=== PATIENT | male | born 1980 | race African-American/Black ===

== ENCOUNTER 2016-04-03 00:13 | Emergency (ER) | payer MEDICAID ==
[~2016-04-03] VITALS: Ht 175.3 cm; Wt 127.0 kg
[~2016-04-03 00:13] MED LIST: ?BP MED; ACHD5005 PO; AGM875T PO; CYCL10TA45 PO; GLMP4T PO; HYDR-3816 PO; HYDR25TA4; INSU100C SQ; INSU100I29 SQ; INSU100V5 SQ; LISI-556; LISI10TA2 PO; LISINOPRIL; LOSA50TA36 PO; METF500T4 PO; METO-274 PO; METO100T5 PO; METO25TA6; MTF500T PO; NAPR-243 PO; PAMI30VI8 SQ; SULF1TAB35 PO; [UNRECOGNIZED DRUG - REMARK]
[2016-04-03] MEDS ORDERED: NS IV 1000 ML 1,000 ML ONE (01:12)
[2016-04-03] MEDS ORDERED: METO50TA2 PO (01:13)
[2016-04-03] MEDS ORDERED: LOSA1TAB70 PO (01:13)
[2016-04-03] MEDS ORDERED: NS IV 1000 ML 1,000 ML IV ONE (01:18)
[2016-04-03 01:33] LABS: BILIRUBIN,URINE NEGATIVE (NEGATIVE); KETONES,URINE NEGATIVE (NEGATIVE); LEUKOCYTE ESTERASE ,URINE 3+ (NEGATIVE); NITRITE,URINE NEGATIVE (NEGATIVE); PH,URINE 5 (5-9); PROTEIN,URINE 1+ (NEGATIVE); UROBILINOGEN,URINE NORMAL (NORMAL)
[2016-04-03 01:36] LABS: BASOPHILS % (AUTO) 0 % (0-10); EOSINOPHILS # (AUTO) 0.1 10^3/uL (0.0-0.3); EOSINOPHILS % (AUTO) 1 % (0-10); LYMPHOCYTES # (AUTO) 5.2 X 10^3 (1.0-4.0); LYMPHOCYTES % (AUTO) 46 % (12-44); MEAN CORPUSCULAR HEMOGLOBIN 32 PG (25-34); MEAN CORPUSCULAR HGB CONC 35 G/DL (32-36); MEAN CORPUSCULAR VOLUME 90 FL (80-99); MEAN PLATELET VOLUME 11.5 FL (7.4-10.4); MONOCYTES # (AUTO) 0.8 X 10^3 (0.0-1.0); MONOCYTES % (AUTO) 7 % (0-12); NEUTROPHILS # (AUTO) 5.1 X 10^3 (1.8-7.8); NEUTROPHILS % (AUTO) 46 % (42-75); PLATELET COUNT 311 10^3/uL (130-400); RED BLOOD COUNT 5.12 10^6/uL (4.35-5.85); RED CELL DISTRIBUTION WIDTH 13.7 % (10.0-14.5); WHITE BLOOD COUNT 11.2 10^3/uL (4.3-11.0)
[2016-04-03 01:44] LABS: SQUAMOUS EPITHELIAL CELL,UR 0-2 /HPF; WBC,URINE 25-50 /HPF
[2016-04-03 01:50] LABS: ALANINE AMINOTRANSFERASE 24 U/L (0-55); ALBUMIN 4.2 G/DL (3.2-4.5); AMYLASE 49 U/L (25-125); ANION GAP 14 MMOL/L (5-14); ASPARTATE AMINO TRANSFERASE 25 U/L (5-34); BILIRUBIN,TOTAL 0.2 MG/DL (0.1-1.0); BLOOD UREA NITROGEN 20 MG/DL (7-18); BUN/CREATININE RATIO 16; CALCIUM 9.6 MG/DL (8.5-10.1); CARBON DIOXIDE 19 MMOL/L (21-32); CHLORIDE 104 MMOL/L (98-107); CREATININE SERUM 1.27 MG/DL (0.60-1.30); GFR ESTIMATED > 60; GLUCOSE 226 MG/DL (70-105); MAGNESIUM 1.9 MG/DL (1.8-2.4); POTASSIUM 4.1 MMOL/L (3.6-5.0); SODIUM 137 MMOL/L (135-145); TOTAL PROTEIN 7.3 G/DL (6.4-8.2)
[2016-04-03] MEDS ORDERED: cefTRIAXone INJECTION 1,000 MG in NORMAL SALINE (BAXTER MINI) 50 ML IV ONE (02:15)
--- NOTE | 2016-04-03 02:16 | ED General ---
General Chief Complaint: Abdominal/GI Problems Stated Complaint: ABD PAIN,DIABETES,FELT LIKE PASSING OUT Nursing Triage Note: Amb to ED, reports some feeling of like going to pass out but no syncope. Has not seen [facility] since Jan. Currently has nothing to test blood sugar, oliguria, LLQ abd pain/loose stools worsening after meals and nausea. Pt is out of Pravastatin Nursing Sepsis Screen: No Definite Risk Source of Information: Patient Exam Limitations: No Limitations History of Present Illness Time Seen by Provider: 01:55 Initial Comments Here with report of weakness, increased urination, loose stools and overall not feeling well. He has had this going on for a week. Started with a not feeling well and then noted the increased urination. Also notes that his blood sugars have been a little higher. Does have some abdominal pain in the low abdomen. This is associated with eating and then the diarrhea afterwards. Denies nausea or vomiting. Timing/Duration: 1 Week, Getting Worse Severity: Moderate Associated Systoms: No Chest Pain, No Cough, No Fever/Chills, Loss of AppetiteNo Nausea/Vomiting, No Shortness of Air, Weakness Allergies and Home Medications Allergies Coded Allergies: No Known Drug Allergies (Unverified , 12/06/15) Home Medications Insulin Detemir 100 Unit/1 Ml Insuln.pen 30 UNIT SQ DAILY (Reported) Insulin Lispro 100 Unit/1 Ml Cartridge 10 UNIT SQ TIDAC (Reported) Losartan/Hydrochlorothiazide 1 Each Tablet 1 EACH PO DAILY (Reported) Metoprolol Tartrate 50 Mg Tablet 50 MG PO BID (Reported) Constitutional: see HPINo chills, No fever EENTM: no symptoms reported Respiratory: no symptoms reported Cardiovascular: no symptoms reported Gastrointestinal: see HPINo constipation, diarrhea Genitourinary: see HPI other (increased urination) Musculoskeletal: no symptoms reported Skin: no symptoms reported All Other Systems Reviewed Negative Unless Noted: Yes Past Owobnbt-Tjcovt-Psilpf Hx Patient Social History Alcohol Use: Denies Use Recreational Drug Use: Yes (THC, used 2 days ago) Smoking Status: Current Everyday Smoker Type Used: Cigarettes Recent Foreign Travel: No Contact w/Someone Who Travel: No Recent Infectious Disease Expo: No Recent Hopitalizations: No Physical Abuse Screen: No Sexual Abuse: No Seasonal Allergies Seasonal Allergies: Yes Surgeries HX Surgeries: Yes (REPAIR OF TORN RETINA, RIGHT SHOULDER SURGERY) Surgeries: Eye Surgery Respiratory Hx Respiratory Disorders: No (USED CPAP IN PAST) Respiratory Disorders: Sleep Apnea Cardiovascular Hx Cardiac Disorders: Yes Cardiac Disorders: High Cholesterol, Hypertension Neurological Hx Neurological Disorders: No Neurological Disorders: Headaches /Migraines Genitourinary Hx Genitourinary Disorders: No Gastrointestinal Hx Gastrointestinal Disorders: Yes Gastrointestinal Disorders: Pancreatitis Musculoskeletal Hx Musculoskeletal Disorders: No Endocrine Hx Endocrine Disorders: Yes Endocrine Disorders: Diabetes, Insulin dep HEENT HX ENT Disorders: Yes (TORN RETINA REPAIR. WEARS GLASSES) Cancer Hx Cancer: No Psychosocial Hx Psychiatric Problems: Yes Behavioral Health Disorders: Anxiety Integumentary HX Skin/Integumentary Disorder: No Blood Transfusions Hx Blood Disorders: Yes (SICKLE CELL TRAIT) Reviewed Nursing Assessment Reviewed/Agree w Nursing PMH: Yes Family Medical History Significant Family History: No Pertinent Family Hx, Diabetes Physical Exam Vital Signs Vital Sign - Last 12Hours 04/03/16 00:35 Temp 98.8 Pulse 98 Resp 20 B/P 132/93 Pulse Ox 97 O2 Delivery Room Air Capillary Refill : Less Than 3 Seconds General Appearance: No Apparent Distress WD/WN HEENT: PERRL/EOMI Pharynx Normal Neck: Non Tender Supple Respiratory: Lungs Clear Normal Breath Sounds Cardiovascular: Regular Rate, Rhythm No Murmur Gastrointestinal: Non Tender Soft Back: Normal Inspection No CVA Tenderness No Vertebral Tenderness Extremity: Non Tender No Calf Tenderness Neurologic/Psychiatric: Alert Oriented x3 Skin: Normal Color Warm/Dry Progress/Results/Core Measures Results/Orders Lab Results Laboratory Tests Test 04/03/16 00:50 04/03/16 00:55 04/03/16 01:24 Range/Units Glucometer 208 H 70-110 MG/DL Alanine Aminotransferase (ALT/SGPT) 24 0-55 U/L Albumin 4.2 3.2-4.5 G/DL Alkaline Phosphatase 58 40-136 U/L Amylase Level 49 25-125 U/L Anion Gap 14 5-14 MMOL/L Aspartate Amino Transf (AST/SGOT) 25 5-34 U/L BUN/Creatinine Ratio 16 Basophils # (Auto) 0.0 0.0-0.1 10^3/uL Basophils (%) (Auto) 0 0-10 % Blood Urea Nitrogen 20 H 7-18 MG/DL Calcium Level 9.6 8.5-10.1 MG/DL Carbon Dioxide Level 19 L 21-32 MMOL/L Chloride Level 104 98-107 MMOL/L Creatinine 1.27 0.60-1.30 MG/DL Eosinophils # (Auto) 0.1 0.0-0.3 10^3/uL Eosinophils (%) (Auto) 1 0-10 % Estimat Glomerular Filtration Rate > 60 Glucose Level 226 H 70-105 MG/DL Hematocrit 46 40-54 % Hemoglobin 16.2 13.3-17.7 G/DL Lipase 20 8-78 U/L Lymphocytes # (Auto) 5.2 H 1.0-4.0 X 10^3 Lymphocytes (%) (Auto) 46 H 12-44 % Magnesium Level 1.9 1.8-2.4 MG/DL Mean Corpuscular Hemoglobin 32 25-34 PG Mean Corpuscular Hemoglobin Concent 35 32-36 G/DL Mean Corpuscular Volume 90 80-99 FL Mean Platelet Volume 11.5 H 7.4-10.4 FL Monocytes # (Auto) 0.8 0.0-1.0 X 10^3 Monocytes (%) (Auto) 7 0-12 % Neutrophils # (Auto) 5.1 1.8-7.8 X 10^3 Neutrophils (%) (Auto) 46 42-75 % Platelet Count 311 130-400 10^3/uL Potassium Level 4.1 3.6-5.0 MMOL/L Red Blood Count 5.12 4.35-5.85 10^6/uL Red Cell Distribution Width 13.7 10.0-14.5 % Sodium Level 137 135-145 MMOL/L Total Bilirubin 0.2 0.1-1.0 MG/DL Total Protein 7.3 6.4-8.2 G/DL White Blood Count 11.2 H 4.3-11.0 10^3/uL Urine Bacteria TRACE /HPF Urine Bilirubin NEGATIVE NEGATIVE Urine Casts NONE /LPF Urine Clarity SLIGHTLY CLOUDY Urine Color YELLOW Urine Crystals NONE /LPF Urine Culture Indicated YES Urine Glucose (UA) 3+ H NEGATIVE Urine Ketones NEGATIVE NEGATIVE Urine Leukocyte Esterase 3+ H NEGATIVE Urine Mucus NEGATIVE /LPF Urine Nitrite NEGATIVE NEGATIVE Urine Protein 1+ H NEGATIVE Urine RBC 0-2 /HPF Urine RBC (Auto) 1+ H NEGATIVE Urine Specific G[place]man 1.020 1.016-1.022 Urine Squamous Epithelial Cells 0-2 /HPF Urine Urobilinogen NORMAL NORMAL MG/DL Urine WBC 25-50 H /HPF Urine pH 5 5-9 My Orders Orders-CRISTIAN SHAH MD Amylase (04/03/16 01:18) Cbc With Automated Diff (04/03/16 01:18) Comprehensive Metabolic Panel (04/03/16 01:18) Magnesium (04/03/16 01:18) Ua Culture If Indicated (04/03/16 01:18) Saline Lock/Iv-Start (04/03/16 01:18) Ns Iv 1000 Ml (Sodium Chloride 0.9%) (04/03/16 01:18) Ns Iv 1000 Ml (Sodium Chloride 0.9%) (04/03/16 01:12) Lipase (04/03/16 01:24) Urine Culture (04/03/16 01:24) Rocephin 1g Iv (04/03/16 02:15) Medications Given in ED Current Medications Medications Dose Ordered Sig/Nitesh Route Start Time Stop Time Status Last Admin Dose Admin Sodium Chloride 1,000 ml @ 0 mls/hr Q0M ONCE IV 04/03/16 01:18 04/03/16 01:20 DC 04/03/16 01:22 999 MLS/HR Vital Signs/I&O Vital Sign - Last 12Hours 04/03/16 00:35 Temp 98.8 Pulse 98 Resp 20 B/P 132/93 Pulse Ox 97 O2 Delivery Room Air Blood Pressure Mean: 106 Progress Note : Progress Note Seen and evaluated. IV, labs, normal saline 1 L bolus and UA ordered. Monitor patient. UTI noted. Rocephin 1 g IV ordered. Patient's heart rate is improved with fluids and he feels a little better now. No significant findings on labs otherwise except for blood sugar that is elevated. He has insulin dosing at home and can follow up with the clinic. We will initiate outpatient therapy for his urinary tract infection. Patient does not want to stay in the hospital for possible. We'll try to outpatient therapy with the understanding that he will return if there is any worsening. Patient was in agreement with that plan Departure Impression Impression: Primary Impression: Urinary tract infection Qualified Code: N30.00 - Acute cystitis without hematuria Additional Impressions: Hyperglycemia due to type 2 diabetes mellitus Qualified Code: E11.65 - Type 2 diabetes mellitus with hyperglycemia Diarrhea Qualified Code: R19.7 - Diarrhea, unspecified Disposition: HOME, SELF-CARE Condition: Stable Departure-Patient Inst. Referrals: [facility] (PCP/Family) Primary Care Physician Patient Instructions: Diarrhea in Adolescents and Adults, Hyperglycemia, Adult (DC), Urinary Tract Infection, Adult (DC) Add. Discharge Instructions: All discharge instructions reviewed with patient and/or family. Voiced understanding. Take medications as directed. Drink plenty of fluids. Clear liquid diet for 24 hours and then advance as tolerated. Return for worse pain, fever, vomiting , weakness, breathing problems or other concerns as needed. Scripts Ciprofloxacin HCl 500 Mg [id number] Mg PO BID #14 TAB Prov:CRISTIAN SHAH MD 04/03/16 Copy Copies To 1: LIGIA MONTES TIMOTHY D MD Apr 03, 2016 02:16
[2016-04-03] MEDS ORDERED: CIPR500T4 PO (02:19)
[2016-04-03 04:09] VITALS: BP 126/98
== END 2016-04-03 04:08 | disposition home or self-care (01) ==
LOC: EDUNIT# 00:13 → ER 00:16
DX: N39.0 Urinary tract infection, site not specified (principal); E11.65 Type 2 diabetes mellitus with hyperglycemia; R19.7 Diarrhea, unspecified; I10 Essential (primary) 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; F17.210 Nicotine dependence, cigarettes, uncomplicated; Z79.4 Long term (current) use of insulin
CPT/HCPCS: 36415; 80053; 81000; 82150; 82962; 83690; 83735; 85025; 87088; 96361; 96365

== ENCOUNTER 2016-12-24 20:00 | Outpatient (CLI) | payer MEDICAID ==
[~2016-12-24 20:00] MED LIST changes: +CIPR500T4 PO; +LOSA1TAB70 PO; +METO50TA2 PO
== END 2016-12-25 06:25 | disposition home or self-care (01) ==
LOC: SLEEP 20:00
PROVIDERS: ATTEND Nurse Practitioner Family
DX: G47.33 Obstructive sleep apnea (adult) (pediatric) (principal); I10 Essential (primary) 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
CPT/HCPCS: 95811

== ENCOUNTER 2017-07-12 12:27 | Emergency (ER) | payer MEDICAID ==
[~2017-07-12] VITALS: Ht 175.3 cm; Wt 122.5 kg
[~2017-07-12 12:27] MED LIST changes: +CYCL10TA9 PO; +HYDR-34 PO; -HYDR-3816 PO; +LOSA1TAB23 PO; -LOSA1TAB70 PO; -METF500T4 PO; +METF500T5 PO; -METO-274 PO; +METO-395 PO; +METO50TA15 PO; -METO50TA2 PO
--- NOTE | 2017-07-12 13:28 | ED Neck-Back Pain/Injury ---
General Chief Complaint: Head/Cervical Problems Stated Complaint: NECK PAIN Nursing Triage Note: c/o neck pain x 1 week. Pt has seen in the ER recently for same symptoms but reports no improvement. Nursing Sepsis Screen: No Definite Risk Source of Information: Patient Exam Limitations: No Limitations History of Present Illness Date Seen by Provider: July 12, 2017 Time Seen by Provider: 12:50 Initial Comments Here with complaint of neck pain that has persisted over the last week. Seen on 07 July for the same and states that he's had no improvement. Onset a few days before that. States he woke up with the pain. Pain is bilateral neck and radiates from mid back up to the base of the skull. Does have some tenderness mid C-spine. Denies nausea and vomiting. Does have 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 and diabetes and takes medications for those. He reports that he is taking his high blood pressure medicine as directed. He has appointment at the clinic on 28 July. Denies nausea or vomiting. Pain gets better when his friend rubs his back in the mid back region but the pain related relief does not last. Location: C-Spine Timing/Duration: 1 Week, Constant Severity: Moderate Pain/Injury Location: Neck Associated Symptoms: muscle spasms; No weakness, No numbness in legs/feet, No tingling in legs/feet, No sensory/motor loss, No lower back pain, No loss of bladder control, No loss of bowel control Allergies and Home Medications Allergies Coded Allergies: No Known Drug Allergies (Unverified , 12/06/15) Home Medications Ciprofloxacin HCl 500 Mg Tablet, 500 MG PO BID Prescribed by: CRISTIAN SHAH on 04/03/16 0219 Cyclobenzaprine HCl 10 Mg Tablet, 10 MG PO Q8H PRN for SPASMS Prescribed by: CRISTIAN SHAH on 07/07/17 6208 Hydrocodone Bit/Acetaminophen 1 Tab Tab, 1-2 EACH PO Q6H PRN for PAIN-MODERATE Prescribed by: CRISTIAN SHAH on 07/07/17 5927 Insulin Detemir 100 Unit/1 Ml Insuln.pen, 30 UNIT SQ DAILY, (Reported) Insulin Lispro 100 Unit/1 Ml Cartridge, 10 UNIT SQ TIDAC, (Reported) Losartan/Hydrochlorothiazide 1 Each Tablet, 1 EACH PO DAILY, (Reported) Metoprolol Tartrate 50 Mg Tablet, 50 MG PO BID, (Reported) Patient Home Medication List Home Medication List Reviewed: Yes Constitutional: see HPI; No chills, No fever Respiratory: no symptoms reported Cardiovascular: no symptoms reported Gastrointestinal: no symptoms reported; No nausea, No vomiting Musculoskeletal: see HPI, muscle pain; No muscle weakness; neck pain Skin: no symptoms reported All Other Systems Reviewed Negative Unless Noted: Yes Past Koivtoy-Mnmplg-Jvbede Hx Past Med/Social Hx: Reviewed Nursing Past Med/Soc Hx Patient Social History Alcohol Use: Denies Use Recreational Drug Use: No Smoking Status: Current Everyday Smoker Type Used: Cigarettes Recent Foreign Travel: No Contact w/Someone Who Travel: No Recent Infectious Disease Expo: No Recent Hopitalizations: No Seasonal Allergies Seasonal Allergies: Yes Past Medical History Surgeries: Yes (REPAIR OF TORN RETINA, RIGHT SHOULDER SURGERY) Eye Surgery Respiratory: No (USED CPAP IN PAST) Sleep Apnea Currently Using CPAP: No Cardiac: Yes High Cholesterol, Hypertension Neurological: No Headaches /Migraines Gastrointestinal: Yes Pancreatitis Musculoskeletal: No Endocrine: Yes Diabetes, Insulin dep HEENT: Yes (DETACHED RETINA) Cancer: No Psychosocial: Yes Anxiety Integumentary: No Blood Disorders: Yes (SICKLE CELL TRAIT) Family Medical History Reviewed Nursing Family Hx No Pertinent Family Hx, Diabetes Physical Exam Vital Signs Vital Signs - First Documented 07/12/17 12:52 Temp 98.1 Pulse 70 Resp 16 B/P (MAP) 140/105 (117) Pulse Ox 98 O2 Delivery Room Air Capillary Refill : Less Than 3 Seconds General Appearance: No Apparent Distress, WD/WN Neck: Supple, Tender Lateral, Tender Midline (C3-C4 area) Cardiovascular: Regular Rate, Rhythm, No Murmur Respiratory: Lungs Clear, Normal Breath Sounds Gastrointestinal: Non Tender, Soft Extremity: Normal Range of Motion, Non Tender Neurologic/Psychiatric: Alert, Oriented x3 Skin: Normal Color, Warm/Dry Progress/Results/Core Measures Results/Orders Lab Results Laboratory Tests Test 07/12/17 13:28 Range/Units White Blood Count 9.5 4.3-11.0 10^3/uL Red Blood Count 5.59 4.35-5.85 10^6/uL Hemoglobin 17.0 13.3-17.7 G/DL Hematocrit 50 40-54 % Mean Corpuscular Volume 89 80-99 FL Mean Corpuscular Hemoglobin 30 25-34 PG Mean Corpuscular Hemoglobin Concent 34 32-36 G/DL Red Cell Distribution Width 14.2 10.0-14.5 % Platelet Count 251 130-400 10^3/uL Mean Platelet Volume 10.3 7.4-10.4 FL Neutrophils (%) (Auto) 59 42-75 % Lymphocytes (%) (Auto) 33 12-44 % Monocytes (%) (Auto) 7 0-12 % Eosinophils (%) (Auto) 1 0-10 % Basophils (%) (Auto) 0 0-10 % Neutrophils # (Auto) 5.6 1.8-7.8 X 10^3 Lymphocytes # (Auto) 3.1 1.0-4.0 X 10^3 Monocytes # (Auto) 0.7 0.0-1.0 X 10^3 Eosinophils # (Auto) 0.1 0.0-0.3 10^3/uL Basophils # (Auto) 0.0 0.0-0.1 10^3/uL Sodium Level 137 135-145 MMOL/L Potassium Level 4.4 3.6-5.0 MMOL/L Chloride Level 102 98-107 MMOL/L Carbon Dioxide Level 23 21-32 MMOL/L Anion Gap 12 5-14 MMOL/L Blood Urea Nitrogen 14 7-18 MG/DL Creatinine 1.49 H 0.60-1.30 MG/DL Estimat Glomerular Filtration Rate > 60 BUN/Creatinine Ratio 9 Glucose Level 370 H 70-105 MG/DL Calcium Level 10.0 8.5-10.1 MG/DL C-Reactive Protein High Sensitivity 0.20 0.00-0.50 MG/DL My Orders Orders - CRISTIAN SHAH MD Ct Cervical Spine Wo (07/12/17 12:55) Basic Metabolic Panel (07/12/17 12:57) Cbc With Automated Diff (07/12/17 12:57) Hs C Reactive Protein (07/12/17 12:57) Vital Signs/I&O 07/12/17 12:52 Temp 98.1 Pulse 70 Resp 16 B/P (MAP) 140/105 (117) Pulse Ox 98 O2 Delivery Room Air Blood Pressure Mean: 117 Progress Progress Note : Progress Note Seen and evaluated. Due to repeat visit, we will get CT of the head and also check labs. Monitor patient. 1410: CT and labs reviewed. No significant findings on either except for elevated blood sugar. Mild elevation in serum creatinine. Patient would benefit from nonsteroidal anti-inflammatories or steroids. Given current findings, anti-inflammatories probably will be less of a concern. We will prescribe a small amount of this pending follow-up with the clinic. We also discussed his blood sugars. He will increase his Levemir from 25 units to 28 units twice a day. Discharged home with return precautions. Patient verbalize understanding instructions and agreement with plan. We will send copy of the chart to the clinic. Diagnostic Imaging Diagonstic Imaging: CT Plain Films/CT/US/NM/MRI: c-spine Comments VIA [facility]. [place], [place] NAME: CHANA SANCHEZ [facility] REC#: [id number] PT STATUS: REG ER : 1980 PHYSICIAN: CRISTIAN SHAH MD ADMIT DATE: 07/12/17/ER Draft Date of Exam:07/12/17 CT CERVICAL SPINE WO PROCEDURE: CT cervical spine without contrast. TECHNIQUE: Multiple contiguous axial images were obtained through the cervical spine without the use of intravenous contrast. Sagittal and coronal reformations were then performed. INDICATION: Lower neck pain and bilateral shoulder pain for one week. No known injury. COMPARISON: None. FINDINGS: There is straightening of the cervical lordosis. No spondylolisthesis is seen. No acute fracture or malalignment is identified. No bony fragments or hyperdense fluid collections are seen in the spinal canal. No osseous encroachment of the neural foramina is seen. The prevertebral soft tissues Ae unremarkable. The remainder of the paraspinous soft tissues appear normal. The lung apices appear normal. IMPRESSION: 1. No acute osseous abnormality seen in the cervical spine. No significant osseous encroachment is seen in the neural foramina. Dictated on workstation # [id number] Dict: 07/12/17 1344 Trans: 07/12/17 1357 [id number] Interpreted by: NOLA SMITH MD Electronically signed by: Departure Impression Primary Impression: Neck pain Additional Impression: Uncontrolled diabetes mellitus Qualified Codes: E11.65 - Type 2 diabetes mellitus with hyperglycemia; Z79.4 - retirement (current) use of insulin Disposition: 01 HOME, SELF-CARE Condition: Stable Departure-Patient Inst. Decision time for Depature: 14:21 Referrals: [facility] (PCP) Primary Care Physician JULIO SHAFFER (Family) Primary Care Physician Patient Instructions: Cervical Muscle Strain (DC), Hyperglycemia, Adult (DC), Radiculopathy (DC) Add. Discharge Instructions: All discharge instructions reviewed with patient and/or family. Voiced understanding. Increase your Levemir to 28 units twice daily. Check your blood sugars daily. Record these so that you can discussed this with your primary care provider. Drink plenty of fluids. You may take the pain medication that has been prescribed. If you do not have pain, do not take the medicine. May continue to consider icy hot with lidocaine, Aspercreme with lidocaine or other similar items to use over area of concern to see if this helps with pain. Return for worsening, fever, vomiting, weakness, breathing problems or other concerns as needed. You should call your doctor's office to see if you can move your appointment closer. Scripts Naproxen (Naprosyn) 500 Mg Tablet 500 MG PO BID PRN for PAIN-MILD TO MODERATE, #15 TAB 0 Refills Prov: CRISTIAN SHAH MD 07/12/17 Hydrocodone Bit/Acetaminophen (LORTAB 7.5 MG TABLET) 1 Ea Tablet 1 EACH PO Q6H PRN for PAIN-MODERATE, #10 TAB 0 Refills Prov: CRISTIAN SHAH MD 07/12/17 CRISTIAN SAHH MD July 12, 2017 13:28
[2017-07-12 13:38] LABS: BASOPHILS % (AUTO) 0 % (0-10); EOSINOPHILS # (AUTO) 0.1 10^3/uL (0.0-0.3); EOSINOPHILS % (AUTO) 1 % (0-10); HEMATOCRIT 50 % (40-54); LYMPHOCYTES # (AUTO) 3.1 X 10^3 (1.0-4.0); LYMPHOCYTES % (AUTO) 33 % (12-44); MEAN CORPUSCULAR HEMOGLOBIN 30 PG (25-34); MEAN CORPUSCULAR HGB CONC 34 G/DL (32-36); MEAN CORPUSCULAR VOLUME 89 FL (80-99); MEAN PLATELET VOLUME 10.3 FL (7.4-10.4); MONOCYTES # (AUTO) 0.7 X 10^3 (0.0-1.0); MONOCYTES % (AUTO) 7 % (0-12); NEUTROPHILS # (AUTO) 5.6 X 10^3 (1.8-7.8); NEUTROPHILS % (AUTO) 59 % (42-75); PLATELET COUNT 251 10^3/uL (130-400); RED BLOOD COUNT 5.59 10^6/uL (4.35-5.85); RED CELL DISTRIBUTION WIDTH 14.2 % (10.0-14.5); WHITE BLOOD COUNT 9.5 10^3/uL (4.3-11.0)
[2017-07-12 13:54] LABS: CARBON DIOXIDE 23 MMOL/L (21-32); CHLORIDE 102 MMOL/L (98-107); CREATININE SERUM 1.49 MG/DL (0.60-1.30); POTASSIUM 4.4 MMOL/L (3.6-5.0); SODIUM 137 MMOL/L (135-145)
[2017-07-12 13:55] LABS: BUN/CREATININE RATIO 9; GFR ESTIMATED > 60; GLUCOSE 370 MG/DL (70-105)
--- NOTE | 2017-07-12 13:55 | Diagnostic Imaging Report ---
PROCEDURE: CT cervical spine without contrast. TECHNIQUE: Multiple contiguous axial images were obtained through the cervical spine without the use of intravenous contrast. Sagittal and coronal reformations were then performed. INDICATION: Lower neck pain and bilateral shoulder pain for one week. No known injury. COMPARISON: None. FINDINGS: There is straightening of the cervical lordosis. No spondylolisthesis is seen. No acute fracture or malalignment is identified. No bony fragments or hyperdense fluid collections are seen in the spinal canal. No osseous encroachment of the neural foramina is seen. The prevertebral soft tissues Ae unremarkable. The remainder of the paraspinous soft tissues appear normal. The lung apices appear normal. IMPRESSION: 1. No acute osseous abnormality seen in the cervical spine. No significant osseous encroachment is seen in the neural foramina. Dictated by: Dictated on workstation # [id number]
[2017-07-12] MEDS ORDERED: HYDR-34 PO (14:26)
[2017-07-12] MEDS ORDERED: NAPR-1071 PO (14:26)
[2017-07-12 14:30] VITALS: BP 138/94
== END 2017-07-12 14:30 | disposition home or self-care (01) ==
LOC: EDUNIT# 12:27 → ER 12:28
DX: M54.2 Cervicalgia (principal); E11.9 Type 2 diabetes mellitus without complications; I10 Essential (primary) 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; F41.9 Anxiety disorder, unspecified; G43.909 Migraine, unspecified, not intractable, without status migrainosus; F17.210 Nicotine dependence, cigarettes, uncomplicated; Z87.19 Personal history of other diseases of the digestive system; Z79.4 Long term (current) use of insulin
CPT/HCPCS: 36415; 72125; 80048; 85025; 86141

== ENCOUNTER 2018-06-18 16:53 | Inpatient (IN) | payer SELFPAY ==
[~2018-06-18] VITALS: Ht 177.8 cm; Wt 115.2 kg
[~2018-06-18 16:53] MED LIST changes: -LOSA50TA36 PO; +LOSA50TA63 PO; +METF-397 PO; -METF500T5 PO; +NAPR-1071 PO
--- NOTE | 2018-06-18 17:27 | ED General ---
General Chief Complaint: Fever-Adult/Adol Stated Complaint: CHILLS,BODYACHES Source of Information: Patient, Family Exam Limitations: No Limitations (MARK ALDANA MD) History of Present Illness Date Seen by Provider: Jun 18, 2018 Time Seen by Provider: 17:23 Initial Comments This is a 38-year-old black male presents with chills, body aches, fever, and right flank pain that has been present for the last 24 hours. Patient is a newly discovered diabetic. He was hospitalized recently [facility] for his diabetes and placed on insulin. Patient relates that his subsequent control of his blood sugars have been marginal at best. He denies associated headache, stiff neck, photophobia, productive cough or shortness of breath, palpitations or chest pain, nausea vomiting or diarrhea. Patient relates that he is having the sensation of a rectal prolapse. (MARK ALDANA MD) Allergies and Home Medications Allergies Coded Allergies: No Known Drug Allergies (Unverified , 12/06/15) Home Medications Ciprofloxacin HCl 500 Mg Tablet, 500 MG PO BID Prescribed by: CRISTIAN SHAH on 04/03/16 0219 Cyclobenzaprine HCl 10 Mg Tablet, 10 MG PO Q8H PRN for SPASMS Prescribed by: CRISTIAN SHAH on 07/07/17 2335 Hydrocodone Bit/Acetaminophen 1 Tab Tab, 1-2 EACH PO Q6H PRN for PAIN-MODERATE Prescribed by: CRISTIAN SHAH on 07/07/17 2335 Hydrocodone Bit/Acetaminophen 1 Ea Tablet, 1 EACH PO Q6H PRN for PAIN-MODERATE Prescribed by: CRISTIAN SHAH on 07/12/17 1426 Insulin Detemir 100 Unit/1 Ml Insuln.pen, 30 UNIT SQ DAILY, (Reported) Insulin Lispro 100 Unit/1 Ml Cartridge, 10 UNIT SQ TIDAC, (Reported) Losartan/Hydrochlorothiazide 1 Each Tablet, 1 EACH PO DAILY, (Reported) Metoprolol Tartrate 50 Mg Tablet, 50 MG PO BID, (Reported) Naproxen 500 Mg Tablet, 500 MG PO BID PRN for PAIN-MILD TO MODERATE Prescribed by: CRISTIAN SHAH on 07/12/17 1426 Patient Home Medication List Home Medication List Reviewed: Yes (MARK ALDANA MD) Review of Systems Review of Systems Constitutional: see HPI, chills, fever, malaise EENTM: No ear pain, No vision loss Respiratory: No cough Cardiovascular: No chest pain Gastrointestinal: No diarrhea, No vomiting Genitourinary: see HPI, pain (right flank) Musculoskeletal: back pain (and the right flank) Skin: No change in color, No rash Psychiatric/Neurological: No Symptoms Reported Hematologic/Lymphatic: No Symptoms Reported Immunological/Allergic: no symptoms reported (MARK ALDANA MD) Past Tjtarwz-Befbjf-Gzlycf Hx Past Med/Social Hx: Reviewed Nursing Past Med/Soc Hx (MARK ALDANA MD) Patient Social History Type Used: Cigarettes Recent Foreign Travel: No Contact w/Someone Who Travel: No Recent Hopitalizations: No (MARK ALDANA MD) Seasonal Allergies Seasonal Allergies: Yes (MARK ALDANA MD) Past Medical History Surgeries: Yes (REPAIR OF TORN RETINA, RIGHT SHOULDER SURGERY) Eye Surgery Respiratory: No (USED CPAP IN PAST) Sleep Apnea Currently Using CPAP: No Cardiac: Yes High Cholesterol, Hypertension Neurological: No Headaches /Migraines Gastrointestinal: Yes Pancreatitis Musculoskeletal: No Endocrine: Yes Diabetes, Insulin dep HEENT: Yes (DETACHED RETINA) Cancer: No Psychosocial: Yes Anxiety Integumentary: No Blood Disorders: Yes (SICKLE CELL TRAIT) (MARK ALDANA MD) Family Medical History No Pertinent Family Hx, Diabetes (MARK ALDANA MD) Physical Exam-Suspected Sepsis Physical Exam Vital Signs Vital Signs - First Documented 06/18/18 17:17 Temp 103.5 Pulse 134 Resp 28 B/P (MAP) 147/117 (127) Pulse Ox 97 O2 Delivery Room Air (MONSERRAT MARIN) Vital Signs Capillary Refill : (MARK ALDANA MD) Height, Weight, BMI Height: 5'9.00" Weight: 270lbs. 1.0oz. 122.232790cr; 46.59 BMI Method:Stated General Appearance: WD/WN, Mild Distress Eyes: Bilateral Eye Normal Inspection HEENT: Normal ENT Inspection Neck: Normal Inspection, Supple Respiratory: Lungs Clear Cardiovascular: Regular Rate, Rhythm, No Murmur Gastrointestinal: Normal Bowel Sounds Back: Normal Inspection Extremity: Normal Inspection, Non Tender Neurologic/Psychiatric: Alert, No Motor/Sensory Deficits Skin: diaphoresis (MARK ALDANA MD) Focused Exam Lactate Level 4/11/19 17:18: Lactic Acid Level 1.45 (MONSERRAT MARIN) Lactic Acid Level (MONSERRAT MARIN) Procedures/Interventions Discussed Risk,Benefits: Yes Patient Consents: Yes Position: Lying, L4-5, Right Sterile Technique: Yes Size of Disposal Tray Used: Adult multiple attempts asked anesthesia to make an attempt (MONSERRAT MARIN) Progress/Results/Core Measures Suspected Sepsis SIRS Temperature: Pulse: Respiratory Rate: Blood Pressure / Mean: (MARK ALDANA MD) Results/Orders Lab Results Laboratory Tests Test 06/18/18 17:17 06/18/18 17:18 06/18/18 17:28 06/18/18 17:46 Range/Units Glucometer 275 H 70-110 MG/DL White Blood Count 9.1 4.3-11.0 10^3/uL Red Blood Count 5.58 4.35-5.85 10^6/uL Hemoglobin 17.1 13.3-17.7 G/DL Hematocrit 48 40-54 % Mean Corpuscular Volume 86 80-99 FL Mean Corpuscular Hemoglobin 31 25-34 PG Mean Corpuscular Hemoglobin Concent 36 32-36 G/DL Red Cell Distribution Width 14.5 10.0-14.5 % Platelet Count 224 130-400 10^3/uL Mean Platelet Volume 10.8 H 7.4-10.4 FL Neutrophils (%) (Auto) 86 H 42-75 % Lymphocytes (%) (Auto) 5 L 12-44 % Monocytes (%) (Auto) 8 0-12 % Eosinophils (%) (Auto) 0 0-10 % Basophils (%) (Auto) 0 0-10 % Neutrophils # (Auto) 7.8 1.8-7.8 X 10^3 Lymphocytes # (Auto) 0.5 L 1.0-4.0 X 10^3 Monocytes # (Auto) 0.8 0.0-1.0 X 10^3 Eosinophils # (Auto) 0.0 0.0-0.3 10^3/uL Basophils # (Auto) 0.0 0.0-0.1 10^3/uL Neutrophils % (Manual) 88 % Lymphocytes % (Manual) 4 % Monocytes % (Manual) 4 % Band Neutrophils 4 % Toxic Granulation 2+ Dohle Bodies MODERATE Blood Morphology Comment NORMAL Prothrombin Time 14.1 12.2-14.7 SEC INR Comment 1.1 0.8-1.4 Activated Partial Thromboplast Time 31 24-35 SEC Sodium Level 129 L 135-145 MMOL/L Potassium Level 3.9 3.6-5.0 MMOL/L Chloride Level 99 98-107 MMOL/L Carbon Dioxide Level 20 L 21-32 MMOL/L Anion Gap 10 5-14 MMOL/L Blood Urea Nitrogen 13 7-18 MG/DL Creatinine 1.46 H 0.60-1.30 MG/DL Estimat Glomerular Filtration Rate > 60 BUN/Creatinine Ratio 9 Glucose Level 321 H 70-105 MG/DL Lactic Acid Level 1.45 0.50-2.00 MMOL/L Calcium Level 9.4 8.5-10.1 MG/DL Corrected Calcium 9.2 8.5-10.1 MG/DL Total Bilirubin 0.8 0.1-1.0 MG/DL Aspartate Amino Transf (AST/SGOT) 19 5-34 U/L Alanine Aminotransferase (ALT/SGPT) 17 0-55 U/L Alkaline Phosphatase 59 40-136 U/L C-Reactive Protein High Sensitivity 3.97 H 0.00-0.50 MG/DL Total Protein 7.4 6.4-8.2 GM/DL Albumin 4.3 3.2-4.5 GM/DL Blood Gas Puncture Site LEFT RADIAL Blood Gas Patient Temperature 103.0 Arterial Blood pH 7.45 H 7.37-7.43 Arterial Blood Partial Pressure CO2 29 L 35-45 MMHG Arterial Blood Partial Pressure O2 73 L 79-93 MMHG Arterial Blood HCO3 19 L 23-27 MMOL/L Arterial Blood Total CO2 19.9 L 21.0-31.0 MMOL/L Arterial Blood Oxygen Saturation 94 94-100 % Arterial Blood Base Excess -3.7 L -2.5-2.5 MMOL/L Obi Test POSITIVE Blood Gas Ventilator Setting NO Blood Gas Inspired Oxygen N/A Urine Color YELLOW Urine Clarity CLEAR Urine pH 5 5-9 Urine Specific [place] 1.020 1.016-1.022 Urine Protein 3+ H NEGATIVE Urine Glucose (UA) 4+ H NEGATIVE Urine Ketones 1+ H NEGATIVE Urine Nitrite NEGATIVE NEGATIVE Urine Bilirubin NEGATIVE NEGATIVE Urine Urobilinogen NORMAL NORMAL MG/DL Urine Leukocyte Esterase NEGATIVE NEGATIVE Urine RBC (Auto) 1+ H NEGATIVE Urine RBC 0-2 /HPF Urine WBC NONE /HPF Urine Squamous Epithelial Cells 2-5 /HPF Urine Crystals NONE /LPF Urine Bacteria NEGATIVE /HPF Urine Casts NONE /LPF Urine Mucus NEGATIVE /LPF Urine Culture Indicated NO Urine Opiates Screen NEGATIVE NEGATIVE Urine Oxycodone Screen NEGATIVE NEGATIVE Urine Methadone Screen NEGATIVE NEGATIVE Urine Propoxyphene Screen NEGATIVE NEGATIVE Urine Barbiturates Screen NEGATIVE NEGATIVE Ur Tricyclic Antidepressants Screen NEGATIVE NEGATIVE Urine Phencyclidine Screen NEGATIVE NEGATIVE Urine Amphetamines Screen POSITIVE H NEGATIVE Urine Methamphetamines Screen NEGATIVE NEGATIVE Urine Benzodiazepines Screen NEGATIVE NEGATIVE Urine Cocaine Screen NEGATIVE NEGATIVE Urine Cannabinoids Screen POSITIVE H NEGATIVE Test 06/18/18 19:31 06/18/18 20:47 06/18/18 21:46 Range/Units CSF Tube Number 4 CSF Appearance CLEAR CSF Color COLORLESS CSF WBC 1 0-5 CELLS CSF RBC 1 H 0-0 CELLS CSF Lymphocytes % CSF Mononuclear WBCs % CSF Polynuclear WBCs % CSF Glucose 142 H 50-80 MG/DL CSF Total Protein 52 H 15-40 MG/DL Glucometer 245 H 70-110 MG/DL (MONSERRAT MARIN) Micro Results Microbiology 06/18/18 Influenza Types A,B Antigen (AXEL) - Final, Complete (MONSERRAT MARIN) My Orders Orders - MONSERRAT MARIN Sputum Culture (06/18/18 18:14) Protime With Inr (06/18/18 18:14) Partial Thromboplastin Time (06/18/18 18:14) Ed Iv/Invasive Line Start (06/18/18 18:14) Vital Signs Adult Sepsis Patie Q15M (06/18/18 18:14) Remove Rings In Anticipation O (06/18/18 18:14) Influenza A And B Antigens (06/18/18 18:14) Ns Iv 1000 Ml (Sodium Chloride 0.9%) (06/18/18 18:14) Ceftriaxone For Iv Use (Rocephin For I (06/18/18 18:15) Ketorolac Injection (Toradol Injection) (06/18/18 18:30) Csf Culture (06/18/18 19:01) Csf Cell Count (06/18/18 19:01) Csf Glucose (06/18/18 19:01) Csf Total Protein (06/18/18 19:01) Hs C Reactive Protein (06/18/18 19:05) Drug Screen Stat (Urine) (06/18/18 19:05) Neis Andreas Dna Urine Test (06/18/18 19:05) Chlamydia Trachomatis Urine (06/18/18 19:05) Syphilis Antibody Screen (06/18/18 19:05) Hiv 1&2 Antibody (06/18/18 19:05) Fentanyl Injection (Sublimaze Injection (06/18/18 19:15) Lidocaine 1% Inj 20 Ml (Xylocaine 1% Inj (06/18/18 19:41) Accucheck Stat ONCE (06/18/18 21:36) Ceftriaxone For Iv Use (Rocephin For I (06/18/18 21:34) Water (Sterile) For Injection (Sterile W (06/18/18 21:34) Insulin Aspart (Novolog) (Novolog (Charg (06/18/18 22:00) (MONSERRAT MARIN) Medications Given in ED Current Medications Medications Dose Ordered Sig/Nitesh Route Start Time Stop Time Status Last Admin Dose Admin Acetaminophen 1,000 mg ONCE ONCE PO 06/18/18 17:30 06/18/18 17:31 DC 06/18/18 17:31 1,000 MG Ceftriaxone Sodium 2000 mg/ Sterile Water 20 ml @ 240 mls/hr ONCE ONCE IV 06/18/18 18:15 06/18/18 18:22 DC 06/18/18 21:41 240 MLS/HR Fentanyl Citrate 75 mcg ONCE ONCE IVP 06/18/18 19:15 06/18/18 19:16 DC 06/18/18 19:27 75 MCG Insulin Aspart 10 unit ONCE ONCE SC 06/18/18 22:00 06/18/18 22:01 DC 06/18/18 21:57 10 UNIT Ketorolac Tromethamine 30 mg ONCE ONCE IVP 06/18/18 18:30 06/18/18 18:31 DC 06/18/18 18:26 30 MG Lidocaine HCl 20 ml STK-MED ONCE .ROUTE 06/18/18 19:41 06/18/18 19:45 DC 06/18/18 20:00 6 ML (MONSERRAT MARIN) Vital Signs/I&O 06/18/18 06/18/18 17:17 17:31 Temp 103.5 103.5 Pulse 134 Resp 28 B/P (MAP) 147/117 (127) Pulse Ox 97 O2 Delivery Room Air (MONSERRAT MARIN) Vital Signs/I&O Capillary Refill : (MARK ALDANA MD) Progress Note #1: Time: 18:50 Progress Note Patient is sweating with a fever and tachycardia. We will ordered septic order set with ideal body weight of 88 kg we did 2 L which would be over 20 mL/kg. Her getting a CT of his abdomen and pelvis without the past looking for the possibility of a kidney stone that might be blocking off his ureter and hiding pyelo-. If it is not positive then the next step would be to obtain a lumbar puncture. Then we'll give 2 g of Rocephin which would cover for urinary or respiratory or meningitis. Progress Note #2: Time: 21:01 Progress Note Anesthesia was able to gain access with a 22-gauge 5 inch spinal needle and got 17 cm opening pressure. Crystal-clear Spencer tap. (MONSERRAT MARIN) Diagnostic Imaging Diagonstic Imaging: Xray Plain Films/CT/US/NM/MRI: chest (1v) Comments [facility] [place], [place] NAME: CHANA SANCHEZ [facility] REC#: [id number] PT STATUS: REG ER : 1980 PHYSICIAN: MARK ALDANA MD ADMIT DATE: 06/18/18/ER Draft Date of Exam:06/18/18 CHEST PA/LAT (2 VIEW) INDICATION: Body aches, chills, frequent urination since yesterday. FINDINGS: Two views of the chest are unchanged since 2014. Lungs are clear. The heart, mediastinum, and pulmonary vascularity are normal. IMPRESSION: Normal chest. Dictated on workstation # [id number] Dict: 06/18/18 1758 Trans: 06/18/18 1801 [facility] [id number] Interpreted by: HARSHIL KHANNA MD Electronically signed by: Reviewed: Reviewed by Me Diagonstic Imaging: CT (non-contrast kidney stone study) Plain Films/CT/US/NM/MRI: abdomen, pelvis Comments No evidence of kidney stone. Appendix is visualized without any inflammatory changes. NAME: CHANA SANCHEZ MED REC#: [id number] PHYSICIAN: MARK ALDANA MD CC: MARK ALDANA MD; PRINCESS TANG MD Page 2 of 2 RADIOLOGY REPORT [facility]. [place], [place] CC: MARK ALDANA MD; PRINCESS TANG MD Page 1 of 2 RADIOLOGY REPORT NAME: CHANA SANCHEZ [facility] REC#: [id number] PT STATUS: REG ER : 1980 PHYSICIAN: MARK ALDANA MD ADMIT DATE: 06/18/18/ER Signed Date of Exam: 06/18/18 CT ABD/PELVIS WO(KIDNEY STONE) EXAMINATION: CT abdomen and pelvis without contrast, 06/18/2018. TECHNIQUE: Multiple contiguous axial images were obtained through the abdomen and pelvis without the use of intravenous contrast. Auto Exposure Controls were utilized during the CT exam to meet ALARA standards for radiation dose reduction. INDICATION: Body aches and chills. Frequent urination since yesterday. Hematuria. No prior history of stones. COMPARISON: 09/28/2014. FINDINGS: Mild fat stranding is seen about both kidneys. On the left, there is a vague hypodensity noted within the peripheral lateral aspect of the mid left kidney, which is nonspecific. An underlying lesion is difficult to exclude without contrast. This could be due to an inflammatory etiology as well. No measurable masses appreciated. No nephrolithiasis. Smaller hypodensities throughout the left kidney are also seen and poorly characterized. No hydronephrosis is seen. The right ureter is unremarkable with no stones appreciated. There is no hydronephrosis on the right. The remaining abdominal viscera limited by the lack of contrast, but no gross acute abnormality is appreciated involving the liver, gallbladder, pancreas, or spleen. Adrenal glands are unremarkable. No ascites or free air. There is no lymphadenopathy. Diverticulosis noted without evidence for diverticulitis. Nonspecific calcifications in the pelvis anteriorly are noted perhaps due to an old infectious etiology. Appendix is unremarkable. No acute osseous abnormality. IMPRESSION: 1. Mild fat stranding about both kidneys with no obstructive stones or lesions appreciated on either side and no hydronephrosis. This would suggest possible pyelonephritis; correlation with symptoms and urinalysis recommended. The urinary bladder, not mentioned above, is underdistended, therefore difficult to evaluate. 2. Possible low-density lesions in the left kidney, limited in evaluation due to the lack of contrast; see above description. Followup with nonemergent sonography may be useful. Other findings as above. Dictated by: Dictated on workstation # [id number] Dict: 06/18/188 Trans: 06/18/181911 Interpreted by: PRINCESS TANG MD Electronically signed by: PRINCESS TANG MD 06/18/181911 Reviewed: Reviewed by Me (MONSERRAT MARIN) Departure Communication (Admissions) Time/Spoke to Admitting Phy: 22:05 Discussed the case with Dr. Cooley and she agrees with admission to the floor. She agrees with Rocephin 2 g IV every 24 hours and she would like to make sure he gets his Levemir. (MONSERRAT MARIN) Impression Primary Impression: Sepsis Qualified Codes: A41.9 - Sepsis, unspecified organism Additional Impression: Pyelonephritis Disposition: ADMITTED INPATIENT Condition: Stable Admissions Decision to Admit Reason: Admit from ER (General) Decision to Admit/Date: Jun 18, 2018 Time/Decision to Admit Time: 21:59 (MONSERRAT MARIN) Departure-Patient Inst. Referrals: [facility] [place]) Primary Care Physician AMBREEN MUÑOZ APRN (Family) Primary Care Physician MARK ALDANA MD Jun 18, 2018 17:27 MONSERRAT MARIN Jun 18, 2018 18:55
[2018-06-18 17:28] LABS: BASOPHILS % (AUTO) 0 % (0-10); EOSINOPHILS % (AUTO) 0 % (0-10); HEMATOCRIT 48 % (40-54); HEMOGLOBIN 17.1 G/DL (13.3-17.7); LYMPHOCYTES # (AUTO) 0.5 X 10^3 (1.0-4.0); LYMPHOCYTES % (AUTO) 5 % (12-44); MEAN CORPUSCULAR HEMOGLOBIN 31 PG (25-34); MEAN CORPUSCULAR HGB CONC 36 G/DL (32-36); MEAN CORPUSCULAR VOLUME 86 FL (80-99); MEAN PLATELET VOLUME 10.8 FL (7.4-10.4); MONOCYTES # (AUTO) 0.8 X 10^3 (0.0-1.0); MONOCYTES % (AUTO) 8 % (0-12); NEUTROPHILS # (AUTO) 7.8 X 10^3 (1.8-7.8); NEUTROPHILS % (AUTO) 86 % (42-75); PLATELET COUNT 224 10^3/uL (130-400); RED CELL DISTRIBUTION WIDTH 14.5 % (10.0-14.5); WHITE BLOOD COUNT 9.1 10^3/uL (4.3-11.0)
[2018-06-18] MEDS ORDERED: ACETAMINOPHEN 500 MG TAB (TYLENOL) PO ONE (17:30)
[2018-06-18] MEDS ORDERED: NS IV 1000 ML 1,000 ML IV SCH ×2 (17:30→18:14)
[2018-06-18 17:32] LABS: ABG BASE EXCESS -3.7 MMOL/L (-2.5-2.5); ABG OXYGEN SATURATION 94 % (94-100); ABG PCO2 29 MMHG (35-45); ABG PH 7.45 (7.37-7.43); ABG PO2 73 MMHG (79-93); ABG TCO2 19.9 MMOL/L (21.0-31.0)
[2018-06-18 17:33] LABS: ALLENS TEST POSITIVE
[2018-06-18 17:34] LABS: VENTILATOR NO
[2018-06-18 17:46] LABS: ALANINE AMINOTRANSFERASE 17 U/L (0-55); ALBUMIN 4.3 GM/DL (3.2-4.5); ALKALINE PHOSPHATASE 59 U/L (40-136); BILIRUBIN,TOTAL 0.8 MG/DL (0.1-1.0); BUN/CREATININE RATIO 9; CALCIUM 9.4 MG/DL (8.5-10.1); CARBON DIOXIDE 20 MMOL/L (21-32); CHLORIDE 99 MMOL/L (98-107); CREATININE SERUM 1.46 MG/DL (0.60-1.30); GFR ESTIMATED > 60; GLUCOSE 321 MG/DL (70-105); POTASSIUM 3.9 MMOL/L (3.6-5.0); SODIUM 129 MMOL/L (135-145); TOTAL PROTEIN 7.4 GM/DL (6.4-8.2)
[2018-06-18 17:49] LABS: BAND NEUTROPHILS 4 %; LYMPHOCYTES % (MANUAL) 4 %; MONOCYTES % (MANUAL) 4 %; NEUTROPHILS % (MANUAL) 88 %
[2018-06-18 17:50] LABS: RBC MORPH NORMAL; TOXIC GRANULATION/VACUOLAZATIO 2+
[2018-06-18 17:51] LABS: BILIRUBIN,URINE NEGATIVE (NEGATIVE); CLARITY,URINE CLEAR; COLOR,URINE YELLOW; GLUCOSE, URINE (UA) 4+ (NEGATIVE); KETONES,URINE 1+ (NEGATIVE); LEUKOCYTE ESTERASE ,URINE NEGATIVE (NEGATIVE); NITRITE,URINE NEGATIVE (NEGATIVE); PH,URINE 5 (5-9); PROTEIN,URINE 3+ (NEGATIVE); UROBILINOGEN,URINE NORMAL (NORMAL)
[2018-06-18 17:59] LABS: BACTERIA,URINE NEGATIVE /HPF; RBC,URINE 0-2 /HPF
--- NOTE | 2018-06-18 18:02 | Diagnostic Imaging Report ---
INDICATION: Body aches, chills, frequent urination since yesterday. FINDINGS: Two views of the chest are unchanged since 2015. Lungs are clear. The heart, mediastinum, and pulmonary vascularity are normal. IMPRESSION: Normal chest. Dictated by: Dictated on workstation # [id number]
[2018-06-18] MEDS ORDERED: cefTRIAXone FOR IV USE 2,000 MG in WATER (STERILE) FOR INJECTION 20 ML IV ONE (18:15)
[2018-06-18] MEDS ORDERED: KETOROLAC 30 MG/ML VIAL IVP ONE (18:30)
[2018-06-18 18:32] LABS: INR 1.1 (0.8-1.4); PROTHROMBIN TIME PATIENT 14.1 SEC (12.2-14.7)
--- NOTE | 2018-06-18 19:04 | Diagnostic Imaging Report ---
EXAMINATION: CT abdomen and pelvis without contrast, 06/18/2018. TECHNIQUE: Multiple contiguous axial images were obtained through the abdomen and pelvis without the use of intravenous contrast. Auto Exposure Controls were utilized during the CT exam to meet ALARA standards for radiation dose reduction. INDICATION: Body aches and chills. Frequent urination since yesterday. Hematuria. No prior history of stones. COMPARISON: 09/28/2014. FINDINGS: Mild fat stranding is seen about both kidneys. On the left, there is a vague hypodensity noted within the peripheral lateral aspect of the mid left kidney, which is nonspecific. An underlying lesion is difficult to exclude without contrast. This could be due to an inflammatory etiology as well. No measurable masses appreciated. No nephrolithiasis. Smaller hypodensities throughout the left kidney are also seen and poorly characterized. No hydronephrosis is seen. The right ureter is unremarkable with no stones appreciated. There is no hydronephrosis on the right. The remaining abdominal viscera limited by the lack of contrast, but no gross acute abnormality is appreciated involving the liver, gallbladder, pancreas, or spleen. Adrenal glands are unremarkable. No ascites or free air. There is no lymphadenopathy. Diverticulosis noted without evidence for diverticulitis. Nonspecific calcifications in the pelvis anteriorly are noted perhaps due to an old infectious etiology. Appendix is unremarkable. No acute osseous abnormality. IMPRESSION: 1. Mild fat stranding about both kidneys with no obstructive stones or lesions appreciated on either side and no hydronephrosis. This would suggest possible pyelonephritis; correlation with symptoms and urinalysis recommended. The urinary bladder, not mentioned above, is underdistended, therefore difficult to evaluate. 2. Possible low-density lesions in the left kidney, limited in evaluation due to the lack of contrast; see above description. Followup with nonemergent sonography may be useful. Other findings as above. Dictated by: Dictated on workstation # [id number]
[2018-06-18] MEDS ORDERED: fentaNYL INJECTION 100 MCG/2 ML AMP IVP ONE (19:15)
[2018-06-18 19:37] LABS: AMPHETAMINE SCREEN, URINE POSITIVE (NEGATIVE); BARBITURATE SCREEN URINE NEGATIVE (NEGATIVE); BENZODIAZEPINES SCREEN URINE NEGATIVE (NEGATIVE); CANNABINOID SCREEN, URINE POSITIVE (NEGATIVE); COCAINE SCREEN URINE NEGATIVE (NEGATIVE); METHADONE STAT NEGATIVE (NEGATIVE); METHAMPHETAMINE SCREEN URINE S NEGATIVE (NEGATIVE); OPIATE SCREEN URINE NEGATIVE (NEGATIVE); OXYCODONE STAT NEGATIVE (NEGATIVE); PROPOXYPHENE STAT NEGATIVE (NEGATIVE); TRICYCLIC ANTIDEPRESSANTS SCRE NEGATIVE (NEGATIVE)
[2018-06-18] MEDS ORDERED: LIDOCAINE 1% INJ 20 ML 20 ML VIAL ONE (19:41)
--- OUTSIDE RECORDS SUMMARY | 2018-06-18 20:11 | XMS REPORT ---
Author Author AMBREEN MUÑOZ [facility] Address [address] [place] [address] Care Team Providers Care Knitter Mechanic Name Role Phone AMBREEN MUÑOZ Unavailable PROBLEMS Type Condition ICD9-CM Code EGO29-IC Code Onset Dates Condition Status SNOMED Code Problem History of pancreatitis Z87.19 Active 40066756085050 Problem Mixed hyperlipidemia E78.2 Active 503707895 Problem Noncompliance with medication regimen Z91.14 Active 825330473 Problem 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 I10 Active 56427188 Problem MCFP 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 Active 057129006 Problem Diabetes E11.9 Active 085065988 Problem Carpal tunnel syndrome on both sides G56.03 Active 04696081679223820 Problem Type 2 diabetes mellitus with hyperglycemia E11.65 Active 83163889 Problem CHEIKH (obstructive sleep apnea) G47.33 Active 94225789 Problem Erectile dysfunction due to diseases classified elsewhere N52.1 Active 765902045 Problem Tobacco abuse Z72.0 Active 952235270 ALLERGIES No Information ENCOUNTERS Encounter Location Date Diagnosis [facility] [address] [address] Dec, Diabetes E11.9 [facility] [address] [address] Dec, [facility] [address] [address] Dec, Diabetes E11.9 and Encounter for immunization Z23 [facility] [address] [address] Nov, Upper respiratory tract infection, unspecified type J06.9 and Nasal congestion with rhinorrhea J34.89 [facility] [address] [address] Sep, [place] [id number] [place] [address] 98431- 5336 Sep, Type 2 diabetes mellitus with hyperglycemia E11.65 ; 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 ; Pain of left hand M79.642 ; Pain in right hand M79.641 ; Carpal tunnel syndrome on both sides G56.03 and Thumb tendonitis M77.8 [place] [address] [place] [id number] [place] [address] 86763- 0608 Sep, Type 2 diabetes mellitus with hyperglycemia E11.65 [place] [address] [place] [id number] [place] [address] 10105- 3852 Sep, Type 2 diabetes mellitus with hyperglycemia E11.65 [place] [address] [place] [id number] [place] [address] 97083- 6516 Sep, Type 2 diabetes mellitus with hyperglycemia E11.65 [place] [address] [place] [id number] [place] [address] 29588- 9364 July, Type 2 diabetes mellitus with hyperglycemia E11.65 ; URI, acute J06.9 and Neck pain, acute M54.2 [place] [address] [place] [id number] [place] [address] 60469- 1066 Jun, [place] [address] [place] [id number] [place] [address] 80813- 6165 Apr, [place] [address] [place] [id number] [place] [address] 89485- 9039 Mar, Type 2 diabetes mellitus with hyperglycemia E11.65 ; MCFP 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 ; 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 I10 ; Mixed hyperlipidemia E78.2 ; Noncompliance with medication regimen Z91.14 ; Tobacco abuse Z72.0 ; CHEIKH (obstructive sleep apnea) G47.33 ; BMI 40.0-44.9, adult Z68.41 and Erectile dysfunction due to diseases classified elsewhere N52.1 [place] [address] [place] [id number] [place] [address] 54482- 9389 Feb, Mixed hyperlipidemia E78.2 [facility] [address] [address] 8[address] Nov, [facility] [address] [place] [address] [id number] [place] [address] 35975- 3058 Nov, [facility] [address] [address] Nov, [facility] [address] [place] [id number] [place] [address] 41367- 5126 Nov, Type 2 diabetes mellitus without complication E11.9 [facility] [id number] [place] [address] 68089- 0925 Oct, Type 2 diabetes mellitus without complication E11.9 ; 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 I10 ; 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 ; Mixed hyperlipidemia E78.2 ; Noncompliance with medication regimen Z91.14 and CHEIKH ( obstructive sleep apnea) G47.33 [place] [id number] [place] [address] 01443- 5444 Sep, [facility] [id number] [place] [address] 18052- 1747 Jun, Other chest pain R07.89 [facility] [address] [address] Jun, Other chest pain R07.89 [facility] [address] [address] Jun, Other chest pain R07.89 [facility] [address] [address] 89[address] May, [facility] [address] [place] [id number] [place] [address] 16187- 2571 May, Type 2 diabetes mellitus without complication E11.9 [facility] [address] [address] 58[address] Apr, Type 2 diabetes mellitus without complication E11.9 ; 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 I10 ; 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 ; Mixed hyperlipidemia E78.2 and Noncompliance with medication regimen Z91.14 [place] [address] [place] [id number] [place] [address] 07772- 5636 Apr, [facility] [address] [place] [address] [id number] [place] [address] 83247 -3275 Jan, Idiopathic acute pancreatitis, unspecified complication status K85.00 [place] [address] 06[address]- 1381 Jan, [facility] [address] [place] [id number] [place] [address] 78982 -2567 Dec, Impacted cerumen of left ear H61.22 [place] [address] [place] [id number] [place] [address] 43270- 2280 Dec, [place] [address] 92277- 7059 Dec, [place] [address] [place] [id number] [place] [address] 52600- 5922 Dec, [place] [address] 44339- 3041 Oct, [place] [address] [place] [id number] [place] [address] 57442- 4269 Oct, [place] [address] [place] [id number] [place] [address] 46121- 1178 Oct, Type 2 diabetes mellitus without complication E11.9 ; 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 I10 ; MCFP 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 ; Acid reflux K21.9 and History of sleep apnea Z87.09 [place] [address] [place] [id number] [place] [address] 48127- 8152 Sep, [place] [address] [place] [id number] [place] [address] 95860- 7680 Sep, [place] [address] 0[address]- 2973 July, [place] [address] 22805- 8081 July, [place] [address] 52954- 5096 July, Type 2 diabetes mellitus without complication E11.9 and 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 I10 [place] [address] 92528- 7510 Jun, Type 2 diabetes mellitus without complication E11.9 ; MCFP 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 ; 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 I10 ; Acid reflux K21.9 and Pain in right shoulder M25.511 [place] [address] [address]- 3931 Jun, [place] [address] 67687- 3311 Jun, History of pancreatitis Z87.19 [place] [address] 702[address]- 9143 Jun, History of pancreatitis Z87.19 [place] [address] 47086- 0368 May, [place] [address] [address]18- 7061 May, [place] [address] 79872- 9640 May, Type 2 diabetes mellitus without complication E11.9 ; 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 ; History of pancreatitis Z87.19 ; 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 I10 ; Acid reflux K21.9 and Left upper quadrant pain R10.12 [place] [address] 19961- 9694 May, Type 2 diabetes mellitus without complication E11.9 ; 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 ; History of pancreatitis Z87.19 ; 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 I10 ; Acid reflux K21.9 ; Dyspnea R06.00 and Sterilization consult Z30.09 [facility] [address] [place] [id number] [place] [address] [phone] 22 Apr, 2015 Encounter for dental examination and cleaning without abnormal findings Z01.20 [facility] [address] [address] [id number] [place] [address] 11231- 5446 17 Apr, 2015 Type 2 diabetes mellitus without complication E11.9 ; 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 ; History of pancreatitis Z87.19 ; 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 I10 ; Acid reflux K21.9 and Dyspnea R06.00 [facility] [address] [place] [id number] [place] [address] [phone] 17 Apr, 2015 Dental examination Z01.20 [facility] [address] [id number]- 1774 05 Mar, 2015 [facility] [address] 92786- 2423 Feb, [place] [address] [place] [id number] [place] [address] 38880- 6638 Feb, Type 2 diabetes mellitus without complication E11.9 ; MCFP 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 ; History of pancreatitis Z87.19 ; 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 I10 ; Acid reflux K21.9 ; Dyspnea R06.00 and Sterilization consult Z30.09 [place] [address] [place] [id number] [place] [address] 99343- 8822 Dec, Type 2 diabetes mellitus without complications E11.9 and MCFP 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 [place] [address] [place] [id number] [place] [address] 89417- 1783 Oct, [place] [address] 27114- 9015 Sep, [place] [address] 72237- 1774 Sep, [place] [address] [place] [id number] [place] [address] 63913- 8493 Sep, Hypertension 401.9 ; Diabetes 250.00 and Hyperlipidemia 272.4 IMMUNIZATIONS No Known Immunizations SOCIAL HISTORY Never Assessed REASON FOR VISIT med/lab order PLAN OF CARE VITAL SIGNS MEDICATIONS Medication Instructions Dosage Frequency Start Date End Date Duration Status Pravastatin Sodium 80 MG Orally Once a day 1 tablet 24h 30 days Active RESULTS No Results PROCEDURES No Known procedures INSTRUCTIONS MEDICATIONS ADMINISTERED No Known Medications MEDICAL (GENERAL) HISTORY Type Description Date Medical History 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
--- OUTSIDE RECORDS SUMMARY | 2018-06-18 20:11 | XMS REPORT | Clinical Summary ---
Author Author [facility] Address Unknown Phone Unavailable Care Team Providers Care Merchandise Carrier Name Role Phone PCP Unavailable Allergies Not on File Current Medications Not on file Active Problems Not on file Social History Tobacco Use Types Packs/Day Years Used Date Never Assessed Sex Assigned at Date Recorded Not on file Last Filed Vital Signs Not on file Plan of Treatment Not on file Results Not on filefrom Last 3 Months
--- OUTSIDE RECORDS SUMMARY | 2018-06-18 20:12 | XMS REPORT ---
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 Active 745993974 Problem Noncompliance with medication regimen Z91.14 Active 028119508 Problem History of pancreatitis Z87.19 Active 89808065591585 Problem 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 I10 Active 03708458 Problem Carpal tunnel syndrome on both sides G56.03 Active 59203459182029288 Problem Erectile dysfunction due to diseases classified elsewhere N52.1 Active 497013664 Problem CHEIKH (obstructive sleep apnea) G47.33 Active 03971806 Problem Mixed hyperlipidemia E78.2 Active 065876443 Problem Tobacco abuse Z72.0 Active 347350166 Problem Type 2 diabetes mellitus with hyperglycemia E11.65 Active 44905078 ALLERGIES Substance Reaction Event Type Date Status Metformin HCl diarrhea Drug Allergy Nov, Active ENCOUNTERS Encounter Location Date Diagnosis [facility] [address] [place] [address] 93746 -8339 Nov, Upper respiratory tract infection, unspecified type J06.9 and Nasal congestion with rhinorrhea J34.89 [facility] [address] [address] Sep, 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 [address] [address]- 3309 Sep, Type 2 diabetes mellitus with hyperglycemia E11.65 [place] [address] [place] [id number] [place] [address] 67335- 8748 Sep, Type 2 diabetes mellitus with hyperglycemia E11.65 [place] [address] [place] [id number] [place] [address] 82898- 2113 Sep, Type 2 diabetes mellitus with hyperglycemia E11.65 [place] [address] [place] [id number] [place] [address] 51884- 6980 July, Type 2 diabetes mellitus with hyperglycemia E11.65 ; URI, acute J06.9 and Neck pain, acute M54.2 [place] [address] [place] [id number] [place] [address] 82123- 0573 Jun, [place] [address] [place] [id number] [place] [address] 77427- 7050 Apr, [place] [address] [place] [id number] [place] [address] 05818- 2477 Mar, Type 2 diabetes mellitus with hyperglycemia E11.65 ; retirement 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 ; 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 I10 ; Mixed hyperlipidemia E78.2 ; Noncompliance with medication regimen Z91.14 ; Tobacco abuse Z72.0 ; CHEIKH (obstructive sleep apnea) G47.33 ; BMI 40.0-44.9, adult Z68.41 and Erectile dysfunction due to diseases classified elsewhere N52.1 [place] [address] [place] [address] 83685- 8939 Feb, Mixed hyperlipidemia E78.2 [place] [address] [place] [id number] [place] [address] 19948- 2425 Nov, [place] [address] [place] [id number] [place] [address] 08885- 9684 Nov, [place] [address] [place] [address] 62230- 6028 Nov, [place] [address] [place] [id number] [place] [address] 82863- 5849 Nov, Type 2 diabetes mellitus without complication E11.9 [place] [address] [place] [id number] [place] [address] 08542- 3124 Oct, Type 2 diabetes mellitus without complication E11.9 ; 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 I10 ; retirement 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 ; Mixed hyperlipidemia E78.2 ; Noncompliance with medication regimen Z91.14 and CHEIKH ( obstructive sleep apnea) G47.33 [place] [address] [place] [id number] [place] [address] 47658- 1876 Sep, [place] [address] 17737- 6032 Jun, Other chest pain R07.89 [place] [address] [place] [id number] [place] [address] 82964- 8566 Jun, Other chest pain R07.89 [facility] [address] [place] [id number] [place] [address] 87337 -6150 Jun, Other chest pain R07.89 [place] [address] [place] [id number] [place] [address] 09747- 4251 May, [place] [address] [place] [id number] [place] [address] 45487- 0245 May, Type 2 diabetes mellitus without complication E11.9 [place] [address] [place] [id number] [place] [address] 57315- 9791 Apr, Type 2 diabetes mellitus without complication E11.9 ; 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 I10 ; retirement 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 ; Mixed hyperlipidemia E78.2 and Noncompliance with medication regimen Z91.14 [place] [address] [place] [id number] [place] [address] 95622- 7813 Apr, [facility] [address] [place] [id number] [place] [address] 04120 -4775 Jan, Idiopathic acute pancreatitis, unspecified complication status K85.00 [place] [address], [place] [address]- 1153 Jan, [facility] [address] [place] [id number] [place] [address] 63678 -3670 Dec, Impacted cerumen of left ear H61.22 [facility] [address] [place] [id number] [place] [address] 85590- 9039 Dec, [facility] [address] [place] [id number] [place] [address] 15049- 1872 Dec, [facility] [address] [place] [id number] [place] [address] 11130- 7262 Dec, [facility] [address] [place] [id number] [place] [address] 08192- 8131 Oct, [facility] [address] [place] [id number] [place] [address] 20318- 2043 Oct, 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 [address] [place] [address] 16755- 0789 Sep, [facility] [address] [place] [address] 07790- 7887 Sep, [facility] [address] [place] [id number] [place] [address] 12220- 1210 July, [facility] [address] [place] [id number] [place] [address] 10163- 3740 July, [facility] [address] [place] [id number] [place] [address] 16846- 4390 July, Type 2 diabetes mellitus without complication E11.9 and 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 I10 [facility] [address] [place] [address] [place] [address] 17056- 3097 Jun, Type 2 diabetes mellitus without complication E11.9 ; retirement 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 ; 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 I10 ; Acid reflux K21.9 and Pain in right shoulder M25.511 [place] [address] [place] [address] 52342- 9557 Jun, [place] [address] [place] [id number] [place] [address] 64382- 9440 Jun, History of pancreatitis Z87.19 [place] [address] [place] [address] [place] [address] 09843- 4102 Jun, History of pancreatitis Z87.19 [place] [address] [place] [id number] [place] [address] 87100- 2328 May, [place] [address] [place] [address] [place] [address] 14862- 9585 May, [place] [address] [place] [address] [place] [address] 95446- 1664 May, Type 2 diabetes mellitus without complication E11.9 ; 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 ; History of pancreatitis Z87.19 ; 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 I10 ; Acid reflux K21.9 and Left upper quadrant pain R10.12 [place] [address] [place] [address] 51563- 6851 May, Type 2 diabetes mellitus without complication E11.9 ; 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 ; History of pancreatitis Z87.19 ; 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 I10 ; Acid reflux K21.9 and Dyspnea R06.00 [facility] [address] [place] [address] [phone] 17 Apr, 2015 Dental examination Z01.20 [place] [address] [place] [id number] [place] [address] 91483- 9187 05 Mar, 2015 [place] [address] 62216- 0824 17 Feb, 2015 [place] [address] 64229- 9301 15 Feb, 2015 Type 2 diabetes mellitus without complication E11.9 ; 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 ; History of pancreatitis Z87.19 ; 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 I10 ; Acid reflux K21.9 ; Dyspnea R06.00 and Sterilization consult Z30.09 [place] [address] 16538- 0975 06 Dec, 2014 Type 2 diabetes mellitus without complications E11.9 and 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 [place] [address] 54895- 9233 Oct, [place] [address] 92731- 7419 Sep, [place] [address] [place] [id number] [place] [address] 24441- 4655 Sep, [place] [address] [place] [id number] [place] [address] 55112- 2851 Sep, Hypertension 401.9 ; Diabetes 250.00 and Hyperlipidemia 272.4 IMMUNIZATIONS Vaccine Route Administration Date Status KENALOG 40 MG/ML (PER 10 MG) IM Intramuscular Nov 13, 2017 Administered SOCIAL HISTORY Never Assessed REASON FOR VISIT productive cough that is slightly tinged yellow sputum, congestion, runny et stuffy nose. did have a sore throat...that has resolved. been sick for 2 days. [email or web address] PLAN OF CARE Activity Details Follow Up prn Reason: VITAL SIGNS Height 69 in 2017-11-13 Weight 270.0 lbs 2017-11-13 Temperature 98.0 degrees Fahrenheit 2017-11-13 Heart Rate 88 bpm 2017-11-13 Respiratory Rate 20 2017-11-13 BMI 39.87 kg/m2 2017-11-13 Blood pressure systolic 130 mmHg 2017-11-13 Blood pressure diastolic 80 mmHg 2017-11-13 MEDICATIONS Medication Instructions Dosage Frequency Start Date End Date Duration Status Test strips test strips test 3 times per day Sep, Active Levemir FlexTouch 100 UNIT/ML Subcutaneous 2 times a day Inject 45 units 12h 08 Nov, 2016 Active Glimepiride 2 MG Orally Once a day 1 tablet with breakfast or the first main meal of the day 24h Mar, Active Amlodipine Besylate 5 mg Orally Once a day 1 tablet 24h Oct, 90 days Active NovoLog Flexpen 100 UNIT/ML Subcutaneous 3 times a day 10 units tid 8h Active Losartan Potassium-HCTZ 100-25 MG Orally Once a day 1 tablet 24h 180 days Active Viagra 100 mg Orally Once a day prn 1 tablet as needed 10 Active Zithromax Z-Richard 250 MG Orally Once a day 2 tablets on the first day, then 1 tablet daily for 4 days 24h Nov, Nov, 5 day(s) Active Pravastatin Sodium 40 MG Orally Once a day 1 tablet 24h Active Insulin Pen Needle 32G X 4 MM as directed Active RESULTS No Results PROCEDURES Procedure Date Ordered Result Body Site KENALOG 40 MG/ML (PER 10 MG) Nov 13, 2017 THER/PROPH/DIAG INJ, SC/IM Nov 13, 2017 INSTRUCTIONS MEDICATIONS ADMINISTERED No Known Medications MEDICAL (GENERAL) HISTORY Type Description Date Medical History 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
--- OUTSIDE RECORDS SUMMARY | 2018-06-18 20:12 | XMS REPORT ---
Author Author AMBREEN MUÑOZ [facility] Address [address] [place] [address] Care Team Providers Care Contact Lens Cutter Name Role Phone AMBREEN MUÑOZ Unavailable PROBLEMS Type Condition ICD9-CM Code [id number] Code Onset Dates Condition Status SNOMED Code Problem History of pancreatitis Z87.19 Active 39179281579091 Problem Mixed hyperlipidemia E78.2 Active 065562250 Problem Noncompliance with medication regimen Z91.14 Active 682926004 Problem 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 I10 Active 63174658 Problem senior care 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 Active 570453115 Problem Diabetes E11.9 Active 051365437 Problem Carpal tunnel syndrome on both sides G56.03 Active 57526766147805872 Problem Type 2 diabetes mellitus with hyperglycemia E11.65 Active 13084280 Problem CHEIKH (obstructive sleep apnea) G47.33 Active 21296218 Problem Erectile dysfunction due to diseases classified elsewhere N52.1 Active 657656036 Problem Tobacco abuse Z72.0 Active 632362944 ALLERGIES No Information ENCOUNTERS Encounter Location Date Diagnosis [facility] [address] [address] Dec, Diabetes E11.9 [facility] [address] [address]18- 6163 Dec, [facility] [address] 6[address]90- 9877 Dec, Diabetes E11.9 and Encounter for immunization Z23 [facility] [address] [address] Nov, Upper respiratory tract infection, unspecified type J06.9 and Nasal congestion with rhinorrhea J34.89 [facility] [address] [address]- 7055 Sep, [place] [id number] [place] [address] 10789- 5745 Sep, Type 2 diabetes mellitus with hyperglycemia E11.65 ; 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 ; Pain of left hand M79.642 ; Pain in right hand M79.641 ; Carpal tunnel syndrome on both sides G56.03 and Thumb tendonitis M77.8 [place] [address] [place] [id number] [place] [address] 28613- 9303 Sep, Type 2 diabetes mellitus with hyperglycemia E11.65 [place] [address] [place] [id number] [place] [address] 70869- 6638 Sep, Type 2 diabetes mellitus with hyperglycemia E11.65 [place] [address] [place] [id number] [place] [address] 33636- 9952 Sep, Type 2 diabetes mellitus with hyperglycemia E11.65 [place] [address] [place] [id number] [place] [address] 48943- 0772 July, Type 2 diabetes mellitus with hyperglycemia E11.65 ; URI, acute J06.9 and Neck pain, acute M54.2 [place] [address] [place] [id number] [place] [address] 40021- 5958 Jun, [place] [address] [place] [id number] [place] [address] 51303- 7768 Apr, [place] [address] [place] [id number] [place] [address] 42894- 4822 Mar, Type 2 diabetes mellitus with hyperglycemia E11.65 ; senior care 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 ; 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 I10 ; Mixed hyperlipidemia E78.2 ; Noncompliance with medication regimen Z91.14 ; Tobacco abuse Z72.0 ; CHEIKH (obstructive sleep apnea) G47.33 ; BMI 40.0-44.9, adult Z68.41 and Erectile dysfunction due to diseases classified elsewhere N52.1 [place] [address] [place] [id number] [place] [address] 66365- 4814 Feb, Mixed hyperlipidemia E78.2 [facility] [address] [address] Nov, [facility] [address] [place] [id number] [place] [address] 74779- 9134 Nov, [facility] [address] [address] 5[address] Nov, [facility] [address] [place] [id number] [place] [address] 08274- 8132 Nov, Type 2 diabetes mellitus without complication E11.9 [facility] [id number] [place] [address] 38329- 2084 Oct, Type 2 diabetes mellitus without complication E11.9 ; 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 I10 ; 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 ; Mixed hyperlipidemia E78.2 ; Noncompliance with medication regimen Z91.14 and CHEIKH ( obstructive sleep apnea) G47.33 [place] [id number] [place] [address] 10841- 7116 Sep, [facility] [id number] [place] [address] 13201- 0634 Jun, Other chest pain R07.89 [facility] [address] [address] 0[address] Jun, Other chest pain R07.89 [facility] [address] [address] Jun, Other chest pain R07.89 [facility] [address] [address] 2889 May, [facility] [address] [place] [id number] [place] [address] 19989- 9096 May, Type 2 diabetes mellitus without complication E11.9 [facility] [address] [address] 48[address] Apr, Type 2 diabetes mellitus without complication E11.9 ; 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 I10 ; 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 ; Mixed hyperlipidemia E78.2 and Noncompliance with medication regimen Z91.14 [place] [address] [place] [id number] [place] [address] 36918- 7506 Apr, [facility] [address] [place] [id number] [place] [address] 92298 -5856 Jan, Idiopathic acute pancreatitis, unspecified complication status K85.00 [place] [address] 76577- 6713 Jan, [facility] [address] [place] [id number] [place] [address] 44237 -8176 Dec, Impacted cerumen of left ear H61.22 [place] [address] [place] [id number] [place] [address] 39639- 0244 Dec, [place] [address] 27591- 9451 Dec, [place] [address] [place] [id number] [place] [address] 29010- 8489 Dec, [place] [address] 91179- 3448 Oct, [place] [address] [place] [id number] [place] [address] 64827- 0819 Oct, [place] [address] [place] [id number] [place] [address] 98030- 8902 Oct, Type 2 diabetes mellitus without complication E11.9 ; 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 I10 ; senior care 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 ; Acid reflux K21.9 and History of sleep apnea Z87.09 [place] [address] [place] [id number] [place] [address] 65527- 2527 Sep, [place] [address] [place] [id number] [place] [address] 24196- 6336 Sep, [place] [address] 16806- 1039 July, [place] [address] 55414- 3310 July, [place] [address] 35697- 8483 July, Type 2 diabetes mellitus without complication E11.9 and 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 I10 [place] [address] 41527- 0999 Jun, Type 2 diabetes mellitus without complication E11.9 ; senior care 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 ; 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 I10 ; Acid reflux K21.9 and Pain in right shoulder M25.511 [place] [address] 11800- 1999 Jun, [place] [address] 79071- 7345 Jun, History of pancreatitis Z87.19 [place] [address] 86941- 0542 Jun, History of pancreatitis Z87.19 [place] [address] 29095- 1762 May, [place] [address] 55905- 3405 May, [place] [address] 43374- 5961 May, Type 2 diabetes mellitus without complication E11.9 ; 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 ; History of pancreatitis Z87.19 ; 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 I10 ; Acid reflux K21.9 and Left upper quadrant pain R10.12 [place] [address] 31243- 7975 May, Type 2 diabetes mellitus without complication E11.9 ; 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 ; History of pancreatitis Z87.19 ; 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 I10 ; Acid reflux K21.9 ; Dyspnea R06.00 and Sterilization consult Z30.09 [facility] [address] [place] [id number] [place] [address] [id number] 22 Apr, 2015 Encounter for dental examination and cleaning without abnormal findings Z01.20 [facility] [address] [place] [id number] [place] [address] 49615- 1086 17 Apr, 2015 Type 2 diabetes mellitus without complication E11.9 ; 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 ; History of pancreatitis Z87.19 ; 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 I10 ; Acid reflux K21.9 and Dyspnea R06.00 [facility] [address] [place] [id number] [place] [address] [id number] 17 Apr, 2015 Dental examination Z01.20 [facility] [address] 20109518- 2469 05 Mar, 2015 [facility] [address] 62855- 0488 Feb, [place] [address] [place] [id number] [place] [address] 01842- 2560 Feb, Type 2 diabetes mellitus without complication E11.9 ; senior care 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 ; History of pancreatitis Z87.19 ; 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 I10 ; Acid reflux K21.9 ; Dyspnea R06.00 and Sterilization consult Z30.09 [place] [address] [place] [id number] [place] [address] 15035- 9776 Dec, Type 2 diabetes mellitus without complications E11.9 and senior care 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 [place] [address] [place] [id number] [place] [address] 60667- 3849 Oct, [place] [address] 33469- 8613 Sep, [place] [address] 46929- 9251 Sep, [place] [address] [place] [id number] [place] [address] 78157- 0151 Sep, Hypertension 401.9 ; Diabetes 250.00 and Hyperlipidemia 272.4 IMMUNIZATIONS No Known Immunizations SOCIAL HISTORY Never Assessed REASON FOR VISIT Medication refill request PLAN OF CARE VITAL SIGNS MEDICATIONS Medication Instructions Dosage Frequency Start Date End Date Duration Status Viagra 100 mg Orally Once a day prn 1 tablet as needed 30 days Active RESULTS No Results PROCEDURES No Known procedures INSTRUCTIONS MEDICATIONS ADMINISTERED No Known Medications MEDICAL (GENERAL) HISTORY Type Description Date Medical History 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
--- OUTSIDE RECORDS SUMMARY | 2018-06-18 20:12 | XMS REPORT ---
Author Author AMBREEN MUÑOZ [facility] Address [address] [place] [address] Care Team Providers Care File System Installer Name Role Phone AMBREEN MUÑOZ Unavailable PROBLEMS Type Condition ICD9-CM Code TMH89-RO Code Onset Dates Condition Status SNOMED Code Problem History of pancreatitis Z87.19 Active 69655011408828 Problem Mixed hyperlipidemia E78.2 Active 447010118 Problem Noncompliance with medication regimen Z91.14 Active 327899850 Problem 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 I10 Active 44145137 Problem senior living 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 Active 783196029 Problem Diabetes E11.9 Active 842834638 Problem Carpal tunnel syndrome on both sides G56.03 Active 12539059947018687 Problem Type 2 diabetes mellitus with hyperglycemia E11.65 Active 25028878 Problem CHEIKH (obstructive sleep apnea) G47.33 Active 40216997 Problem Erectile dysfunction due to diseases classified elsewhere N52.1 Active 510223179 Problem Tobacco abuse Z72.0 Active 887366266 ALLERGIES Substance Reaction Event Type Date Status Metformin HCl diarrhea Drug Allergy Dec, Active ENCOUNTERS Encounter Location Date Diagnosis [facility] [address] [place] [address] 24139- 4130 Dec, Diabetes E11.9 [facility] [address] [place] [address] 85243- 3716 Dec, [facility] [address] [place] [id number] [place] [address] 94866- 7065 Dec, Diabetes E11.9 and Encounter for immunization Z23 [facility] [address] [address] Nov, Upper respiratory tract infection, unspecified type J06.9 and Nasal congestion with rhinorrhea J34.89 [facility] [address] [place] [id number] [place] [address] 80272- 3077 Sep, [place] [address] [place] [id number] [place] [address] 10479- 1877 Sep, Type 2 diabetes mellitus with hyperglycemia E11.65 ; senior living 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 ; Pain of left hand M79.642 ; Pain in right hand M79.641 ; Carpal tunnel syndrome on both sides G56.03 and Thumb tendonitis M77.8 [place] [address] 17330- 3023 Sep, Type 2 diabetes mellitus with hyperglycemia E11.65 [place] [address] 34564- 6469 Sep, Type 2 diabetes mellitus with hyperglycemia E11.65 [place] [address] 67889- 5700 Sep, Type 2 diabetes mellitus with hyperglycemia E11.65 [place] [address] [place] [id number] [place] [address] 55941- 7301 July, Type 2 diabetes mellitus with hyperglycemia E11.65 ; URI, acute J06.9 and Neck pain, acute M54.2 [place] [address] [place] [id number] [place] [address] 52749- 4039 Jun, [place] [address] [place] [id number] [place] [address] 17989- 7042 Apr, [place] [address] [place] [id number] [place] [address] 78809- 0858 Mar, Type 2 diabetes mellitus with hyperglycemia E11.65 ; 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 ; 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 I10 ; Mixed hyperlipidemia E78.2 ; Noncompliance with medication regimen Z91.14 ; Tobacco abuse Z72.0 ; CHEIKH (obstructive sleep apnea) G47.33 ; BMI 40.0-44.9, adult Z68.41 and Erectile dysfunction due to diseases classified elsewhere N52.1 [place] [address] 08936- 4125 Feb, Mixed hyperlipidemia E78.2 [facility] [address] [address]- 2919 Nov, [facility] [address] [place] [address] 27232- 1189 Nov, [facility] [address] [place] [address] 32064- 1754 Nov, [facility] [address] [place] [id number] [place] [address] 43180- 5209 Nov, Type 2 diabetes mellitus without complication E11.9 [facility] [address] [place] [id number] [place] [address] 01781- 7725 Oct, Type 2 diabetes mellitus without complication E11.9 ; 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 I10 ; 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 ; Mixed hyperlipidemia E78.2 ; Noncompliance with medication regimen Z91.14 and CHEIKH ( obstructive sleep apnea) G47.33 [facility] [address] [place] [address] 30830- 4849 Sep, [facility] [address] [place] [id number] [place] [address] 94132- 6302 Jun, Other chest pain R07.89 [facility] [address] [place] [id number] [place] [address] 39626- 5319 Jun, Other chest pain R07.89 [facility] [address] [place] [address] 18666 -5644 Jun, Other chest pain R07.89 [facility] [address] [address]- 3499 May, [facility] [address] [place] [id number] [place] [address] 89787- 2064 May, Type 2 diabetes mellitus without complication E11.9 [facility] [address] [address]- 4354 Apr, Type 2 diabetes mellitus without complication E11.9 ; 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 I10 ; 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 ; Mixed hyperlipidemia E78.2 and Noncompliance with medication regimen Z91.14 [place] [address] [place] [id number] [place] [address] 60195- 4348 Apr, [facility] [address] [place] [id number] [place] [address] 27946 -1705 Jan, Idiopathic acute pancreatitis, unspecified complication status K85.00 [place] [address] [place] [id number] [place] [address] 43077- 7266 Jan, [facility] [address] 87989 -3200 Dec, Impacted cerumen of left ear H61.22 [place] [address] [place] [id number] [place] [address] 56300- 2666 Dec, [place] [address] 24777- 2422 Dec, [place] [address] [place] [id number] [place] [address] 59982- 6143 Dec, [place] [address] [place] [id number] [place] [address] 54147- 5433 Oct, [place] [address] [place] [id number] [place] [address] 29482- 5901 Oct, [place] [address] [place] [id number] [place] [address] 03831- 7957 Oct, Type 2 diabetes mellitus without complication E11.9 ; 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 I10 ; senior living 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 ; Acid reflux K21.9 and History of sleep apnea Z87.09 [place] [address] [place] [id number] [place] [address] 84498- 4685 Sep, [place] [address] [place] [id number] [place] [address] 89059- 9402 Sep, [place] [address] [place] [id number] [place] [address] 65486- 1349 July, [place] [address] 64962- 1611 July, [place] [address] [place] [id number] [place] [address] 92743- 5147 July, Type 2 diabetes mellitus without complication E11.9 and 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 I10 [place] [address] 86993- 2488 Jun, Type 2 diabetes mellitus without complication E11.9 ; senior living 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 ; 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 I10 ; Acid reflux K21.9 and Pain in right shoulder M25.511 [place] [address] [place] [id number] [place] [address] 54808- 1456 Jun, [place] [address] 06232- 4843 Jun, History of pancreatitis Z87.19 [place] [address] [place] [id number] [place] [address] 46287- 7470 Jun, History of pancreatitis Z87.19 [place] [address] [place] [id number] [place] [address] 83089- 0151 May, [place] [address] [place] [id number] [place] [address] 60848- 3317 May, [place] [address] [place] [id number] [place] [address] 75735- 1660 May, Type 2 diabetes mellitus without complication E11.9 ; senior living 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 ; History of pancreatitis Z87.19 ; 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 I10 ; Acid reflux K21.9 and Left upper quadrant pain R10.12 [place] [address] [place] [id number] [place] [address] 23063- 7188 May, Type 2 diabetes mellitus without complication E11.9 ; 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 ; History of pancreatitis Z87.19 ; 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 I10 ; Acid reflux K21.9 ; Dyspnea R06.00 and Sterilization consult Z30.09 [facility] [address] [place] [address] [id number] 22 Apr, 2015 Encounter for dental examination and cleaning without abnormal findings Z01.20 [facility] [address] [place] [id number] [place] [address] 57012- 7377 17 Apr, 2015 Type 2 diabetes mellitus without complication E11.9 ; senior living 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 ; History of pancreatitis Z87.19 ; 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 I10 ; Acid reflux K21.9 and Dyspnea R06.00 [facility] [address] [id number] [place] [address] [id number] 17 Apr, 2015 Dental examination Z01.20 [facility] [address] [place] [id number] [place] [address] 39527- 5533 05 Mar, 2015 [facility] [address] [place] [id number] [place] [address] 31507- 2354 Feb, [facility] [address] [place] [id number] [place] [address] 78959- 5379 Feb, Type 2 diabetes mellitus without complication E11.9 ; senior living 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 ; History of pancreatitis Z87.19 ; 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 I10 ; Acid reflux K21.9 ; Dyspnea R06.00 and Sterilization consult Z30.09 [facility] [address] [place] [id number] [place] [address] 07158- 2963 Dec, Type 2 diabetes mellitus without complications E11.9 and senior living 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 [facility] [address] [place] [id number] [place] [address] 62745- 8933 Oct, [facility] [address] 93996- 9762 Sep, [facility] [address] [place] [id number] [place] [address] 70563- 0973 Sep, [facility] [address] 86975- 4797 Sep, Hypertension 401.9 ; Diabetes 250.00 and Hyperlipidemia 272.4 IMMUNIZATIONS No Known Immunizations SOCIAL HISTORY Never Assessed REASON FOR VISIT Diabetes check up zenon FONSECA, A1C, Micro zenon FONSECA PLAN OF CARE Activity Details Follow Up 4 Weeks Reason: VITAL SIGNS Height 69 in 2017-12-11 Weight 265.8 lbs 2017-12-11 Temperature 98.9 degrees Fahrenheit 2017-12-11 Heart Rate 92 bpm 2017-12-11 Respiratory Rate 20 2017-12-11 BMI 39.25 kg/m2 2017-12-11 Blood pressure systolic 132 mmHg 2017-12-11 Blood pressure diastolic 88 mmHg 2017-12-11 MEDICATIONS Medication Instructions Dosage Frequency Start Date End Date Duration Status Viagra 100 mg Orally Once a day prn 1 tablet as needed Active Glimepiride 2 MG Orally Once a day 1 tablet with breakfast or the first main meal of the day 24h Mar, Active Levemir FlexTouch 100 UNIT/ML Subcutaneous 2 times a day Inject 50 units 12h Nov, 30 days Active Losartan Potassium-HCTZ 100-25 MG Orally Once a day 1 tablet 24h Active NovoLog Flexpen 100 UNIT/ML Subcutaneous 3 times a day 10 units tid 8h Active Amlodipine Besylate 5 mg Orally Once a day 1 tablet 24h Oct, Active Test strips test strips test 3 times per day Sep, Active Insulin Pen Needle 32G X 4 MM as directed Active Pravastatin Sodium 40 MG Orally Once a day 1 tablet 24h Active RESULTS No Results PROCEDURES Procedure Date Ordered Result Body Site GLYCATED HEMOGLOBIN TEST Dec 11, 2017 MICROALBUMIN, SEMIQUANT Dec 11, 2017 LAB NOT BILLED BY [facility] Dec 11, 2017 INSTRUCTIONS MEDICATIONS ADMINISTERED No Known Medications MEDICAL (GENERAL) HISTORY Type Description Date Medical History 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
--- OUTSIDE RECORDS SUMMARY | 2018-06-18 20:13 | XMS REPORT ---
Author Author AMBREEN MUÑOZ [facility] Address [address] [place] [address] Care Team Providers Care Kitchen Manager Name Role Phone AMBREEN MUÑOZ Unavailable PROBLEMS Type Condition ICD9-CM Code IHX28-MI Code Onset Dates Condition Status SNOMED Code Problem halfway 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 Active 794803423 Problem Noncompliance with medication regimen Z91.14 Active 624471320 Problem History of pancreatitis Z87.19 Active 32496269949124 Problem 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 I10 Active 47396996 Problem Carpal tunnel syndrome on both sides G56.03 Active 39443827619222400 Problem Erectile dysfunction due to diseases classified elsewhere N52.1 Active 668717933 Problem CHEIKH (obstructive sleep apnea) G47.33 Active 67626022 Problem Mixed hyperlipidemia E78.2 Active 296065953 Problem Tobacco abuse Z72.0 Active 583101631 Problem Type 2 diabetes mellitus with hyperglycemia E11.65 Active 90807641 ALLERGIES No Information ENCOUNTERS Encounter Location Date Diagnosis [place] [id number] [place] [address] 90037- 3780 Sep, [place] [id number] [place] [address] 45812- 6066 Sep, Type 2 diabetes mellitus with hyperglycemia E11.65 ; 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 ; Pain of left hand M79.642 ; Pain in right hand M79.641 ; Carpal tunnel syndrome on both sides G56.03 and Thumb tendonitis M77.8 [place] [id number] [place] [address] 81735- 8696 Sep, Type 2 diabetes mellitus with hyperglycemia E11.65 [place] [id number] [place] [address] 70827- 7377 Sep, Type 2 diabetes mellitus with hyperglycemia E11.65 [place] [address] [address] 9168 Sep, Type 2 diabetes mellitus with hyperglycemia E11.65 [place] [id number] [place] [address] 10396- 3749 July, Type 2 diabetes mellitus with hyperglycemia E11.65 ; URI, acute J06.9 and Neck pain, acute M54.2 [place] [id number] [place] [address] 15719- 0869 Jun, [place] [id number] [place] [address] 16881- 5219 Apr, [place] [id number] [place] [address] 73479- 7488 Mar, Type 2 diabetes mellitus with hyperglycemia E11.65 ; 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 ; 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 I10 ; Mixed hyperlipidemia E78.2 ; Noncompliance with medication regimen Z91.14 ; Tobacco abuse Z72.0 ; CHEIKH (obstructive sleep apnea) G47.33 ; BMI 40.0-44.9, adult Z68.41 and Erectile dysfunction due to diseases classified elsewhere N52.1 [place] [id number] [place] [address] 65489- 1041 Feb, Mixed hyperlipidemia E78.2 [place] [id number] [place] [address] 93548- 8372 Nov, [place] [id number] [place] [address] 71057- 9535 Nov, [place] [id number] [place] [address] 43488- 0180 Nov, [place] [id number] [place] [address] 96355- 4908 Nov, Type 2 diabetes mellitus without complication E11.9 [place] [id number] [place] [address] 16162- 2096 Oct, Type 2 diabetes mellitus without complication E11.9 ; 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 I10 ; halfway 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 ; Mixed hyperlipidemia E78.2 ; Noncompliance with medication regimen Z91.14 and CHEIKH ( obstructive sleep apnea) G47.33 [place] [id number] [place] [address] 66786- 8321 Sep, [place] [address] 78931- 1698 Jun, Other chest pain R07.89 [place] [address] 24482- 9176 Jun, Other chest pain R07.89 [facility] [place] [id number] [place] [address] 15459 -2258 Jun, Other chest pain R07.89 [place] [address] 73029- 6520 May, [place] [address] 16134- 6609 May, Type 2 diabetes mellitus without complication E11.9 [place] [address] 81341- 8975 Apr, Type 2 diabetes mellitus without complication E11.9 ; 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 I10 ; halfway 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 ; Mixed hyperlipidemia E78.2 and Noncompliance with medication regimen Z91.14 [place] [id number] [place] [address] 38008- 2912 Apr, [facility] [place] [id number] [place] [address] 89874 -4874 Jan, Idiopathic acute pancreatitis, unspecified complication status K85.00 [place] [id number] [place] [address] 01588- 7023 Jan, [facility] [place] [id number] [place] [address] 52091 -7579 Dec, Impacted cerumen of left ear H61.22 [facility] [address], [place] [address] 9579 Dec, [facility] [id number] [place] [address] 68273- 9357 Dec, [facility] [id number] [place] [address] 02044- 0451 Dec, [facility] [id number] [place] [address] 35433- 6516 Oct, [facility] [id number] [place] [address] 33840- 6086 Oct, [facility] [id number] [place] [address] 51451- 5194 Oct, Type 2 diabetes mellitus without complication E11.9 ; 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 I10 ; halfway 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 ; Acid reflux K21.9 and History of sleep apnea Z87.09 [facility] [id number] [address]- 3159 Sep, [facility] [address] [id number] [place] [address] 25338- 0663 Sep, [facility] [id number] [place] [address] 41844- 5494 July, [place] [id number] [place] [address] 59916- 2150 July, [facility] [address], [place] [address]- 8320 July, Type 2 diabetes mellitus without complication E11.9 and 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 I10 [facility] [id number] [place] [address] 03142- 7446 Jun, Type 2 diabetes mellitus without complication E11.9 ; halfway 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 ; 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 I10 ; Acid reflux K21.9 and Pain in right shoulder M25.511 [facility] [id number] [place] [address] 55298- 0041 Jun, [place] [id number] [place] [address] 71581- 4631 Jun, History of pancreatitis Z87.19 [place] [id number] [place] [address] 82291- 6464 Jun, History of pancreatitis Z87.19 [place] [address] 38902- 9100 May, [place] [address] 28668- 9607 May, [place] [address] 13944- 3687 May, Type 2 diabetes mellitus without complication E11.9 ; halfway 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 ; History of pancreatitis Z87.19 ; 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 I10 ; Acid reflux K21.9 and Left upper quadrant pain R10.12 [place] [id number] [place] [address] 10526- 7333 May, Type 2 diabetes mellitus without complication E11.9 ; halfway 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 ; History of pancreatitis Z87.19 ; 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 I10 ; Acid reflux K21.9 ; Dyspnea R06.00 and Sterilization consult Z30.09 [facility] [address] [id number] Apr, Encounter for dental examination and cleaning without abnormal findings Z01.20 [place] [id number] [place] [address] 59365- 2457 17 Apr, 2015 Type 2 diabetes mellitus without complication E11.9 ; halfway 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 ; History of pancreatitis Z87.19 ; 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 I10 ; Acid reflux K21.9 and Dyspnea R06.00 [facility] [address] [id number] Apr, Dental examination Z01.20 [place] [address] [place] [address]- 5269 Mar, [place] [id number] [place] [address] 87134- 7936 Feb, [place] [address] 98573- 7714 Feb, Type 2 diabetes mellitus without complication E11.9 ; 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 ; History of pancreatitis Z87.19 ; 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 I10 ; Acid reflux K21.9 ; Dyspnea R06.00 and Sterilization consult Z30.09 [place] [address] 50310- 0593 Dec, Type 2 diabetes mellitus without complications E11.9 and halfway 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 [place] [address] 52105- 4129 Oct, [place] [address] 22074- 5927 Sep, [place] [id number] [place] [address] 78664- 3805 Sep, [place] [id number] [place] [address] 73857- 8861 Sep, Hypertension 401.9 ; Diabetes 250.00 and Hyperlipidemia 272.4 IMMUNIZATIONS No Known Immunizations SOCIAL HISTORY Never Assessed REASON FOR VISIT resend test strips PLAN OF CARE VITAL SIGNS MEDICATIONS Medication Instructions Dosage Frequency Start Date End Date Duration Status Test strips test strips test 3 times per day Sep, Active RESULTS No Results PROCEDURES No Known procedures INSTRUCTIONS MEDICATIONS ADMINISTERED No Known Medications MEDICAL (GENERAL) HISTORY Type Description Date Medical History 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
--- OUTSIDE RECORDS SUMMARY | 2018-06-18 20:13 | XMS REPORT ---
Author Author AMBREEN MUÑOZ [facility] Address [address] [place] [address] Care Team Providers Care Membership Coordinator Name Role Phone AMBREEN MUÑOZ Unavailable PROBLEMS Type Condition ICD9-CM Code UGU39-BM Code Onset Dates Condition Status SNOMED Code Problem residential 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 Active 571958557 Problem Noncompliance with medication regimen Z91.14 Active 234576024 Problem History of pancreatitis Z87.19 Active 25639820826393 Problem 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 I10 Active 15898551 Problem Carpal tunnel syndrome on both sides G56.03 Active 28367225567840410 Problem Erectile dysfunction due to diseases classified elsewhere N52.1 Active 991267884 Problem CHEIKH (obstructive sleep apnea) G47.33 Active 89918054 Problem Mixed hyperlipidemia E78.2 Active 889178999 Problem Tobacco abuse Z72.0 Active 825567063 Problem Type 2 diabetes mellitus with hyperglycemia E11.65 Active 56965192 ALLERGIES No Information ENCOUNTERS Encounter Location Date Diagnosis [facility] [id number] [place] [address] 40284 -3420 Nov, Upper respiratory tract infection, unspecified type J06.9 and Nasal congestion with rhinorrhea J34.89 [facility] [id number] [place] [address] 43854- 5559 Sep, [facility] [address] [place] [id number] [place] [address] 87073- 8378 Sep, Type 2 diabetes mellitus with hyperglycemia E11.65 ; 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 ; Pain of left hand M79.642 ; Pain in right hand M79.641 ; Carpal tunnel syndrome on both sides G56.03 and Thumb tendonitis M77.8 [facility] [id number] [place] [address] 70521- 0618 Sep, Type 2 diabetes mellitus with hyperglycemia E11.65 [place] [address] [place] [address] 72994- 8481 Sep, Type 2 diabetes mellitus with hyperglycemia E11.65 [place] [id number] [place] [address] 48980- 8286 Sep, Type 2 diabetes mellitus with hyperglycemia E11.65 [place] [id number] [place] [address] 46270- 9070 July, Type 2 diabetes mellitus with hyperglycemia E11.65 ; URI, acute J06.9 and Neck pain, acute M54.2 [place] [id number] [place] [address] 19075- 1991 Jun, [place] [address] [id number] [place] [address] 42111- 0593 Apr, [place] [id number] [place] [address] 85969- 3291 Mar, Type 2 diabetes mellitus with hyperglycemia E11.65 ; 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 ; 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 I10 ; Mixed hyperlipidemia E78.2 ; Noncompliance with medication regimen Z91.14 ; Tobacco abuse Z72.0 ; CHEIKH (obstructive sleep apnea) G47.33 ; BMI 40.0-44.9, adult Z68.41 and Erectile dysfunction due to diseases classified elsewhere N52.1 [place] [id number] [place] [address] 29060- 2778 Feb, Mixed hyperlipidemia E78.2 [place] [id number] [place] [address] 57403- 3380 Nov, [place] [address] [id number] [place] [address] 85358- 0886 Nov, [place] [address] [id number] [place] [address] 65695- 9011 Nov, [place] [address] [id number] [place] [address] 01588- 6620 Nov, Type 2 diabetes mellitus without complication E11.9 [place] [address] [place] [address] 48943- 9015 Oct, Type 2 diabetes mellitus without complication E11.9 ; 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 I10 ; residential 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 ; Mixed hyperlipidemia E78.2 ; Noncompliance with medication regimen Z91.14 and CHEIKH ( obstructive sleep apnea) G47.33 [place] [id number] [place] [address] 17280- 1496 Sep, [place] [address] [id number] [place] [address] 81140- 1451 Jun, Other chest pain R07.89 [place] [id number] [place] [address] 49602- 9002 Jun, Other chest pain R07.89 [facility] [address] [id number] [place] [address] 43858 -6939 Jun, Other chest pain R07.89 [place] [address] [id number] [place] [address] 25774- 8046 May, [place] [address] [id number] [place] [address] 71325- 7998 May, Type 2 diabetes mellitus without complication E11.9 [place] [id number] [place] [address] 90902- 7902 Apr, Type 2 diabetes mellitus without complication E11.9 ; 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 I10 ; residential 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 ; Mixed hyperlipidemia E78.2 and Noncompliance with medication regimen Z91.14 [place] [id number] [place] [address] 14614- 9403 Apr, [facility] [id number] [place] [address] 56173 -2131 Jan, Idiopathic acute pancreatitis, unspecified complication status K85.00 [place] [address] [id number] [place] [address] 61000- 8900 Jan, [facility] [id number] [place] [address] 71149 -8509 Dec, Impacted cerumen of left ear H61.22 [facility] [id number] [place] [address] 75406- 2856 Dec, [facility] [id number] [place] [address] 87890- 0415 Dec, [facility] [id number] [place] [address] 76091- 6951 Dec, [facility] [address] [id number] [place] [address] 19080- 7757 Oct, [facility] [id number] [place] [address] 45225- 3239 Oct, [facility] [id number] [place] [address] 52144- 6913 Oct, Type 2 diabetes mellitus without complication E11.9 ; 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 I10 ; 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 ; Acid reflux K21.9 and History of sleep apnea Z87.09 [facility] [id number] [place] [address] 61916- 0236 Sep, [facility] [address] [place] [address] 42118- 3484 Sep, [facility] [address] [id number] [place] [address] 39539- 0475 July, [facility] [id number] [place] [address] 81051- 7679 July, [facility] [address] [id number] [place] [address] 60894- 6897 July, Type 2 diabetes mellitus without complication E11.9 and 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 I10 [facility] [address] [id number] [place] [address] 28217- 6950 Jun, Type 2 diabetes mellitus without complication E11.9 ; 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 ; 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 I10 ; Acid reflux K21.9 and Pain in right shoulder M25.511 [place] [address] [id number] [place] [address] 46164- 2483 Jun, [facility] [address] 40571- 4748 Jun, History of pancreatitis Z87.19 [place] [address] 12358- 3242 Jun, History of pancreatitis Z87.19 [place] [address] 55458- 8113 May, [place] [address] 15803- 9095 May, [place] [address] 71802- 0867 May, Type 2 diabetes mellitus without complication E11.9 ; residential 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 ; History of pancreatitis Z87.19 ; 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 I10 ; Acid reflux K21.9 and Left upper quadrant pain R10.12 [place] [id number] [place] [address] 06198- 2679 May, Type 2 diabetes mellitus without complication E11.9 ; 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 ; History of pancreatitis Z87.19 ; 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 I10 ; Acid reflux K21.9 ; Dyspnea R06.00 and Sterilization consult Z30.09 [facility] [id number] [place] [address] [id number] 22 Apr, 2015 Encounter for dental examination and cleaning without abnormal findings Z01.20 [place] [address] [id number] [place] [address] 13172- 4301 17 Apr, 2015 Type 2 diabetes mellitus without complication E11.9 ; residential 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 ; History of pancreatitis Z87.19 ; 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 I10 ; Acid reflux K21.9 and Dyspnea R06.00 [facility] [id number] [id number] 17 Apr, 2015 Dental examination Z01.20 [place] [address] [id number] [place] [address] 81543- 2991 05 Mar, 2015 [place] [id number] [place] [address] 80943- 6183 Feb, [place] [address] [id number] [place] [address] 69856- 2397 15 Feb, 2015 Type 2 diabetes mellitus without complication E11.9 ; 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 ; History of pancreatitis Z87.19 ; 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 I10 ; Acid reflux K21.9 ; Dyspnea R06.00 and Sterilization consult Z30.09 [place] [id number] [place] [address] 57590- 8569 Dec, Type 2 diabetes mellitus without complications E11.9 and 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 [place] [address] [id number] [place] [address] 65546- 6547 Oct, [place] [address] [id number] [place] [address] 97319- 4476 Sep, [place] [address] [id number] [place] [address] 57783- 4659 Sep, [place] [address] [id number] [place] [address] 18317- 7740 Sep, Hypertension 401.9 ; Diabetes 250.00 and Hyperlipidemia 272.4 IMMUNIZATIONS No Known Immunizations SOCIAL HISTORY Never Assessed REASON FOR VISIT DI Results PLAN OF CARE VITAL SIGNS MEDICATIONS Unknown Medications RESULTS No Results PROCEDURES No Known procedures INSTRUCTIONS MEDICATIONS ADMINISTERED No Known Medications MEDICAL (GENERAL) HISTORY Type Description Date Medical History 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
--- OUTSIDE RECORDS SUMMARY | 2018-06-18 20:13 | XMS REPORT ---
Author Author AMBREEN MUÑOZ [facility] Address [address] [place] [address] Care Team Providers Care Pharmacist Per Diem Name Role Phone AMBREEN MUÑOZ Unavailable PROBLEMS Type Condition ICD9-CM Code AFX54-BL Code Onset Dates Condition Status SNOMED Code Problem skilled nursing 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 Active 408161005 Problem Noncompliance with medication regimen Z91.14 Active 526609550 Problem History of pancreatitis Z87.19 Active 73861644771082 Problem 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 I10 Active 05315920 Problem Carpal tunnel syndrome on both sides G56.03 Active 38953008292224681 Problem Erectile dysfunction due to diseases classified elsewhere N52.1 Active 335437298 Problem CHEIKH (obstructive sleep apnea) G47.33 Active 86170694 Problem Mixed hyperlipidemia E78.2 Active 209055483 Problem Tobacco abuse Z72.0 Active 623950258 Problem Type 2 diabetes mellitus with hyperglycemia E11.65 Active 43779422 ALLERGIES Substance Reaction Event Type Date Status Metformin HCl diarrhea Drug Allergy Sep, Active ENCOUNTERS Encounter Location Date Diagnosis [facility] [address] [place] [address] 79573 -9661 Nov, Upper respiratory tract infection, unspecified type J06.9 and Nasal congestion with rhinorrhea J34.89 [facility] [address] [place] [address] 83921- 1605 Sep, [facility] [address] 65288- 0115 Sep, Type 2 diabetes mellitus with hyperglycemia E11.65 ; 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 ; Pain of left hand M79.642 ; Pain in right hand M79.641 ; Carpal tunnel syndrome on both sides G56.03 and Thumb tendonitis M77.8 [facility] [address] [address] 0[address] Sep, Type 2 diabetes mellitus with hyperglycemia E11.65 [place] [id number] [place] [address] 80307- 5305 Sep, Type 2 diabetes mellitus with hyperglycemia E11.65 [place] [id number] [place] [address] 23411- 0634 Sep, Type 2 diabetes mellitus with hyperglycemia E11.65 [place] [id number] [place] [address] 79092- 8275 July, Type 2 diabetes mellitus with hyperglycemia E11.65 ; URI, acute J06.9 and Neck pain, acute M54.2 [place] [id number] [place] [address] 60541- 2090 Jun, [place] [id number] [place] [address] 67464- 1033 Apr, [place] [id number] [place] [address] 91543- 2081 Mar, Type 2 diabetes mellitus with hyperglycemia E11.65 ; 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 ; 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 I10 ; Mixed hyperlipidemia E78.2 ; Noncompliance with medication regimen Z91.14 ; Tobacco abuse Z72.0 ; CHEIKH (obstructive sleep apnea) G47.33 ; BMI 40.0-44.9, adult Z68.41 and Erectile dysfunction due to diseases classified elsewhere N52.1 [place] [address] [place] [address] 76486- 9804 Feb, Mixed hyperlipidemia E78.2 [place] [id number] [place] [address] 88959- 8063 Nov, [place] [id number] [place] [address] 64248- 7431 Nov, [place] [id number] [place] [address] 57478- 8444 Nov, [place] [id number] [place] [address] 60467- 3629 Nov, Type 2 diabetes mellitus without complication E11.9 [facility] [id number] [place] [address] 12935- 0682 Oct, Type 2 diabetes mellitus without complication E11.9 ; 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 I10 ; 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 ; Mixed hyperlipidemia E78.2 ; Noncompliance with medication regimen Z91.14 and CHEIKH ( obstructive sleep apnea) G47.33 [place] [id number] [place] [address] 73748- 0691 Sep, [place] [id number] [place] [address] 47146- 2374 Jun, Other chest pain R07.89 [place] [id number] [place] [address] 42034- 7735 Jun, Other chest pain R07.89 [facility] [id number] [place] [address] 69257 -3718 Jun, Other chest pain R07.89 [place] [id number] [place] [address] 10255- 5155 May, [place] [id number] [place] [address] 36411- 5350 May, Type 2 diabetes mellitus without complication E11.9 [facility] [id number] [place] [address] 57648- 8342 Apr, Type 2 diabetes mellitus without complication E11.9 ; 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 I10 ; 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 ; Mixed hyperlipidemia E78.2 and Noncompliance with medication regimen Z91.14 [place] [id number] [place] [address] 80478- 9047 Apr, [facility] [id number] [place] [address] 06250 -5252 Jan, Idiopathic acute pancreatitis, unspecified complication status K85.00 [facility] [address] [address] 8181 Jan, [facility] [id number] [place] [address] 35191 -6667 Dec, Impacted cerumen of left ear H61.22 [facility] [id number] [place] [address] 12518- 3734 Dec, [facility] [id number] [place] [address] 25892- 6675 Dec, [facility] [id number] [place] [address] 22193- 3208 Dec, [facility] [id number] [place] [address] 45009- 4766 Oct, [facility] [id number] [place] [address] 74852- 7977 Oct, [facility] [id number] [place] [address] 94062- 6818 Oct, Type 2 diabetes mellitus without complication E11.9 ; 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 I10 ; skilled nursing 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 ; Acid reflux K21.9 and History of sleep apnea Z87.09 [facility] [address] [place] [address] 37443- 4871 Sep, [facility] [address] [place] [address] 80571- 9556 Sep, [facility] [id number] [place] [address] 70819- 7976 July, [facility] [id number] [place] [address] 08080- 6955 July, [facility] [id number] [place] [address] 69468- 3343 July, Type 2 diabetes mellitus without complication E11.9 and 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 I10 [facility] [id number] [place] [address] 84685- 0056 Jun, Type 2 diabetes mellitus without complication E11.9 ; skilled nursing 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 ; 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 I10 ; Acid reflux K21.9 and Pain in right shoulder M25.511 [place] [id number] [place] [address] 87666- 7139 Jun, [place] [address] 33410- 0343 Jun, History of pancreatitis Z87.19 [place] [id number] [place] [address] 12150- 2185 Jun, History of pancreatitis Z87.19 [place] [id number] [place] [address] 81534- 4866 May, [place] [id number] [place] [address] 41959- 4978 May, [place] [address] 73170- 0181 May, Type 2 diabetes mellitus without complication E11.9 ; skilled nursing 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 ; History of pancreatitis Z87.19 ; 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 I10 ; Acid reflux K21.9 and Left upper quadrant pain R10.12 [facility] [address] [place] [address] 23005- 6862 May, Type 2 diabetes mellitus without complication E11.9 ; 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 ; History of pancreatitis Z87.19 ; 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 I10 ; Acid reflux K21.9 ; Dyspnea R06.00 and Sterilization consult Z30.09 [facility] [address] [place] [address] [phone] Apr, Encounter for dental examination and cleaning without abnormal findings Z01.20 [facility] [id number] [place] [address] 05057- 2144 17 Apr, 2015 Type 2 diabetes mellitus without complication E11.9 ; 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 ; History of pancreatitis Z87.19 ; 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 I10 ; Acid reflux K21.9 and Dyspnea R06.00 [facility] [address] [place] [address] [phone] 17 Apr, 2015 Dental examination Z01.20 [facility] [id number] [place] [address] 66532- 6802 05 Mar, 2015 [place] [id number] [place] [address] 93477- 6739 17 Feb, 2015 [place] [id number] [place] [address] 67724- 2013 15 Feb, 2015 Type 2 diabetes mellitus without complication E11.9 ; 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 ; History of pancreatitis Z87.19 ; 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 I10 ; Acid reflux K21.9 ; Dyspnea R06.00 and Sterilization consult Z30.09 [place] [id number] [place] [address] 14379- 6968 06 Dec, 2014 Type 2 diabetes mellitus without complications E11.9 and skilled nursing 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 [place] [id number] [place] [address] 11714- 7846 Oct, [place] [id number] [place] [address] 26304- 7984 Sep, [place] [id number] [place] [address] 01642- 5217 Sep, [place] [id number] [place] [address] 19578- 2056 Sep, Hypertension 401.9 ; Diabetes 250.00 and Hyperlipidemia 272.4 IMMUNIZATIONS No Known Immunizations SOCIAL HISTORY Never Assessed REASON FOR VISIT Diabetes. A1C was done on 07/28/17.-[facility] PLAN OF CARE Activity Details Follow Up 6 Weeks Reason:DM VITAL SIGNS Height 69 in 2017-09-24 Weight 270 lbs 2017-09-24 Temperature 98 degrees Fahrenheit 2017-09-24 Heart Rate 114 bpm 2017-09-24 Respiratory Rate 20 2017-09-24 BMI 39.87 kg/m2 2017-09-24 Blood pressure systolic 136 mmHg 2017-09-24 Blood pressure diastolic 84 mmHg 2017-09-24 MEDICATIONS Medication Instructions Dosage Frequency Start Date End Date Duration Status Losartan Potassium-HCTZ 100-25 MG Orally Once a day 1 tablet 24h 180 days Active Test strips test strips test 3 times per day Sep, Active Insulin Pen Needle 32G X 4 MM as directed Active Levemir FlexTouch 100 UNIT/ML Subcutaneous 2 times a day Inject 45 units 12h Nov, Active Pravastatin Sodium 40 MG Orally Once a day 1 tablet 24h Active Amlodipine Besylate 5 mg Orally Once a day 1 tablet 24h Oct, 90 days Active Viagra 100 mg Orally Once a day prn 1 tablet as needed 10 Active NovoLog Flexpen 100 UNIT/ML Subcutaneous 3 times a day 10 units tid 8h Active Glimepiride 2 MG Orally Once a day 1 tablet with breakfast or the first main meal of the day 24h Mar, Active RESULTS Name Result Date Reference Range Xray: Hands, Bilateral (IN HOUSE) 2017-09-24 PROCEDURES Procedure Date Ordered Result Body Site X-RAY EXAM OF HAND September 24, 2017 INSTRUCTIONS MEDICATIONS ADMINISTERED No Known Medications MEDICAL (GENERAL) HISTORY Type Description Date Medical History 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
--- OUTSIDE RECORDS SUMMARY | 2018-06-18 20:13 | XMS REPORT ---
Author Author AMBREEN MUÑOZ [facility] Address [address] [place] [address] Care Team Providers Care [facility] Consultant Name Role Phone AMBREEN MUÑOZ Unavailable PROBLEMS Type Condition ICD9-CM Code HTO51-BX Code Onset Dates Condition Status SNOMED Code Problem MCC 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 Active 080258828 Problem Noncompliance with medication regimen Z91.14 Active 217138169 Problem History of pancreatitis Z87.19 Active 40315018035360 Problem 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 I10 Active 04686834 Problem Carpal tunnel syndrome on both sides G56.03 Active 61260890552783209 Problem Erectile dysfunction due to diseases classified elsewhere N52.1 Active 752949179 Problem CHEIKH (obstructive sleep apnea) G47.33 Active 20328958 Problem Mixed hyperlipidemia E78.2 Active 307288121 Problem Tobacco abuse Z72.0 Active 433419759 Problem Type 2 diabetes mellitus with hyperglycemia E11.65 Active 67501751 ALLERGIES No Information ENCOUNTERS Encounter Location Date Diagnosis [place] [id number] [place] [address] 56618- 5814 Sep, [place] [id number] [place] [address] 26447- 7202 Sep, Type 2 diabetes mellitus with hyperglycemia E11.65 ; 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 ; Pain of left hand M79.642 ; Pain in right hand M79.641 ; Carpal tunnel syndrome on both sides G56.03 and Thumb tendonitis M77.8 [place] [id number] [place] [address] 90552- 7726 Sep, Type 2 diabetes mellitus with hyperglycemia E11.65 [place] [id number] [place] [address] 74648- 5495 Sep, Type 2 diabetes mellitus with hyperglycemia E11.65 [place] [address] [address]- 3217 Sep, Type 2 diabetes mellitus with hyperglycemia E11.65 [place] [id number] [place] [address] 93136- 7588 July, Type 2 diabetes mellitus with hyperglycemia E11.65 ; URI, acute J06.9 and Neck pain, acute M54.2 [place] [id number] [place] [address] 42554- 2416 Jun, [place] [id number] [place] [address] 45508- 1924 Apr, [place] [id number] [place] [address] 56728- 3476 Mar, Type 2 diabetes mellitus with hyperglycemia E11.65 ; 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 ; 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 I10 ; Mixed hyperlipidemia E78.2 ; Noncompliance with medication regimen Z91.14 ; Tobacco abuse Z72.0 ; CHEIKH (obstructive sleep apnea) G47.33 ; BMI 40.0-44.9, adult Z68.41 and Erectile dysfunction due to diseases classified elsewhere N52.1 [place] [id number] [place] [address] 51089- 5160 Feb, Mixed hyperlipidemia E78.2 [place] [id number] [place] [address] 93197- 5000 Nov, [place] [id number] [place] [address] 67138- 7381 Nov, [place] [address] [place] [address] 94712- 2702 Nov, [place] [id number] [place] [address] 99056- 0355 Nov, Type 2 diabetes mellitus without complication E11.9 [place] [id number] [place] [address] 22090- 9192 Oct, Type 2 diabetes mellitus without complication E11.9 ; 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 I10 ; MCC 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 ; Mixed hyperlipidemia E78.2 ; Noncompliance with medication regimen Z91.14 and CHEIKH ( obstructive sleep apnea) G47.33 [place] [id number] [place] [address] 94448- 6581 Sep, [place] [address] 15491- 2668 Jun, Other chest pain R07.89 [place] [address] 30345- 1778 Jun, Other chest pain R07.89 [facility] [place] [id number] [place] [address] 84430 -2115 Jun, Other chest pain R07.89 [place] [address] 68951- 0464 May, [place] [address] 55420- 2689 May, Type 2 diabetes mellitus without complication E11.9 [place] [address] 60954- 5217 Apr, Type 2 diabetes mellitus without complication E11.9 ; 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 I10 ; MCC 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 ; Mixed hyperlipidemia E78.2 and Noncompliance with medication regimen Z91.14 [place] [id number] [place] [address] 26531- 1840 Apr, [facility] [place] [id number] [place] [address] 71162 -3454 Jan, Idiopathic acute pancreatitis, unspecified complication status K85.00 [place] [id number] [place] [address] 21458- 2104 Jan, [facility] [place] [id number] [place] [address] 24900 -5092 Dec, Impacted cerumen of left ear H61.22 [facility] [address] [address]- 9422 Dec, [facility] [id number] [place] [address] 69891- 7030 Dec, [facility] [id number] [place] [address] 27425- 2811 Dec, [facility] [id number] [place] [address] 13486- 7129 Oct, [facility] [id number] [place] [address] 64693- 7293 Oct, [facility] [id number] [place] [address] 21699- 0018 Oct, Type 2 diabetes mellitus without complication E11.9 ; 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 I10 ; MCC 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 ; Acid reflux K21.9 and History of sleep apnea Z87.09 [facility] [address] [address]- 5060 Sep, [facility] [id number] [place] [address] 26105- 6371 Sep, [facility] [id number] [place] [address] 63451- 7491 July, [place] [address] [place] [address] 46077- 0281 July, [facility] [address] [address]- 3862 July, Type 2 diabetes mellitus without complication E11.9 and 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 I10 [facility] [id number] [place] [address] 57872- 1866 Jun, Type 2 diabetes mellitus without complication E11.9 ; MCC 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 ; 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 I10 ; Acid reflux K21.9 and Pain in right shoulder M25.511 [facility] [id number] [place] [address] 99404- 1986 Jun, [place] [id number] [place] [address] 33588- 2668 Jun, History of pancreatitis Z87.19 [place] [id number] [place] [address] 23966- 2636 Jun, History of pancreatitis Z87.19 [place] [address] 33861- 0940 May, [place] [address] 19107- 2138 May, [place] [address] 28579- 6138 May, Type 2 diabetes mellitus without complication E11.9 ; MCC 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 ; History of pancreatitis Z87.19 ; 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 I10 ; Acid reflux K21.9 and Left upper quadrant pain R10.12 [place] [id number] [place] [address] 31089- 2009 May, Type 2 diabetes mellitus without complication E11.9 ; MCC 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 ; History of pancreatitis Z87.19 ; 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 I10 ; Acid reflux K21.9 ; Dyspnea R06.00 and Sterilization consult Z30.09 [facility] [address] [id number] Apr, Encounter for dental examination and cleaning without abnormal findings Z01.20 [place] [id number] [place] [address] 70492- 3417 17 Apr, 2015 Type 2 diabetes mellitus without complication E11.9 ; MCC 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 ; History of pancreatitis Z87.19 ; 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 I10 ; Acid reflux K21.9 and Dyspnea R06.00 [facility] [address] [id number] Apr, Dental examination Z01.20 [place] [address] [place] [address]- 5535 Mar, [place] [id number] [place] [address] 27763- 5458 Feb, [place] [address] 23247- 7884 Feb, Type 2 diabetes mellitus without complication E11.9 ; 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 ; History of pancreatitis Z87.19 ; 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 I10 ; Acid reflux K21.9 ; Dyspnea R06.00 and Sterilization consult Z30.09 [place] [address] 96164- 3665 Dec, Type 2 diabetes mellitus without complications E11.9 and MCC 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 [place] [address] 49094- 3566 Oct, [place] [address] 23078- 5055 Sep, [place] [id number] [place] [address] 43915- 6079 Sep, [place] [id number] [place] [address] 39214- 9854 Sep, Hypertension 401.9 ; Diabetes 250.00 and Hyperlipidemia 272.4 IMMUNIZATIONS No Known Immunizations SOCIAL HISTORY Never Assessed REASON FOR VISIT Refill request PLAN OF CARE VITAL SIGNS MEDICATIONS Medication Instructions Dosage Frequency Start Date End Date Duration Status Test strips test strips test 3 times per day Sep, Active RESULTS No Results PROCEDURES No Known procedures INSTRUCTIONS MEDICATIONS ADMINISTERED No Known Medications MEDICAL (GENERAL) HISTORY Type Description Date Medical History 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
--- OUTSIDE RECORDS SUMMARY | 2018-06-18 20:14 | XMS REPORT ---
Author Author JULIO SHAFFER [facility] Address [address] [place] [address] Care Team Providers Care Beam Department Supervisor Name Role Phone JULIO SHAFFER Unavailable PROBLEMS Type Condition ICD9-CM Code ZOS70-JI Code Onset Dates Condition Status SNOMED Code Problem residential 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 Active 924388352 Problem Noncompliance with medication regimen Z91.14 Active 137885512 Problem History of pancreatitis Z87.19 Active 51356351590803 Problem 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 I10 Active 29312675 Problem Carpal tunnel syndrome on both sides G56.03 Active [id number] Problem Erectile dysfunction due to diseases classified elsewhere N52.1 Active 254206708 Problem CHEIKH (obstructive sleep apnea) G47.33 Active 12510485 Problem Mixed hyperlipidemia E78.2 Active 836013550 Problem Tobacco abuse Z72.0 Active 123208985 Problem Type 2 diabetes mellitus with hyperglycemia E11.65 Active 40074857 ALLERGIES No Information ENCOUNTERS Encounter Location Date Diagnosis [place] [address] [place] [id number] [place] [address] 45416- 9751 Sep, [place] [address] [id number] [place] [address] 95910- 6504 Sep, Type 2 diabetes mellitus with hyperglycemia E11.65 ; 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 ; Pain of left hand M79.642 ; Pain in right hand M79.641 ; Carpal tunnel syndrome on both sides G56.03 and Thumb tendonitis M77.8 [place] [address] [id number] [place] [address] 87422- 9972 Sep, Type 2 diabetes mellitus with hyperglycemia E11.65 [place] [address] [id number] [place] [address] 99831- 3611 Sep, Type 2 diabetes mellitus with hyperglycemia E11.65 [place] [address] [address] 6607 Sep, Type 2 diabetes mellitus with hyperglycemia E11.65 [place] [address] [address] [id number] [place] [address] 75241- 5758 July, Type 2 diabetes mellitus with hyperglycemia E11.65 ; URI, acute J06.9 and Neck pain, acute M54.2 [place] [address] [id number] [place] [address] 94069- 3000 Jun, [place] [address] [address] [id number] [place] [address] 57069- 0419 Apr, [place] [address] [address] [id number] [place] [address] 64421- 5959 Mar, Type 2 diabetes mellitus with hyperglycemia E11.65 ; residential 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 ; 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 I10 ; Mixed hyperlipidemia E78.2 ; Noncompliance with medication regimen Z91.14 ; Tobacco abuse Z72.0 ; CHEIKH (obstructive sleep apnea) G47.33 ; BMI 40.0-44.9, adult Z68.41 and Erectile dysfunction due to diseases classified elsewhere N52.1 [place] [address] [address] [id number] [place] [address] 45424- 1309 Feb, Mixed hyperlipidemia E78.2 [place] [address] [address] [id number] [place] [address] 16359- 2496 Nov, [place] [address] [id number] [place] [address] 60980- 9528 Nov, [place] [address] [id number] [place] [address] 37700- 8601 Nov, [place] [address] [id number] [place] [address] 20247- 6164 Nov, Type 2 diabetes mellitus without complication E11.9 [place] [id number] [place] [address] 16753- 6552 Oct, Type 2 diabetes mellitus without complication E11.9 ; 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 I10 ; residential 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 ; Mixed hyperlipidemia E78.2 ; Noncompliance with medication regimen Z91.14 and CHEIKH ( obstructive sleep apnea) G47.33 [place] [id number] [place] [address] 29131- 1653 Sep, [place] [address] [id number] [place] [address] 55145- 0675 Jun, Other chest pain R07.89 [place] [address] [id number] [place] [address] 89496- 9943 Jun, Other chest pain R07.89 [facility] [place] [id number] [place] [address] 35219 -4807 Jun, Other chest pain R07.89 [place] [address] [id number] [place] [address] 43643- 3562 May, [place] [address] [id number] [place] [address] 70822- 1425 May, Type 2 diabetes mellitus without complication E11.9 [place] [address] 38982- 0302 Apr, Type 2 diabetes mellitus without complication E11.9 ; 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 I10 ; residential 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 ; Mixed hyperlipidemia E78.2 and Noncompliance with medication regimen Z91.14 [place] [id number] [place] [address] 76287- 7883 Apr, [facility] [place] [id number] [place] [address] 61439 -8201 Jan, Idiopathic acute pancreatitis, unspecified complication status K85.00 [place] [address] [id number] [place] [address] 19538- 0493 Jan, [facility] [place] [id number] [place] [address] 71426 -3058 Dec, Impacted cerumen of left ear H61.22 [facility] [place] [address], [place] [address] 5077 Dec, [facility] [place] [id number] [place] [address] 85539- 5103 Dec, [facility] [place] [id number] [place] [address] 50155- 9658 Dec, [facility] [place] [address] [address] [id number] [place] [address] 31665- 3512 Oct, [facility] [place] [id number] [place] [address] 37645- 8617 Oct, [facility] [place] [id number] [place] [address] 55829- 9190 Oct, Type 2 diabetes mellitus without complication E11.9 ; 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 I10 ; 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 ; Acid reflux K21.9 and History of sleep apnea Z87.09 [facility] [place] [address], [place] [address] 3875 Sep, [facility] [place] [address] [address] [id number] [place] [address] 68989- 8121 Sep, [facility] [place] [id number] [place] [address] 42912- 0086 July, [place] [address], [place] [address]- 1818 July, [facility] [place] [address], [place] [address]- 5971 July, Type 2 diabetes mellitus without complication E11.9 and 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 I10 [facility] [place] [id number] [place] [address] 18306- 4906 Jun, Type 2 diabetes mellitus without complication E11.9 ; 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 ; 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 I10 ; Acid reflux K21.9 and Pain in right shoulder M25.511 [facility] [place] [id number] [place] [address] 03361- 8933 Jun, [place] [address] [id number] [place] [address] 11446- 6869 Jun, History of pancreatitis Z87.19 [place] [id number] [place] [address] 93127- 2192 Jun, History of pancreatitis Z87.19 [place] [address] 49715- 0689 May, [place] [address] 59474- 7634 May, [place] [address] 58332- 0874 May, Type 2 diabetes mellitus without complication E11.9 ; residential 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 ; History of pancreatitis Z87.19 ; 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 I10 ; Acid reflux K21.9 and Left upper quadrant pain R10.12 [place] [id number] [place] [address] 80755- 5810 May, Type 2 diabetes mellitus without complication E11.9 ; 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 ; History of pancreatitis Z87.19 ; 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 I10 ; Acid reflux K21.9 ; Dyspnea R06.00 and Sterilization consult Z30.09 [facility] [address] [id number] Apr, Encounter for dental examination and cleaning without abnormal findings Z01.20 [place] [address] [id number] [place] [address] 45889- 6985 17 Apr, 2015 Type 2 diabetes mellitus without complication E11.9 ; residential 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 ; History of pancreatitis Z87.19 ; 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 I10 ; Acid reflux K21.9 and Dyspnea R06.00 [facility] [address] [id number] Apr, Dental examination Z01.20 [place] [address] [place] [address]- 8676 Mar, [place] [address] [address] [id number] [place] [address] 68768- 9713 Feb, [place] [address] [address] [id number] [place] [address] 80962- 0763 Feb, Type 2 diabetes mellitus without complication E11.9 ; 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 ; History of pancreatitis Z87.19 ; 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 I10 ; Acid reflux K21.9 ; Dyspnea R06.00 and Sterilization consult Z30.09 [place] [address] [id number] [place] [address] 20716- 8922 Dec, Type 2 diabetes mellitus without complications E11.9 and residential 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 [place] [address] [address] [id number] [place] [address] 17112- 2132 Oct, [place] [address] 10669- 0195 Sep, [place] [address] [id number] [place] [address] 22420- 2532 Sep, [place] [address] [address] [id number] [place] [address] 10243- 4631 Sep, Hypertension 401.9 ; Diabetes 250.00 and Hyperlipidemia 272.4 IMMUNIZATIONS No Known Immunizations SOCIAL HISTORY Never Assessed REASON FOR VISIT Refill request PLAN OF CARE VITAL SIGNS MEDICATIONS Unknown Medications RESULTS No Results PROCEDURES No Known procedures INSTRUCTIONS MEDICATIONS ADMINISTERED No Known Medications MEDICAL (GENERAL) HISTORY Type Description Date Medical History 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
--- OUTSIDE RECORDS SUMMARY | 2018-06-18 20:14 | XMS REPORT ---
Author Author AMBREEN MUÑOZ [facility] Address [address] [place] [address] Care Team Providers Care News Gathering Technician Name Role Phone AMBREEN MUÑOZ Unavailable PROBLEMS Type Condition ICD9-CM Code EVN16-EE Code Onset Dates Condition Status SNOMED Code Problem nursing home 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 Active 942754048 Problem Noncompliance with medication regimen Z91.14 Active 637026659 Problem History of pancreatitis Z87.19 Active 92019712291089 Problem 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 I10 Active 67847783 Problem Carpal tunnel syndrome on both sides G56.03 Active 71231789476631673 Problem Erectile dysfunction due to diseases classified elsewhere N52.1 Active 298490207 Problem CHEIKH (obstructive sleep apnea) G47.33 Active 87620925 Problem Mixed hyperlipidemia E78.2 Active 454951183 Problem Tobacco abuse Z72.0 Active 527709568 Problem Type 2 diabetes mellitus with hyperglycemia E11.65 Active 41084206 ALLERGIES No Information ENCOUNTERS Encounter Location Date Diagnosis [place] [id number] [place] [address] 21362- 8444 Sep, [place] [address] [place] [address] [id number] [place] [address] 50995- 7662 Sep, Type 2 diabetes mellitus with hyperglycemia E11.65 ; 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 ; Pain of left hand M79.642 ; Pain in right hand M79.641 ; Carpal tunnel syndrome on both sides G56.03 and Thumb tendonitis M77.8 [place] [address] [id number] [place] [address] 76465- 4752 Sep, Type 2 diabetes mellitus with hyperglycemia E11.65 [place] [address] [place] [id number] [place] [address] 55466- 6728 Sep, Type 2 diabetes mellitus with hyperglycemia E11.65 [place] [address], [place] [address]- 0899 Sep, Type 2 diabetes mellitus with hyperglycemia E11.65 [place] [address] [place] [address] [id number] [place] [address] 97190- 3606 July, Type 2 diabetes mellitus with hyperglycemia E11.65 ; URI, acute J06.9 and Neck pain, acute M54.2 [place] [address] [place] [address] [id number] [place] [address] 85591- 6387 Jun, [place] [address] [id number] [place] [address] 10098- 7998 Apr, [place] [address] [place] [address] [id number] [place] [address] 64103- 9271 Mar, Type 2 diabetes mellitus with hyperglycemia E11.65 ; 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 ; 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 I10 ; Mixed hyperlipidemia E78.2 ; Noncompliance with medication regimen Z91.14 ; Tobacco abuse Z72.0 ; CHEIKH (obstructive sleep apnea) G47.33 ; BMI 40.0-44.9, adult Z68.41 and Erectile dysfunction due to diseases classified elsewhere N52.1 [place] [address] [place] [address] [id number] [place] [address] 04661- 6610 Feb, Mixed hyperlipidemia E78.2 [place] [address] [place] [address] [id number] [place] [address] 65351- 6079 Nov, [place] [address] [address] [id number] [place] [address] 86907- 3079 Nov, [place] [id number] [place] [address] 01920- 3470 Nov, [place] [address] [place] [id number] [place] [address] 19956- 2526 Nov, Type 2 diabetes mellitus without complication E11.9 [place] [address] [place] [id number] [place] [address] 76899- 9995 Oct, Type 2 diabetes mellitus without complication E11.9 ; 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 I10 ; nursing home 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 ; Mixed hyperlipidemia E78.2 ; Noncompliance with medication regimen Z91.14 and CHEIKH ( obstructive sleep apnea) G47.33 [place] [address] [place] [id number] [place] [address] 07716- 4601 Sep, [place] [address] 60611- 5130 Jun, Other chest pain R07.89 [place] [address] 52393- 5293 Jun, Other chest pain R07.89 [facility] [place] [address] [id number] [place] [address] 35712 -8014 Jun, Other chest pain R07.89 [place] [address] 08538- 0486 May, [place] [address] 17832- 0213 May, Type 2 diabetes mellitus without complication E11.9 [place] [address] 55758- 1425 Apr, Type 2 diabetes mellitus without complication E11.9 ; 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 I10 ; nursing home 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 ; Mixed hyperlipidemia E78.2 and Noncompliance with medication regimen Z91.14 [place] [address] [id number] [place] [address] 06670- 5027 Apr, [facility] [place] [id number] [place] [address] 80885 -7463 Jan, Idiopathic acute pancreatitis, unspecified complication status K85.00 [place] [address] [place] [address] [id number] [place] [address] 52252- 5322 Jan, [facility] [place] [id number] [place] [address] 01442 -9365 Dec, Impacted cerumen of left ear H61.22 [facility] [address], [place] [address]- 5088 Dec, [facility] [address] [place] [id number] [place] [address] 55922- 7659 Dec, [facility] [address] [place] [id number] [place] [address] 03069- 9521 Dec, [facility] [address] [place] [address] [id number] [place] [address] 15434- 0288 Oct, [facility] [address] [place] [id number] [place] [address] 16906- 4664 Oct, [facility] [address] [place] [id number] [place] [address] 93634- 8687 Oct, Type 2 diabetes mellitus without complication E11.9 ; 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 I10 ; nursing home 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 ; Acid reflux K21.9 and History of sleep apnea Z87.09 [facility] [address], [place] [address]- 7751 Sep, [facility] [address] [place] [id number] [place] [address] 60713- 4810 Sep, [facility] [address] [place] [id number] [place] [address] 48777- 6648 July, [place] [address] [place] [address] 74035- 9530 July, [facility] [address], [place] [address]- 7906 July, Type 2 diabetes mellitus without complication E11.9 and 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 I10 [facility] [address] [place] [id number] [place] [address] 46567- 7425 Jun, Type 2 diabetes mellitus without complication E11.9 ; nursing home 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 ; 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 I10 ; Acid reflux K21.9 and Pain in right shoulder M25.511 [facility] [address] [place] [id number] [place] [address] 72231- 2928 Jun, [place] [address] [place] [id number] [place] [address] 41987- 6547 Jun, History of pancreatitis Z87.19 [place] [address] [place] [id number] [place] [address] 12360- 7293 Jun, History of pancreatitis Z87.19 [place] [address] 51094- 9589 May, [place] [address] 91369- 4932 May, [place] [address] 51056- 4793 May, Type 2 diabetes mellitus without complication E11.9 ; nursing home 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 ; History of pancreatitis Z87.19 ; 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 I10 ; Acid reflux K21.9 and Left upper quadrant pain R10.12 [place] [address] [place] [id number] [place] [address] 19196- 8363 May, Type 2 diabetes mellitus without complication E11.9 ; nursing home 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 ; History of pancreatitis Z87.19 ; 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 I10 ; Acid reflux K21.9 ; Dyspnea R06.00 and Sterilization consult Z30.09 [facility] [address] [id number] Apr, Encounter for dental examination and cleaning without abnormal findings Z01.20 [place] [address] [place] [id number] [place] [address] 64321- 1257 17 Apr, 2015 Type 2 diabetes mellitus without complication E11.9 ; nursing home 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 ; History of pancreatitis Z87.19 ; 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 I10 ; Acid reflux K21.9 and Dyspnea R06.00 [facility] [address] [id number] Apr, Dental examination Z01.20 [place] [address] [place] [address]- 1812 Mar, [place] [address] [place] [id number] [place] [address] 53890- 2272 Feb, [place] [address] 85534- 8375 Feb, Type 2 diabetes mellitus without complication E11.9 ; 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9 ; Diabetes 250.00 and Hyperlipidemia 272.4 IMMUNIZATIONS No Known Immunizations SOCIAL HISTORY Never Assessed REASON FOR VISIT Test Strips PLAN OF CARE VITAL SIGNS MEDICATIONS Medication Instructions Dosage Frequency Start Date End Date Duration Status Test strips test strips test 3 times per day Sep, Active RESULTS No Results PROCEDURES No Known procedures INSTRUCTIONS MEDICATIONS ADMINISTERED No Known Medications MEDICAL (GENERAL) HISTORY Type Description Date Medical History 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
--- OUTSIDE RECORDS SUMMARY | 2018-06-18 20:14 | XMS REPORT ---
Author Author AMBREEN MUÑOZ [facility] Address [address] [place] [address] Care Team Providers Care Cotton Dispatcher Name Role Phone AMBREEN MUÑOZ Unavailable PROBLEMS Type Condition ICD9-CM Code [id number] Code Onset Dates Condition Status SNOMED Code Problem [facility] 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 Active 247193938 Problem Noncompliance with medication regimen Z91.14 Active 239685609 Problem History of pancreatitis Z87.19 Active 06390109606589 Problem 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 I10 Active 74959574 Problem Carpal tunnel syndrome on both sides G56.03 Active 84108412638934289 Problem Erectile dysfunction due to diseases classified elsewhere N52.1 Active 955260757 Problem CHEIKH (obstructive sleep apnea) G47.33 Active 52876814 Problem Mixed hyperlipidemia E78.2 Active 490636696 Problem Tobacco abuse Z72.0 Active 067037898 Problem Type 2 diabetes mellitus with hyperglycemia E11.65 Active 96254944 ALLERGIES Substance Reaction Event Type Date Status Metformin HCl diarrhea Drug Allergy July, Active ENCOUNTERS Encounter Location Date Diagnosis [place] [address] [id number] [place] [address] 66326- 0545 Sep, [place] [address] [id number] [place] [address] 64373- 4137 Sep, Type 2 diabetes mellitus with hyperglycemia E11.65 ; 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 ; Pain of left hand M79.642 ; Pain in right hand M79.641 ; Carpal tunnel syndrome on both sides G56.03 and Thumb tendonitis M77.8 [place] [id number] [place] [address] 66152- 8033 Sep, Type 2 diabetes mellitus with hyperglycemia E11.65 [place] [address] 5[address]64- 5317 Sep, Type 2 diabetes mellitus with hyperglycemia E11.65 [place] [address] [place] [address] 24920- 2047 Sep, Type 2 diabetes mellitus with hyperglycemia E11.65 [place] [address] [id number] [place] [address] 93333- 5553 July, Type 2 diabetes mellitus with hyperglycemia E11.65 ; URI, acute J06.9 and Neck pain, acute M54.2 [place] [id number] [place] [address] 88927- 7534 Jun, [place] [address] [id number] [place] [address] 68178- 6580 Apr, [place] [id number] [place] [address] 61769- 4293 Mar, Type 2 diabetes mellitus with hyperglycemia E11.65 ; 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 ; 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 I10 ; Mixed hyperlipidemia E78.2 ; Noncompliance with medication regimen Z91.14 ; Tobacco abuse Z72.0 ; CHEIKH (obstructive sleep apnea) G47.33 ; BMI 40.0-44.9, adult Z68.41 and Erectile dysfunction due to diseases classified elsewhere N52.1 [place] [id number] [place] [address] 72405- 1808 Feb, Mixed hyperlipidemia E78.2 [place] [address] [place] [address] 90115- 2606 Nov, [place] [id number] [place] [address] 08909- 0537 Nov, [place] [id number] [place] [address] 66770- 9063 Nov, [place] [id number] [place] [address] 80522- 7824 08 Nov, 2016 Type 2 diabetes mellitus without complication E11.9 [place] [id number] [place] [address] 86204- 3669 Oct, Type 2 diabetes mellitus without complication E11.9 ; 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 I10 ; 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 ; Mixed hyperlipidemia E78.2 ; Noncompliance with medication regimen Z91.14 and CHEIKH ( obstructive sleep apnea) G47.33 [place] [id number] [place] [address] 77437- 3086 Sep, [place] [id number] [place] [address] 98109- 9710 Jun, Other chest pain R07.89 [place] [id number] [place] [address] 02239- 4425 Jun, Other chest pain R07.89 [facility] [place] [id number] [place] [address] 74187 -7765 Jun, Other chest pain R07.89 [place] [id number] [place] [address] 81686- 8321 May, [place] [id number] [place] [address] 36796- 1758 May, Type 2 diabetes mellitus without complication E11.9 [place] [id number] [place] [address] 27531- 9979 Apr, Type 2 diabetes mellitus without complication E11.9 ; 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 I10 ; [facility] 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 ; Mixed hyperlipidemia E78.2 and Noncompliance with medication regimen Z91.14 [place] [id number] [place] [address] 39874- 0215 Apr, [facility] [id number] [place] [address] 98438 -7236 Jan, Idiopathic acute pancreatitis, unspecified complication status K85.00 [place] [id number] [place] [address] 31976- 6001 Jan, [facility] [id number] [place] [address] 25431 -1873 Dec, Impacted cerumen of left ear H61.22 [facility] [id number] [place] [address] 23752- 5590 Dec, [facility] [id number] [place] [address] 61650- 7522 Dec, [facility] [id number] [place] [address] 90303- 0034 Dec, [facility] [id number] [place] [address] 29496- 9792 Oct, [facility] [id number] [place] [address] 29918- 2160 Oct, [facility] [id number] [place] [address] 94176- 4344 Oct, Type 2 diabetes mellitus without complication E11.9 ; 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 I10 ; [facility] 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 ; Acid reflux K21.9 and History of sleep apnea Z87.09 [facility] [address] [address]- 9766 Sep, [facility] [id number] [place] [address] 05128- 5675 Sep, [facility] [address] [place] [address] 67526- 8697 July, [facility] [id number] [place] [address] 94232- 5023 July, [facility] [address] [place] [address] 12296- 8316 July, Type 2 diabetes mellitus without complication E11.9 and 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 I10 [facility] [address] [place] [address] 61250- 0702 Jun, Type 2 diabetes mellitus without complication E11.9 ; 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 ; 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 I10 ; Acid reflux K21.9 and Pain in right shoulder M25.511 [place] [address] [place] [address] 89342- 5726 Jun, [place] [id number] [place] [address] 08741- 7161 Jun, History of pancreatitis Z87.19 [place] [id number] [place] [address] 84778- 0767 Jun, History of pancreatitis Z87.19 [place] [id number] [place] [address] 68830- 3477 May, [place] [id number] [place] [address] 39354- 2932 May, [place] [id number] [place] [address] 78505- 9816 May, Type 2 diabetes mellitus without complication E11.9 ; [facility] 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 ; History of pancreatitis Z87.19 ; 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 I10 ; Acid reflux K21.9 and Left upper quadrant pain R10.12 [place] [id number] [place] [address] 42225- 5634 May, Type 2 diabetes mellitus without complication E11.9 ; [facility] 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 ; History of pancreatitis Z87.19 ; 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 I10 ; Acid reflux K21.9 ; Dyspnea R06.00 and Sterilization consult Z30.09 [facility] [address] [id number] 22 Apr, 2015 Encounter for dental examination and cleaning without abnormal findings Z01.20 [facility] [address] [place] [address] 05341- 2478 17 Apr, 2015 Type 2 diabetes mellitus without complication E11.9 ; [facility] 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 ; History of pancreatitis Z87.19 ; 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 I10 ; Acid reflux K21.9 and Dyspnea R06.00 [facility] [address] [place] [id number] [place] [address] [id number] Apr, Dental examination Z01.20 [place] [address] [place] [address] 99692- 3709 Mar, [place] [address] 69586- 9175 Feb, [place] [address] 82709- 7744 Feb, Type 2 diabetes mellitus without complication E11.9 ; 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 ; History of pancreatitis Z87.19 ; 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 I10 ; Acid reflux K21.9 ; Dyspnea R06.00 and Sterilization consult Z30.09 [place] [address] 93368- 1632 Dec, Type 2 diabetes mellitus without complications E11.9 and [facility] 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 [place] [address] 86555- 9266 Oct, [place] [address] 28413- 4917 Sep, [place] [address] 99100- 7736 Sep, [place] [address] 41106- 9173 Sep, Hypertension 401.9 ; Diabetes 250.00 and Hyperlipidemia 272.4 IMMUNIZATIONS No Known Immunizations SOCIAL HISTORY Never Assessed REASON FOR VISIT Transition of Care. Cough x 2 weeks. Neck pain x 3 weeks, pt tried both Cyclobenzaprine and Hydrocodone and states they did not help - Naproxen provided some relief. Worsening pain in right thumb x 2 years. sterling PLAN OF CARE Activity Details Follow Up 4 Weeks Reason:DM VITAL SIGNS Height 69 in 2017-07-28 Weight 269.7 lbs 2017-07-28 Heart Rate 92 bpm 2017-07-28 Respiratory Rate 20 2017-07-28 BMI 39.82 kg/m2 2017-07-28 Blood pressure systolic 124 mmHg 2017-07-28 Blood pressure diastolic 88 mmHg 2017-07-28 MEDICATIONS Medication Instructions Dosage Frequency Start Date End Date Duration Status HydrOXYzine HCl 25 MG Orally every 8 hrs 1 tablet as needed 8h 15 Jun, 2016 30 day(s) Active Losartan Potassium-HCTZ 100-25 MG Orally Once a day 1 tablet 24h 180 days Active Pravastatin Sodium 40 MG Orally Once a day 1 tablet 24h Active Amlodipine Besylate 5 mg Orally Once a day 1 tablet 24h 30 Oct, 2016 90 days Active Levemir FlexTouch 100 UNIT/ML Subcutaneous 2 times a day Inject 35 units 12h 08 Nov, 2016 30 days Active Test strips Test Strips test 3 times per day Sep, Jan, 30 days Active Glimepiride 2 MG Orally Once a day 1 tablet with breakfast or the first main meal of the day 24h 23 Mar, 2017 30 day(s) Active Viagra 100 mg Orally Once a day prn 1 tablet as needed 10 Active NovoLog Flexpen 100 UNIT/ML Subcutaneous 3 times a day 10 units tid 8h 30 days Active Metoprolol Tartrate 50 mg Orally Twice a day 1 tablet with food 12h 90 Active Insulin Pen Needle 32G X 4 MM as directed Active RESULTS Name Result Date Reference Range A1C (IN HOUSE) 2017-07-28 A1C IN HOUSE 12+ 4.3 - 5.6 % Previous A1c 12.4 Lot [id number] Exp date 05/2019 PROCEDURES Procedure Date Ordered Result Body Site GLYCATED HEMOGLOBIN TEST July 28, 2017 INSTRUCTIONS MEDICATIONS ADMINISTERED No Known Medications MEDICAL (GENERAL) HISTORY Type Description Date Medical History 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
--- OUTSIDE RECORDS SUMMARY | 2018-06-18 20:15 | XMS REPORT ---
Author Author JULIO SHAFFER [facility] Address [address] [place] [address] Care Team Providers Care Electronic Operator Name Role Phone JULIO SHAFFER Unavailable PROBLEMS Type Condition ICD9-CM Code FYI42-EV Code Onset Dates Condition Status SNOMED Code Problem 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 I10 Active 59217530 Problem History of pancreatitis Z87.19 Active 85511155572343 Problem assisted 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 Active 571933775 Problem Erectile dysfunction due to diseases classified elsewhere N52.1 Active 928733996 Problem Tobacco abuse Z72.0 Active 884666210 Problem Mixed hyperlipidemia E78.2 Active 457945335 Problem Noncompliance with medication regimen Z91.14 Active 612878788 Problem Type 2 diabetes mellitus with hyperglycemia E11.65 Active 04872992 Problem CHEIKH (obstructive sleep apnea) G47.33 Active 45723100 ALLERGIES No Information ENCOUNTERS Encounter Location Date Diagnosis [place] [address] 56[address]- 1960 Aug, [place] [address] 97972- 6482 July, Type 2 diabetes mellitus with hyperglycemia E11.65 ; URI, acute J06.9 and Neck pain, acute M54.2 [facility] [id number] [place] [address] 73898- 1377 Jun, [place] [address] 86037- 3508 Apr, [place] [address] 36702- 7114 Mar, Type 2 diabetes mellitus with hyperglycemia E11.65 ; 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 ; 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 I10 ; Mixed hyperlipidemia E78.2 ; Noncompliance with medication regimen Z91.14 ; Tobacco abuse Z72.0 ; CHEIKH (obstructive sleep apnea) G47.33 ; BMI 40.0-44.9, adult Z68.41 and Erectile dysfunction due to diseases classified elsewhere N52.1 [facility] [id number] [place] [address] 82695- 4610 Feb, Mixed hyperlipidemia E78.2 [facility] [address] 93706- 0806 Nov, [facility] [address] 79950- 9881 Nov, [place] [address] 62160- 3846 Nov, [place] [address] 00417- 2284 Nov, Type 2 diabetes mellitus without complication E11.9 [facility] [id number] [place] [address] 16156- 7601 Oct, Type 2 diabetes mellitus without complication E11.9 ; 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 I10 ; assisted 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 ; Mixed hyperlipidemia E78.2 ; Noncompliance with medication regimen Z91.14 and CHEIKH ( obstructive sleep apnea) G47.33 [facility] [id number] [place] [address] 50498- 1559 Sep, [facility] [id number] [place] [address] 55454- 7368 Jun, Other chest pain R07.89 [facility] [id number] [place] [address] 53896- 8945 Jun, Other chest pain R07.89 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 [place] [address] 32725 -4051 Jan, Idiopathic acute pancreatitis, unspecified complication status K85.00 [place] [address] 30091- 3522 Jan, [facility] [place] [address] 88837 -8459 Dec, Impacted cerumen of left ear H61.22 [place] [address] 05979- 0691 Dec, [place] [address] 89679- 2143 Dec, [place] [id number] [place] [address] 41967- 7723 Dec, [place] [id number] [place] [address] 32573- 1678 Oct, [place] [address] 35178- 5037 Oct, [place] [address] 95388- 9094 Oct, Type 2 diabetes mellitus without complication E11.9 ; 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 I10 ; 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 ; Acid reflux K21.9 and History of sleep apnea Z87.09 [facility] [address] [address]- 9510 Sep, [facility] [address] [address]- 6204 Sep, [facility] [address] [address]- 2821 July, [facility] [address] [place] [address] 80023- 5966 July, [facility] [address] [place] [address] 05798- 1187 July, Type 2 diabetes mellitus without complication E11.9 and 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 I10 [facility] [address] [address]- 9379 Jun, Type 2 diabetes mellitus without complication E11.9 ; assisted 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 ; 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 I10 ; Acid reflux K21.9 and Pain in right shoulder M25.511 [facility] [address] [address]- 0668 Jun, [facility] [address] [address]- 0401 Jun, History of pancreatitis Z87.19 [place] [address], [place] [address]- 6797 Jun, History of pancreatitis Z87.19 [facility] [address] [address]- 3620 May, [facility] [address] [address]- 6783 May, [facility] [address] [place] [address] 53564- 7544 May, Type 2 diabetes mellitus without complication E11.9 ; 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 ; History of pancreatitis Z87.19 ; 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 I10 ; Acid reflux K21.9 and Left upper quadrant pain R10.12 [facility] [address] [place] [address] 68867- 7814 03 May, 2015 Type 2 diabetes mellitus without complication E11.9 ; assisted 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 ; History of pancreatitis Z87.19 ; 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 I10 ; Acid reflux K21.9 ; Dyspnea R06.00 and Sterilization consult Z30.09 [facility] [address] [id number] 22 Apr, 2015 Encounter for dental examination and cleaning without abnormal findings Z01.20 [facility] [address] 50346- 6852 17 Apr, 2015 Type 2 diabetes mellitus without complication E11.9 ; 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 ; History of pancreatitis Z87.19 ; 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 I10 ; Acid reflux K21.9 and Dyspnea R06.00 [facility] [address] [id number] 17 Apr, 2015 Dental examination Z01.20 [facility] [address] 65905- 8844 05 Mar, 2015 [facility] [address] 52484- 8527 17 Feb, 2015 [facility] [address] [place] [id number] [place] [address] 30708- 7487 Feb, Type 2 diabetes mellitus without complication E11.9 ; 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 ; History of pancreatitis Z87.19 ; 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 I10 ; Acid reflux K21.9 ; Dyspnea R06.00 and Sterilization consult Z30.09 [facility] [address] 59182- 3642 06 Dec, 2014 Type 2 diabetes mellitus without complications E11.9 and assisted 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 [facility] [address] 52188- 4251 Oct, [facility] [address] 09598- 0642 Sep, [facility] [address] [facility] [id number] [place] [address]- 3292 Sep, [facility] [address] [facility] [id number] [address] Sep, Hypertension 401.9 ; Diabetes 250.00 and Hyperlipidemia 272.4 IMMUNIZATIONS No Known Immunizations SOCIAL HISTORY Never Assessed REASON FOR VISIT MTM (Medication Therapy Management) PLAN OF CARE VITAL SIGNS MEDICATIONS Medication Instructions Dosage Frequency Start Date End Date Duration Status Pravastatin Sodium 40 MG Orally Once a day 1 tablet 24h Active RESULTS No Results PROCEDURES No Known procedures INSTRUCTIONS MEDICATIONS ADMINISTERED No Known Medications MEDICAL (GENERAL) HISTORY Type Description Date Medical History 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
--- OUTSIDE RECORDS SUMMARY | 2018-06-18 20:17 | XMS REPORT ---
Author Author JULIO SHAFFER [facility] Address [address] [place] [address] Care Team Providers Care Baseball Inspector Name Role Phone JULIO SHAFFER Unavailable PROBLEMS Type Condition ICD9-CM Code XFR47-JH Code Onset Dates Condition Status SNOMED Code Problem 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 I10 Active 93888547 Problem History of pancreatitis Z87.19 Active 85212619518073 Problem detention 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 Active 519333330 Problem Erectile dysfunction due to diseases classified elsewhere N52.1 Active 156212242 Problem Tobacco abuse Z72.0 Active 455846951 Problem Mixed hyperlipidemia E78.2 Active 280667720 Problem Noncompliance with medication regimen Z91.14 Active 362763616 Problem Type 2 diabetes mellitus with hyperglycemia E11.65 Active 16272902 Problem CHEIKH (obstructive sleep apnea) G47.33 Active 33960469 ALLERGIES No Information ENCOUNTERS Encounter Location Date Diagnosis [place] [address] [address] July, [place] [address] [address] Jun, [place] [address] [address] Apr, [place] [address] [address] Mar, Type 2 diabetes mellitus with hyperglycemia E11.65 ; detention 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 ; 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 I10 ; Mixed hyperlipidemia E78.2 ; Noncompliance with medication regimen Z91.14 ; Tobacco abuse Z72.0 ; CHEIKH (obstructive sleep apnea) G47.33 ; BMI 40.0-44.9, adult Z68.41 and Erectile dysfunction due to diseases classified elsewhere N52.1 [place] [id number] [address] 07 Feb, 2017 Mixed hyperlipidemia E78.2 [facility] [address] [address] 29 Nov, 2016 [facility] [id number] [place] [address]79[address] Nov, [facility] [address] [place] [id number] [place] [address] 84402- 78[address] Nov, [facility] [id number] [place] [address] 62863[address] 3765 Nov, Type 2 diabetes mellitus without complication E11.9 [facility] [id number] [place] [address]64[address] Oct, Type 2 diabetes mellitus without complication E11.9 ; 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 I10 ; manager intermediate 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 ; Mixed hyperlipidemia E78.2 ; Noncompliance with medication regimen Z91.14 and CHEIKH ( obstructive sleep apnea) G47.33 [facility] [id number] [place] [address] Sep, [facility] [id number] [place] [address] 45907- 36[address] Jun, Other chest pain R07.89 [facility] [address] [address] Jun, Other chest pain R07.89 [facility] [address] [address] Jun, Other chest pain R07.89 [facility] [id number] [place] [address] 0[address]99[address] May, [facility] [address] [address] May, Type 2 diabetes mellitus without complication E11.9 [facility] [address] [place] [id number] [place] [address]16- [address] Apr, Type 2 diabetes mellitus without complication E11.9 ; 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 I10 ; detention 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 ; Mixed hyperlipidemia E78.2 and Noncompliance with medication regimen Z91.14 [place] [address] [place] [id number] [place] [address] 34258[address] Apr, [facility] [address] [place] [id number] [place] [address] Jan, Idiopathic acute pancreatitis, unspecified complication status K85.00 [place] [address] [place] [id number] [place] [address] 65[address] Jan, [facility] [address] [place] [id number] [place] [address] Dec, Impacted cerumen of left ear H61.22 [place] [address] [place] [id number] [place] [address] 23944- 0984 Dec, [place] [address] [place] [id number] [place] [address] 43702- 6716 Dec, [place] [address] [place] [id number] [place] [address] 82186- 0323 Dec, [place] [address] [place] [id number] [place] [address] 74026- 9261 Oct, [place] [address] [place] [id number] [place] [address] 21336- 5796 Oct, [place] [address] [place] [id number] [place] [address] 98526- 5798 Oct, Type 2 diabetes mellitus without complication E11.9 ; 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 I10 ; detention 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 ; Acid reflux K21.9 and History of sleep apnea Z87.09 [place] [address] [place] [id number] [place] [address] 76292- 6[address] Sep, [place] [address] [place] [id number] [place] [address] 55436- 5780 Sep, [place] [address] [address] July, [place] [address] [place] [id number] [place] [address] 64560- [address] July, [place] [address] [place] [id number] [place] [address] 95482- 0889 July, Type 2 diabetes mellitus without complication E11.9 and 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 I10 [place] [address] [place] [id number] [place] [address] 24940- 29[address] Jun, Type 2 diabetes mellitus without complication E11.9 ; detention 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 ; 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 I10 ; Acid reflux K21.9 and Pain in right shoulder M25.511 [place] [address] [place] [id number] [place] [address] 0[address]15- [address] Jun, [place] [address] [place] [id number] [place] [address] 32305- 0174 Jun, History of pancreatitis Z87.19 [place] [address] [place] [id number] [place] [address] 56861- 24[address] Jun, History of pancreatitis Z87.19 [place] [id number] [place] [address] 67552- 0944 May, [place] [id number] [place] [address] 11432- 7238 May, [place] [address] [place] [id number] [place] [address] 20845- 3[address] May, Type 2 diabetes mellitus without complication E11.9 ; detention 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 ; History of pancreatitis Z87.19 ; 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 I10 ; Acid reflux K21.9 and Left upper quadrant pain R10.12 [place] [address] [address] May, Type 2 diabetes mellitus without complication E11.9 ; detention 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 ; History of pancreatitis Z87.19 ; 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 I10 ; Acid reflux K21.9 ; Dyspnea R06.00 and Sterilization consult Z30.09 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 [address] [place] [id number] [place] [address] [phone] Apr, 2015 Dental examination Z01.20 [facility] [address] [place] [id number] [place] [address] [phone] 05 Mar, 2015 [facility] [address] [place] [id number] [place] [address] 87375- 8444 17 Feb, 2015 [facility] [address] [place] [id number] [place] [address] 24827- 6750 Feb, Type 2 diabetes mellitus without complication E11.9 ; detention 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 ; History of pancreatitis Z87.19 ; 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 I10 ; Acid reflux K21.9 ; Dyspnea R06.00 and Sterilization consult Z30.09 [facility] [address] [place] [id number] [place] [address] 86434- 1333 Dec, Type 2 diabetes mellitus without complications E11.9 and manager intermediate 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 [facility] [address] [place] [id number] [place] [address] 59490- 3512 Oct, [place] [address] [address] Sep, [facility] [address] [place] [id number] [place] [address] 39105- 4[address] Sep, [place] [address] [place] [address] [address] Sep, Hypertension 401.9 ; Diabetes 250.00 and Hyperlipidemia 272.4 IMMUNIZATIONS No Known Immunizations SOCIAL HISTORY Never Assessed REASON FOR VISIT PA for Sleep Study PLAN OF CARE VITAL SIGNS MEDICATIONS Unknown Medications RESULTS No Results PROCEDURES No Known procedures INSTRUCTIONS MEDICATIONS ADMINISTERED No Known Medications MEDICAL (GENERAL) HISTORY Type Description Date Medical History 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
--- OUTSIDE RECORDS SUMMARY | 2018-06-18 20:19 | XMS REPORT | Continuity of Care Document ---
Author Organization Unknown Address Unknown Allergies Active Description Code Type Severity Reaction Onset Reported/Identified Relationship to Patient Clinical Status Yes metformin [id number] Drug Allergy Mild diarrhea 07/29/2014 Yes No Known Drug Allergies [id number] Drug Allergy Unknown N/A 12/06/2015 Medications There is no data. Problems Date Dx Coded Attending Type Code Diagnosis Diagnosed By 05/11/2011 Ot 831.01 ANT DISLOC HUMERUS-CLOSE 05/11/2011 Ot 959.2 SHLDR/UPPER ARM INJ NOS 05/11/2011 Ot E000.8 OTHER EXTERNAL CAUSE STATUS 05/11/2011 Ot E006.0 ACTIVITIES INVOLVING ROLLER SKATING (INL 05/11/2011 Ot E849.4 ACCID IN RECREATION AREA 05/11/2011 Ot E885.2 ACCIDENT DUE TO SKATEBOARD 07/14/2013 JOCELYNN HALL DO Ot 401.9 HYPERTENSION NOS 07/14/2013 JOCELYNN HALL DO Ot 784.7 EPISTAXIS 07/14/2013 JOCELYNN HALL DO Ot V15.81 HX OF PAST NONCOMPLIANCE 12/29/2013 BLADIMIR OBRIEN INVESTMENT BANKING MANAGER Ot 719.41 JOINT PAIN-SHLDER 12/29/2013 BLADIMIR OBRIEN APRN Ot 959.2 SHLDR/UPPER ARM INJ NOS 12/29/2013 BLADIMIR OBRIEN INVESTMENT BANKING MANAGER Ot E000.8 OTHER EXTERNAL CAUSE STATUS 12/29/2013 BLADIMIR OBRIEN INVESTMENT BANKING MANAGER Ot E928.9 ACCIDENT NOS 07/28/2014 JONNY MONK, CHRISTIANO Dudley Ot 250.02 DIAB DIAN WO COMPL, TYPE II OR UNSPEC TY 07/28/2014 CHRISTIANO FULLER MD Ot 789.09 ABDOMINAL PAIN, OTHER SPECIFIED SITE 07/30/2014 MONTGOMERY DO, LUCRETIA Ot 250.02 07/30/2014 MONTGOMERY DO, LUCRETIA Ot 272.0 07/30/2014 MONTGOMERY DO, LUCRETIA Ot 300.00 07/30/2014 MONTGOMERY DO, LUCRETIA Ot 305.1 07/30/2014 MONTGOMERY DO, LUCRETIA Ot 305.20 07/30/2014 MONTGOMERY DO, LUCRETIA Ot 401.9 07/30/2014 MONTGOMERY DO, LUCRETIA Ot 577.0 07/30/2014 MONTGOMERY DO, LUCRETIA Ot 250.02 07/30/2014 MONTGOMERY DO, LUCRETIA Ot 272.0 07/30/2014 MONTGOMERY DO, LUCRETIA Ot 300.00 07/30/2014 MONTGOMERY DO, LUCRETIA Ot 305.1 07/30/2014 MONTGOMERY DO, LUCRETIA Ot 305.20 07/30/2014 MONTGOMERY DO, LUCRETIA Ot 401.9 07/30/2014 MONTGOMERY DO, LUCRETIA Ot 577.0 07/31/2014 MONTGOMERY DO, LUCRETIA Ot 250.02 07/31/2014 MONTGOMERY DO, LUCRETIA Ot 272.0 07/31/2014 MONTGOMERY DO, LUCRETIA Ot 300.00 07/31/2014 MONTGOMERY DO, LUCRETIA Ot 305.1 07/31/2014 MONTGOMERY DO, LUCRETIA Ot 305.20 07/31/2014 MONTGOMERY DO, LUCRETIA Ot 401.9 07/31/2014 MONTGOMERY DO, LUCRETIA Ot 577.0 08/01/2014 MONTGOMERY DO, LUCRETIA Ot 250.02 08/01/2014 MONTGOMERY DO, LUCRETIA Ot 272.0 08/01/2014 MONTGOMERY DO, LUCRETIA Ot 300.00 08/01/2014 MONTGOMERY DO, LUCRETIA Ot 305.1 08/01/2014 MONTGOMERY DO, LUCRETIA Ot 305.20 08/01/2014 MONTGOMERY DO, LUCRETIA Ot 401.9 08/01/2014 MONTGOMERY DO, LUCRETIA Ot 577.0 08/01/2014 MONTGOMERY DO, LUCRETIA Ot 250.02 DIAB DIAN WO COMPL, TYPE II OR UNSPEC TY 08/01/2014 MONTGOMERY DO, LUCRETIA Ot 272.0 PURE HYPERCHOLESTEROLEM 08/01/2014 MONTGOMERY DO, LUCRETIA Ot 276.51 DEHYDRATION 08/01/2014 MONTGOMERY DO, LUCRETIA Ot 300.00 ANXIETY STATE NOS 08/01/2014 MONTGOMERY DO, LUCRETIA Ot 305.00 ALCOHOL ABUSE-UNSPEC 08/01/2014 MONTGOMERY DO, LUCRETIA Ot 305.1 TOBACCO USE DISORDER 08/01/2014 MONTGOMERY DO, LUCRETIA Ot 305.20 CANNABIS ABUSE-UNSPEC 08/01/2014 VALENTINA MYERS, LUCRETIA Ot 401.9 HYPERTENSION NOS 08/01/2014 VALENTINA MYERS, LUCRETIA Ot 577.0 ACUTE PANCREATITIS 08/01/2014 VALENTINA MYERS, LUCRETIA Ot 784.0 HEADACHE 08/01/2014 VALENTINA MYERS LUCRETIA Ot V15.81 HX OF PAST NONCOMPLIANCE 09/28/2014 JOCELYNN HALL DO K Ot 599.0 URIN TRACT INFECTION NOS 09/28/2014 ISABEL JOCELYNN K Ot 789.00 ABDOMINAL PAIN, UNSPECIFIED SITE 06/23/2015 JULIO SHAFFER [employer] OPERATOR Ot R10.12 LEFT UPPER QUADRANT PAIN 06/23/2015 JULIO SHAFFER [employer] OPERATOR Ot Z87.19 PERSONAL HISTORY OF OTHER DISEASES OF TH 07/20/2015 SURAJ AUSTIN MD Ot M25.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, RIGHT SHOULDER 07/20/2015 SURAJ AUSTIN MD Ot Z01.818 ENCOUNTER FOR OTHER PREPROCEDURAL EXAMIN 07/20/2015 SURAJ AUSTIN MD Ot Z11.2 ENCOUNTER FOR SCREENING FOR OTHER BACTER 07/21/2015 SURAJ AUSTIN MD Ot M25.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, RIGHT SHOULDER 07/21/2015 SURAJ AUSTIN MD Ot Z01.818 ENCOUNTER FOR OTHER PREPROCEDURAL EXAMIN 07/21/2015 SURAJ AUSTIN MD Ot Z11.2 ENCOUNTER FOR SCREENING FOR OTHER BACTER 07/26/2015 SURAJ AUSTIN MD Ot E11.9 TYPE 2 DIABETES MELLITUS WITHOUT COMPLIC 07/26/2015 SURAJ AUSTIN MD Ot F17.210 NICOTINE DEPENDENCE, CIGARETTES, UNCOMPL 07/26/2015 SURAJ AUSTIN MD Ot I10 ESSENTIAL (PRIMARY) HYPERTENSION 07/26/2015 SURAJ AUSTIN MD Ot M25.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, RIGHT SHOULDER 07/26/2015 SURAJ AUSTIN MD Ot M67.88 OTHER SPECIFIED DISORDERS OF SYNOVIUM AN 07/26/2015 SURAJ AUSTIN MD Ot Z79.899 OTHER SNF (CURRENT) DRUG THERAPY 07/27/2015 SURAJ AUSTIN MD Ot E11.9 TYPE 2 DIABETES MELLITUS WITHOUT COMPLIC 07/27/2015 SURAJ AUSTIN MD Ot F17.210 NICOTINE DEPENDENCE, CIGARETTES, UNCOMPL 07/27/2015 SURAJ AUSTIN MD Ot I10 ESSENTIAL (PRIMARY) HYPERTENSION 07/27/2015 SURAJ AUSTIN MD Ot M25.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, RIGHT SHOULDER 07/27/2015 SURAJ AUSTIN MD Ot M67.88 OTHER SPECIFIED DISORDERS OF SYNOVIUM AN 07/27/2015 SURAJ AUSTIN MD Ot Z79.899 OTHER SENIOR J2EE DEVELOPER (CURRENT) DRUG THERAPY 08/01/2015 SURAJ AUSTIN MD Ot E11.9 TYPE 2 DIABETES MELLITUS WITHOUT COMPLIC 08/01/2015 SURAJ AUSTIN MD Ot F17.210 NICOTINE DEPENDENCE, CIGARETTES, UNCOMPL 08/01/2015 SURAJ AUSTIN MD Ot I10 ESSENTIAL (PRIMARY) HYPERTENSION 08/01/2015 SURAJ AUSTIN MD Ot M25.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, RIGHT SHOULDER 08/01/2015 SURAJ AUSTIN MD Ot M67.88 OTHER SPECIFIED DISORDERS OF SYNOVIUM AN 08/01/2015 SURAJ AUSTIN MD Ot Z79.899 OTHER SENIOR J2EE DEVELOPER (CURRENT) DRUG THERAPY 12/07/2015 RIOL, JULIO L [employer] OPERATOR Ot R10.12 LEFT UPPER QUADRANT PAIN 12/07/2015 MADL, JULIO L [employer] OPERATOR Ot Z87.19 PERSONAL HISTORY OF OTHER DISEASES OF TH 12/07/2015 SEVEN HERNANDEZ DO, Ot B34.9 VIRAL INFECTION, UNSPECIFIED 12/07/2015 SEVEN HERNANDEZ DO, Ot E11.649 TYPE 2 DIABETES MELLITUS WITH HYPOGLYCEM 12/07/2015 SEVEN HERNANDEZ DO, Ot E11.9 TYPE 2 DIABETES MELLITUS WITHOUT COMPLIC 12/07/2015 SEVEN HERNANDEZ DO, Ot E83.42 HYPOMAGNESEMIA 12/07/2015 SEVEN HERNANDEZ DO, Ot F17.210 NICOTINE DEPENDENCE, CIGARETTES, UNCOMPL 12/07/2015 SEVEN HERNANDEZ DO, Ot I10 ESSENTIAL (PRIMARY) HYPERTENSION 12/07/2015 SEVEN HERNANDEZ DO, Ot Z79.4 SENIOR J2EE DEVELOPER (CURRENT) USE OF INSULIN 12/07/2015 SEVEN HERNANDEZ DO, Ot Z79.899 OTHER SENIOR J2EE DEVELOPER (CURRENT) DRUG THERAPY 12/07/2015 SEVEN HERNANDEZ DO, Ot B34.9 VIRAL INFECTION, UNSPECIFIED 12/07/2015 DAVID DO, SEVEN D Ot E11.649 TYPE 2 DIABETES MELLITUS WITH HYPOGLYCEM 12/07/2015 SEVEN HERNANDEZ DO Ot E11.9 TYPE 2 DIABETES MELLITUS WITHOUT COMPLIC 12/07/2015 SEVEN HERNANDEZ DO Ot E83.42 HYPOMAGNESEMIA 12/07/2015 SEVEN HERNANDEZ DO Ot F17.210 NICOTINE DEPENDENCE, CIGARETTES, UNCOMPL 12/07/2015 SEVEN HERNANDEZ DO Ot I10 ESSENTIAL (PRIMARY) HYPERTENSION 12/07/2015 SEVEN HERNANDEZ DO, Ot Z79.4 SNF (CURRENT) USE OF INSULIN 12/07/2015 SEVEN HERNANDEZ DO, Ot Z79.899 OTHER SNF (CURRENT) DRUG THERAPY 04/03/2016 CRISTIAN SHAH MD, Ot E11.65 TYPE 2 DIABETES MELLITUS WITH HYPERGLYCE 04/03/2016 CRISTIAN SHAH MD, Ot F17.210 NICOTINE DEPENDENCE, CIGARETTES, UNCOMPL 04/03/2016 CRISTIAN SHAH MD, Ot I10 ESSENTIAL (PRIMARY) HYPERTENSION 04/03/2016 CRISTIAN SHAH MD, Ot N39.0 URINARY TRACT INFECTION, SITE NOT SPECIF 04/03/2016 CRISTIAN SHAH MD Ot R10.32 LEFT LOWER QUADRANT PAIN 04/03/2016 CRISTIAN SHAH MD Ot R19.7 DIARRHEA, UNSPECIFIED 04/03/2016 CRISTIAN SHAH MD, Ot Z79.4 SENIOR J2EE DEVELOPER (CURRENT) USE OF INSULIN 04/03/2016 MADLJULIO L [employer] OPERATOR Ot R10.12 LEFT UPPER QUADRANT PAIN 04/03/2016 MADLREBEKAHJULIO L [employer] OPERATOR Ot Z87.19 PERSONAL HISTORY OF OTHER DISEASES OF TH 04/04/2016 CRISTIAN SHAH MD, Ot E11.65 TYPE 2 DIABETES MELLITUS WITH HYPERGLYCE 04/04/2016 CRISTIAN SHAH MD Ot F17.210 NICOTINE DEPENDENCE, CIGARETTES, UNCOMPL 04/04/2016 CRISTIAN SHAH MD Ot I10 ESSENTIAL (PRIMARY) HYPERTENSION 04/04/2016 CRISTIAN SHAH MD Ot N39.0 URINARY TRACT INFECTION, SITE NOT SPECIF 04/04/2016 CRISTIAN SHAH MD Ot R10.32 LEFT LOWER QUADRANT PAIN 04/04/2016 CRISTIAN SHAH MD Ot R19.7 DIARRHEA, UNSPECIFIED 04/04/2016 CRISTIAN SHAH MD Ot Z79.4 SENIOR J2EE DEVELOPER (CURRENT) USE OF INSULIN 12/25/2016 MADL, JULIO L [employer] OPERATOR Ot G47.33 OBSTRUCTIVE SLEEP APNEA (ADULT) (PEDIATR 12/25/2016 MADL, JULIO L [employer] OPERATOR Ot I10 ESSENTIAL (PRIMARY) HYPERTENSION 12/25/2016 MADL, JULIO L [employer] OPERATOR Ot G47.33 OBSTRUCTIVE SLEEP APNEA (ADULT) (PEDIATR 12/25/2016 MADL, JULIO L [employer] OPERATOR Ot I10 ESSENTIAL (PRIMARY) HYPERTENSION 07/07/2017 CRISTIAN SHAH MD Ot E11.9 TYPE 2 DIABETES MELLITUS WITHOUT COMPLIC 07/07/2017 CRISTIAN SHAH MD Ot E78.00 PURE HYPERCHOLESTEROLEMIA, UNSPECIFIED 07/07/2017 CRISTIAN SHAH MD Ot F12.10 CANNABIS ABUSE, UNCOMPLICATED 07/07/2017 CRISTIAN SHAH MD Ot F17.210 NICOTINE DEPENDENCE, CIGARETTES, UNCOMPL 07/07/2017 CRISTIAN SHAH MD Ot F41.9 ANXIETY DISORDER, UNSPECIFIED 07/07/2017 CRISTIAN SHAH MD Ot G43.909 MIGRAINE, UNSP, NOT INTRACTABLE, WITHOUT 07/07/2017 CRISTIAN SHAH MD Ot G47.30 SLEEP APNEA, UNSPECIFIED 07/07/2017 CRISTIAN SHAH MD Ot I10 ESSENTIAL (PRIMARY) HYPERTENSION 07/07/2017 CRISTIAN SHAH MD Ot M54.2 CERVICALGIA 07/07/2017 CRISTIAN SHAH MD Ot S16.1XXA STRAIN OF MUSCLE, FASCIA AND TENDON AT N 07/07/2017 CRISTIAN SHAH MD Ot X58.XXXA EXPOSURE TO OTHER SPECIFIED FACTORS, INI 07/07/2017 CRISTIAN SHAH MD, Ot Z79.4 SNF (CURRENT) USE OF INSULIN 07/07/2017 CRISTIAN SHAH MD Ot Z87.19 PERSONAL HISTORY OF OTHER DISEASES OF TH 07/12/2017 CRISTIAN SHAH MD Ot E11.9 TYPE 2 DIABETES MELLITUS WITHOUT COMPLIC 07/12/2017 CRISTIAN SHAH MD Ot F17.210 NICOTINE DEPENDENCE, CIGARETTES, UNCOMPL 07/12/2017 CRISTIAN SHAH MD, Ot F41.9 ANXIETY DISORDER, UNSPECIFIED 07/12/2017 CRISTIAN SHAH MD, Ot G43.909 MIGRAINE, UNSP, NOT INTRACTABLE, WITHOUT 07/12/2017 CRISTIAN SHAH MD, Ot I10 ESSENTIAL (PRIMARY) HYPERTENSION 07/12/2017 CRISTIAN SHAH MD, Ot M54.2 CERVICALGIA 07/12/2017 CRISTIAN SHAH MD, Ot Z79.4 SNF (CURRENT) USE OF INSULIN 07/12/2017 CRISTIAN SHAH MD, Ot Z87.19 PERSONAL HISTORY OF OTHER DISEASES OF TH Procedures There is no data. Results Test Result Range Capillary blood glucose measurement by glucometer (mass/volume) - 12/06/15 22: 33 Capillary blood glucose measurement by glucometer (mass/volume) 101 mg/dL 70-110 Complete blood count (CBC) with automated white blood cell (WBC) differential - 12/06/15 23:06 Blood leukocytes automated count (number/volume) 11.4 10*3/uL 4.3-11.0 Blood erythrocytes automated count (number/volume) 4.72 10*6/uL 4.35-5.85 Venous blood hemoglobin measurement (mass/volume) 14.8 g/dL 13.3-17.7 Blood hematocrit (volume fraction) 43 % 40-54 Automated erythrocyte mean corpuscular volume 91 [foz_us] 80-99 Automated erythrocyte mean corpuscular hemoglobin (mass per erythrocyte) 31 pg 25-34 Automated erythrocyte mean corpuscular hemoglobin concentration measurement ( mass/volume) 35 g/dL 32-36 Automated erythrocyte distribution width ratio 13.9 % 10.0-14.5 Automated blood platelet count (count/volume) 259 10*3/uL 130-400 Automated blood platelet mean volume measurement 9.8 [foz_us] 7.4-10.4 Automated blood neutrophils/100 leukocytes 46 % 42-75 Automated blood lymphocytes/100 leukocytes 47 % 12-44 Blood monocytes/100 leukocytes 6 % 0-12 Automated blood eosinophils/100 leukocytes 1 % 0-10 Automated blood basophils/100 leukocytes 0 % 0-10 Blood neutrophils automated count (number/volume) 5.2 10*3 1.8-7.8 Blood lymphocytes automated count (number/volume) 5.4 10*3 1.0-4.0 Blood monocytes automated count (number/volume) 0.7 10*3 0.0-1.0 Automated eosinophil count 0.1 10*3/uL 0.0-0.3 Automated blood basophil count (count/volume) 0.0 10*3/uL 0.0-0.1 Serum or plasma choriogonadotropin ( test) detection - 12/06/15 23:06 Serum or plasma choriogonadotropin ( test) detection NEGATIVE NRG Complete urinalysis with reflex to culture - 12/06/15 23:06 Urine color determination YELLOW NRG Urine clarity determination CLEAR NRG Urine pH measurement by test strip 6 5-9 Specific gravity of urine by test strip 1.015 1.016- 1.022 Urine protein assay by test strip, semi-quantitative NEGATIVE NEGATIVE Urine glucose detection by automated test strip NEGATIVE NEGATIVE Erythrocytes detection in urine sediment by light microscopy 1+ NEGATIVE Urine ketones detection by automated test strip NEGATIVE NEGATIVE Urine nitrite detection by test strip NEGATIVE NEGATIVE Urine total bilirubin detection by test strip NEGATIVE NEGATIVE Urine urobilinogen measurement by automated test strip (mass/volume) NORMAL NORMAL Urine leukocyte esterase detection by dipstick 1+ NEGATIVE Automated urine sediment erythrocyte count by microscopy (number/high power field) [HPF] NRG Automated urine sediment leukocyte count by microscopy (number/high power field ) [HPF] NRG Bacteria detection in urine sediment by light microscopy TRACE NRG Squamous epithelial cells detection in urine sediment by light microscopy 0-2 NRG Crystals detection in urine sediment by light microscopy NONE NRG Casts detection in urine sediment by light microscopy NONE NRG Mucus detection in urine sediment by light microscopy NEGATIVE NRG Complete urinalysis with reflex to culture NO NRG Comprehensive metabolic panel - 12/06/15 23:06 Serum or plasma sodium measurement (moles/volume) 140 mmol/L 135-145 Serum or plasma potassium measurement (moles/volume) 3.8 mmol/L 3.6-5.0 Serum or plasma chloride measurement (moles/volume) 107 mmol/L 98-107 Carbon dioxide 19 mmol/L 21-32 Serum or plasma anion gap determination (moles/volume) 14 mmol/L 5-14 Serum or plasma urea nitrogen measurement (mass/volume) 13 mg/dL 7-18 Serum or plasma creatinine measurement (mass/volume) 1.16 mg/dL 0.60-1.30 Serum or plasma urea nitrogen/creatinine mass ratio 11 NRG Serum or plasma creatinine measurement with calculation of estimated glomerular filtration rate > NRG Serum or plasma glucose measurement (mass/volume) 107 mg/dL 70-105 Serum or plasma calcium measurement (mass/volume) 9.7 mg/dL 8.5-10.1 Serum or plasma total bilirubin measurement (mass/volume) 0.3 mg/dL 0.1-1.0 Serum or plasma alkaline phosphatase measurement (enzymatic activity/volume) 48 U/L 40-136 Serum or plasma aspartate aminotransferase measurement (enzymatic activity/ volume) 26 U/L 5-34 Serum or plasma alanine aminotransferase measurement (enzymatic activity/volume ) 20 U/L 0-55 Serum or plasma protein measurement (mass/volume) 6.9 g/dL 6.4-8.2 Serum or plasma albumin measurement (mass/volume) 4.3 g/dL 3.2-4.5 Magnesium - 12/06/15 23:06 Magnesium 1.6 mg/dL 1.8-2.4 Lipase - 12/06/15 23:06 Lipase 11 U/L 8-78 Capillary blood glucose measurement by glucometer (mass/volume) - 04/03/16 00: 50 Capillary blood glucose measurement by glucometer (mass/volume) 208 mg/dL 70-110 Complete blood count (CBC) with automated white blood cell (WBC) differential - 04/03/16 00:55 Blood leukocytes automated count (number/volume) 11.2 10*3/uL 4.3-11.0 Blood erythrocytes automated count (number/volume) 5.12 10*6/uL 4.35-5.85 Venous blood hemoglobin measurement (mass/volume) 16.2 g/dL 13.3-17.7 Blood hematocrit (volume fraction) 46 % 40-54 Automated erythrocyte mean corpuscular volume 90 [foz_us] 80-99 Automated erythrocyte mean corpuscular hemoglobin (mass per erythrocyte) 32 pg 25-34 Automated erythrocyte mean corpuscular hemoglobin concentration measurement ( mass/volume) 35 g/dL 32-36 Automated erythrocyte distribution width ratio 13.7 % 10.0-14.5 Automated blood platelet count (count/volume) 311 10*3/uL 130-400 Automated blood platelet mean volume measurement 11.5 [foz_us] 7.4-10.4 Automated blood neutrophils/100 leukocytes 46 % 42-75 Automated blood lymphocytes/100 leukocytes 46 % 12-44 Blood monocytes/100 leukocytes 7 % 0-12 Automated blood eosinophils/100 leukocytes 1 % 0-10 Automated blood basophils/100 leukocytes 0 % 0-10 Blood neutrophils automated count (number/volume) 5.1 10*3 1.8-7.8 Blood lymphocytes automated count (number/volume) 5.2 10*3 1.0-4.0 Blood monocytes automated count (number/volume) 0.8 10*3 0.0-1.0 Automated eosinophil count 0.1 10*3/uL 0.0-0.3 Automated blood basophil count (count/volume) 0.0 10*3/uL 0.0-0.1 Lipase - 04/03/16 00:55 Lipase 20 U/L 8-78 Comprehensive metabolic panel - 04/03/16 00:55 Serum or plasma sodium measurement (moles/volume) 137 mmol/L 135-145 Serum or plasma potassium measurement (moles/volume) 4.1 mmol/L 3.6-5.0 Serum or plasma chloride measurement (moles/volume) 104 mmol/L 98-107 Carbon dioxide 19 mmol/L 21-32 Serum or plasma anion gap determination (moles/volume) 14 mmol/L 5-14 Serum or plasma urea nitrogen measurement (mass/volume) 20 mg/dL 7-18 Serum or plasma creatinine measurement (mass/volume) 1.27 mg/dL 0.60-1.30 Serum or plasma urea nitrogen/creatinine mass ratio 16 NRG Serum or plasma creatinine measurement with calculation of estimated glomerular filtration rate > NRG Serum or plasma glucose measurement (mass/volume) 226 mg/dL 70-105 Serum or plasma calcium measurement (mass/volume) 9.6 mg/dL 8.5-10.1 Serum or plasma total bilirubin measurement (mass/volume) 0.2 mg/dL 0.1-1.0 Serum or plasma alkaline phosphatase measurement (enzymatic activity/volume) 58 U/L 40-136 Serum or plasma aspartate aminotransferase measurement (enzymatic activity/ volume) 25 U/L 5-34 Serum or plasma alanine aminotransferase measurement (enzymatic activity/volume ) 24 U/L 0-55 Serum or plasma protein measurement (mass/volume) 7.3 g/dL 6.4-8.2 Serum or plasma albumin measurement (mass/volume) 4.2 g/dL 3.2-4.5 Magnesium - 04/03/16 00:55 Magnesium 1.9 mg/dL 1.8-2.4 Serum or plasma amylase measurement (enzymatic activity/volume) - 04/03/16 00: 55 Serum or plasma amylase measurement (enzymatic activity/volume) 49 U /L 25-125 Complete urinalysis with reflex to culture - 04/03/16 01:24 Urine color determination YELLOW NRG Urine clarity determination SLIGHTLY CLOUDY NRG Urine pH measurement by test strip 5 5-9 Specific gravity of urine by test strip 1.020 1.016- 1.022 Urine protein assay by test strip, semi-quantitative 1+ NEGATIVE Urine glucose detection by automated test strip 3+ NEGATIVE Erythrocytes detection in urine sediment by light microscopy 1+ NEGATIVE Urine ketones detection by automated test strip NEGATIVE NEGATIVE Urine nitrite detection by test strip NEGATIVE NEGATIVE Urine total bilirubin detection by test strip NEGATIVE NEGATIVE Urine urobilinogen measurement by automated test strip (mass/volume) NORMAL NORMAL Urine leukocyte esterase detection by dipstick 3+ NEGATIVE Automated urine sediment erythrocyte count by microscopy (number/high power field) [HPF] NRG Automated urine sediment leukocyte count by microscopy (number/high power field ) [HPF] NRG Bacteria detection in urine sediment by light microscopy TRACE NRG Squamous epithelial cells detection in urine sediment by light microscopy 0-2 NRG Crystals detection in urine sediment by light microscopy NONE NRG Casts detection in urine sediment by light microscopy NONE NRG Mucus detection in urine sediment by light microscopy NEGATIVE NRG Complete urinalysis with reflex to culture YES NRG Bacterial urine culture - 04/03/16 01:24 URINE CULTURE RESULTS <10,000/ML NRG TESTOSTERONE, FREE AND TOTAL - 04/01/17 14:28 TESTOSTERONE, TOTAL, LC/MS/MS 318 ng/dL 250-1100 TESTOSTERONE, FREE 47.5 pg/mL 46.0-224.0 TESTOSTERONE,BIOAVAILABLE 97.7 ng/dL 110.0-575.0 SEX HORMONE BINDING GLOBULIN 27 nmol/L 10-50 ALBUMIN,SERUM 4.5 g/dL 3.6-5.1 Capillary blood glucose measurement by glucometer (mass/volume) - 07/07/17 23: 25 Capillary blood glucose measurement by glucometer (mass/volume) 258 mg/dL 70-110 Complete blood count (CBC) with automated white blood cell (WBC) differential - 07/12/17 13:28 Blood leukocytes automated count (number/volume) 9.5 10*3/uL 4.3-11.0 Blood erythrocytes automated count (number/volume) 5.59 10*6/uL 4.35-5.85 Venous blood hemoglobin measurement (mass/volume) 17.0 g/dL 13.3-17.7 Blood hematocrit (volume fraction) 50 % 40-54 Automated erythrocyte mean corpuscular volume 89 [foz_us] 80-99 Automated erythrocyte mean corpuscular hemoglobin (mass per erythrocyte) 30 pg 25-34 Automated erythrocyte mean corpuscular hemoglobin concentration measurement ( mass/volume) 34 g/dL 32-36 Automated erythrocyte distribution width ratio 14.2 % 10.0-14.5 Automated blood platelet count (count/volume) 251 10*3/uL 130-400 Automated blood platelet mean volume measurement 10.3 [foz_us] 7.4-10.4 Automated blood neutrophils/100 leukocytes 59 % 42-75 Automated blood lymphocytes/100 leukocytes 33 % 12-44 Blood monocytes/100 leukocytes 7 % 0-12 Automated blood eosinophils/100 leukocytes 1 % 0-10 Automated blood basophils/100 leukocytes 0 % 0-10 Blood neutrophils automated count (number/volume) 5.6 10*3 1.8-7.8 Blood lymphocytes automated count (number/volume) 3.1 10*3 1.0-4.0 Blood monocytes automated count (number/volume) 0.7 10*3 0.0-1.0 Automated eosinophil count 0.1 10*3/uL 0.0-0.3 Automated blood basophil count (count/volume) 0.0 10*3/uL 0.0-0.1 Whole blood basic metabolic panel - 07/12/17 13:28 Serum or plasma sodium measurement (moles/volume) 137 mmol/L 135-145 Serum or plasma potassium measurement (moles/volume) 4.4 mmol/L 3.6-5.0 Serum or plasma chloride measurement (moles/volume) 102 mmol/L 98-107 Carbon dioxide 23 mmol/L 21-32 Serum or plasma anion gap determination (moles/volume) 12 mmol/L 5-14 Serum or plasma urea nitrogen measurement (mass/volume) 14 mg/dL 7-18 Serum or plasma creatinine measurement (mass/volume) 1.49 mg/dL 0.60-1.30 Serum or plasma urea nitrogen/creatinine mass ratio 9 NRG Serum or plasma creatinine measurement with calculation of estimated glomerular filtration rate > NRG Serum or plasma glucose measurement (mass/volume) 370 mg/dL 70-105 Serum or plasma calcium measurement (mass/volume) 10.0 mg/dL 8.5-10.1 Serum or plasma C reactive protein measurement (mass/volume) - 07/12/17 13:28 Serum or plasma C reactive protein measurement (mass/volume) 0.20 mg /dL 0.00-0.50 LIPID PANEL - 12/11/17 09:52 CHOLESTEROL, TOTAL 197 mg/dL <200 HDL CHOLESTEROL 39 mg/dL >40 TRIGLYCERIDES 113 mg/dL <150 LDL-CHOLESTEROL 136 mg/dL (calc) NRG CHOL/HDLC RATIO 5.1 (calc) <5.0 NON HDL CHOLESTEROL 158 mg/dL (calc) <130 CMP - 12/11/17 09:52 GLUCOSE 248 mg/dL 65-99 UREA NITROGEN (BUN) 14 mg/dL 7-25 CREATININE 1.04 mg/dL 0.60-1.35 eGFR NON-AFR. SPANISH 91 mL/min/1.73m2 > OR=60 eGFR 105 mL/min/1.73m2 > OR=60 BUN/CREATININE RATIO NOT APPLICABLE (calc) 6-22 SODIUM 138 mmol/L 135-146 POTASSIUM 4.2 mmol/L 3.5-5.3 CHLORIDE 102 mmol/L 98-110 CARBON DIOXIDE 27 mmol/L 20-32 CALCIUM 9.5 mg/dL 8.6-10.3 PROTEIN, TOTAL 6.7 g/dL 6.1-8.1 ALBUMIN 4.4 g/dL 3.6-5.1 GLOBULIN 2.3 g/dL (calc) 1.9-3.7 ALBUMIN/GLOBULIN RATIO 1.9 (calc) 1.0-2.5 BILIRUBIN, TOTAL 0.6 mg/dL 0.2-1.2 ALKALINE PHOSPHATASE 57 U/L 40-115 AST 16 U/L 10-40 ALT 17 U/L 9-46 CMP - 05/27/18 10:13 GLUCOSE 277 mg/dL 65-99 UREA NITROGEN (BUN) 17 mg/dL 7-25 CREATININE 1.12 mg/dL 0.60-1.35 eGFR NON-AFR. SPANISH 82 mL/min/1.73m2 > OR=60 eGFR 95 mL/min/1.73m2 > OR=60 BUN/CREATININE RATIO NOT APPLICABLE (calc) 6-22 SODIUM 133 mmol/L 135-146 POTASSIUM 4.6 mmol/L 3.5-5.3 CHLORIDE 102 mmol/L 98-110 CARBON DIOXIDE 24 mmol/L 20-32 CALCIUM 10.0 mg/dL 8.6-10.3 PROTEIN, TOTAL 7.2 g/dL 6.1-8.1 ALBUMIN 4.5 g/dL 3.6-5.1 GLOBULIN 2.7 g/dL (calc) 1.9-3.7 ALBUMIN/GLOBULIN RATIO 1.7 (calc) 1.0-2.5 BILIRUBIN, TOTAL 0.6 mg/dL 0.2-1.2 ALKALINE PHOSPHATASE 61 U/L 40-115 AST 20 U/L 10-40 ALT 18 U/L 9-46 Capillary blood glucose measurement by glucometer (mass/volume) - 06/18/18 17: 17 Capillary blood glucose measurement by glucometer (mass/volume) 275 mg/dL 70-110 Complete blood count (CBC) with automated white blood cell (WBC) differential - 06/18/18 17:18 Blood leukocytes automated count (number/volume) 9.1 10*3/uL 4.3-11.0 Blood erythrocytes automated count (number/volume) 5.58 10*6/uL 4.35-5.85 Venous blood hemoglobin measurement (mass/volume) 17.1 g/dL 13.3-17.7 Blood hematocrit (volume fraction) 48 % 40-54 Automated erythrocyte mean corpuscular volume 86 [foz_us] 80-99 Automated erythrocyte mean corpuscular hemoglobin (mass per erythrocyte) 31 pg 25-34 Automated erythrocyte mean corpuscular hemoglobin concentration measurement ( mass/volume) 36 g/dL 32-36 Automated erythrocyte distribution width ratio 14.5 % 10.0-14.5 Automated blood platelet count (count/volume) 224 10*3/uL 130-400 Automated blood platelet mean volume measurement 10.8 [foz_us] 7.4-10.4 Automated blood neutrophils/100 leukocytes 86 % 42-75 Automated blood lymphocytes/100 leukocytes 5 % 12-44 Blood monocytes/100 leukocytes 8 % 0-12 Automated blood eosinophils/100 leukocytes 0 % 0-10 Automated blood basophils/100 leukocytes 0 % 0-10 Blood neutrophils automated count (number/volume) 7.8 10*3 1.8-7.8 Blood lymphocytes automated count (number/volume) 0.5 10*3 1.0-4.0 Blood monocytes automated count (number/volume) 0.8 10*3 0.0-1.0 Automated eosinophil count 0.0 10*3/uL 0.0-0.3 Automated blood basophil count (count/volume) 0.0 10*3/uL 0.0-0.1 Blood lactic acid measurement (moles/volume) - 06/18/18 17:18 Blood lactic acid measurement (moles/volume) 1.45 mmol/L 0.50-2.00 Comprehensive metabolic panel - 06/18/18 17:18 Serum or plasma sodium measurement (moles/volume) 129 mmol/L 135-145 Serum or plasma potassium measurement (moles/volume) 3.9 mmol/L 3.6-5.0 Serum or plasma chloride measurement (moles/volume) 99 mmol/L 98-107 Carbon dioxide 20 mmol/L 21-32 Serum or plasma anion gap determination (moles/volume) 10 mmol/L 5-14 Serum or plasma urea nitrogen measurement (mass/volume) 13 mg/dL 7-18 Serum or plasma creatinine measurement (mass/volume) 1.46 mg/dL 0.60-1.30 Serum or plasma urea nitrogen/creatinine mass ratio 9 NRG Serum or plasma creatinine measurement with calculation of estimated glomerular filtration rate > NRG Serum or plasma glucose measurement (mass/volume) 321 mg/dL 70-105 Serum or plasma calcium measurement (mass/volume) 9.4 mg/dL 8.5-10.1 Serum or plasma total bilirubin measurement (mass/volume) 0.8 mg/dL 0.1-1.0 Serum or plasma alkaline phosphatase measurement (enzymatic activity/volume) 59 U/L 40-136 Serum or plasma aspartate aminotransferase measurement (enzymatic activity/ volume) 19 U/L 5-34 Serum or plasma alanine aminotransferase measurement (enzymatic activity/volume ) 17 U/L 0-55 Serum or plasma protein measurement (mass/volume) 7.4 g/dL 6.4-8.2 Serum or plasma albumin measurement (mass/volume) 4.3 g/dL 3.2-4.5 CALCIUM CORRECTED 9.2 mg/dL 8.5-10.1 Blood manual differential performed detection - 06/18/18 17:18 Blood monocytes/100 leukocytes 4 % NRG Manual blood segmented neutrophils/100 leukocytes 88 % NRG Blood band neutrophils/100 leukocytes 4 % NRG Manual blood lymphocytes/100 leukocytes 4 % NRG Blood erythrocyte morphology finding identification NORMAL NRG Blood toxic granules detection by light microscopy 2+ NRG Blood dohle body detection by light microscopy MODERATE NRG PT panel in platelet poor plasma by coagulation assay - 06/18/18 17:18 Prothrombin time (PT) in platelet poor plasma by coagulation assay 14.1 s 12.2-14.7 INR in platelet poor plasma or blood by coagulation assay 1.1 0.8-1.4 Activated partial thromboplastin time (aPTT) in platelet poor plasma bycoagulation assay - 06/18/18 17:18 Activated partial thromboplastin time (aPTT) in platelet poor plasma bycoagulation assay 31 s 24-35 Arterial blood gas measurement - 06/18/18 17:28 Blood pCO2 29 mm[Hg] 35-45 Blood pO2 73 mm[Hg] 79-93 Arterial blood bicarbonate measurement (moles/volume) 19 mmol/L 23-27 Arterial blood base excess by calculation -3.7 mmol/L - 2.5-2.5 Arterial blood oxygen saturation measurement 94 % 94-100 * Inhaled oxygen flow rate N/A NRG Arterial blood pH measurement with patient temperature correction 7.45 7.37-7.43 Arterial blood carbon dioxide, total measurement (moles/volume) 19.9 mmol/L 21.0-31.0 Body site LEFT RADIAL NRG Assessment of wrist artery patency prior to arterial puncture POSITIVE NRG Setting of ventilation mode NO NRG Measurement of body temperature 103.0 NRG Complete urinalysis with reflex to culture - 06/18/18 17:46 Urine color determination YELLOW NRG Urine clarity determination CLEAR NRG Urine pH measurement by test strip 5 5-9 Specific gravity of urine by test strip 1.020 1.016- 1.022 Urine protein assay by test strip, semi-quantitative 3+ NEGATIVE Urine glucose detection by automated test strip 4+ NEGATIVE Erythrocytes detection in urine sediment by light microscopy 1+ NEGATIVE Urine ketones detection by automated test strip 1+ NEGATIVE Urine nitrite detection by test strip NEGATIVE NEGATIVE Urine total bilirubin detection by test strip NEGATIVE NEGATIVE Urine urobilinogen measurement by automated test strip (mass/volume) NORMAL NORMAL Urine leukocyte esterase detection by dipstick NEGATIVE NEGATIVE Automated urine sediment erythrocyte count by microscopy (number/high power field) [HPF] NRG Automated urine sediment leukocyte count by microscopy (number/high power field ) NONE NRG Bacteria detection in urine sediment by light microscopy NEGATIVE NRG Squamous epithelial cells detection in urine sediment by light microscopy 2-5 NRG Crystals detection in urine sediment by light microscopy NONE NRG Casts detection in urine sediment by light microscopy NONE NRG Mucus detection in urine sediment by light microscopy NEGATIVE NRG Complete urinalysis with reflex to culture NO NRG Encounters ACCT No. Visit Date/Time Discharge Status Pt. Type Provider Facility Loc./Unit Complaint [id number] 06/17/2018 10:00:00 ACT Outpatient AMBREEN MUÑOZ [facility] [id number] 05/27/2018 09:20:00 Document Registration [id number] 12/11/2017 08:20:00 Document Registration [id number] 04/01/2017 13:40:00 Document Registration [id number] 06/04/2018 16:47:00 06/04/2018 23:59:59 CLS Preadmit AMBREEN MUÑOZ [employer] [facility] CARD MURMUR [id number] 07/12/2017 12:28:00 07/12/2017 14:30:00 DIS Emergency CRISTIAN SHAH MD [facility] ER NECK PAIN [id number] 07/07/2017 22:45:00 07/07/2017 23:37:00 DIS Emergency CRISTIAN SHAH MD [facility] ER NECK ISSUES [id number] 12/24/2016 20:00:00 12/25/2016 06:25:00 DIS Outpatient JULIO SHAFFER [employer] [facility] SLEEP G47.33 [id number] 04/03/2016 00:16:00 04/03/2016 04:08:00 DIS Emergency CRISTIAN SHAH MD [facility] ER ABD PAIN,DIABETES, FELT LIKE PASSING OUT [id number] 12/06/2015 22:13:00 12/07/2015 00:25:00 DIS Emergency SEVEN HERNANDEZ DO [facility] ER INCONSISTENT GLUCOSE LEVELS [id number] 07/26/2015 07:50:00 07/26/2015 13:32:00 DIS [facility] [id number] 07/20/2015 12:57:00 07/20/2015 13:25:00 DIS Outpatient SURAJ AUSTIN MD [facility] PREOP RIGHT SHOULDER INSTABILITY [id number] 06/06/2015 11:34:00 06/06/2015 23:59:59 CLS Outpatient JULIO SHAFFER [employer] [facility] RAD HISTORY OF PANCREATITIS [id number] 09/28/2014 17:05:00 09/28/2014 19:10:00 DIS Emergency JOCELYNN HALL DO [facility] ER ABD PAIN [id number] 07/28/2014 22:32:00 08/01/2014 13:10:00 DIS Inpatient LUCRETIA MONTGOMERY DO [facility] CSD UNCONTROLLED HTN, UNCONTROLLED DM,ABD PAIN [id number] 07/28/2014 09:25:00 07/28/2014 13:10:00 DIS Emergency CHRISTIANO FULLER MD [facility] ER ABD KIDNEY PAIN [id number] 12/29/2013 15:44:00 12/29/2013 16:53:00 DIS Emergency 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
--- NOTE | 2018-06-18 20:20 | NUR ---
Anesthesia at the bedside to preform lumbar puncture.
--- NOTE | 2018-06-18 21:01 | NUR ---
Report given to Cheo Macedo RN.
--- NOTE | 2018-06-18 21:12 | Anesthesia-Procedure Note ---
Procedures/Interventions Procedure Start/Stop/Diagnosis Date of Procedure: Jun 18, 2018 Start Time: 20:32 Referring Physician: Jolly Preprocedural Diagnosis: Stop Time: 21:05 Lumbar Puncture Discussed Risk,Benefits: Yes Patient Consents: Yes Position: Lying, L3-4, Right Sterile Technique: Yes Opening Pressure: 17 cm H20 Fluid Color: clear Spinal Needle Used: Other (25g Pencan 5 1/2 inch) Procedure Notes Called to ED to assist with difficult LP on a 38 year old patient. Discussed patient's history, lab values, VS, and presenting symptoms with Dr. Azevedo. Patient's consent had previously been obtained and we obtained verbal consent as well. Platelet count >100,00 and patient denies taking any blood thinners. Patient's back sterile prepped and draped. Localized with 1% Lidocaine 2cc at L3 -L4, approximately 2 inches cephalad from the previous attempts by Dr. Azevedo. Introducer placed and a 22g 3.5 inch Pencan needle used until we were unable to advance further. The 3.5 inch needle was withdrawn and a 25g Pencan 5 inch needle was utilized until CSF was obtained with one pass. Opening pressure was measured at 17 cm H20 and a total of 2 cc was collected in each of 4 vials. The CSF was noted to be clear. The needle was removed and a bandaid applied. The patient was assisted with repositioning to a supine position. He denies any complaints. Report given to Dr. Azevedo. KAREN ANAYA CRNA Jun 18, 2018 21:12
[2018-06-18] MEDS ORDERED: WATER (STERILE) FOR INJECTION 20 ML ONE (21:34)
[2018-06-18] MEDS ORDERED: cefTRIAXone 2 GM IV (ROCEPHIN) VIAL ONE (21:34)
[2018-06-18 21:45] LABS: APPEARANCE,CSF CLEAR; COLOR,CSF COLORLESS; CSF TUBE NUMBER 4; RED BLOOD CELL,CSF 1 CELLS (0-0); WHITE BLOOD CELL,CSF 1 CELLS (0-5)
[2018-06-18 21:49] LABS: CSF GLUCOSE 142 MG/DL (50-80); CSF TOTAL PROTEIN 52 MG/DL (15-40)
[2018-06-18] MEDS ORDERED: inSUlin ASPART (NovoLOG) 1 UNIT/0.01 ML (CHARGE PER UNIT) SC ONE (22:00)
--- NOTE | 2018-06-18 22:40 | NUR ---
CHANA SANCHEZ admitted to room 432-1, with an admitting diagnosis of SEPSIS, on 06/18/18 from ED via WHEELCHAIR, accompanied by STAFF.CHANA SANCHEZ introduced to surroundings, call light, bed controls, phone, TV, temperature control, lights, meal times, smoking policy, visitor policy, side rail policy, bathrooms and showers. Patient Rights given to patient in the handbook. CHANA SANCHEZ verbalizes understanding that [facility] is not responsible for the loss or damage to any personal effects or valuables that are kept in the patients possession during their hospitalization.
[2018-06-18 22:44] VITALS: BP 139/96
[2018-06-18] MEDS ORDERED: ONDANSETRON 4 MG/2 ML (SDV) Z0FRAN IV PRN (23:00)
[2018-06-18] MEDS: NS W/KCL 20 MEQ/L 1,000 ML IV SCH (23:10)
[2018-06-19] VITALS (7 sets, daily range): BP systolic 128–143; BP diastolic 85–99
--- NOTE | 2018-06-19 00:16 | NUR ---
PT C/O SOB. O2 SAT 89. 2LITER NC APPLIED. SAT INCREASED TO 94%. PT CONTINUES TO C/O SOB. DR. MONTES CALLED AND INFORMED OF SOB AND PT COUGHED UP PINK SPUTUM. ALSO INFORMED O2 HAS BEEN APPLIED WITH INCREASE IN SAT. NO NEW ORDERS AT THIS TIME.
[2018-06-19] MEDS: ACETAMINOPHEN 500 MG TAB (TYLENOL) PO PRN ×2 (01:49→11:22)
[2018-06-19] MEDS: NS W/KCL 20 MEQ/L 1,000 ML IV SCH (04:46)
[2018-06-19] MEDS: inSUlin ASPART (NovoLOG) 1 UNIT/0.01 ML (CHARGE PER UNIT) SC SCH ×8 (05:23→20:35)
[2018-06-19 06:31] LABS: BASOPHILS % (AUTO) 0 % (0-10); EOSINOPHILS % (AUTO) 0 % (0-10); HEMATOCRIT 49 % (40-54); HEMOGLOBIN 16.6 G/DL (13.3-17.7); LYMPHOCYTES % (AUTO) 11 % (12-44); MEAN CORPUSCULAR HEMOGLOBIN 30 PG (25-34); MEAN CORPUSCULAR HGB CONC 34 G/DL (32-36); MEAN CORPUSCULAR VOLUME 88 FL (80-99); MEAN PLATELET VOLUME 10.7 FL (7.4-10.4); MONOCYTES # (AUTO) 0.9 X 10^3 (0.0-1.0); MONOCYTES % (AUTO) 10 % (0-12); NEUTROPHILS # (AUTO) 7.8 X 10^3 (1.8-7.8); NEUTROPHILS % (AUTO) 80 % (42-75); PLATELET COUNT 188 10^3/uL (130-400); RED CELL DISTRIBUTION WIDTH 14.8 % (10.0-14.5); WHITE BLOOD COUNT 9.7 10^3/uL (4.3-11.0)
[2018-06-19 06:50] LABS: BUN/CREATININE RATIO 11; CALCIUM 8.7 MG/DL (8.5-10.1); CARBON DIOXIDE 16 MMOL/L (21-32); CHLORIDE 105 MMOL/L (98-107); CREATININE SERUM 1.16 MG/DL (0.60-1.30); GFR ESTIMATED > 60; GLUCOSE 150 MG/DL (70-105); POTASSIUM 3.8 MMOL/L (3.6-5.0); SODIUM 136 MMOL/L (135-145)
[2018-06-19] MEDS: IBUPROFEN 800 MG (MOTRIN) TAB PO PRN ×2 (07:35→17:39)
--- NOTE | 2018-06-19 07:59 | NUR ---
Dr. Coreas notified of abnormal vitals sgns ( see interventions for details), no new orders at this time.
[2018-06-19] MEDS: RT-ALBUTEROL SULF 2.5 MG/3 ML PRE-MIX VIAL INH SCH ×3 (08:38→19:25)
--- NOTE | 2018-06-19 09:17 | History & Physical-Hospitalist ---
History of Present Illness HPI/Chief Complaint CC: Fever and flank pain HPI: This is a 38yoAAM who was recently placed on insulin for new onset diabetes who presented to the ER with flank pain and fever and chills and had a complete w/u in the ER including LP which was negative but did have slight elevation of troponin which was repeated and noted to have increased so Cardiology was consulted and evaluated the ECHO to have EF 20% and will need a Lifevest. Pt has been taking Phentermine of his 's and now having palpitations. Patient with wheezing on exam noted so Nebs ordered and will initiate Lasix since he was given aggressive IVF. Source: patient, family, RN/MD Exam Limitations: no limitations Date Seen 06/19/18 Time Seen by a Provider: 10:00 Attending Physician Sara Cooley DO [facility] Referring Physician Date of Admission Jun 18, 2018 at 21:30 Home Medications & Allergies Home Medications Reviewed patient Home Medication Reconciliation performed by pharmacy medication reconciliations pharmacy laboratory technician and/or nursing. Patients Allergies have been reviewed. Allergies Allergies Uncoded Allergies SEAFOOD ( Allergy, Unknown, 06/18/18) Past [id number]-Vzllko Hx Past Med/Social Hx: Reviewed Nursing Past Med/Soc Hx, Reviewed and Corrections made Patient Social History Marrital Status: cohabiting Employed/Student: unemployed Alcohol Use: Denies Use Recreational Drug Use: Yes Drug of Choice: marijuana Smoking Status: Current Everyday Smoker Type Used: Cigarettes Physical Abuse Screen: No Sexual Abuse: No Recent Foreign Travel: No Contact w/other who traveled: No Recent Hopitalizations: No Recent Infectious Disease Expo: No Seasonal Allergies Seasonal Allergies: Yes Past Medical History Surgeries: Eye Surgery Respiratory: COPD Currently Using CPAP: No Cardiac: High Cholesterol, Hypertension Neurological: Headaches /Migraines Gastrointestinal: Pancreatitis Endocrine: Diabetes, Insulin dep Psychosocial: Anxiety History of Blood Disorders: Yes (SICKLE CELL TRAIT) Family History No Pertinent Family Hx, Diabetes Review of Systems Constitutional: see HPI, weakness EENTM: no symptoms reported Respiratory: dyspnea on exertion, short of breath Cardiovascular: chest pain Gastrointestinal: no symptoms reported Genitourinary: no symptoms reported Musculoskeletal: no symptoms reported Psychiatric/Neurological: No Symptoms Reported All Other Systems Reviewed Negative Unless Noted: Yes Physical Exam Physical Exam Vital Signs Vital Signs - First Documented 06/18/18 06/19/18 17:17 08:00 Temp 103.5 Pulse 134 Resp 28 B/P (MAP) 147/117 (127) Pulse Ox 97 O2 Delivery Room Air O2 Flow Rate 3.00 Capillary Refill : Less Than 3 Seconds Height, Weight, BMI Height: 5'10.00" Weight: 254lbs. 0.0oz. 115.339719dc; 36.4 BMI Method:Stated General Appearance: WD/WN, Anxious, Chronically ill, Mild Distress Eyes: Right Eye Normal Inspection, Right Eye PERRL HEENT: PERRL/EOMI, Normal ENT Inspection, Pharynx Normal, Moist Mucous Membranes Neck: Full Range of Motion, Normal Inspection, Non Tender Respiratory: Chest Non Tender, No Accessory Muscle Use, No Respiratory Distress , Crackles, Wheezing Cardiovascular: Regular Rate, Rhythm, No Edema, No Gallop, No JVD, No Murmur, Normal Peripheral Pulses Gastrointestinal: Normal Bowel Sounds, No Organomegaly, No Pulsatile Mass, Non Tender, Soft Back: Normal Inspection, No CVA Tenderness, No Vertebral Tenderness Extremity: Normal Capillary Refill, Normal Inspection, Normal Range of Motion, Non Tender, No Calf Tenderness, No Pedal Edema Neurologic/Psychiatric: Alert, Oriented x3, No Motor/Sensory Deficits, Normal Mood/Affect Skin: Normal Color, Warm/Dry Lymphatic: No Adenopathy Results Results/Procedures Labs Laboratory Tests 06/18/18 17:18 06/19/18 06:15 Patient resulted labs reviewed. Assessment/Plan Admission Diagnosis Assessment: Fever Pyelonephritis without abnormal UA but stranding on CT scan of kidneys remains on Rocephin Cardiomyopathy EF 20% needs Life vest DM OOC on insulin HTN Volume overload Phentermine use without Rx of his own Plan: Appreciate Cardiology Lasix IV 20mg now Nebs O2 Lifevest Rocephin Admission Status: Inpatient Order (span 2 midnights) Reason for Inpatient Admission: Wheezing with elevated troponin and volume overload in need of Life vest Diagnosis/Problems Diagnosis/Problems (1) Sepsis Status: Acute Qualifiers: Sepsis type: sepsis due to unspecified organism Qualified Codes: A41.9 - Sepsis, unspecified organism (2) Wheezing Status: Acute (3) Cardiomyopathy Status: Chronic Qualifiers: Cardiomyopathy type: unspecified Qualified Codes: I42.9 - Cardiomyopathy, unspecified (4) Smoker Status: Chronic (5) Pyelonephritis Status: Acute (6) Uncontrolled diabetes mellitus Status: Chronic Qualifiers: Diabetes mellitus type: type 2 Glycemic state: with hyperglycemia Qualified Codes: E11.65 - Type 2 diabetes mellitus with hyperglycemia (7) Urinary tract infection Status: Acute Qualifiers: Urinary tract infection type: acute cystitis Hematuria presence: without hematuria Qualified Codes: N30.00 - Acute cystitis without hematuria Clinical Quality Measures DVT/VTE Risk/Contraindication: Risk Factor Score Per Nursin RFS Level Per Nursing on Admit: 2=Moderate LUCRETIA MONTGOMERY DO Jun 19, 2018 09:17
[2018-06-19] MEDS ORDERED: PANT20TA2 PO (09:53)
[2018-06-19] MEDS ORDERED: SILD100T PO (09:55)
--- NOTE | 2018-06-19 09:59 | NUR ---
Dr. Coreas to 4th floor at this time, new orders received, see chart for details. Dr. Dillon also consulted at this time in re: abnormal EKG and lab values. This RN will cont. to monitor this patient.
[2018-06-19] MEDS ORDERED: PHEN37.53 PO (10:02)
[2018-06-19] MEDS ORDERED: LIRA0.6P SQ (10:02)
[2018-06-19] MEDS ORDERED: RT-ALBUINH IH (10:02)
--- NOTE | 2018-06-19 11:07 | NUR ---
SPOKE WITH THE PATIENT ABOUT HIS MEDICATIONS. HE LISTED WHAT HE IS TAKING TO THE BEST OF HIS ABILITY. I CALLED [facility] AND [facility] TO VERIFY. HE IS PAST DUE FOR REFILLS ON SEVERAL OF HIS MEDICATIONS WHICH I DID NOT INCLUDE ON THE MED REC. SEE BELOW FOR DETAILS. [facility] FILLED: VICTOZA 0.6MG DAILY X 1 WEEK THEN INCREASE TO 1.2MG DAILY AMBREEN MUÑOZ (THIS HAS NOT BEEN PICKED UP YET, WHEN I ASKED THE PATIENT ABOUT IT HE STATES HE DID NOT KNOW IT WAS AT [facility], HE WENT TO [facility] TO GET IT AND THEY DID NOT HAVE IT. HE WILL PICK IT UP FROM [facility] OR HAVE IT TRANSFERRED TO [facility] WHEN HE IS DISCHARGED.) [facility] FILLED: 06-17-18 VIAGRA 100MG DAILY PRN #10 05-27-18 PROTONIX 20MG DAILY #30 04-18-18 LEVEMIR FLEXTOUCH 50 UNITS BID (ADMITS HE FORGETS HIS EVENING DOSE SOMETIMES) ADDITIONALLY HE REPORTS HE TAKES PHENTERMINE FROM DR. GUNTER IN [facility]. I CALLED THEIR OFFICE AND VERIFIED THEY LAST DISPENSED PHENTERMINE 37.5MG #30 05-29-18. PATIENT STATES HE DOES NOT TAKE IT EVERYDAY, HE TAKES IT DAILY FOR 2 DAYS OR SO THEN IS OFF FOR A COUPLE OF DAYS. HE ALSO REPORTS TAKING THE FOLLOWING MEDICATION HOWEVER SINCE THEY ARE SO PAST DUE I DID NOT INCLUDE THEM ON THE MED REC: 11-25 - METOPROLOL TARTRATE 50MG BID #60 11-12-17 GLIMEPIRIDE 2MG DAILY #30 07-25 - LOSARTAN HCTZ 100-25 DAILY #90
[2018-06-19] MEDS ORDERED: FUROSEMIDE 40 MG/4 ML INJ (LASIX) IVP NR ×2 (12:30→14:15)
--- NOTE | 2018-06-19 13:21 | Consultation-Cardiology ---
HPI-Cardiology Cardiology Consultation Date of Consultation 06/19/18 Date of Admission Time Seen by Provider: 13:16 Indication: shortness of breath HPI 38 years old gentleman with history of 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, newly diagnosed diabetes. Has been having generalized weakness, shortness of breath and fatigue loss of energy and low-grade fever. Cough. Pedal edema on and off. Reported occasional episode of chest discomfort. Currently denied any active chest pain , laying down in bed comfortably, has history of snoring. No alcohol use or tobacco use. No recent tick bites. Noted to have congestive heart failure Home Medications & Allergies Allergies: Uncoded Allergies: SEAFOOD (Allergy, Unknown, 06/18/18) Home Medication List Reviewed: Yes [id number] Hx Patient Social History Employed/Student: employed Alcohol Use: Denies Use Recreational Drug Use: Yes Drug of Choice: marijuana Type Used: Cigarettes Recent Foreign Travel: No Recent Infectious Disease Expo: No Recent Hopitalizations: No Physical Abuse Screen: No Sexual Abuse: No Past Medical History past medical history as described below Family Medical History Significant Family History: No Pertinent Family Hx, Diabetes Family Medical Hx noncontributory to his current condition Review of Systems Constitutional: see HPI, fever, malaise, weakness EENTM: see HPI, no symptoms reported Respiratory: see HPI, cough, dyspnea on exertion, short of breath Cardiovascular: see HPI, chest pain, edema Gastrointestinal: no symptoms reported, see HPI Genitourinary: no symptoms reported, see HPI Musculoskeletal: no symptoms reported, see HPI Skin: see HPI Psychiatric/Neurological: No Symptoms Reported, See HPI Reviewed Test Results Reviewed Test Results Lab Laboratory Tests Test 06/18/18 17:17 06/18/18 17:18 06/18/18 17:28 06/18/18 17:46 Range/Units Glucometer 275 H 70-110 MG/DL White Blood Count 9.1 4.3-11.0 10^3/uL Red Blood Count 5.58 4.35-5.85 10^6/uL Hemoglobin 17.1 13.3-17.7 G/DL Hematocrit 48 40-54 % Mean Corpuscular Volume 86 80-99 FL Mean Corpuscular Hemoglobin 31 25-34 PG Mean Corpuscular Hemoglobin Concent 36 32-36 G/DL Red Cell Distribution Width 14.5 10.0-14.5 % Platelet Count 224 130-400 10^3/uL Mean Platelet Volume 10.8 H 7.4-10.4 FL Neutrophils (%) (Auto) 86 H 42-75 % Lymphocytes (%) (Auto) 5 L 12-44 % Monocytes (%) (Auto) 8 0-12 % Eosinophils (%) (Auto) 0 0-10 % Basophils (%) (Auto) 0 0-10 % Neutrophils # (Auto) 7.8 1.8-7.8 X 10^3 Lymphocytes # (Auto) 0.5 L 1.0-4.0 X 10^3 Monocytes # (Auto) 0.8 0.0-1.0 X 10^3 Eosinophils # (Auto) 0.0 0.0-0.3 10^3/uL Basophils # (Auto) 0.0 0.0-0.1 10^3/uL Neutrophils % (Manual) 88 % Lymphocytes % (Manual) 4 % Monocytes % (Manual) 4 % Band Neutrophils 4 % Toxic Granulation 2+ Dohle Bodies MODERATE Blood Morphology Comment NORMAL Prothrombin Time 14.1 12.2-14.7 SEC INR Comment 1.1 0.8-1.4 Activated Partial Thromboplast Time 31 24-35 SEC Sodium Level 129 L 135-145 MMOL/L Potassium Level 3.9 3.6-5.0 MMOL/L Chloride Level 99 98-107 MMOL/L Carbon Dioxide Level 20 L 21-32 MMOL/L Anion Gap 10 5-14 MMOL/L Blood Urea Nitrogen 13 7-18 MG/DL Creatinine 1.46 H 0.60-1.30 MG/DL Estimat Glomerular Filtration Rate > 60 BUN/Creatinine Ratio 9 Glucose Level 321 H 70-105 MG/DL Lactic Acid Level 1.45 0.50-2.00 MMOL/L Calcium Level 9.4 8.5-10.1 MG/DL Corrected Calcium 9.2 8.5-10.1 MG/DL Total Bilirubin 0.8 0.1-1.0 MG/DL Aspartate Amino Transf (AST/SGOT) 19 5-34 U/L Alanine Aminotransferase (ALT/SGPT) 17 0-55 U/L Alkaline Phosphatase 59 40-136 U/L C-Reactive Protein High Sensitivity 3.97 H 0.00-0.50 MG/DL Total Protein 7.4 6.4-8.2 GM/DL Albumin 4.3 3.2-4.5 GM/DL Blood Gas Puncture Site LEFT RADIAL Blood Gas Patient Temperature 103.0 Arterial Blood pH 7.45 H 7.37-7.43 Arterial Blood Partial Pressure CO2 29 L 35-45 MMHG Arterial Blood Partial Pressure O2 73 L 79-93 MMHG Arterial Blood HCO3 19 L 23-27 MMOL/L Arterial Blood Total CO2 19.9 L 21.0-31.0 MMOL/L Arterial Blood Oxygen Saturation 94 94-100 % Arterial Blood Base Excess -3.7 L -2.5-2.5 MMOL/L Obi Test POSITIVE Blood Gas Ventilator Setting NO Blood Gas Inspired Oxygen N/A Urine Color YELLOW Urine Clarity CLEAR Urine pH 5 5-9 Urine Specific [place] 1.020 1.016-1.022 Urine Protein 3+ H NEGATIVE Urine Glucose (UA) 4+ H NEGATIVE Urine Ketones 1+ H NEGATIVE Urine Nitrite NEGATIVE NEGATIVE Urine Bilirubin NEGATIVE NEGATIVE Urine Urobilinogen NORMAL NORMAL MG/DL Urine Leukocyte Esterase NEGATIVE NEGATIVE Urine RBC (Auto) 1+ H NEGATIVE Urine RBC 0-2 /HPF Urine WBC NONE /HPF Urine Squamous Epithelial Cells 2-5 /HPF Urine Crystals NONE /LPF Urine Bacteria NEGATIVE /HPF Urine Casts NONE /LPF Urine Mucus NEGATIVE /LPF Urine Culture Indicated NO Urine Opiates Screen NEGATIVE NEGATIVE Urine Oxycodone Screen NEGATIVE NEGATIVE Urine Methadone Screen NEGATIVE NEGATIVE Urine Propoxyphene Screen NEGATIVE NEGATIVE Urine Barbiturates Screen NEGATIVE NEGATIVE Ur Tricyclic Antidepressants Screen NEGATIVE NEGATIVE Urine Phencyclidine Screen NEGATIVE NEGATIVE Urine Amphetamines Screen POSITIVE H NEGATIVE Urine Methamphetamines Screen NEGATIVE NEGATIVE Urine Benzodiazepines Screen NEGATIVE NEGATIVE Urine Cocaine Screen NEGATIVE NEGATIVE Urine Cannabinoids Screen POSITIVE H NEGATIVE Test 06/18/18 19:31 06/18/18 20:47 06/18/18 21:46 06/19/18 05:10 Range/Units CSF Tube Number 4 CSF Appearance CLEAR CSF Color COLORLESS CSF WBC 1 0-5 CELLS CSF RBC 1 H 0-0 CELLS CSF Lymphocytes % CSF Mononuclear WBCs % CSF Polynuclear WBCs % CSF Glucose 142 H 50-80 MG/DL CSF Total Protein 52 H 15-40 MG/DL Glucometer 245 H 152 H 70-110 MG/DL Test 06/19/18 06:15 06/19/18 11:08 Range/Units White Blood Count 9.7 4.3-11.0 10^3/uL Red Blood Count 5.51 4.35-5.85 10^6/uL Hemoglobin 16.6 13.3-17.7 G/DL Hematocrit 49 40-54 % Mean Corpuscular Volume 88 80-99 FL Mean Corpuscular Hemoglobin 30 25-34 PG Mean Corpuscular Hemoglobin Concent 34 32-36 G/DL Red Cell Distribution Width 14.8 H 10.0-14.5 % Platelet Count 188 130-400 10^3/uL Mean Platelet Volume 10.7 H 7.4-10.4 FL Neutrophils (%) (Auto) 80 H 42-75 % Lymphocytes (%) (Auto) 11 L 12-44 % Monocytes (%) (Auto) 10 0-12 % Eosinophils (%) (Auto) 0 0-10 % Basophils (%) (Auto) 0 0-10 % Neutrophils # (Auto) 7.8 1.8-7.8 X 10^3 Lymphocytes # (Auto) 1.0 1.0-4.0 X 10^3 Monocytes # (Auto) 0.9 0.0-1.0 X 10^3 Eosinophils # (Auto) 0.0 0.0-0.3 10^3/uL Basophils # (Auto) 0.0 0.0-0.1 10^3/uL Sodium Level 136 135-145 MMOL/L Potassium Level 3.8 3.6-5.0 MMOL/L Chloride Level 105 98-107 MMOL/L Carbon Dioxide Level 16 L 21-32 MMOL/L Anion Gap 15 H 5-14 MMOL/L Blood Urea Nitrogen 13 7-18 MG/DL Creatinine 1.16 0.60-1.30 MG/DL Estimat Glomerular Filtration Rate > 60 BUN/Creatinine Ratio 11 Glucose Level 150 H 70-105 MG/DL Calcium Level 8.7 8.5-10.1 MG/DL Troponin I 0.058 H <0.028 NG/ML B-Type Natriuretic Peptide 229.7 H <100.0 PG/ML Glucometer 232 H 70-110 MG/DL Physical Exam Vital Signs Vital Signs - First Documented 06/18/18 06/19/18 17:17 08:00 Temp 103.5 Pulse 134 Resp 28 B/P (MAP) 147/117 (127) Pulse Ox 97 O2 Delivery Room Air O2 Flow Rate 3.00 Capillary Refill : Less Than 3 Seconds Height, Weight, BMI Height: 5'10.00" Weight: 254lbs. 0.0oz. 115.372151pu; 36.4 BMI Method:Stated General Appearance: No Apparent Distress, WD/WN Eyes: Bilateral Eye Normal Inspection, Bilateral Eye PERRL, Bilateral Eye EOMI HEENT: PERRL/EOMI, TMs Normal, Normal ENT Inspection, Pharynx Normal Neck: Full Range of Motion, Normal Inspection, Non Tender, Supple, Carotid Bruit Respiratory: Chest Non Tender, Lungs Clear, Normal Breath Sounds, No Accessory Muscle Use, No Respiratory Distress Cardiovascular: Regular Rate, Rhythm, No Edema, No Gallop, No JVD, No Murmur, Normal Peripheral Pulses Gastrointestinal: Normal Bowel Sounds, No Organomegaly, No Pulsatile Mass, Non Tender, Soft Back: Normal Inspection, No CVA Tenderness, No Vertebral Tenderness Extremity: Normal Capillary Refill, Normal Inspection, Normal Range of Motion, Non Tender, No Calf Tenderness, No Pedal Edema Neurologic/Psychiatric: Alert, Oriented x3, No Motor/Sensory Deficits, Normal Mood/Affect Skin: Normal Color, Warm/Dry Lymphatic: No Adenopathy A/P-Cardiology Admission Diagnosis Congestive heart failure, acute left ventricular systolic dysfunction Shortness of breath Chest pain Low-grade fever Assessment/Plan Congestive heart failure, acute left ventricular systolic dysfunction, unknown etiology, continue to monitor for now. Arrange for LifeVest, started on Toprol and Entresto, monitor tolerance and response. Questionable underlying coronary artery disease, continue to monitor troponin, currently chest pain-free Chest pain, reporting improvement. Continue to monitor EKG and cardiac enzymes. Next Low-grade fever, chest x-rays normal. Continue to monitor Elevated C reactive protein. Continue to monitor Diabetes mellitus, diagnosed recently. Managed by primary care physician next Obesity, discussed weight loss. History of underlying sleep apnea, history of snoring, would benefit from sleep study as an outpatient Clinical Quality Measures DVT/VTE Risk/Contraindication: Risk Factor Score Per Nursin RFS Level Per Nursing on Admit: 2=Moderate MACRINA BOYER MD Jun 19, 2018 13:20
[2018-06-19] MEDS: cefTRIAXone FOR IV USE 1,000 MG in WATER (STERILE) FOR INJECTION 10 ML IV SCH (14:33)
--- NOTE | 2018-06-19 15:32 | NUR ---
CM/SS spoke with LifeVest sales representative adding machines Abhay. He will begin the paperwork and it will likely be beginning of the week before patient able to discharge and be fitted for the Lifevest. This SILK SPREADER provided the patient with an application for Medicaid and he and his family will try to get it completed and the supporting documentation through the weekend, then Medicaid application can be faxed. Patient is also working on completing application for Financial Services with the hospital.
[2018-06-19] MEDS: SACUBITRIL/VALSARTAN 24/26 MG (ENTRESTO) TABLET PO SCH (20:35)
[2018-06-20] MEDS: ACETAMINOPHEN 500 MG TAB (TYLENOL) PO PRN ×2 (00:15→23:00)
[2018-06-20 04:45] VITALS: BP 120/81
[2018-06-20 05:38] LABS: HEMOGLOBIN 16.6 G/DL (13.3-17.7); RED CELL DISTRIBUTION WIDTH 14.9 % (10.0-14.5); WHITE BLOOD COUNT 4.9 10^3/uL (4.3-11.0)
[2018-06-20 06:03] LABS: ALANINE AMINOTRANSFERASE 27 U/L (0-55); ALBUMIN 3.7 GM/DL (3.2-4.5); ALKALINE PHOSPHATASE 50 U/L (40-136); BILIRUBIN,TOTAL 0.7 MG/DL (0.1-1.0); BUN/CREATININE RATIO 10; CARBON DIOXIDE 20 MMOL/L (21-32); CHLORIDE 105 MMOL/L (98-107); CREATININE SERUM 0.99 MG/DL (0.60-1.30); GFR ESTIMATED > 60; GLUCOSE 126 MG/DL (70-105); MAGNESIUM 1.7 MG/DL (1.8-2.4); POTASSIUM 3.4 MMOL/L (3.6-5.0); SODIUM 137 MMOL/L (135-145); TOTAL PROTEIN 6.5 GM/DL (6.4-8.2)
[2018-06-20] MEDS: inSUlin ASPART (NovoLOG) 1 UNIT/0.01 ML (CHARGE PER UNIT) SC SCH ×7 (06:28→21:05)
[2018-06-20] MEDS: RT-ALBUTEROL SULF 2.5 MG/3 ML PRE-MIX VIAL INH SCH ×3 (07:25→19:19)
[2018-06-20] MEDS: IBUPROFEN 800 MG (MOTRIN) TAB PO PRN (07:52)
[2018-06-20 08:00] VITALS: BP 135/90
--- NOTE | 2018-06-20 08:29 | Cardiac Procedure Note-CS/ASA ---
Pre-Procedure Note Pre-Op Procedure Note H&P Reviewed The H&P was reviewed, patient examined and no changes noted. Date H&P Reviewed: Jun 20, 2018 Time H&P Reviewed: 08:29 Conscious Sedation Pre-Proced Time 08:29 ASA Score 3 For ASA 3 and 4: Consider anesthesia and medical clearance. Also, for patients with a history of failed moderate sedation consider anesthesia. Airway Lungs Heart ASA score ASA 1: a normal healthy patient ASA 2: a patient with a mild systemic disease (mid diabetes, controlled 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, obesity x ASA 3: a patient with a severe systemic disease that limits activity (angina , COPD, prior Myocardial infarction) ASA 4: a patient with an incapacitating disease that is a constant threat to life (CHF, renal failure) ASA 5: a moribund patient not expected to survive 24 hrs. (ruptured aneurysm) ASA 6: a declared brain- patient whose organs are being harvested. For emergent operations, add the letter E after the classification Mallampati Classification Grade 3 Sedation Plan Analgesia, Amnesia, Plan communicated to team members, Discussed options with patient/fam, Discussed risks with patient/fam The patient is an appropriate candidate to undergo the planned procedure, sedation, and anesthesia. The patient immediately re-assessed prior to indication. MACRINA BOYER MD Jun 20, 2018 08:29
--- NOTE | 2018-06-20 08:29 | Cardiology Progress Note ---
Subjective Date Seen by Provider: Jun 20, 2018 Time Seen by Provider: 08:27 Subjective/Events-last exam patient is laying down in bed, complaining of fatigue and loss of energy. No chest pain. No palpitation. Review of Systems General: No Chills, No Night Sweats; Fatigue; No Malaise, No Appetite, No Other HEENT: No Head Aches, No Visual Changes, No Eye Pain, No Ear Pain, No Dysphasia , No Sinus Congestion, No Post Nasal Drip, No Sore Throat, No Other Pulmonary: Dyspnea; No Cough, No Pleuritic Chest Pain, No Other Cardiovascular: No: Chest Pain, Palpitations, Orthopnea, Paroxysmal Noc. Dyspnea, Edema, Lt Headedness, Other Focused Exam Lactate Level 06/18/18 17:18: Lactic Acid Level 1.45 Objective-Cardiology Exam Last Set of Vital Signs Vital Signs 06/19/18 06/20/18 06/20/18 20:35 04:45 07:26 Temp 97.0 Pulse 98 Resp 18 B/P (MAP) 120/81 (94) Pulse Ox 95 O2 Delivery Room Air O2 Flow Rate 3.00 Capillary Refill : Less Than 3 Seconds I&O Intake and Output 06/20/18 00:00 Intake Total 3500 ml Balance 3500 ml Intake Oral 2890 ml IV Total 610 ml # Voids 7 # Bowel Movements 1 Daily Weight Change No No General: Alert, Oriented X3, Cooperative HEENT: Atraumatic, PERRLA Neck: Supple, No JVD, No Thyromegaly Lungs: Clear to Auscultation, Normal Air Movement Heart: Regular Rate, Normal S1, Normal S2, No Murmurs, Other (S3 present) Abdomen: Normal Bowel Sounds, Soft, No Tenderness, No Hepatosplenomegaly, No Masses Extremities: No Clubbing, No Cyanosis, No Edema, Normal Pulses, No Tenderness/ Swelling Skin: No Rashes, No Breakdown, No Significant Lesion Neuro: Normal Gait, Normal Speech, Strength at 5/5 X4 Ext, Normal Tone, Sensation Intact Psych/Mental Status: Mental Status NL, Mood NL Results Lab Laboratory Tests 06/20/18 05:16 A/P-Cardiology Admission Diagnosis Congestive heart failure, acute left ventricular systolic dysfunction Shortness of breath Chest pain Low-grade fever Assessment/Plan Congestive heart failure, acute left ventricular systolic dysfunction, unknown etiology, slight elevation in troponin that is trending down, still having generalized weakness. Planning to proceed with cardiac catheterization possible PTCA. Questionable underlying coronary artery disease, planning to proceed with cardiac catheterization possible PTCA Chest pain, reporting improvement. continue to monitor Low-grade fever, chest x-rays normal. Continue to monitor Elevated C reactive protein. Continue to monitor Diabetes mellitus, diagnosed recently. Managed by primary care physician next Obesity, discussed weight loss. History of underlying sleep apnea, history of snoring, would benefit from sleep study as an outpatient Clinical Quality Measures DVT/VTE Risk/Contraindication: Risk Factor Score Per Nursin RFS Level Per Nursing on Admit: 2=Moderate MACRINA BOYER MD Jun 20, 2018 08:29
[2018-06-20] MEDS ORDERED: NS IV 1000 ML 1,000 ML IV SCH (08:30)
[2018-06-20] MEDS: SACUBITRIL/VALSARTAN 24/26 MG (ENTRESTO) TABLET PO SCH ×2 (08:45→20:28)
[2018-06-20] MEDS: cefTRIAXone FOR IV USE 1,000 MG in WATER (STERILE) FOR INJECTION 10 ML IV SCH (08:45)
[2018-06-20] MEDS ORDERED: fentaNYL INJECTION 100 MCG/2 ML AMP ONE (08:50)
[2018-06-20] MEDS ORDERED: MIDAZOLAM 5 MG/5 ML (VERSED) VIAL ONE (08:50)
[2018-06-20] MEDS ORDERED: HEParin 1000 UNIT/ML (10ML VIAL) FOR BOLUS ONE (08:51)
[2018-06-20] MEDS ORDERED: NS IV 1000 ML 2,000 ML ONE (08:51)
[2018-06-20] MEDS ORDERED: LIDOCAINE 1% INJ 20 ML 20 ML VIAL ONE (09:00)
--- NOTE | 2018-06-20 09:00 | NUR ---
PATIENT TAKEN FOR CARDIAC CATHETERIZATION.
[2018-06-20] MEDS ORDERED: methylPREDNISolone 125 MG (Solu-MEDROL) VIAL ONE (09:27)
[2018-06-20] MEDS ORDERED: diphenhydrAMINE 50 MG/ML INJ (BENADRYL) ONE (09:27)
--- NOTE | 2018-06-20 10:13 | Cardiac Cath Report ---
Cardiac Cath Report Physician (s)/[employer] Set Up Operator (s) Physician MACRINA BOYER MD Pre-Procedure Diagnosis Pre-Procedure Diagnosis: congestive heart failure Post-Procedure Note Procedure Start Date: Jun 20, 2018 Name of Procedure: left heart catheterization Left ventriculogram Aortic root angiogram Findings/Procedure Note PROCEDURE NOTE: 38 years old gentleman diagnosed with severe cardiomyopathy, congestive heart failure and brought for cardiac catheterization to rule out underlying coronary artery disease as a cause for his heart failure. After explaining the procedure to the patient, all pros and cons were explained , all questions were answered. The patient signed the consent and then he was placed on the cardiac catheterization laboratory. Groin was prepped SL fashion local anesthesia was used. Sheath placed in the right femoral artery. Abbi right and left catheter were used to access the coronary system. Pigtail was used to access the left ventricular cavity. Left ventriculogram was done Aortic root angiogram was done At the end of the procedure the sheath was removed. Closure device was used FINDINGS: Hemodynamics LV 113/17, end-diastolic pressure of 17 Aorta 109/76 mean of 92 ANATOMY: Left Main is normal with no obstructive disease Left Anterior Descending is large with a large diagonal artery, nonobstructive disease Left Circumflex is absent, there is a very small branch off the LAD that could be representing a small circumflex but otherwise no circumflex system was noted Right Coronory Artery is large dominant artery tortuous artery with no obstructive disease LV Gram is dilated with severe diffuse left ventricular hypokinesia with estimated ejection fraction 25 percent Aorta evaluation done with aortic root angiogram which showed the aortic root is normal, ascending aorta and aortic arch were normal, there is no dissection or aneurysm, no aortic regurgitation, origin of the right coronary artery and the LAD and left main were seen, no other artery was noted CONCLUSION: 1. 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 2. Dilated cardiomyopathy, nonischemic, ejection fraction 25 percent 3. Normal aortic root and ascending aorta and aortic valve DISCUSSION AND RECOMMENDATION: continue to maximize medical therapy Anesthesia Type: Conscious Sedation Estimated blood loss (mL): 15 ml Contrast Amount: 102 ml Total Radiation Dose: 1719 mGy Post-Procedure Diagnosis Post-operative diagnosis: Severe nonischemic cardiomyopathy Hypertension Hyperlipidemia Obesity MACRINA BOYER MD Jun 20, 2018 10:13
[2018-06-20] MEDS ORDERED: PATIENT MAY USE OWN MEDS, ALL PO SCH (10:15)
[2018-06-20] MEDS: NS IV 1000 ML 1,000 ML IV SCH ×3 (10:45→19:39)
--- NOTE | 2018-06-20 12:07 | Progress Note-Hospitalist ---
Subjective HPI/CC On Admission Date Seen by Provider: Jun 20, 2018 Time Seen by Provider: 11:00 CC: Fever and flank pain HPI: This is a 38yoAAM who was recently placed on insulin for new onset diabetes who presented to the ER with flank pain and fever and chills and had a complete w/u in the ER including LP which was negative but did have slight elevation of troponin which was repeated and noted to have increased so Cardiology was consulted and evaluated the ECHO to have EF 20% and will need a Lifevest. Pt has been taking Phentermine of his 's and now having palpitations. Patient with wheezing on exam noted so Nebs ordered and will initiate Lasix since he was given aggressive IVF. Subjective/Events-last exam Cardiac catheterization did not reveal any coronary artery disease that required intervention LifeVest to be fitted A lot of contrast given so we will maintain IV fluid and Lasix to be sure that clears and no renal insufficiency occurs Discharge tomorrow as planned Focused Exam Lactate Level 06/18/18 17:18: Lactic Acid Level 1.45 Objective Exam Vital Signs Vital Signs Date Time Temp Pulse Resp B/P (MAP) Pulse Ox O2 Delivery O2 Flow Rate FiO2 06/20/18 15:30 96.0 102 18 141/95 (110) 94 Room Air 06/19/18 20:35 3.00 Capillary Refill : Less Than 3 Seconds General Appearance: No Apparent Distress, WD/WN, Chronically ill HEENT: PERRL/EOMI, Normal ENT Inspection, Pharynx Normal, Moist Mucous Membranes Neck: Full Range of Motion, Normal Inspection, Non Tender Respiratory: Chest Non Tender, No Accessory Muscle Use, No Respiratory Distress , Crackles, Wheezing Cardiovascular: Regular Rate, Rhythm, No Edema, No Gallop, No JVD, No Murmur, Normal Peripheral Pulses Gastrointestinal: Normal Bowel Sounds, No Organomegaly, No Pulsatile Mass, Non Tender, Soft Back: Normal Inspection, No CVA Tenderness, No Vertebral Tenderness Extremity: Normal Capillary Refill, Normal Inspection, Normal Range of Motion, Non Tender, No Calf Tenderness, No Pedal Edema Neurologic/Psychiatric: Alert, Oriented x3, No Motor/Sensory Deficits, Normal Mood/Affect Skin: Normal Color, Warm/Dry Lymphatic: No Adenopathy Results/Procedures Lab Laboratory Tests 06/20/18 05:16 Patient resulted labs reviewed. Assessment/Plan Assessment and Plan Assess & Plan/Chief Complaint Assessment: Fever Pyelonephritis without abnormal UA but stranding on CT scan of kidneys remains on Rocephin Cardiomyopathy EF 20% needs Life vest DM OOC on insulin HTN Volume overload Phentermine use without Rx of his own Plan: Appreciate Cardiology IVF after cardiac cath contrast Nebs O2 Lifevest Rocephin Diagnosis/Problems Diagnosis/Problems (1) Sepsis Status: Acute Qualifiers: Sepsis type: sepsis due to unspecified organism Qualified Codes: A41.9 - Sepsis, unspecified organism (2) Wheezing Status: Acute (3) Cardiomyopathy Status: Chronic Qualifiers: Cardiomyopathy type: unspecified Qualified Codes: I42.9 - Cardiomyopathy, unspecified (4) Smoker Status: Chronic (5) Pyelonephritis Status: Acute (6) Uncontrolled diabetes mellitus Status: Chronic Qualifiers: Diabetes mellitus type: type 2 Glycemic state: with hyperglycemia Qualified Codes: E11.65 - Type 2 diabetes mellitus with hyperglycemia (7) Urinary tract infection Status: Acute Qualifiers: Urinary tract infection type: acute cystitis Hematuria presence: without hematuria Qualified Codes: N30.00 - Acute cystitis without hematuria Clinical Quality Measures DVT/VTE Risk/Contraindication: Risk Factor Score Per Nursin RFS Level Per Nursing on Admit: 2=Moderate LUCRETIA MONTGOMERY DO Jun 20, 2018 12:07
--- NOTE | 2018-06-20 14:25 | NUR ---
Pt transferred to room 432 at this time via bed accompanied by staff. Right groin cath site c/d/i. Bedside report given to LETI Powell who will assume pt care at this time.
[2018-06-20 15:30] VITALS: BP 141/95
[2018-06-20 20:15] VITALS: BP 147/93
[2018-06-20 23:55] VITALS: BP 120/78
[2018-06-21 04:00] VITALS: BP 106/59
[2018-06-21 05:37] LABS: HEMOGLOBIN 16.6 G/DL (13.3-17.7); MEAN PLATELET VOLUME 11.4 FL (7.4-10.4); WHITE BLOOD COUNT 5.7 10^3/uL (4.3-11.0)
[2018-06-21 05:56] LABS: BUN/CREATININE RATIO 16; CALCIUM 10.2 MG/DL (8.5-10.1); CARBON DIOXIDE 18 MMOL/L (21-32); CHLORIDE 107 MMOL/L (98-107); CREATININE SERUM 1.14 MG/DL (0.60-1.30); GFR ESTIMATED > 60; GLUCOSE 156 MG/DL (70-105); POTASSIUM 4.2 MMOL/L (3.6-5.0); SODIUM 139 MMOL/L (135-145)
[2018-06-21] MEDS: inSUlin ASPART (NovoLOG) 1 UNIT/0.01 ML (CHARGE PER UNIT) SC SCH ×7 (06:07→20:44)
[2018-06-21] MEDS: RT-ALBUTEROL SULF 2.5 MG/3 ML PRE-MIX VIAL INH SCH ×3 (07:19→22:16)
[2018-06-21 08:00] VITALS: BP 119/84
--- NOTE | 2018-06-21 08:14 | NUR ---
prior to a.m. medications pulse was 93 and b/p was 119/84
[2018-06-21] MEDS: SACUBITRIL/VALSARTAN 24/26 MG (ENTRESTO) TABLET PO SCH ×2 (08:21→20:43)
[2018-06-21] MEDS: cefTRIAXone FOR IV USE 1,000 MG in WATER (STERILE) FOR INJECTION 10 ML IV SCH (08:22)
--- NOTE | 2018-06-21 09:37 | Cardiology Progress Note ---
Subjective Date Seen by Provider: Jun 21, 2018 Time Seen by Provider: 09:35 Subjective/Events-last exam Patient is laying down in bed, eating breakfast. Denied any chest pain, no shortness of breath, still reporting night sweats Review of Systems General: No Chills; Night Sweats; No Fatigue, No Malaise, No Appetite, No Other HEENT: No Head Aches, No Visual Changes, No Eye Pain, No Ear Pain, No Dysphasia , No Sinus Congestion, No Post Nasal Drip, No Sore Throat, No Other Pulmonary: No Dyspnea, No Cough, No Pleuritic Chest Pain, No Other Cardiovascular: No: Chest Pain, Palpitations, Orthopnea, Paroxysmal Noc. Dyspnea, Edema, Lt Headedness, Other Focused Exam Lactate Level 06/18/18 17:18: Lactic Acid Level 1.45 Objective-Cardiology Exam Last Set of Vital Signs Vital Signs 06/21/18 08:00 Temp 98.2 Pulse 93 Resp 18 B/P (MAP) 119/84 (96) Pulse Ox 97 O2 Delivery Room Air O2 Flow Rate 3.00 Capillary Refill : Less Than 3 Seconds I&O Intake and Output 06/21/18 00:00 Intake Total 1890 ml Balance 1890 ml Intake Oral 1890 ml # Voids 5 General: Alert, Oriented X3, Cooperative HEENT: Atraumatic, PERRLA Neck: Supple, No JVD, No Thyromegaly Lungs: Clear to Auscultation, Normal Air Movement Heart: Regular Rate, Normal S1, Normal S2, No Murmurs, Other (S3 present) Abdomen: Normal Bowel Sounds, Soft, No Tenderness, No Hepatosplenomegaly, No Masses Extremities: No Clubbing, No Cyanosis, No Edema, Normal Pulses, No Tenderness/ Swelling Skin: No Rashes, No Breakdown, No Significant Lesion Neuro: Normal Gait, Normal Speech, Strength at 5/5 X4 Ext, Normal Tone, Sensation Intact Psych/Mental Status: Mental Status NL, Mood NL Results Lab Laboratory Tests 06/21/18 04:45 A/P-Cardiology Admission Diagnosis Congestive heart failure, acute left ventricular systolic dysfunction Shortness of breath Chest pain Low-grade fever Assessment/Plan Congestive heart failure, acute left ventricular systolic dysfunction, nonischemic cardiomyopathy, responding and tolerating medication well. Continue to monitor Cardiac catheterization done showing mild coronary artery disease no significant obstructive disease. Febrile illness. Questionable sepsis, still having night sweats, receiving ceftriaxone, although he does not recall having any tick bite, I will evaluate tick borne titer Questionable underlying coronary artery disease, planning to proceed with cardiac catheterization possible PTCA Chest pain, reporting improvement. continue to monitor Elevated C reactive protein. Continue to monitor Diabetes mellitus, diagnosed recently. Managed by primary care physician next Obesity, discussed weight loss. History of underlying sleep apnea, history of snoring, would benefit from sleep study as an outpatient Clinical Quality Measures DVT/VTE Risk/Contraindication: Risk Factor Score Per Nursin RFS Level Per Nursing on Admit: 2=Moderate MACRINA BOYER MD Jun 21, 2018 09:37
--- NOTE | 2018-06-21 11:35 | Progress Note-Hospitalist ---
Subjective HPI/CC On Admission Date Seen by Provider: Jun 21, 2018 Time Seen by Provider: 12:15 CC: Fever and flank pain HPI: This is a 38yoAAM who was recently placed on insulin for new onset diabetes who presented to the ER with flank pain and fever and chills and had a complete w/u in the ER including LP which was negative but did have slight elevation of troponin which was repeated and noted to have increased so Cardiology was consulted and evaluated the ECHO to have EF 20% and will need a Lifevest. Pt has been taking Phentermine of his 's and now having palpitations. Patient with wheezing on exam noted so Nebs ordered and will initiate Lasix since he was given aggressive IVF. Subjective/Events-last exam Patient doing well LifeVest being evaluated how to be paid for Denies any problems Constipation noted Review of Systems Gastrointestinal: Constipation Focused Exam Lactate Level 06/18/18 17:18: Lactic Acid Level 1.45 Objective Exam Vital Signs Vital Signs Date Time Temp Pulse Resp B/P (MAP) Pulse Ox O2 Delivery O2 Flow Rate FiO2 06/21/18 13:00 95 06/21/18 12:00 98.2 18 137/98 (111) 94 Room Air 06/21/18 08:00 3.00 Capillary Refill : Less Than 3 Seconds General Appearance: No Apparent Distress, WD/WN, Chronically ill HEENT: PERRL/EOMI, Normal ENT Inspection, Pharynx Normal, Moist Mucous Membranes Neck: Full Range of Motion, Normal Inspection, Non Tender Respiratory: Chest Non Tender, Lungs Clear, Normal Breath Sounds, No Accessory Muscle Use, No Respiratory Distress Cardiovascular: Regular Rate, Rhythm, No Edema, No Gallop, No JVD, No Murmur, Normal Peripheral Pulses Gastrointestinal: Normal Bowel Sounds, No Organomegaly, No Pulsatile Mass, Non Tender, Soft Back: Normal Inspection, No CVA Tenderness, No Vertebral Tenderness Extremity: Normal Capillary Refill, Normal Inspection, Normal Range of Motion, Non Tender, No Calf Tenderness, No Pedal Edema Neurologic/Psychiatric: Alert, Oriented x3, No Motor/Sensory Deficits, Normal Mood/Affect Skin: Normal Color, Warm/Dry Lymphatic: No Adenopathy Results/Procedures Lab Laboratory Tests 06/21/18 04:45 Patient resulted labs reviewed. Assessment/Plan Assessment and Plan Assess & Plan/Chief Complaint Assessment: Fever Pyelonephritis without abnormal UA but stranding on CT scan of kidneys remains on Rocephin Cardiomyopathy EF 20% needs Life vest DM OOC on insulin HTN Volume overload Phentermine use without Rx of his own Plan: Appreciate Cardiology IVF after cardiac cath contrast Nebs O2 Lifevest Rocephin Diagnosis/Problems Diagnosis/Problems (1) Sepsis Status: Acute Qualifiers: Sepsis type: sepsis due to unspecified organism Qualified Codes: A41.9 - Sepsis, unspecified organism (2) Wheezing Status: Acute (3) Cardiomyopathy Status: Chronic Qualifiers: Cardiomyopathy type: unspecified Qualified Codes: I42.9 - Cardiomyopathy, unspecified (4) Smoker Status: Chronic (5) Pyelonephritis Status: Acute (6) Uncontrolled diabetes mellitus Status: Chronic Qualifiers: Diabetes mellitus type: type 2 Glycemic state: with hyperglycemia Qualified Codes: E11.65 - Type 2 diabetes mellitus with hyperglycemia (7) Urinary tract infection Status: Acute Qualifiers: Urinary tract infection type: acute cystitis Hematuria presence: without hematuria Qualified Codes: N30.00 - Acute cystitis without hematuria Clinical Quality Measures DVT/VTE Risk/Contraindication: Risk Factor Score Per Nursin RFS Level Per Nursing on Admit: 2=Moderate LUCRETIA MONTGOMERY DO Jun 21, 2018 11:35
[2018-06-21 12:00] VITALS: BP 137/98
[2018-06-21] MEDS: LACTULOSE SYRUP 10GM/15ML (ENULOSE) 30ML UDC PO SCH ×2 (14:51→20:43)
[2018-06-21] MEDS: SENNA W/DOCUSATE (SENOKOT S) TABLET PO SCH ×2 (14:51→20:43)
[2018-06-21 16:00] VITALS: BP 133/84
[2018-06-21 20:00] VITALS: BP 135/84
[2018-06-22 00:47] VITALS: BP 120/84
[2018-06-22 04:00] VITALS: BP 112/82
[2018-06-22] MEDS: inSUlin ASPART (NovoLOG) 1 UNIT/0.01 ML (CHARGE PER UNIT) SC SCH ×6 (06:21→17:02)
[2018-06-22] MEDS: RT-ALBUTEROL SULF 2.5 MG/3 ML PRE-MIX VIAL INH SCH ×2 (07:27→15:00)
[2018-06-22 08:00] VITALS: BP 122/82
[2018-06-22] MEDS: cefTRIAXone FOR IV USE 1,000 MG in WATER (STERILE) FOR INJECTION 10 ML IV SCH (08:18)
[2018-06-22] MEDS: SENNA W/DOCUSATE (SENOKOT S) TABLET PO SCH (08:19)
[2018-06-22] MEDS: LACTULOSE SYRUP 10GM/15ML (ENULOSE) 30ML UDC PO SCH (08:19)
[2018-06-22] MEDS: SACUBITRIL/VALSARTAN 24/26 MG (ENTRESTO) TABLET PO SCH (08:22)
--- NOTE | 2018-06-22 08:23 | NUR ---
prior to a.m medications pulse was 98 bpm and b/p was 122/82
--- NOTE | 2018-06-22 09:49 | Cardiology Progress Note ---
Subjective Date Seen by Provider: Jun 22, 2018 Time Seen by Provider: 09:47 Subjective/Events-last exam patient is laying down in bed, feeling better. Denied any chest pain. No palpitation. Review of Systems General: No Chills, No Night Sweats, No Fatigue, No Malaise, No Appetite, No Other HEENT: No Head Aches, No Visual Changes, No Eye Pain, No Ear Pain, No Dysphasia , No Sinus Congestion, No Post Nasal Drip, No Sore Throat, No Other Pulmonary: No Dyspnea, No Cough, No Pleuritic Chest Pain, No Other Cardiovascular: No: Chest Pain, Palpitations, Orthopnea, Paroxysmal Noc. Dyspnea, Edema, Lt Headedness, Other Objective-Cardiology Exam Last Set of Vital Signs Vital Signs 06/22/18 08:00 Temp 98.0 Pulse 98 Resp 18 B/P (MAP) 122/82 (95) Pulse Ox 93 O2 Delivery Room Air O2 Flow Rate 3.00 Capillary Refill : Less Than 3 Seconds I&O Intake and Output 06/22/18 00:00 Intake Total 3470 ml Balance 3470 ml Intake Oral 3460 ml IV Total 10 ml # Voids 7 # Bowel Movements 1 General: Alert, Oriented X3, Cooperative HEENT: Atraumatic, PERRLA Neck: Supple, No JVD, No Thyromegaly Lungs: Clear to Auscultation, Normal Air Movement Heart: Regular Rate, Normal S1, Normal S2, No Murmurs, Other (S3 present) Abdomen: Normal Bowel Sounds, Soft, No Tenderness, No Hepatosplenomegaly, No Masses Extremities: No Clubbing, No Cyanosis, No Edema, Normal Pulses, No Tenderness/ Swelling Skin: No Rashes, No Breakdown, No Significant Lesion Neuro: Normal Gait, Normal Speech, Strength at 5/5 X4 Ext, Normal Tone, Sensation Intact Psych/Mental Status: Mental Status NL, Mood NL Results Lab Laboratory Tests Test 06/21/18 10:48 06/21/18 11:40 06/21/18 16:00 06/21/18 20:10 Range/Units Erythrocyte Sedimentation Rate 4 0-15 MM/HR C-Reactive Protein High Sensitivity 6.86 H 0.00-0.50 MG/DL Glucometer 214 H 177 H 193 H 70-110 MG/DL Test 06/22/18 06:20 Range/Units Glucometer 165 H 70-110 MG/DL A/P-Cardiology Admission Diagnosis Congestive heart failure, acute left ventricular systolic dysfunction Shortness of breath Chest pain Low-grade fever Assessment/Plan Congestive heart failure, acute left ventricular systolic dysfunction, nonischemic cardiomyopathy, feeling better. Workup for the underlying cause is in progress, I will evaluate HIV test Cardiac catheterization done showing mild coronary artery disease no significant obstructive disease. Febrile illness. Questionable sepsis, still having night sweats, receiving ceftriaxone, although he does not recall having any tick bite, tick borne titer is pending, I will evaluate HIV test Questionable underlying coronary artery disease, planning to proceed with cardiac catheterization possible PTCA Chest pain, reporting improvement. continue to monitor Elevated C reactive protein. Continue to monitor Diabetes mellitus, diagnosed recently. Managed by primary care physician next Obesity, discussed weight loss. History of underlying sleep apnea, history of snoring, would benefit from sleep study as an outpatient Clinical Quality Measures DVT/VTE Risk/Contraindication: Risk Factor Score Per Nursin RFS Level Per Nursing on Admit: 2=Moderate MACRINA BOYER MD Jun 22, 2018 09:49
[2018-06-22] MEDS ORDERED: KCL 10 MEQ TAB (MICRO K) PO SCH (10:00)
[2018-06-22] MEDS ORDERED: FUROSEMIDE 20 MG (LASIX) TAB PO SCH (10:00)
--- NOTE | 2018-06-22 10:48 | NUR ---
CM/SS spoke with the patient, he turned in the Medicaid application and application for hospital financial assistance. Financial assistance did not seem to think that he would qualify for medicaid as he had been working to this point and will be able to resume working. Information on the medicaid application passed along to [place].
--- NOTE | 2018-06-22 11:56 | NUR ---
patient from recovery via cart at this time, this RN will assume care of this patient.
[2018-06-22 12:00] VITALS: BP 128/95
[2018-06-22] MEDS ORDERED: ASPIRIN 325 MG (5 GR) TABLET PO NR (12:01)
--- NOTE | 2018-06-22 15:26 | Progress Note (SOAP) ---
Subjective Subjective/Events-last exam Patient sitting at edge of bed. States that he has had some chest pain this AM. Denies any radiation or shortness of breath. Tolerating PO diet and ambulation. Review of Systems Date Seen by Provider: Jun 22, 2018 Time Seen by Provider: 10:45 Pulmonary: No Dyspnea, No Cough Cardiovascular: Chest Pain; No: Palpitations, Edema Gastrointestinal: No: Nausea, Vomiting, Abdominal Pain, Diarrhea Genitourinary: No Dysuria, No Frequency Musculoskeletal: No: neck pain, shoulder pain, arm pain Neurological: No: Weakness, Numbness, Incoordination, Confusion Objective Exam Last Set of Vital Signs Vital Signs Date Time Temp Pulse Resp B/P (MAP) Pulse Ox O2 Delivery O2 Flow Rate FiO2 06/22/18 13:00 100 06/22/18 12:00 97.8 18 128/95 (106) 98 Room Air 06/22/18 08:00 3.00 Capillary Refill : Less Than 3 Seconds I&O Intake and Output 06/22/18 00:00 Intake Total 3470 ml Balance 3470 ml Intake Oral 3460 ml IV Total 10 ml # Voids 7 # Bowel Movements 1 General: Alert, Oriented X3, Cooperative, No Acute Distress HEENT: Mucous Memb Moist/[place] Neck: Supple, No JVD Lungs: Clear to Auscultation, Normal Air Movement Heart: Regular Rate, No Murmurs Abdomen: Normal Bowel Sounds, Soft, No Tenderness, No Hepatosplenomegaly, No Masses Extremities: No Edema, No Tenderness/Swelling Skin: No Rashes, No Breakdown Neuro: Strength at 5/5 X4 Ext, Sensation Intact, Cranial Nerves 3-12 NL Psych/Mental Status: Mental Status NL, Mood NL Results/Procedures Lab Laboratory Tests 06/21/18 16:00: Glucometer 177H 06/21/18 20:10: Glucometer 193H 06/22/18 06:15: 06/22/18 06:20: Glucometer 165H 06/22/18 11:00: Glucometer 106 Microbiology 06/18/18 Blood Culture - Preliminary, Resulted No growth 06/18/18 Gram Stain - Final, Complete 06/18/18 CSF Culture - Final, Complete No growth 06/20/18 MRSA Screen - Final, Complete MRSA not isolated Assessment/Plan Assessment/Plan (1) Acute systolic (congestive) heart failure Status: Acute Assessment & Plan: - Cardiology consulted, lifevest pending (2) HTN (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) Status: Chronic Assessment & Plan: - ACEI Qualifiers: Qualified Codes: I10 - Essential (primary) 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 (3) Pyelonephritis Status: Acute Assessment & Plan: - Continue rocephin (4) Uncontrolled diabetes mellitus Status: Chronic Assessment & Plan: - A1c 10.6, discussed the importance of getting DM under control given new dx of CHF and HTN Qualifiers: Qualified Codes: E11.65 - Type 2 diabetes mellitus with hyperglycemia (5) Uncontrolled 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 Status: Acute (6) Cardiomyopathy Status: Chronic Qualifiers: Qualified Codes: I42.9 - Cardiomyopathy, unspecified Clinical Quality Measures DVT/VTE Risk/Contraindication: Risk Factor Score Per Nursin RFS Level Per Nursing on Admit: 2=Moderate SIMEON CLEARY MD Jun 22, 2018 15:26
--- NOTE | 2018-06-22 16:04 | Discharge Summary ---
Diagnosis/Chief Complaint Date of Admission Jun 18, 2018 at 21:30 Date of Discharge 06/22/2018 Admission Diagnosis Admission Diagnosis See problem list Discharge Diagnosis See below Problems/Diagnosis: (1) Acute systolic (congestive) heart failure Assessment & Plan: - Cardiology consulted, lifevest pending, Maximize medical management, meds available at repository Status: Acute (2) HTN (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) Assessment & Plan: - Entresto and BB, ASA Qualifiers: Qualified Codes: I10 - Essential (primary) 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 Status: Chronic (3) Pyelonephritis Assessment & Plan: - Continue rocephin, transitioned to PO Cefdinir Status: Acute (4) Uncontrolled diabetes mellitus Assessment & Plan: - A1c 10.6, discussed the importance of getting DM under control given new dx of CHF and HTN Qualifiers: Qualified Codes: E11.65 - Type 2 diabetes mellitus with hyperglycemia Status: Chronic (5) Cardiomyopathy Qualifiers: Qualified Codes: I42.9 - Cardiomyopathy, unspecified Status: Chronic Discharge Summary-Simple/Stand Procedures Cath with EF 20% Consultations Dr Dillon: Cardiology Discharge Physical Examination Allergies: Coded Allergies: Fish Containing Products (Unverified Allergy, Unknown, 06/22/18) FROM UNCODED ALLERGY "SEAFOOD" Vitals & I&Os Vital Sign - Last 12Hours Date Time Temp Pulse Resp B/P (MAP) Pulse Ox O2 Delivery O2 Flow Rate FiO2 06/22/18 13:00 100 06/22/18 12:00 97.8 18 128/95 (106) 98 Room Air 06/22/18 08:00 3.00 Intake and Output 06/22/18 00:00 Intake Total 2870 ml Balance 2870 ml General Appearance: Alert, Oriented X3, Cooperative, No Acute Distress HEENT: Mucous Memb Moist/[place] Respiratory: Clear to Auscultation, Normal Air Movement Cardiovascular: Regular Rate, No Murmurs Abdominal: Normal Bowel Sounds, Soft, No Tenderness, No Masses Extremities: No Edema, No Tenderness/Swelling Skin: No Rashes, No Breakdown Neuro: Strength at 5/5 X4 Ext, Sensation Intact, Cranial Nerves 3-12 NL Psych/Mental Status: Mental Status NL, Mood NL Hospital Course Was the Problem List Reviewed?: Yes See final discharge diagnosis. Discussion & Recommendations 38 yo M that presented with acute pyelonephris and found to have Systolic CHF. Patient was started on ACEI/ARB, BB and ASA for medical management. He was given life vest. Patient not on any oral diabetic meds. Discussed with PCP that they need to be maximized. Close f.u with cardiology and PCP at discharge. Will treat with PO antibiotics for 7 days following discharge. Discharge Condition at discharge stable Instructions to patient/family Please see electronic discharge instructions given to patient. Discharge Medications Reviewed and agree with Discharge Medication list on patient's Discharge Instruction sheet Clinical Quality Measures DVT/VTE Risk/Contraindication: Risk Factor Score Per Nursin RFS Level Per Nursing on Admit: 2=Moderate Copy Copies To 1: SHAHID Hanna HOLLY R MD Jun 22, 2018 16:03
[2018-06-22 16:07] VITALS: BP 118/86
[2018-06-22] MEDS ORDERED: FURO20TA4 PO (16:14)
[2018-06-22] MEDS ORDERED: SACU1TAB PO (16:14)
[2018-06-22] MEDS ORDERED: CEFD300C3 PO (16:14)
[2018-06-22] MEDS ORDERED: METO-387 PO (16:14)
[2018-06-22] MEDS ORDERED: POTA10TA6 PO (16:14)
--- NOTE | 2018-06-22 16:22 | Discharge Instructions ---
Discharge [facility] Discharge Medications New, Converted or Re-Newed RX: Transmitted to Pharmacy New Medications: Cefdinir (Cefdinir) 300 Mg Capsule 300 MG PO BID, #14 CAP Furosemide (Furosemide) 20 Mg Tablet 20 MG PO DAILY, #30 TAB Metoprolol Succinate (Metoprolol Succinate) 25 Mg Tab.er.24h 25 MG PO DAILY, #30 TAB Potassium Chloride (Klor-Con 10) 10 Meq Tablet.er 10 MEQ PO DAILY@0700, #30 TAB Sacubitril/Valsartan (Entresto 24 mg-26 mg Tablet) 1 Each Tablet 1 TAB PO BID, #60 TAB Continued Medications: Albuterol Sulfate (Proair Hfa) 1 Puff Puff 2 PUFF IH Q4H PRN for SHORTNESS OF BREATH, PUFF Insulin Detemir (Levemir Flextouch) 100 Unit/1 Ml Insuln.pen 50 UNIT SQ BID, EA LAST FILLED 04-18-18 Liraglutide (Victoza 2-Richard) 0.6 Mg/0.1 Ml Pen.injctr SQ UD for HAS NOT PICKED UP YET, VIAL 0.6MG DAILY X 1 WEEK THEN INCREASE TO 1.2MG DAILY FILLED 06-10-18 - NOT YET PICKED UP OR STARTED Discontinued Medications: Pantoprazole Sodium (Protonix) 20 Mg Tablet.dr 20 MG PO DAILY PRN for HEARTBURN, TAB Phentermine HCl (Phentermine HCl) 37.5 Mg Tablet 37.5 MG PO DAILY PRN for APPETITE, TAB Sildenafil Citrate (Viagra) 100 Mg Tablet 100 MG PO DAILY PRN for ED, TAB Patient Instructions Goal/Follow Up Appt: You have an appt with your PCP Keyona Hernandez on FridayJune 30 @ 940 AM for [facility] Patient Instructions: - Make sure to complete your antibiotics - supervisor vat house your meds from the respository Activity & Diet Discharge Diet: ADA Diet, Cardiac Diet Activity as Tolerated: Yes Orders-Post D/C & Referrals Pneu Vac Indicated: Yes Copy Copies To 1: SHAHID Nieves HOLLY R MD Jun 22, 2018 16:22
[2018-06-22 17:30] VITALS: BP 118/86
--- NOTE | 2018-06-24 09:16 | Physician Query Clarification ---
PQ-Further Specificity Admission/Discharge Admission Date: Jun 18, 2018 at 21:30 Discharge Date: Jun 22, 2018 at 17:50 The medical record reflects the following clinical scenario: History/Risk Factors: Acute pyelonephritis, HTN with acute systolic CHF, Diabetes Clinical Findings: Troponin 0.058 Treatment: heart cath, Toprol PO, Lidocaine Question: Can you further specify the elevated troponin 0.058 per the clinical indicators above? Please document below. 1. Acute systolic CHF 2. NSTEMI 3. NH type 2 4. Acute pyelonephritis 3. Other, with explanation of the clinical findings. 4. Clinically undetermined, no explanation for the clinical findings. PHYSICIAN RESPONSE Can you specify per above: 1 In responding to this query, please exercise your independent professional judgment. The purpose of this communication is to more accurately reflect the complexity of your patients condition. The fact that a question is asked does not imply that any particular answer is desired or expected. Thank you for your timely response to this clarification. Requestors name: Kirill THIS PHYSICIAN QUERY FORM IS A PERMANENT PART OF THE MEDICAL RECORD KIRILL QUESADA Jun 24, 2018 09:15 MACRINA BOYER MD Jun 24, 2018 15:45
--- NOTE | 2018-06-24 09:22 | Physician Query Clarification ---
PQ-Intro New Diagnosis Admission/Discharge Admission Date: Jun 18, 2018 at 21:30 Discharge Date: Jun 22, 2018 at 17:50 The medical record reflects the following clinical scenario: History/Risk Factors: acute pyelonephritis, HTN with acute systolic CHF, diabetes Clinical Findings: E. chaffeensis 1:16; Febrile illness. Questionable sepsis, still having night sweats, receiving ceftriaxone, although he does not recall having any tick bite , tick borne titer is pending. Treatment: none identified Question: What condition best reflects the above clinical scenario? Please document below. 1. Ehrlichiosis chaffeensis 2. Ehrlichiosis chaffeensis ruled out 3. Other, with explanation of the clinical findings. 4. Clinically undetermined, no explanation for the clinical findings. PHYSICIAN RESPONSE What condition reflects above: Clinically undetermined Explanation of clincal finding workup did not determine the source of infection or fever, please discuss with primary care physician In responding to this query, please exercise your independent professional judgment. The purpose of this communication is to more accurately reflect the complexity of your patients condition. The fact that a question is asked does not imply that any particular answer is desired or expected. Thank you for your timely response to this clarification. Requestors name: Kirill THIS PHYSICIAN QUERY FORM IS A PERMANENT PART OF THE MEDICAL RECORD KIRILL QUESADA Jun 24, 2018 09:22 MACRINA BOYER MD Jun 24, 2018 15:47
--- NOTE | 2018-06-24 09:33 | Physician Query Clarification ---
PQ-Further Specificity Admission/Discharge Admission Date: Jun 18, 2018 at 21:30 Discharge Date: Jun 22, 2018 at 17:50 The medical record reflects the following clinical scenario: History/Risk Factors: acute pyelonephritis, HTN with acute systolic heart failure, cardiomyopathy, diabetes Clinical Findings: T103.5, P 134, R 28, WBC 9.1, Lactic 1.45, e. chaffeensis 1:16, /[address] Dillon Febrile illness. Questionable sepsis, still having night sweats, receiving ceftriaxone, although he does not recall having any tick bite, tick borne titer is pending. Treatment: IV Rocephin Question: Can you further specify if sepsis is a valid diagnosis or was it ruled out? The diagnosis is not included in your DS. per the clinical indicators above? Please document below. 1. Sepsis confirmed 2. Sepsis ruled out 3. Other, with explanation of the clinical findings. 4. Clinically undetermined, no explanation for the clinical findings. PHYSICIAN RESPONSE Can you specify per above: 1 In responding to this query, please exercise your independent professional judgment. The purpose of this communication is to more accurately reflect the complexity of your patients condition. The fact that a question is asked does not imply that any particular answer is desired or expected. Thank you for your timely response to this clarification. Requestors name: Kirill THIS PHYSICIAN QUERY FORM IS A PERMANENT PART OF THE MEDICAL RECORD KIRILL QUESADA Jun 24, 2018 09:33 SIMEON CLEARY MD Jun 25, 2018 21:53
--- NOTE | 2018-06-26 08:19 | Physician Query Clarification ---
PQ-Intro New Diagnosis Admission/Discharge Admission Date: Jun 18, 2018 at 21:30 Discharge Date: Jun 22, 2018 at 17:50 The medical record reflects the following clinical scenario: History/Risk Factors: acute pyelonephritis, HTN with acute systolic CHF, diabetes Clinical Findings: E. chaffeensis 1:16; Febrile illness. Dr. Dillon PN:Questionable sepsis, still having night sweats, receiving ceftriaxone, although he does not recall having any tick bite, tick borne titer is pending. Treatment: none identified Question: What condition best reflects the above clinical scenario? Please document below. 1. Ehrlichiosis chaffeensis 2. Ehrlichiosis chaffeensis ruled out 3. Other, with explanation of the clinical findings. 4. Clinically undetermined, no explanation for the clinical findings. In responding to this query, please exercise your independent professional judgment. The purpose of this communication is to more accurately reflect the complexity of your patients condition. The fact that a question is asked does not imply that any particular answer is desired or expected. Thank you for your timely response to this clarification. Requestors name: Kirill THIS PHYSICIAN QUERY FORM IS A PERMANENT PART OF THE MEDICAL RECORD KIRILL QUESADA Jun 26, 2018 08:19
== END 2018-06-22 17:50 | disposition home or self-care (01) | DRG 871 ==
LOC: EDUNIT# 16:53 → ER 16:54 → 4TH 21:30
PROVIDERS: ADMIT Family Medicine; ATTEND Family Medicine
PROC: 009U30Z Drainage of Spinal Canal with Drainage Device, Percutaneous Approach (ICD-10-PCS; principal; 2018-06-18)
PROC: 4A023N7 Measurement of Cardiac Sampling and Pressure, Left Heart, Percutaneous Approach (ICD-10-PCS; 2018-06-20)
PROC: B2111ZZ Fluoroscopy of Multiple Coronary Arteries using Low Osmolar Contrast (ICD-10-PCS; 2018-06-20)
PROC: B2151ZZ Fluoroscopy of Left Heart using Low Osmolar Contrast (ICD-10-PCS; 2018-06-20)
PROC: B3101ZZ Fluoroscopy of Thoracic Aorta using Low Osmolar Contrast (ICD-10-PCS; 2018-06-20)
DX: A41.9 Sepsis, unspecified organism (principal); N10 Acute pyelonephritis; I11.0 Hypertensive heart disease with heart failure; I50.21 Acute systolic (congestive) heart failure; I42.9 Cardiomyopathy, unspecified; Q24.5 Malformation of coronary vessels; E11.65 Type 2 diabetes mellitus with hyperglycemia; J44.9 Chronic obstructive pulmonary disease, unspecified; E78.5 Hyperlipidemia, unspecified; T50.5X1A Poisoning by appetite depressants, accidental (unintentional), initial encounter; R00.2 Palpitations; I25.10 Atherosclerotic heart disease of native coronary artery without angina pectoris; E66.9 Obesity, unspecified; F17.210 Nicotine dependence, cigarettes, uncomplicated; J30.2 Other seasonal allergic rhinitis; G47.30 Sleep apnea, unspecified; G43.909 Migraine, unspecified, not intractable, without status migrainosus; F41.9 Anxiety disorder, unspecified; D57.3 Sickle-cell trait; Z87.19 Personal history of other diseases of the digestive system; R19.8 Other specified symptoms and signs involving the digestive system and abdomen; Z79.4 Long term (current) use of insulin; Z68.36 Body mass index [BMI] 36.0-36.9, adult
CPT/HCPCS: 36415; 71046; 74176; 80048; 80053; 80306; 81000; 82805; 82945; 82962; 83036; 83605; 83735; 83880; 84157; 84443; 84484; 85007; 85025; 85027; 85610; 85652; 85730; 86141; 86618; 86666; 86668; 86703; 86757; 86780; 87040; 87070; 87081; 87205; 87491; 87591; 87804; 89051; 93005; 93306; 93458; 93567; 94640; 94760; 96361; 96365; 96372; 96375; 99291

== ENCOUNTER → 2018-09-21 | Outpatient (CLI) | payer SELFPAY ==
[~2018-09-21] MED LIST changes: +CEFD300C3 PO; +FURO20TA4 PO; +HYDR-4226 PO; +LIRA0.6P SQ; +METO-387 PO; +PANT20TA2 PO; +PHEN37.53 PO; +POTA10TA6 PO; +RT-ALBUINH IH; +SACU1TAB PO; +SILD100T PO
== END ==
LOC: CARD 10:06
PROVIDERS: ATTEND Physician Assistant
DX: I34.0 Nonrheumatic mitral (valve) insufficiency (principal); I51.7 Cardiomegaly; I50.9 Heart failure, unspecified; E11.9 Type 2 diabetes mellitus without complications; G47.33 Obstructive sleep apnea (adult) (pediatric)
CPT/HCPCS: 93306

== ENCOUNTER 2018-09-25 14:38 | Emergency (ER) | payer SELFPAY ==
[~2018-09-25] VITALS: Ht 175.3 cm; Wt 122.0 kg
[~2018-09-25 14:38] MED LIST changes: -HYDR-4226 PO
--- NOTE | 2018-09-25 15:29 | ED Upper Extremity ---
General Chief Complaint: Upper Extremity Stated Complaint: SHOULDER PAIN Nursing Triage Note: Pt to ED with c/o L shoulder pain. Pt reports throwing a bag yesterday and had immediate pain in the L shoulder. Pt c/o limited range of motion and reports being unable to lift L arm. Nursing Sepsis Screen: No Definite Risk Source: patient Exam Limitations: no limitations History of Present Illness Date Seen by Provider: Sep 25, 2018 Time Seen by Provider: 15:24 Initial Comments To ER with diffuse left shoulder pain. This began yesterday. He was lifting a book bag over his shoulder when he developed sudden onset of pain. He is unable to move his shoulder today due to the severe pain in it Onset: yesterday Severity: moderate Pain/Injury Location: left shoulder Method of Injury: fell Modifying Factors: Worse With Movement Allergies and Home Medications Allergies Coded Allergies: Fish Containing Products (Unverified Allergy, Unknown, 06/22/18) FROM UNCODED ALLERGY "SEAFOOD" Home Medications Albuterol Sulfate 1 Puff Puff, 2 PUFF IH Q4H PRN for SHORTNESS OF BREATH, (Reported) Cefdinir 300 Mg Capsule, 300 MG PO BID Prescribed by: SIMEON CLEARY on 06/22/181613 Furosemide 20 Mg Tablet, 20 MG PO DAILY Prescribed by: SIMEON CLEARY on 06/22/181613 Hydrocodone/Acetaminophen 1 Each Tablet, 1 TAB PO Q6H Prescribed by: BLADIMIR OBRIEN on 09/25/18 155 Insulin Detemir 100 Unit/1 Ml Insuln.pen, 50 UNIT SQ BID, (Reported) LAST FILLED 04-18-18 Liraglutide 0.6 Mg/0.1 Ml Pen.injctr, SQ UD, (Reported) 0.6MG DAILY X 1 WEEK THEN INCREASE TO 1.2MG DAILY FILLED 06-10-18 - NOT YET PI CKED UP OR STARTED Metoprolol Succinate 25 Mg Tab.er.24h, 25 MG PO DAILY Prescribed by: SIMEON CLEARY on 06/22/181613 Potassium Chloride 10 Meq Tablet.er, 10 MEQ PO DAILY@0700 Prescribed by: SIMEON CLEARY on 06/22/181613 Sacubitril/Valsartan 1 Each Tablet, 1 TAB PO BID Prescribed by: SIMEON CLEARY on 06/22/181613 Patient Home Medication List Home Medication List Reviewed: Yes Review of Systems Constitutional: see HPI EENTM: see HPI Respiratory: no symptoms reported Cardiovascular: no symptoms reported Genitourinary: no symptoms reported Musculoskeletal: see HPI Skin: no symptoms reported Psychiatric/Neurological: No Symptoms Reported Past Atybuxp-Byxvjj-Eoryna Hx Patient Social History Alcohol Use: Denies Use Recreational Drug Use: Yes Drug of Choice: marijuana Smoking Status: Current Everyday Smoker Type Used: Cigarettes Recent Foreign Travel: No Contact w/Someone Who Travel: No Recent Infectious Disease Expo: No Recent Hopitalizations: No Seasonal Allergies Seasonal Allergies: Yes Past Medical History Surgeries: Yes (REPAIR OF TORN RETINA, RIGHT SHOULDER SURGERY) Eye Surgery Respiratory: No (USED CPAP IN PAST) Sleep Apnea Currently Using CPAP: No Cardiac: Yes (CARDIAC STENT) High Cholesterol, Hypertension Neurological: No Headaches /Migraines Genitourinary: No Gastrointestinal: Yes Pancreatitis Musculoskeletal: No Endocrine: Yes Diabetes, Insulin dep HEENT: Yes (DETACHED RETINA) Cancer: No Psychosocial: Yes Anxiety Integumentary: No Blood Disorders: Yes (SICKLE CELL TRAIT) Family Medical History No Pertinent Family Hx, Diabetes Physical Exam Vital Signs Vital Signs - First Documented 09/25/18 15:08 Temp 98.2 Pulse 91 Resp 17 B/P (MAP) 156/119 (131) Pulse Ox 97 O2 Delivery Room Air Capillary Refill : Less Than 3 Seconds Height, Weight, BMI Height: 5'9.00" Weight: 269lbs. 0.0oz. 122.943983ps; 36.4 BMI Method:Stated General Appearance: WD/WN, no apparent distress Respiratory: no respiratory distress, no accessory muscle use Shoulder: normal inspection, limited ROM, pain Elbow/Forearm: normal inspection, non-tender Wrist: Yes normal inspection, Yes non-tender Hand: normal inspection, non-tender, Right Neurologic/Psychiatric: alert, normal mood/affect, oriented x 3 Skin: normal color, warm/dry Progress/Results/Core Measures Results/Orders My Orders Orders - BLADIMIR OBRIEN APRN Shoulder, Left, 3 Views (09/25/18 15:19) Hydrocodone/Apap 5/325 Tablet (Lortab 5 (09/25/18 15:45) Medications Given in ED Current Medications Medications Dose Ordered Sig/Nitesh Route Start Time Stop Time Status Last Admin Dose Admin Acetaminophen/ Hydrocodone Bitart 1 tab ONCE ONCE PO 09/25/18 15:45 09/25/18 15:46 DC 09/25/18 15:48 1 TAB Vital Signs/I&O 09/25/18 15:08 Temp 98.2 Pulse 91 Resp 17 B/P (MAP) 156/119 (131) Pulse Ox 97 O2 Delivery Room Air Blood Pressure Mean: 131 Departure Communication (Admissions) He has dilated cardiomyopathy with ejection fraction 25%. He is wearing his life vest. Impression Primary Impression: Rotator cuff injury Qualified Codes: S46.002A - Unspecified injury of muscle(s) and tendon(s) of the rotator cuff of left shoulder, initial encounter Disposition: HOME, SELF-CARE Condition: Stable Departure-Patient Inst. Decision time for Depature: 15:55 Referrals: [facility] [place] (PCP) Primary Care Physician AMBREEN MUÑOZ APRN (Family) Primary Care Physician Patient Instructions: Rotator Cuff Injury (DC), How to Use a Shoulder Sling Add. Discharge Instructions: 1. Follow-up with an orthopedic surgeon for further evaluation of your shoulder pain. Wear the sling at all times except when showering and sleeping in the meantime. All discharge instructions reviewed with patient and/or family. Voiced understanding. Scripts Hydrocodone/Acetaminophen ([place] 5-325 Tablet) 1 Each Tablet 1 TAB PO Q6H for Pain MDD 10 TABS for 7 Days, #10 TAB Prov: BLADIMIR OBRIEN APRN 09/25/18 BLADIMIR OBRIEN APRN Sep 25, 2018 15:29
[2018-09-25] MEDS ORDERED: HYDROcodone/APAP 5 MG/325 MG (LORTAB) TAB PO ONE (15:45)
[2018-09-25] MEDS ORDERED: HYDR-4226 PO (15:56)
--- NOTE | 2018-09-25 16:00 | Diagnostic Imaging Report ---
INDICATION: Left shoulder pain. TIME OF EXAM: 3:34 p.m. EXAMINATION: Three views of the left shoulder were obtained. FINDINGS: Normal glenohumeral and acromioclavicular alignment. Acromiohumeral space is normal. No fracture or dislocation is seen. IMPRESSION: No acute bony abnormality is detected. Dictated on workstation # [id number]
--- NOTE | 2018-09-25 16:05 | NUR ---
Pt refused to have arm sling applied at ED, but wanted to take sling home.
[2018-09-25 16:10] VITALS: BP 156/119
--- OUTSIDE RECORDS SUMMARY | 2018-09-25 20:53 | XMS REPORT | Clinical Summary ---
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
--- OUTSIDE RECORDS SUMMARY | 2018-09-25 21:01 | XMS REPORT | Continuity of Care Document ---
Author Organization Unknown Address Unknown Allergies Active Description Code Type Severity Reaction Onset Reported/Identified Relationship to Patient Clinical Status Yes metformin [id number] Drug Allergy Mild diarrhea 07/29/2014 Yes No Known Drug Allergies [id number] Drug Allergy Unknown N/A 12/06/2015 Yes SEAFOOD SEAFOOD Unknown N/A 06/18/2018 Yes Fish Containing Products [id number] Drug Allergy Unknown N/A 06/22/2018 Medications There is no data. Problems Date Dx Coded Attending Type Code Diagnosis Diagnosed By 05/11/2011 Ot 831.01 ANT DISLOC HUMERUS- CLOSE 05/11/2011 Ot 959.2 SHLDR/UPPER ARM INJ NOS [...] HX OF PAST NONCOMPLIANCE 12/29/2013 BLADIMIR OBRIEN APRN Ot 719.41 JOINT PAIN-SHLDER 12/29/2013 BLADIMIR OBRIEN APRN Ot 959.2 SHLDR/UPPER ARM INJ NOS 12/29/2013 BLADIMIR OBIREN GROUND INSTRUCTOR BASIC Ot E000.8 OTHER EXTERNAL CAUSE STATUS 12/29/2013 BLADIMIR OBRIEN APRN Ot E928.9 ACCIDENT NOS 07/28/2014 CHRISTIANO FULLER MD Ot 250.02 DIAB DIAN WO COMPL, TYPE II OR UNSPEC TY 07/28/2014 CHRISTIANO FULLER MD Ot 789.09 ABDOMINAL PAIN, OTHER SPECIFIED SITE 07/30/2014 LUCRETIA MONTGOMERY DO Ot 250.02 07/30/2014 MONTGOMERY DO, LUCRETIA Ot [...] DO, LUCRETIA Ot 305.00 ALCOHOL ABUSE-UNSPEC 08/01/2014 MONTGOMERYLUCRETIA LEE DO Ot 305.1 TOBACCO USE DISORDER 08/01/2014 LUCRETIA MONTGOMERY DO Ot 305.20 CANNABIS ABUSE-UNSPEC 08/01/2014 LUCRETIA MONTGOMERY DO Ot 401.9 HYPERTENSION NOS 08/01/2014 MONTGOMERYTHELMA LEE DOI Ot 577.0 ACUTE PANCREATITIS 08/01/2014 MONTGOMERYLUCRETIA LEE DO Ot 784.0 HEADACHE 08/01/2014 MONTGOMERYLUCRETIA LEE DO Ot V15.81 HX OF PAST NONCOMPLIANCE 09/28/2014 ISABEL MYERS JOCELYNN K Ot 599.0 URIN TRACT INFECTION NOS 09/28/2014 ISABELAlivia MYERS JOCELYNN K Ot 789.00 ABDOMINAL PAIN, UNSPECIFIED SITE 06/23/2015 JULIO SHAFFER FINANCIAL SERVICES SALES REPRESENTATIVE Ot R10.12 LEFT UPPER QUADRANT PAIN 06/23/2015 JULIO SHAFFER FINANCIAL SERVICES SALES REPRESENTATIVE Ot Z87.19 PERSONAL HISTORY OF OTHER DISEASES [...] 07/26/2015 SURAJ AUSTIN MD Ot Z79.899 OTHER RESIDENTIAL (CURRENT) DRUG THERAPY 07/27/2015 SURAJ AUSTIN MD, Ot E11.9 TYPE 2 DIABETES MELLITUS WITHOUT COMPLIC 07/27/2015 SURAJ AUSTIN MD, Ot F17.210 NICOTINE DEPENDENCE, CIGARETTES, UNCOMPL 07/27/2015 SURAJ AUSTIN MD Ot I10 ESSENTIAL (PRIMARY) HYPERTENSION 07/27/2015 SURAJ AUSTIN MD Ot M25.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, RIGHT SHOULDER 07/27/2015 SURAJ AUSTIN MD Ot M67.88 OTHER SPECIFIED DISORDERS OF SYNOVIUM AN 07/27/2015 SURAJ AUSTIN MD Ot Z79.899 OTHER RESIDENTIAL (CURRENT) DRUG THERAPY 08/01/2015 SURAJ AUSTIN MD, Ot E11.9 TYPE 2 DIABETES MELLITUS WITHOUT COMPLIC 08/01/2015 SURAJ AUSTIN MD, Ot F17.210 NICOTINE DEPENDENCE, CIGARETTES, UNCOMPL 08/01/2015 SURAJ AUSTIN MD Ot I10 ESSENTIAL (PRIMARY) HYPERTENSION 08/01/2015 SURAJ AUSTIN MD Ot M25.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, RIGHT SHOULDER 08/01/2015 SURAJ AUSTIN MD Ot M67.88 OTHER SPECIFIED DISORDERS OF SYNOVIUM AN 08/01/2015 SURAJ AUSTIN MD, Ot Z79.899 OTHER RESIDENTIAL (CURRENT) DRUG THERAPY 12/07/2015 JULIO SHAFFER FINANCIAL SERVICES SALES REPRESENTATIVE Ot R10.12 LEFT UPPER QUADRANT PAIN 12/07/2015 JULIO SHAFFER FINANCIAL SERVICES SALES REPRESENTATIVE Ot Z87.19 PERSONAL HISTORY OF OTHER DISEASES [...] HYPERTENSION 12/07/2015 SEVEN HERNANDEZ DO, Ot Z79.4 RESIDENTIAL (CURRENT) USE OF INSULIN 12/07/2015 SEVEN HERNANDEZ DO, Ot Z79.899 OTHER RESIDENTIAL (CURRENT) DRUG THERAPY 12/07/2015 SEVEN HERNANDEZ DO, Ot B34.9 VIRAL INFECTION, UNSPECIFIED 12/07/2015 SEVEN HERNANDEZ DO, Ot E11.649 TYPE 2 DIABETES MELLITUS WITH HYPOGLYCEM 12/07/2015 SEVEN HERNANDEZ DO, Ot E11.9 TYPE 2 DIABETES MELLITUS WITHOUT COMPLIC 12/07/2015 SEVEN HERNANDEZ DO Ot E83.42 HYPOMAGNESEMIA 12/07/2015 SEVEN HERNANDEZ DO, Ot F17.210 NICOTINE DEPENDENCE, CIGARETTES, UNCOMPL 12/07/2015 SEVEN HERNANDEZ DO, Ot I10 ESSENTIAL (PRIMARY) HYPERTENSION 12/07/2015 SEVEN HERNANDEZ DO Ot Z79.4 RESIDENTIAL (CURRENT) USE OF INSULIN 12/07/2015 SEVEN HERNANDEZ DO, Ot Z79.899 OTHER RESIDENTIAL (CURRENT) DRUG THERAPY 04/03/2016 CRISTIAN SHAH MD, [...] UNSPECIFIED 04/03/2016 CRISTIAN SHAH MD, Ot Z79.4 RESIDENTIAL (CURRENT) USE OF INSULIN 04/03/2016 MADL, JULIO L FINANCIAL SERVICES SALES REPRESENTATIVE Ot R10.12 LEFT UPPER QUADRANT PAIN 04/03/2016 MADL, JULIO L FINANCIAL SERVICES SALES REPRESENTATIVE Ot Z87.19 PERSONAL HISTORY OF OTHER DISEASES OF TH 04/04/2016 CRISTIAN SHAH MD, Ot E11.65 TYPE 2 DIABETES MELLITUS WITH HYPERGLYCE 04/04/2016 CRISTIAN SHAH MD, Ot F17.210 NICOTINE DEPENDENCE, CIGARETTES, UNCOMPL 04/04/2016 CRISTIAN SHAH MD Ot I10 ESSENTIAL (PRIMARY) HYPERTENSION 04/04/2016 CRISTIAN SHAH MD, Ot N39.0 URINARY TRACT INFECTION, SITE NOT SPECIF 04/04/2016 SHISHMAREF IRA MD, CRISTIAN D Ot R10.32 LEFT LOWER QUADRANT PAIN 04/04/2016 CRISTIAN SHAH MD, Ot R19.7 DIARRHEA, UNSPECIFIED 04/04/2016 CRISTIAN SHAH MD, Ot Z79.4 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 DISTRIBUTION CONSULTANT (CURRENT) USE OF INSULIN 12/25/2016 RIOL, JULIO L FINANCIAL SERVICES SALES REPRESENTATIVE Ot G47.33 OBSTRUCTIVE SLEEP APNEA (ADULT) (PEDIATR 12/25/2016 MADL, JULIO L FINANCIAL SERVICES SALES REPRESENTATIVE Ot I10 ESSENTIAL (PRIMARY) HYPERTENSION 12/25/2016 MADL, JULIO L FINANCIAL SERVICES SALES REPRESENTATIVE Ot G47.33 OBSTRUCTIVE SLEEP APNEA (ADULT) (PEDIATR 12/25/2016 MADL, JULIO L FINANCIAL SERVICES SALES REPRESENTATIVE Ot I10 ESSENTIAL (PRIMARY) HYPERTENSION 07/07/2017 CRISTIAN [...] INI 07/07/2017 CRISTIAN SHAH MD, Ot Z79.4 RESIDENTIAL (CURRENT) USE OF INSULIN 07/07/2017 CRISTIAN SHAH MD Ot Z87.19 PERSONAL HISTORY OF OTHER DISEASES OF TH 07/12/2017 CRISTIAN SHAH MD Ot E11.9 TYPE 2 DIABETES MELLITUS WITHOUT COMPLIC 07/12/2017 CRISTIAN SHAH MD Ot F17.210 NICOTINE DEPENDENCE, CIGARETTES, UNCOMPL 07/12/2017 CRISTIAN SHAH MD Ot F41.9 ANXIETY DISORDER, UNSPECIFIED 07/12/2017 CRISTIAN SHAH MD Ot G43.909 MIGRAINE, UNSP, NOT INTRACTABLE, WITHOUT 07/12/2017 CRISTIAN SHAH MD Ot I10 ESSENTIAL (PRIMARY) HYPERTENSION 07/12/2017 CRISTIAN SHAH MD Ot M54.2 CERVICALGIA 07/12/2017 CRISTIAN SHAH MD Ot Z79.4 ORACLE DISTRIBUTION CONSULTANT (CURRENT) USE OF INSULIN 07/12/2017 CRISTIAN SHAH MD Ot Z87.19 PERSONAL HISTORY OF OTHER DISEASES OF 06/18/2018 MADLJULIO FINANCIAL SERVICES SALES REPRESENTATIVE Ot R10.12 LEFT UPPER QUADRANT PAIN 06/18/2018 JULIO SHAFFER FINANCIAL SERVICES SALES REPRESENTATIVE Ot Z87.19 PERSONAL HISTORY OF OTHER DISEASES OF 06/22/2018 GERRY MONTES DOA Octavia Ot A41.9 SEPSIS, UNSPECIFIED ORGANISM 06/22/2018 GERRY MONTES DOA K Ot D57.3 SICKLE-CELL TRAIT 06/22/2018 GERRY MONTES DOA K Ot E11.9 TYPE 2 DIABETES MELLITUS WITHOUT COMPLIC 06/22/2018 GERRY MONTES DOA K Ot E78.00 PURE HYPERCHOLESTEROLEMIA, UNSPECIFIED 06/22/2018 JYOTI MYERS LIGIA K Ot F41.9 ANXIETY DISORDER, UNSPECIFIED 06/22/2018 GERRY MONTES DOA K Ot G43.909 MIGRAINE, UNSP, NOT INTRACTABLE, WITHOUT 06/22/2018 GERRY MONTES DOA K Ot G47.30 SLEEP APNEA, UNSPECIFIED 06/22/2018 GERRY MONTES DOA K Ot I10 ESSENTIAL (PRIMARY) HYPERTENSION 06/22/2018 GERRY MONTES DOA K Ot J30.2 OTHER SEASONAL ALLERGIC RHINITIS 06/22/2018 GERRY MONTES DOA K Ot J44.9 CHRONIC OBSTRUCTIVE PULMONARY DISEASE, U 06/22/2018 GERRY MONTES DOA K Ot N12 TUBULO- INTERSTITIAL NEPHRITIS, NOT SPCF 06/22/2018 GERRY MONTES DOA K Ot R19.8 OTH SYMPTOMS AND SIGNS INVOLVING THE DGS 06/22/2018 LIGIA MONTES DO Ot Z79.4 [employer]ACLE DISTRIBUTION CONSULTANT (CURRENT) USE OF INSULIN 06/22/2018 MONTES DO LIGIA K Ot Z87.19 PERSONAL HISTORY OF OTHER DISEASES OF TH 06/22/2018 JYOTI MYERS LIGIA K Ot A41.9 SEPSIS, UNSPECIFIED ORGANISM 06/22/2018 MONTES DO, LIGIA K Ot D57.3 SICKLE-CELL TRAIT 06/22/2018 MONTES DO, LIGIA K Ot E11.9 TYPE 2 DIABETES MELLITUS WITHOUT COMPLIC 06/22/2018 MONTES DO LIGIA K Ot E78.00 PURE HYPERCHOLESTEROLEMIA, UNSPECIFIED 06/22/2018 MONTES DO LIGIA K Ot F41.9 ANXIETY DISORDER, UNSPECIFIED 06/22/2018 MONTES DO LIGIA K Ot G43.909 MIGRAINE, UNSP, NOT INTRACTABLE, WITHOUT 06/22/2018 MONTES DO, LIGIA K Ot G47.30 SLEEP APNEA, UNSPECIFIED 06/22/2018 MONTES DO LIGIA K Ot I10 ESSENTIAL (PRIMARY) HYPERTENSION 06/22/2018 JYOTI MYERS LIGIA K Ot J30.2 OTHER SEASONAL ALLERGIC RHINITIS 06/22/2018 JYOTI MYERS LIGIA K Ot J44.9 CHRONIC OBSTRUCTIVE PULMONARY DISEASE, U 06/22/2018 JYOTI MYERS LIGIA K Ot N12 TUBULO- INTERSTITIAL NEPHRITIS, NOT SPCF 06/22/2018 JYOTI MYERS LIGIA K Ot R19.8 OTH SYMPTOMS AND SIGNS INVOLVING THE DGS 06/22/2018 JYOTI MYERS LIGIA K Ot Z79.4 RESIDENTIAL (CURRENT) USE OF INSULIN 06/22/2018 JYOTI MYERS LIGIA K Ot Z87.19 PERSONAL HISTORY OF OTHER DISEASES OF 06/22/2018 JYOTI MYERS LIGIA K Ot A41.9 SEPSIS, UNSPECIFIED ORGANISM 06/22/2018 MONTES DO LIGIA K Ot D57.3 SICKLE-CELL TRAIT 06/22/2018 MONTES DO LIGIA K Ot E11.65 TYPE 2 DIABETES MELLITUS WITH HYPERGLYCE 06/22/2018 MONTES DO LIGIA K Ot E11.9 TYPE 2 DIABETES MELLITUS WITHOUT COMPLIC 06/22/2018 MONTES DO LIGAI K Ot E66.9 OBESITY, UNSPECIFIED 06/22/2018 MONTES DO, LIGIA K Ot E78.00 PURE HYPERCHOLESTEROLEMIA, UNSPECIFIED 06/22/2018 MONTES DO, LIGIA K Ot E78.5 HYPERLIPIDEMIA, UNSPECIFIED 06/22/2018 MONTES DO LIGIA K Ot F17.210 NICOTINE DEPENDENCE, CIGARETTES, UNCOMPL 06/22/2018 LIGIA MONTES DO Ot F41.9 ANXIETY DISORDER, UNSPECIFIED 06/22/2018 LIGIA MONTES DO Ot G43.909 MIGRAINE, UNSP, NOT INTRACTABLE, WITHOUT 06/22/2018 LIGIA MONTES DO Ot G47.30 SLEEP APNEA, UNSPECIFIED 06/22/2018 LIGIA MONTES DO Ot I10 ESSENTIAL (PRIMARY) HYPERTENSION 06/22/2018 LIGIA MONTES DO Ot I11.0 HYPERTENSIVE HEART DISEASE WITH HEART FA 06/22/2018 LIGIA MONTES DO Ot I25.10 ATHSCL HEART DISEASE OF [place] CORONARY 06/22/2018 LIGIA MONTES DO Ot I42.9 CARDIOMYOPATHY, UNSPECIFIED 06/22/2018 LIGIA MONTES DO Ot I50.21 ACUTE SYSTOLIC (CONGESTIVE) HEART FAILUR 06/22/2018 LIGIA MONTES DO Ot J30.2 OTHER SEASONAL ALLERGIC RHINITIS 06/22/2018 LIGIA MONTES DO Ot J44.9 CHRONIC OBSTRUCTIVE PULMONARY DISEASE, U 06/22/2018 LIGIA MONTES DO Ot N10 ACUTE PYELONEPHRITIS 06/22/2018 LIGIA MONTES DO Ot N12 TUBULO- INTERSTITIAL NEPHRITIS, NOT SPCF 06/22/2018 LIGIA MONTES DO Ot 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 06/22/2018 LIGIA MONTES DO Ot R00.2 PALPITATIONS 06/22/2018 LIGIA MONTES DO Ot R19.8 OTH SYMPTOMS AND SIGNS INVOLVING THE DGS 06/22/2018 LIGIA MONTES DO Ot T50.5X1A POISONING BY APPETITE DEPRESSANTS, ACCID 06/22/2018 LIGIA MONTES DO Ot Z68.36 BODY MASS INDEX (BMI) 36.0-36.9, ADULT 06/22/2018 LIGIA MONTES DO Ot Z79.4 [employer] DISTRIBUTION CONSULTANT (CURRENT) USE OF INSULIN 06/22/2018 LIGIA MONTES DO Ot Z87.19 PERSONAL HISTORY OF OTHER DISEASES OF TH Procedures Code Description Performed By Performed On [id number] DRAINAGE OF SPINAL CANAL WITH DRAINAGE D 06/18/2018 [id number] MEASURE OF CARDIAC SAMPL PRESSURE, L H 06/20/2018 [id number] FLUOROSCOPY OF MULT COR ART USING L OSM 06/20/2018 [id number] FLUOROSCOPY OF LEFT HEART USING LOW OSMO 06/20/2018 [id number] FLUOROSCOPY OF THORACIC AORTA USING LOW 06/20/2018 Results Test Result Range Capillary blood glucose measurement by glucometer (mass/volume) - 12/06/15 22:33 Capillary blood glucose measurement by glucometer (mass/volume) [...] Automated erythrocyte mean corpuscular hemoglobin concentration measurement (mass/volume) 35 g/dL 32-36 Automated erythrocyte distribution width ratio 13.9 % 10.0- 14.5 Automated blood platelet count (count/volume) 259 10*3/uL [...] Blood monocytes automated count (number/volume) 0.7 10*3 0.0- 1.0 Automated eosinophil count 0.1 10*3/uL 0.0-0.3 Automated [...] gravity of urine by test strip 1.015 1.016-1.022 Urine protein assay by test strip, semi-quantitative [...] sediment leukocyte count by microscopy (number/high power field) [HPF] NRG Bacteria detection in urine sediment [...] Serum or plasma aspartate aminotransferase measurement (enzymatic activity/volume) 26 U/L 5-34 Serum or plasma alanine aminotransferase measurement (enzymatic activity/volume) 20 U/L 0-55 Serum or plasma protein measurement (mass/volume) 6.9 g/dL 6.4-8.2 Serum or plasma albumin measurement (mass/volume) 4.3 g/dL 3.2-4.5 Magnesium - 12/06/15 23:06 Magnesium 1.6 mg/dL 1.8-2.4 Lipase - 12/06/15 23:06 Lipase 11 U/L 8-78 Capillary blood glucose measurement by glucometer (mass/volume) - 04/03/16 00:50 Capillary blood glucose measurement by glucometer (mass/volume) [...] Automated erythrocyte mean corpuscular hemoglobin concentration measurement (mass/volume) 35 g/dL 32-36 Automated erythrocyte distribution width ratio 13.7 % 10.0- 14.5 Automated blood platelet count (count/volume) 311 10*3/uL [...] Blood monocytes automated count (number/volume) 0.8 10*3 0.0- 1.0 Automated eosinophil count 0.1 10*3/uL 0.0-0.3 Automated [...] Serum or plasma aspartate aminotransferase measurement (enzymatic activity/volume) 25 U/L 5-34 Serum or plasma alanine aminotransferase measurement (enzymatic activity/volume) 24 U/L 0-55 Serum or plasma protein measurement (mass/volume) 7.3 g/dL 6.4-8.2 Serum or plasma albumin measurement (mass/volume) 4.2 g/dL 3.2-4.5 Magnesium - 04/03/16 00:55 Magnesium 1.9 mg/dL 1.8-2.4 Serum or plasma amylase measurement (enzymatic activity/volume) - 04/03/16 00:55 Serum or plasma amylase measurement (enzymatic activity/volume) 49 U/L 25-125 Complete urinalysis with reflex to culture - 04/03/16 01:24 Urine color determination YELLOW NRG Urine clarity determination SLIGHTLY CLOUDY NRG Urine pH measurement by test strip 5 5-9 Specific gravity of urine by test strip 1.020 1.016-1.022 Urine protein assay by test strip, semi-quantitative [...] sediment leukocyte count by microscopy (number/high power field) [HPF] NRG Bacteria detection in urine sediment [...] glucose measurement by glucometer (mass/volume) - 07/07/17 23:25 Capillary blood glucose measurement by glucometer (mass/volume) [...] Automated erythrocyte mean corpuscular hemoglobin concentration measurement (mass/volume) 34 g/dL 32-36 Automated erythrocyte distribution width ratio 14.2 % 10.0- 14.5 Automated blood platelet count (count/volume) 251 10*3/uL [...] Blood monocytes automated count (number/volume) 0.7 10*3 0.0- 1.0 Automated eosinophil count 0.1 10*3/uL 0.0-0.3 Automated [...] plasma C reactive protein measurement (mass/volume) 0.20 mg/dL 0.00-0.50 LIPID PANEL - 12/11/17 09:52 CHOLESTEROL, TOTAL 197 mg/dL <200 HDL CHOLESTEROL 39 mg/dL >40 TRIGLYCERIDES 113 mg/dL <150 LDL-CHOLESTEROL 136 mg/dL (calc) NRG CHOL/HDLC RATIO 5.1 (calc) <5.0 NON HDL CHOLESTEROL 158 mg/dL (calc) <130 [facility] - 12/11/17 09:52 GLUCOSE 248 mg/dL 65-99 UREA NITROGEN (BUN) 14 mg/dL 7-25 CREATININE 1.04 mg/dL 0.60-1.35 eGFR NON-AFR. [place] 91 mL/min/1.73m2 > OR=60 eGFR 105 mL/min/1.73m2 [...] 16 U/L 10-40 ALT 17 U/L 9-46 [facility] - 05/27/18 10:13 GLUCOSE 277 mg/dL 65-99 UREA NITROGEN (BUN) 17 mg/dL 7-25 CREATININE 1.12 mg/dL 0.60-1.35 eGFR NON-AFR. [place] 82 mL/min/1.73m2 > OR=60 eGFR 95 mL/min/1.73m2 [...] 20 U/L 10-40 ALT 18 U/L 9-46 Influenza virus A and B antigen detection - 06/18/18 17:06 FLU RESULT NEGATIVE FOR INFLUENZA A AND B ANTIGENS BY IA [facility] Influenza virus A and B antigen detection PER ROSE. NR Capillary blood glucose measurement by glucometer (mass/volume) - 06/18/18 17:17 Capillary blood glucose measurement by glucometer (mass/volume) [...] Automated erythrocyte mean corpuscular hemoglobin concentration measurement (mass/volume) 36 g/dL 32-36 Automated erythrocyte distribution width ratio 14.5 % 10.0- 14.5 Automated blood platelet count (count/volume) 224 10*3/uL [...] Blood monocytes automated count (number/volume) 0.8 10*3 0.0- 1.0 Automated eosinophil count 0.0 10*3/uL 0.0-0.3 Automated blood basophil count (count/volume) 0.0 10*3/uL 0.0-0.1 Blood lactic acid measurement (moles/volume) - 06/18/18 17:18 Blood lactic acid measurement (moles/volume) 1.45 mmol/L 0.50- 2.00 Comprehensive metabolic panel - 06/18/18 17:18 Serum [...] Serum or plasma aspartate aminotransferase measurement (enzymatic activity/volume) 19 U/L 5-34 Serum or plasma alanine aminotransferase measurement (enzymatic activity/volume) 17 U/L 0-55 Serum or plasma protein [...] poor plasma bycoagulation assay 31 s 24-35 Serum or plasma C reactive protein measurement (mass/volume) - 06/18/18 17:18 Serum or plasma C reactive protein measurement (mass/volume) 3.97 mg/dL 0.00-0.50 Bacterial blood culture - 06/18/18 17:18 QUANTITY OF GROWTH . NRG Bacterial blood culture SEE COMMEN NRG Hemoglobin A1c - 06/18/18 17:18 Blood hemoglobin A1C measurement (mass/volume) 10.6 % 4.0- 5.6 MEAN BLOOD GLUCOSE 258 % <=126 Arterial blood gas measurement - 06/18/18 17:28 Blood pCO2 29 mm[Hg] 35-45 Blood pO2 73 mm[Hg] 79-93 Arterial blood bicarbonate measurement (moles/volume) 19 mmol/L 23-27 Arterial blood base excess by calculation -3.7 mmol/L -2.5-2.5 Arterial blood oxygen saturation measurement 94 % [...] gravity of urine by test strip 1.020 1.016-1.022 Urine protein assay by test strip, semi-quantitative [...] sediment leukocyte count by microscopy (number/high power field) NONE NRG Bacteria detection in urine sediment by light microscopy NEGATIVE NRG Squamous epithelial cells detection in urine sediment by light microscopy 2-5 NRG Crystals detection in urine sediment by light microscopy NONE NRG Casts detection in urine sediment by light microscopy NONE NRG Mucus detection in urine sediment by light microscopy NEGATIVE NRG Complete urinalysis with reflex to culture NO NRG Urine drug screening test - 06/18/18 17:46 Urine phencyclidine detection by screening method NEGATIVE NEGATIVE Urine benzodiazepines detection by screening method NEGATIVE NEGATIVE Urine cocaine detection NEGATIVE NEGATIVE Urine amphetamines detection by screening method POSITIVE NEGATIVE Urine methamphetamine detection by screening method NEGATIVE NEGATIVE Urine cannabinoids detection by screening method POSITIVE NEGATIVE Urine opiates detection by screening method NEGATIVE NEGATIVE Urine barbiturates detection NEGATIVE NEGATIVE Screening urine tricyclic antidepressants detection NEGATIVE NEGATIVE Urine methadone detection by screening method NEGATIVE NEGATIVE Urine oxycodone detection NEGATIVE NEGATIVE Urine propoxyphene detection NEGATIVE NEGATIVE Bacterial blood culture - 06/18/18 18:12 Bacterial blood culture NG NRG Human immunodeficiency virus (HIV) type 1 and 2 antibody detection - 06/18/18 19:31 Serum HIV 1+2 antibody detection by immunoblot Non-Reactive Non-Reactive Chlamydia DNA amp probe, urine - 06/18/18 19:31 Chlamydia DNA amp probe, urine Not Detected Not Detected Urine Neisseria gonorrhoeae DNA assay - 06/18/18 19:31 Gonorrhea amp DNA-urine Not Detected Not Detected Serum reagin antibody assay (units/volume) by RPR - 06/18/18 19:31 Serum reagin antibody assay (units/volume) by RPR Non-Reactive Non-Reactive Cerebrospinal fluid cell count - 06/18/18 20:47 Cerebrospinal fluid appearance description CLEAR NRG Cerebrospinal fluid color identification COLORLESS NRG Cerebrospinal fluid leukocytes count (number/volume) 1 % 0- 5 Cerebrospinal fluid erythrocytes count (number/volume) 1 % 0-0 Manual cerebrospinal fluid lymphocytes/100 leukocytes TNP NRG Manual cerebrospinal fluid mononuclear cells/100 leukocytes TNP NRG Manual cerebrospinal fluid polymorphonuclear cells/100 leukocytes TNP NRG Cerebrospinal fluid cell count on specimen from last tube collected 4 NRG Cerebrospinal fluid glucose measurement (mass/volume) - 06/18/18 20:47 Cerebrospinal fluid glucose measurement (mass/volume) 142 mg/dL 50-80 Cerebrospinal fluid protein measurement (mass/volume) - 06/18/18 20:47 Cerebrospinal fluid protein measurement (mass/volume) 52 mg/dL 15-40 Gram stain microscopy - 06/18/18 20:47 Gram stain microscopy 06-18-18, 2300/KD NRG Bacterial cerebrospinal fluid culture - 06/18/18 20:47 Bacterial cerebrospinal fluid culture NG NRG Capillary blood glucose measurement by glucometer (mass/volume) - 06/18/18 21:46 Capillary blood glucose measurement by glucometer (mass/volume) 245 mg/dL 70-110 Capillary blood glucose measurement by glucometer (mass/volume) - 06/19/18 05:10 Capillary blood glucose measurement by glucometer (mass/volume) 152 mg/dL 70-110 Complete blood count (CBC) with automated white blood cell (WBC) differential - 06/19/18 06:15 Blood leukocytes automated count (number/volume) 9.7 10*3/uL 4.3-11.0 Blood erythrocytes automated count (number/volume) 5.51 10*6/uL 4.35-5.85 Venous blood hemoglobin measurement (mass/volume) 16.6 g/dL 13.3-17.7 Blood hematocrit (volume fraction) 49 % 40-54 Automated erythrocyte mean corpuscular volume 88 [foz_us] 80-99 Automated erythrocyte mean corpuscular hemoglobin (mass per erythrocyte) 30 pg 25-34 Automated erythrocyte mean corpuscular hemoglobin concentration measurement (mass/volume) 34 g/dL 32-36 Automated erythrocyte distribution width ratio 14.8 % 10.0- 14.5 Automated blood platelet count (count/volume) 188 10*3/uL 130-400 Automated blood platelet mean volume measurement 10.7 [foz_us] 7.4-10.4 Automated blood neutrophils/100 leukocytes 80 % 42-75 Automated blood lymphocytes/100 leukocytes 11 % 12-44 Blood monocytes/100 leukocytes 10 % 0-12 Automated blood eosinophils/100 leukocytes 0 % 0-10 Automated blood basophils/100 leukocytes 0 % 0-10 Blood neutrophils automated count (number/volume) 7.8 10*3 1.8-7.8 Blood lymphocytes automated count (number/volume) 1.0 10*3 1.0-4.0 Blood monocytes automated count (number/volume) 0.9 10*3 0.0- 1.0 Automated eosinophil count 0.0 10*3/uL 0.0-0.3 Automated blood basophil count (count/volume) 0.0 10*3/uL 0.0-0.1 Whole blood basic metabolic panel - 06/19/18 06:15 Serum or plasma sodium measurement (moles/volume) 136 mmol/L 135-145 Serum or plasma potassium measurement (moles/volume) 3.8 mmol/L 3.6-5.0 Serum or plasma chloride measurement (moles/volume) 105 mmol/L 98-107 Carbon dioxide 16 mmol/L 21-32 Serum or plasma anion gap determination (moles/volume) 15 mmol/L 5-14 Serum or plasma urea nitrogen measurement (mass/volume) 13 mg/dL 7-18 Serum or plasma creatinine measurement (mass/volume) 1.16 mg/dL 0.60-1.30 Serum or plasma urea nitrogen/creatinine mass ratio 11 NRG Serum or plasma creatinine measurement with calculation of estimated glomerular filtration rate > NRG Serum or plasma glucose measurement (mass/volume) 150 mg/dL 70-105 Serum or plasma calcium measurement (mass/volume) 8.7 mg/dL 8.5-10.1 Serum or plasma troponin i.cardiac measurement (mass/volume) - 06/19/18 06:15 Serum or plasma troponin i.cardiac measurement (mass/volume) 0.058 ng/mL <0.028 Serum or plasma lithium measurement (moles/volume) - 06/19/18 06:15 BNP level 229.7 pg/mL <100.0 Capillary blood glucose measurement by glucometer (mass/volume) - 06/19/18 11:08 Capillary blood glucose measurement by glucometer (mass/volume) 232 mg/dL 70-110 Capillary blood glucose measurement by glucometer (mass/volume) - 06/19/18 15:45 Capillary blood glucose measurement by glucometer (mass/volume) 235 mg/dL 70-110 Capillary blood glucose measurement by glucometer (mass/volume) - 06/19/18 20:17 Capillary blood glucose measurement by glucometer (mass/volume) 136 mg/dL 70-110 Capillary blood glucose measurement by glucometer (mass/volume) - 06/19/18 21:57 Capillary blood glucose measurement by glucometer (mass/volume) 171 mg/dL 70-110 Automated blood complete blood count (hemogram) panel - 06/20/18 05:16 Blood leukocytes automated count (number/volume) 4.9 10*3/uL 4.3-11.0 Blood erythrocytes automated count (number/volume) 5.50 10*6/uL 4.35-5.85 Venous blood hemoglobin measurement (mass/volume) 16.6 g/dL 13.3-17.7 Blood hematocrit (volume fraction) 48 % 40-54 Automated erythrocyte mean corpuscular volume 88 [foz_us] 80-99 Automated erythrocyte mean corpuscular hemoglobin (mass per erythrocyte) 30 pg 25-34 Automated erythrocyte mean corpuscular hemoglobin concentration measurement (mass/volume) 35 g/dL 32-36 Automated erythrocyte distribution width ratio 14.9 % 10.0- 14.5 Automated blood platelet count (count/volume) 129 10*3/uL 130-400 Automated blood platelet mean volume measurement 11.0 [foz_us] 7.4-10.4 PT panel in platelet poor plasma by coagulation assay - 06/20/18 05:16 Prothrombin time (PT) in platelet poor plasma by coagulation assay 14.0 s 12.2-14.7 INR in platelet poor plasma or blood by coagulation assay 1.0 0.8-1.4 Activated partial thromboplastin time (aPTT) in platelet poor plasma bycoagulation assay - 06/20/18 05:16 Activated partial thromboplastin time (aPTT) in platelet poor plasma bycoagulation assay 35 s 24-35 Comprehensive metabolic panel - 06/20/18 05:16 Serum or plasma sodium measurement (moles/volume) 137 mmol/L 135-145 Serum or plasma potassium measurement (moles/volume) 3.4 mmol/L 3.6-5.0 Serum or plasma chloride measurement (moles/volume) 105 mmol/L 98-107 Carbon dioxide 20 mmol/L 21-32 Serum or plasma anion gap determination (moles/volume) 12 mmol/L 5-14 Serum or plasma urea nitrogen measurement (mass/volume) 10 mg/dL 7-18 Serum or plasma creatinine measurement (mass/volume) 0.99 mg/dL 0.60-1.30 Serum or plasma urea nitrogen/creatinine mass ratio 10 NRG Serum or plasma creatinine measurement with calculation of estimated glomerular filtration rate > NRG Serum or plasma glucose measurement (mass/volume) 126 mg/dL 70-105 Serum or plasma calcium measurement (mass/volume) 9.0 mg/dL 8.5-10.1 Serum or plasma total bilirubin measurement (mass/volume) 0.7 mg/dL 0.1-1.0 Serum or plasma alkaline phosphatase measurement (enzymatic activity/volume) 50 U/L 40-136 Serum or plasma aspartate aminotransferase measurement (enzymatic activity/volume) 30 U/L 5-34 Serum or plasma alanine aminotransferase measurement (enzymatic activity/volume) 27 U/L 0-55 Serum or plasma protein measurement (mass/volume) 6.5 g/dL 6.4-8.2 Serum or plasma albumin measurement (mass/volume) 3.7 g/dL 3.2-4.5 CALCIUM CORRECTED 9.2 mg/dL 8.5-10.1 Magnesium - 06/20/18 05:16 Magnesium 1.7 mg/dL 1.8-2.4 Serum or plasma lithium measurement (moles/volume) - 06/20/18 05:16 BNP level 211.9 pg/mL <100.0 Serum or plasma troponin i.cardiac measurement (mass/volume) - 06/20/18 05:16 Serum or plasma troponin i.cardiac measurement (mass/volume) 0.043 ng/mL <0.028 THYROID STIMULATING HORMONE - 06/20/18 05:16 THYROID STIMULATING HORMONE 1.45 u[iU]/mL 0.35-4.94 Methicillin resistant Staphylococcus aureus (MRSA) screening culture - 06/20/18 08:52 Methicillin resistant Staphylococcus aureus (MRSA) screening culture NEG NRG Capillary blood glucose measurement by glucometer (mass/volume) - 06/20/18 11:28 Capillary blood glucose measurement by glucometer (mass/volume) 107 mg/dL 70-110 Capillary blood glucose measurement by glucometer (mass/volume) - 06/20/18 15:30 Capillary blood glucose measurement by glucometer (mass/volume) 243 mg/dL 70-110 Capillary blood glucose measurement by glucometer (mass/volume) - 06/20/18 20:56 Capillary blood glucose measurement by glucometer (mass/volume) 313 mg/dL 70-110 Automated blood complete blood count (hemogram) panel - 06/21/18 04:45 Blood leukocytes automated count (number/volume) 5.7 10*3/uL 4.3-11.0 Blood erythrocytes automated count (number/volume) 5.53 10*6/uL 4.35-5.85 Venous blood hemoglobin measurement (mass/volume) 16.6 g/dL 13.3-17.7 Blood hematocrit (volume fraction) 48 % 40-54 Automated erythrocyte mean corpuscular volume 87 [foz_us] 80-99 Automated erythrocyte mean corpuscular hemoglobin (mass per erythrocyte) 30 pg 25-34 Automated erythrocyte mean corpuscular hemoglobin concentration measurement (mass/volume) 34 g/dL 32-36 Automated erythrocyte distribution width ratio 15.0 % 10.0- 14.5 Automated blood platelet count (count/volume) 153 10*3/uL 130-400 Automated blood platelet mean volume measurement 11.4 [foz_us] 7.4-10.4 Whole blood basic metabolic panel - 06/21/18 04:45 Serum or plasma sodium measurement (moles/volume) 139 mmol/L 135-145 Serum or plasma potassium measurement (moles/volume) 4.2 mmol/L 3.6-5.0 Serum or plasma chloride measurement (moles/volume) 107 mmol/L 98-107 Carbon dioxide 18 mmol/L 21-32 Serum or plasma anion gap determination (moles/volume) 14 mmol/L 5-14 Serum or plasma urea nitrogen measurement (mass/volume) 18 mg/dL 7-18 Serum or plasma creatinine measurement (mass/volume) 1.14 mg/dL 0.60-1.30 Serum or plasma urea nitrogen/creatinine mass ratio 16 NRG Serum or plasma creatinine measurement with calculation of estimated glomerular filtration rate > NRG Serum or plasma glucose measurement (mass/volume) 156 mg/dL 70-105 Serum or plasma calcium measurement (mass/volume) 10.2 mg/dL 8.5-10.1 Serum or plasma C reactive protein measurement (mass/volume) - 06/21/18 10:48 Serum or plasma C reactive protein measurement (mass/volume) 6.86 mg/dL 0.00-0.50 Erythrocyte sedimentation rate by westergren method - 06/21/18 10:48 Erythrocyte sedimentation rate by westergren method 4 mm 0- 15 Tick identification panel - 06/21/18 10:48 Serum Ehrlichia chaffeensis IgG antibody detection 1:16 <1:16 Serum Ehrlichia chaffeensis IgM antibody detection <1:10 <1:10 Serum Rickettsia rickettsii IgG antibody assay (units/volume) < <1:16 [place] spotted fever panel < <1:10 Francisella tularensis antibody assay <1:20 NRG LYME AB G M 0.03 % 0.00-0.89 Interpretation of Lyme disease antibody assay Negative Negative Capillary blood glucose measurement by glucometer (mass/volume) - 06/21/18 11:40 Capillary blood glucose measurement by glucometer (mass/volume) 214 mg/dL 70-110 Capillary blood glucose measurement by glucometer (mass/volume) - 06/21/18 16:00 Capillary blood glucose measurement by glucometer (mass/volume) 177 mg/dL 70-110 Capillary blood glucose measurement by glucometer (mass/volume) - 06/21/18 20:10 Capillary blood glucose measurement by glucometer (mass/volume) 193 mg/dL 70-110 Human immunodeficiency virus (HIV) type 1 and 2 antibody detection - 06/22/18 06:15 Serum HIV 1+2 antibody detection by immunoblot Non-Reactive Non-Reactive Capillary blood glucose measurement by glucometer (mass/volume) - 06/22/18 06:20 Capillary blood glucose measurement by glucometer (mass/volume) 165 mg/dL 70-110 Capillary blood glucose measurement by glucometer (mass/volume) - 06/22/18 11:00 Capillary blood glucose measurement by glucometer (mass/volume) 106 mg/dL 70-110 Capillary blood glucose measurement by glucometer (mass/volume) - 06/22/18 16:07 Capillary blood glucose measurement by glucometer (mass/volume) 126 mg/dL 70-110 BMP - 06/30/18 11:01 GLUCOSE 206 mg/dL 65-99 UREA NITROGEN (BUN) 16 mg/dL 7-25 CREATININE 1.08 mg/dL 0.60-1.35 eGFR NON-AFR. [place] 86 mL/min/1.73m2 > OR=60 eGFR 100 mL/min/1.73m2 > OR=60 BUN/CREATININE RATIO NOT APPLICABLE (calc) 6-22 SODIUM 138 mmol/L 135-146 POTASSIUM 4.5 mmol/L 3.5-5.3 CHLORIDE 106 mmol/L 98-110 CARBON DIOXIDE 24 mmol/L 20-32 CALCIUM 9.5 mg/dL 8.6-10.3 BNP - 06/30/18 11:03 B TYPE NATRIURETIC PEPTIDE (BNP) 39 pg/mL <100 Encounters ACCT No. Visit Date/Time Discharge Status Pt. Type Provider Facility Loc./Unit Complaint [id number] 07/28/2018 10:40:00 07/28/2018 23:59:59 CLS Outpatient AMBREEN MUÑOZ [facility] [id number] 06/30/2018 09:40:00 Document Registration [id number] 05/27/2018 09:20:00 Document Registration [id number] 12/11/2017 08:20:00 Document Registration [id number] 04/01/2017 13:40:00 Document Registration [id number] 09/25/2018 14:39:00 09/25/2018 16:10:00 DIS Emergency BLADIMIR OBRIEN APRN [facility] ER SHOULDER PAIN [id number] 09/21/2018 10:00:00 09/21/2018 23:59:59 CLS Preadmit TITI MARES [facility] CARD ANTERIOR CHEST WALL PAIN,CHF [id number] 06/18/2018 21:30:00 06/22/2018 17:50:00 DIS Outpatient LIGIA MONTES DO [facility] 4TH SEPSIS,UNKNOWN SOURCE;PYELONEPHRITIS? [id number] 06/04/2018 16:47:00 06/04/2018 23:59:59 CLS Preadmit AMBREEN MUÑOZ APRN [facility] CARD MURMUR [id number] 07/12/2017 12:28:00 07/12/2017 14:30:00 DIS Emergency CRISTIAN SHAH MD [facility] ER NECK PAIN [id number] 07/07/2017 22:45:00 07/07/2017 23:37:00 DIS Emergency CRISTIAN SHAH MD [facility] ER NECK ISSUES [id number] 12/24/2016 20:00:00 12/25/2016 06:25:00 DIS Outpatient JULIO SHAFFERP [facility] SLEEP G47.33 [id number] 04/03/2016 00:16:00 04/03/2016 04:08:00 DIS Emergency ALYSSA MONK, CRISTIAN Baker [facility] ER ABD PAIN,DIABETES,FELT LIKE PASSING OUT [id number] 12/06/2015 22:13:00 12/07/2015 00:25:00 DIS Emergency SEVEN HERNANDEZ DO [facility] ER INCONSISTENT GLUCOSE LEVELS [id number] 07/26/2015 07:50:00 07/26/2015 13:32:00 DIS Outpatient SURAJ AUSITN MD [facility] SDC RIGHT SHOULDER INSTABILITY [id number] 07/20/2015 12:57:00 07/20/2015 13:25:00 DIS Outpatient SURAJ AUSTIN MD [facility] PREOP RIGHT SHOULDER INSTABILITY [id number] 06/06/2015 11:34:00 06/06/2015 23:59:59 CLS Outpatient JULIO SHAFFER [facility] RAD HISTORY OF PANCREATITIS [id number] 09/28/2014 17:05:00 09/28/2014 19:10:00 DIS Emergency ISABELJOCELYNN Bunch DO K [facility] ER ABD PAIN [id number] 07/28/2014 22:32:00 08/01/2014 13:10:00 DIS Inpatient LUCRETIA MONTGOMERY DO [facility] CSD UNCONTROLLED HTN,UNCONTROLLED DM,ABD PAIN [id number] 07/28/2014 09:25:00 07/28/2014 13:10:00 DIS Emergency CHRISTIANO FULLER MD [facility] ER ABD KIDNEY PAIN [id number] 12/29/2013 15:44:00 12/29/2013 16:53:00 DIS Emergency BLADIMIR OBRIEN APRN [facility] ER RIGHT SHOULDER PAIN [id number] 07/14/2013 03:15:00 07/14/2013 04:56:00 DIS Emergency JOCELYNN HALL DO [facility] ER NOSE BLEED [id number] 07/28/2014 09:25:00 Document Registration
== END 2018-09-25 16:10 | disposition home or self-care (01) ==
LOC: EDUNIT# 14:38 → ER 14:39
DX: S46.002A Unspecified injury of muscle(s) and tendon(s) of the rotator cuff of left shoulder, initial encounter (principal); E11.9 Type 2 diabetes mellitus without complications; I10 Essential (primary) 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; G43.909 Migraine, unspecified, not intractable, without status migrainosus; E78.00 Pure hypercholesterolemia, unspecified; D57.3 Sickle-cell trait; G47.30 Sleep apnea, unspecified; F17.210 Nicotine dependence, cigarettes, uncomplicated; F12.10 Cannabis abuse, uncomplicated; Z95.5 Presence of coronary angioplasty implant and graft; Z79.4 Long term (current) use of insulin; Z98.890 Other specified postprocedural states; X50.0XXA Overexertion from strenuous movement or load, initial encounter
CPT/HCPCS: 73030

== ENCOUNTER 2018-10-14 14:06 | Emergency (ER) | payer SELFPAY ==
[~2018-10-14] VITALS: Ht 175.3 cm; Wt 119.7 kg
[~2018-10-14 14:06] MED LIST changes: +HYDR-4226 PO
--- OUTSIDE RECORDS SUMMARY | 2018-10-14 14:11 | XMS REPORT | Clinical Summary ---
Author Author [facility] Organization [facility] Address Unknown Phone Unavailable Care Team Providers Care International Sourcing Manager Name Role Phone PCP Unavailable Allergies Not on File Medications Not on file Active Problems Not on file Social History Date Tobacco Use Types Packs/Day Years Used Never Assessed Sex Assigned at Date Recorded Not on file Industry Job Start Date Occupation Not on file Not on file Not on file Travel End Travel History Travel Start No recent travel history available. Last Filed Vital Signs Not on file Plan of Treatment Not on file Results Not on filefrom Last 3 Months
--- OUTSIDE RECORDS SUMMARY | 2018-10-14 14:12 | XMS REPORT | Encounter Summary ---
Author Author [facility] Address Unknown Phone Unavailable Care Team Providers Care Pricing Supervisor Name Role Phone PCP Unavailable Encounter Details Care Team Description [place] [address] [place] [address] [phone] Other Forms of Retinal Detachment 01/17/2006 [facility] - Encounter 01/18/2006 Social History Date Tobacco Use Types Packs/Day Years Used Never Assessed Sex Assigned at Date Recorded Not on file Industry Job Start Date Occupation Not on file Not on file Not on file Travel End Travel History Travel Start No recent travel history available. documented as of this encounter Miscellaneous Notes * Operative Note - Lavon Ordonez - 05/08/2013 1:49 PM INSURANCE AUDITOR REPORT Name: CHANA SANCHEZ MRN/Unit #: [id number] Attending Physician: LAVON ORDONEZ MD Date of : 1980 DATE OF OPERATION: 01/17/06 PREOPERATIVE DIAGNOSIS: Macula splitting retinal detachment, left eye. POSTOPERATIVE DIAGNOSIS: Macula splitting retinal detachment, left eye. OPERATION PERFORMED: Scleral buckle external drainage cryopexy to the left eye. ANESTHESIA: Local MAC. SURGEON: Lavon Ordonez MD COMPLICATIONS: None. INDICATIONS: This 25-year-old individual presented with reduction of vision in his left eye secondary to a foveal splitting retinal detachment. After assessing risks, benefits and alternatives of surgery including loss of vision, loss of the eye, no improvement, need for additional surgery, an informed consent was obtained. DESCRIPTION OF PROCEDURE: He was taken to the operating room and placed under general anesthesia at which point the operative eye was prepped and draped in the usual sterile fashion. Wire lid speculum was placed on the operative eye. The eye was opened for a standard scleral buckle, isolating the four major recti muscles and placing a 41 band equatorial around the eye, 12 mm on the nasal side, 13 mm on the temporal side with a 70 Watzke sleeve adjoining the band in the infranasal quadrant. A drain site was created along the supratemporal arcade in a bolus area of retinal detachment. The retina flattened nicely after approximately 80-90% drained of subretinal fluid. Prior to doing this, cryopexy was placed around all peripheral tears, particularly a large area of lattice degeneration superiorly and another area of lattice degeneration temporally. All tears in lattice were well supported by the scleral buckle. Once the buckle was pulled up to a physiologic height, the nerve was well perfused and an anterior paracentesis was completed. Five hundred milligrams of IV Diamox were given to ensure that the pressure remained low overnight. The conjunctiva was then pulled up and closed with 6-0 gut. Ancef, dexamethasone and a mixture of lidocaine and bupivacaine was injected in the subconjunctival space. TobraDex ointment was placed to the eye with two eye pads and a Gaspar shield. The patient tolerated the procedure well and was extubated without difficulty and transported to recovery in stable condition. He will be admitted for 23 hour observation and discharged in the morning. Lavon Ordonez MD Dictated By: cc: RANCE AUDITOR documented in this encounter Plan of Treatment Not on filedocumented as of this encounter Visit Diagnoses Diagnosis Other forms of retinal detachment(361.89) Other forms of retinal detachment documented in this encounter
[2018-10-14] MEDS ORDERED: ASPIRIN 81 MG CHEW (CHILDREN'S ASA) PO ONE (14:15)
--- OUTSIDE RECORDS SUMMARY | 2018-10-14 14:17 | XMS REPORT | Continuity of Care Document ---
Author Organization Unknown Address Unknown Phone Unavailable Allergies Active Description Code Type Severity Reaction Onset Reported/Identified Relationship to Patient Clinical Status Yes metformin [id number] Drug Allergy Mild diarrhea 07/29/2014 Yes No Known Drug Allergies [id number] Drug Allergy Unknown N/A 12/06/2015 Yes SEAFOOD SEAFOOD Unknown N/A 06/18/2018 Yes Fish Containing Products [id number] Drug Allergy Unknown N/A 06/22/2018 Medications There [...] HX OF PAST NONCOMPLIANCE 12/29/2013 BLADIMIR OBRIEN BROACHING MACHINE SET UP OPERATOR Ot 719.41 JOINT PAIN-SHLDER 12/29/2013 BLADIMIR OBRIEN BROACHING MACHINE SET UP OPERATOR Ot 959.2 SHLDR/UPPER ARM INJ NOS 12/29/2013 BLADIMIR OBRIEN BROACHING MACHINE SET UP OPERATOR Ot E000.8 OTHER EXTERNAL CAUSE STATUS 12/29/2013 [...] DO, LUCRETIA Ot 305.00 ALCOHOL ABUSE-UNSPEC 08/01/2014 LUCRETIA MONTGOMERY DO Ot 305.1 TOBACCO USE DISORDER 08/01/2014 LUCRETIA MONTGOMERY DO Ot 305.20 CANNABIS ABUSE-UNSPEC 08/01/2014 LUCRETIA MONTGOMERY DO Ot 401.9 HYPERTENSION NOS 08/01/2014 THELMA MONTGOMERY DOI Ot 577.0 ACUTE PANCREATITIS 08/01/2014 THELMA MONTGOMERY DOI Ot 784.0 HEADACHE 08/01/2014 LUCRETIA MONTGOMERY DO Ot V15.81 HX OF PAST NONCOMPLIANCE 09/28/2014 AWA HALL DOA K Ot 599.0 URIN TRACT INFECTION NOS 09/28/2014 ISABEL DO JOCELYNN K Ot 789.00 ABDOMINAL PAIN, UNSPECIFIED SITE 06/23/2015 JULIO SHAFFER BACK JOINER Ot R10.12 LEFT UPPER QUADRANT PAIN 06/23/2015 JULIO SHAFFER BACK JOINER Ot Z87.19 PERSONAL HISTORY OF OTHER DISEASES [...] 07/27/2015 SURAJ AUSTIN MD Ot Z79.899 OTHER LOTTERIES AGENT (CURRENT) DRUG THERAPY 08/01/2015 SURAJ AUSTIN MD, Ot E11.9 TYPE 2 DIABETES MELLITUS WITHOUT COMPLIC 08/01/2015 SURAJ AUSTIN MD, Ot F17.210 NICOTINE DEPENDENCE, CIGARETTES, UNCOMPL 08/01/2015 SURAJ AUSTIN MD Ot I10 ESSENTIAL (PRIMARY) HYPERTENSION 08/01/2015 SURAJ AUSTIN MD Ot M25.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, RIGHT SHOULDER 08/01/2015 SURAJ AUSTIN MD Ot M67.88 OTHER SPECIFIED DISORDERS OF SYNOVIUM AN 08/01/2015 SURAJ AUSTIN MD, Ot Z79.899 OTHER SNF (CURRENT) DRUG THERAPY 12/07/2015 JULIO SHAFFER BACK JOINER Ot R10.12 LEFT UPPER QUADRANT PAIN 12/07/2015 JULIO SHAFFER BACK JOINER Ot Z87.19 PERSONAL HISTORY OF OTHER DISEASES [...] 12/07/2015 SEVEN HERNANDEZ DO, Ot Z79.899 OTHER LOTTERIES AGENT (CURRENT) DRUG THERAPY 12/07/2015 SEVEN HERNANDEZ DO, [...] HYPERTENSION 12/07/2015 SEVEN HERNANDEZ DO, Ot Z79.4 LOTTERIES AGENT (CURRENT) USE OF INSULIN 12/07/2015 SEVEN HERNANDEZ DO, Ot Z79.899 OTHER SNF (CURRENT) DRUG THERAPY 04/03/2016 CRISTIAN SHAH MD, Ot E11.65 TYPE 2 DIABETES MELLITUS WITH HYPERGLYCE 04/03/2016 CRISTIAN SHAH MD, Ot F17.210 NICOTINE DEPENDENCE, CIGARETTES, UNCOMPL 04/03/2016 CRISTIAN SHAH MD, Ot I10 ESSENTIAL (PRIMARY) HYPERTENSION 04/03/2016 CRISTIAN SHAH MD Ot N39.0 URINARY TRACT INFECTION, SITE NOT SPECIF 04/03/2016 CRISTIAN SHAH MD Ot R10.32 LEFT LOWER QUADRANT PAIN 04/03/2016 CRISTIAN SHAH MD Ot R19.7 DIARRHEA, UNSPECIFIED 04/03/2016 CRISTIAN SHAH MD Ot Z79.4 LOTTERIES AGENT (CURRENT) USE OF INSULIN 04/03/2016 MADLJULIO L BACK JOINER Ot R10.12 LEFT UPPER QUADRANT PAIN 04/03/2016 MADJULIO Doe L BACK JOINER Ot Z87.19 PERSONAL HISTORY OF OTHER DISEASES [...] UNSPECIFIED 04/04/2016 CRISTIAN SHAH MD, Ot Z79.4 LOTTERIES AGENT (CURRENT) USE OF INSULIN 12/25/2016 RIOL, JULIO L BACK JOINER Ot G47.33 OBSTRUCTIVE SLEEP APNEA (ADULT) (PEDIATR 12/25/2016 MADL, JULIO L BACK JOINER Ot I10 ESSENTIAL (PRIMARY) HYPERTENSION 12/25/2016 MADL, JULIO L BACK JOINER Ot G47.33 OBSTRUCTIVE SLEEP APNEA (ADULT) (PEDIATR 12/25/2016 MADL, JULIO L BACK JOINER Ot I10 ESSENTIAL (PRIMARY) HYPERTENSION 07/07/2017 CRISTIAN SHAH MD, Ot E11.9 TYPE 2 DIABETES MELLITUS WITHOUT COMPLIC 07/07/2017 CRISTIAN SHAH MD Ot E78.00 PURE HYPERCHOLESTEROLEMIA, UNSPECIFIED 07/07/2017 CRISTIAN SHAH MD Ot F12.10 CANNABIS ABUSE, UNCOMPLICATED 07/07/2017 CRISTIAN SHAH MD Ot F17.210 NICOTINE DEPENDENCE, CIGARETTES, UNCOMPL 07/07/2017 CRISTIAN SHAH MD, Ot F41.9 ANXIETY DISORDER, UNSPECIFIED 07/07/2017 CRISTIAN SHAH MD, Ot G43.909 MIGRAINE, UNSP, NOT INTRACTABLE, WITHOUT 07/07/2017 CRISTIAN SHAH MD Ot G47.30 SLEEP APNEA, UNSPECIFIED 07/07/2017 CRISTIAN SHAH MD Ot I10 ESSENTIAL (PRIMARY) HYPERTENSION 07/07/2017 CRISTIAN SHAH MD Ot M54.2 CERVICALGIA 07/07/2017 CRISTIAN SHAH MD, Ot S16.1XXA STRAIN OF MUSCLE, FASCIA AND TENDON AT N 07/07/2017 CRISTIAN SHAH MD Ot X58.XXXA EXPOSURE TO OTHER SPECIFIED FACTORS, INI 07/07/2017 CRISTIAN SHAH MD, Ot Z79.4 LOTTERIES AGENT (CURRENT) USE OF INSULIN 07/07/2017 CRISTIAN SHAH [...] CERVICALGIA 07/12/2017 CRISTIAN SHAH MD Ot Z79.4 SNF (CURRENT) USE OF INSULIN 07/12/2017 CRISTIAN SHAH MD Ot Z87.19 PERSONAL HISTORY OF OTHER DISEASES OF 06/18/2018 MADLCATHERINEJULIO L BACK JOINER Ot R10.12 LEFT UPPER QUADRANT PAIN 06/18/2018 MADLSATISHA L BACK JOINER Ot Z87.19 PERSONAL HISTORY OF OTHER DISEASES OF 06/22/2018 GERRY MONTES DOA Octavia Ot A41.9 SEPSIS, UNSPECIFIED ORGANISM 06/22/2018 GERRY MONTES DOA K Ot D57.3 SICKLE-CELL TRAIT 06/22/2018 GERRY MONTES DOA K Ot E11.9 TYPE 2 DIABETES MELLITUS WITHOUT COMPLIC 06/22/2018 GERRY MONTES DOA K Ot E78.00 PURE HYPERCHOLESTEROLEMIA, UNSPECIFIED 06/22/2018 GERRY MONTES DOA K Ot F41.9 ANXIETY DISORDER, UNSPECIFIED 06/22/2018 GERRY MONTES DOA K Ot G43.909 MIGRAINE, UNSP, NOT INTRACTABLE, WITHOUT 06/22/2018 GERRY MONTES DOA K Ot G47.30 SLEEP APNEA, UNSPECIFIED 06/22/2018 GERRY MONTES DOA K Ot I10 ESSENTIAL (PRIMARY) HYPERTENSION 06/22/2018 GERRY MONTES DOA K Ot J30.2 OTHER SEASONAL ALLERGIC RHINITIS 06/22/2018 GERRY MONTES DOA Octavia Ot J44.9 CHRONIC OBSTRUCTIVE PULMONARY DISEASE, U 06/22/2018 LIGIA MONTES DO K Ot N12 TUBULO- INTERSTITIAL NEPHRITIS, NOT SPCF 06/22/2018 GERRY MONTES DOA K Ot R19.8 OTH SYMPTOMS AND SIGNS INVOLVING THE DGS 06/22/2018 LIGIA MONTES DO Ot Z79.4 LOTTERIES AGENT (CURRENT) USE OF INSULIN 06/22/2018 JYOTI MYERS, LIGIA K Ot Z87.19 PERSONAL HISTORY OF OTHER DISEASES OF TH 06/22/2018 JYOTI MYERS LIGIA K Ot A41.9 SEPSIS, UNSPECIFIED ORGANISM 06/22/2018 MONTES DO LIGIA K Ot D57.3 SICKLE-CELL TRAIT 06/22/2018 JYOTI MYERS LIGIA K Ot E11.9 TYPE 2 DIABETES MELLITUS WITHOUT COMPLIC 06/22/2018 MONTES DO LIGIA K Ot E78.00 PURE HYPERCHOLESTEROLEMIA, UNSPECIFIED 06/22/2018 MONTES DO LIGIA K Ot F41.9 ANXIETY DISORDER, UNSPECIFIED 06/22/2018 MONTES DO LIGIA K Ot G43.909 MIGRAINE, UNSP, NOT INTRACTABLE, WITHOUT 06/22/2018 MONTES DO LIGIA K Ot G47.30 SLEEP APNEA, UNSPECIFIED [...] SYMPTOMS AND SIGNS INVOLVING THE DGS 06/22/2018 GERRY MONTES DOA K Ot Z79.4 SNF (CURRENT) USE OF INSULIN 06/22/2018 JYOTI MYERS LIGIA K Ot Z87.19 PERSONAL HISTORY OF OTHER DISEASES OF 06/22/2018 JYOTI MYERSGERRYA K Ot A41.9 SEPSIS, UNSPECIFIED ORGANISM 06/22/2018 MONTES DO LIGIA K Ot D57.3 SICKLE-CELL TRAIT 06/22/2018 MONTES DO LIGIA K Ot E11.65 TYPE 2 DIABETES MELLITUS WITH HYPERGLYCE 06/22/2018 MONTES DO LIGIA K Ot E11.9 TYPE 2 DIABETES MELLITUS WITHOUT COMPLIC 06/22/2018 MONTES DO LIGIA K Ot E66.9 OBESITY, UNSPECIFIED 06/22/2018 MONTES DO, LIGIA K Ot E78.00 PURE HYPERCHOLESTEROLEMIA, UNSPECIFIED 06/22/2018 MONTES DO LIGIA K Ot E78.5 HYPERLIPIDEMIA, UNSPECIFIED 06/22/2018 MONTES DO LIGIA K Ot F17.210 NICOTINE DEPENDENCE, CIGARETTES, UNCOMPL 06/22/2018 MONTES DO, LIGIA K Ot F41.9 ANXIETY DISORDER, UNSPECIFIED 06/22/2018 JYOTI MYERS LIGIA K Ot G43.909 MIGRAINE, UNSP, NOT INTRACTABLE, WITHOUT 06/22/2018 JYOTI MYERS LIGIA K Ot G47.30 SLEEP APNEA, UNSPECIFIED 06/22/2018 JYOTI MYERS LIGIA K Ot I10 ESSENTIAL (PRIMARY) HYPERTENSION 06/22/2018 JYOTI MYERS LIGIA K Ot I11.0 HYPERTENSIVE HEART DISEASE WITH HEART FA 06/22/2018 JYOTI MYERS LIGIA K Ot I25.10 ATHSCL HEART DISEASE OF [place] CORONARY 06/22/2018 JYOTI MYERS LIGIA K Ot I42.9 CARDIOMYOPATHY, UNSPECIFIED 06/22/2018 JYOTI MYERS LIGIA K Ot I50.21 ACUTE SYSTOLIC (CONGESTIVE) HEART FAILUR 06/22/2018 JYOTI MYERS LIGIA K Ot J30.2 OTHER SEASONAL ALLERGIC RHINITIS 06/22/2018 JYOTI MYERS LIGIA K Ot J44.9 CHRONIC OBSTRUCTIVE PULMONARY DISEASE, U 06/22/2018 JYOTI MYERS LIGIA K Ot N10 ACUTE PYELONEPHRITIS 06/22/2018 JYOTI MYERS LIGIA K Ot N12 TUBULO- INTERSTITIAL NEPHRITIS, NOT SPCF 06/22/2018 MONTES DO LIGIA K Ot 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 06/22/2018 JYOTI MYERS LIGIA K Ot R00.2 PALPITATIONS 06/22/2018 JYOTI MYERS LIGIA K Ot R19.8 OTH SYMPTOMS AND SIGNS INVOLVING THE DGS 06/22/2018 GERRY MONTES DOA K Ot T50.5X1A POISONING BY APPETITE DEPRESSANTS, ACCID 06/22/2018 JYOTI MYERS LIGIA K Ot Z68.36 BODY MASS INDEX (BMI) 36.0-36.9, ADULT 06/22/2018 JYOTI MYERS LIGIA K Ot Z79.4 LOTTERIES AGENT (CURRENT) USE OF INSULIN 06/22/2018 JYOTI MYERS LIGIA K Ot Z87.19 PERSONAL HISTORY OF OTHER DISEASES OF TH 10/02/2018 BLADIMIR OBRIEN APRN Ot D57.3 SICKLE-CELL TRAIT 10/02/2018 BLADIMIR OBRIEN APRN Ot E11.9 TYPE 2 DIABETES MELLITUS WITHOUT COMPLIC 10/02/2018 BLADIMIR OBRIEN APRN Ot E78.00 PURE HYPERCHOLESTEROLEMIA, UNSPECIFIED 10/02/2018 BLADIMIR OBRIEN APRN Ot F12.10 CANNABIS ABUSE, UNCOMPLICATED 10/02/2018 BLADIMIR OBRIEN APRN Ot F17.210 NICOTINE DEPENDENCE, CIGARETTES, UNCOMPL 10/02/2018 BLADIMIR OBRIEN APRN Ot G43.909 MIGRAINE, UNSP, NOT INTRACTABLE, WITHOUT 10/02/2018 BLADIMIR OBRIEN APRN Ot G47.30 SLEEP APNEA, UNSPECIFIED 10/02/2018 BLADIMIR OBRIEN APRN Ot I10 ESSENTIAL (PRIMARY) HYPERTENSION 10/02/2018 BLADIMIR OBRIEN APRN Ot M25.512 PAIN IN LEFT SHOULDER 10/02/2018 BLADIMIR OBRIEN APRN Ot S46.002A UNSP INJ MUSC/TEND THE ROTATOR CUFF OF L 10/02/2018 BLADIMIR OBRIEN APRN Ot X50.0XXA OVEREXERTION FROM STRENUOUS MOVEMENT OR 10/02/2018 BLADIMIR OBRIEN APRN Ot Z79.4 LOTTERIES AGENT (CURRENT) USE OF INSULIN 10/02/2018 BLADIMIR OBRIEN APRN Ot Z95.5 PRESENCE OF CORONARY ANGIOPLASTY IMPLANT 10/02/2018 BLADIMIR OBRIEN APRN Ot Z98.890 OTHER SPECIFIED POSTPROCEDURAL STATES Procedures Code Description Performed By Performed On 500L11T DRAINAGE OF SPINAL CANAL WITH DRAINAGE D 06/18/2018 [id number] MEASURE OF CARDIAC SAMPL PRESSURE, L H 06/20/2018 [id number] FLUOROSCOPY OF MULT COR ART USING L OSM 06/20/2018 [id number] FLUOROSCOPY OF LEFT HEART USING LOW OSMO 06/20/2018 [id number] FLUOROSCOPY OF THORACIC AORTA USING LOW 06/20/2018 [...] Automated blood platelet mean volume measurement 9.8 [_us] 7.4-10.4 Automated blood neutrophils/100 leukocytes 46 % [...] 7-25 CREATININE 1.04 mg/dL 0.60-1.35 eGFR NON-AFR. CUBAN 91 mL/min/1.73m2 > OR=60 eGFR 105 mL/min/1.73m2 [...] 7-25 CREATININE 1.12 mg/dL 0.60-1.35 eGFR NON-AFR. CUBAN 82 mL/min/1.73m2 > OR=60 eGFR 95 mL/min/1.73m2 [...] FOR INFLUENZA A AND B ANTIGENS BY [facility] Influenza virus A and B antigen detection PER [facility] Capillary blood glucose measurement by glucometer (mass/volume) [...] rickettsii IgG antibody assay (units/volume) < <1:16 [place] spotted fever panel < <1:10 Francisella tularensis [...] 7-25 CREATININE 1.08 mg/dL 0.60-1.35 eGFR NON-AFR. CUBAN 86 mL/min/1.73m2 > OR=60 eGFR 100 mL/min/1.73m2 > OR=60 BUN/CREATININE RATIO NOT APPLICABLE (calc) 6-22 SODIUM 138 mmol/L 135-146 POTASSIUM 4.5 mmol/L 3.5-5.3 CHLORIDE 106 mmol/L 98-110 CARBON DIOXIDE 24 mmol/L 20-32 CALCIUM 9.5 mg/dL 8.6-10.3 BNP - 06/30/18 11:03 B TYPE NATRIURETIC PEPTIDE (BNP) 39 pg/mL <100 Encounters ACCT No. Visit Date/Time Discharge Status Pt. Type Provider Facility Loc./Unit Complaint [id number] 10/07/2018 14:00:00 10/07/2018 23:59:59 CLS Outpatient AMBREEN MUÑOZ [facility] [id number] 06/30/2018 09:40:00 Document Registration [id number] 05/27/2018 09:20:00 Document Registration [id number] 12/11/2017 08:20:00 Document Registration [id number] 04/01/2017 13:40:00 Document Registration [id number] 09/25/2018 14:39:00 09/25/2018 16:10:00 DIS Outpatient BLADIMIR OBRIEN BROACHING MACHINE SET UP OPERATOR [facility] ER SHOULDER PAIN [id number] 09/21/2018 10:00:00 09/21/2018 23:59:59 CLS Preadmit TITI MARES [facility] CARD ANTERIOR CHEST WALL PAIN,CHF [id number] 06/18/2018 21:30:00 06/22/2018 17:50:00 DIS Outpatient LIGIA MONTES DO [facility] 4TH SEPSIS,UNKNOWN SOURCE;PYELONEPHRITIS? [id number] 06/04/2018 16:47:00 06/04/2018 23:59:59 CLS Preadmit AMBREEN MUÑOZ APRN [facility] CARD MURMUR [id number] 07/12/2017 12:28:00 07/12/2017 14:30:00 DIS Emergency CRISTIAN SHAH MD [facility] ER NECK PAIN [id number] 07/07/2017 22:45:00 07/07/2017 23:37:00 DIS Emergency CRISTIAN SHAH MD [facility] ER NECK ISSUES [id number] 12/24/2016 20:00:00 12/25/2016 06:25:00 DIS Outpatient JULIO SHAFFER [facility] SLEEP G47.33 [id number] 04/03/2016 00:16:00 04/03/2016 04:08:00 DIS Emergency CRISTIAN SHAH MD [facility] ER ABD PAIN,DIABETES,FELT LIKE PASSING OUT [id number] 12/06/2015 22:13:00 12/07/2015 00:25:00 DIS Emergency SEVEN HERNANDEZ DO [facility] ER INCONSISTENT GLUCOSE LEVELS [id number] 07/26/2015 07:50:00 07/26/2015 13:32:00 DIS Outpatient SURAJ AUSTIN MD [facility] RIGHT SHOULDER INSTABILITY [id number] 07/20/2015 12:57:00 07/20/2015 13:25:00 DIS Outpatient SURAJ AUSTIN MD [facility] PREOP RIGHT SHOULDER INSTABILITY [id number] 06/06/2015 11:34:00 06/06/2015 23:59:59 CLS Outpatient JULIO SHAFFER [facility] RAD HISTORY OF PANCREATITIS [id number] 09/28/2014 17:05:00 09/28/2014 19:10:00 DIS Emergency JOCELYNN HALL DO [facility] ER ABD PAIN [id number] 07/28/2014 22:32:00 08/01/2014 13:10:00 DIS Inpatient LUCRETIA MONTGOMERY DO [facility] CSD UNCONTROLLED HTN,UNCONTROLLED DM,ABD PAIN [id number] 07/28/2014 09:25:00 07/28/2014 13:10:00 DIS Emergency CHRISTIANO FULLER MD [facility] ER ABD KIDNEY PAIN [id number] 12/29/2013 15:44:00 12/29/2013 16:53:00 DIS Emergency BLADIMIR OBRIEN APRN [facility] ER RIGHT SHOULDER PAIN [id number] 07/14/2013 03:15:00 07/14/2013 04:56:00 DIS Emergency JOCELYNN HALL DO [facility] ER NOSE BLEED [id number] 07/28/2014 09:25:00 Document Registration
[2018-10-14 14:29] LABS: BASOPHILS % (AUTO) 0 % (0-10); EOSINOPHILS # (AUTO) 0.1 10^3/uL (0.0-0.3); EOSINOPHILS % (AUTO) 1 % (0-10); HEMATOCRIT 47 % (40-54); LYMPHOCYTES # (AUTO) 3.9 X 10^3 (1.0-4.0); LYMPHOCYTES % (AUTO) 40 % (12-44); MEAN CORPUSCULAR HEMOGLOBIN 30 PG (25-34); MEAN CORPUSCULAR HGB CONC 34 G/DL (32-36); MEAN CORPUSCULAR VOLUME 89 FL (80-99); MEAN PLATELET VOLUME 10.3 FL (7.4-10.4); MONOCYTES # (AUTO) 0.7 X 10^3 (0.0-1.0); MONOCYTES % (AUTO) 7 % (0-12); NEUTROPHILS # (AUTO) 5.2 X 10^3 (1.8-7.8); NEUTROPHILS % (AUTO) 52 % (42-75); PLATELET COUNT 244 10^3/uL (130-400); RED CELL DISTRIBUTION WIDTH 14.5 % (10.0-14.5); WHITE BLOOD COUNT 9.9 10^3/uL (4.3-11.0)
[2018-10-14] MEDS ORDERED: [UNRECOGNIZED DRUG - OTHER] (14:37)
[2018-10-14 14:38] LABS: INR 1.3 (0.8-1.4); PROTHROMBIN TIME PATIENT 16.4 SEC (12.2-14.7)
[2018-10-14 14:51] LABS: ALANINE AMINOTRANSFERASE 15 U/L (0-55); ALBUMIN 4.3 GM/DL (3.2-4.5); ALKALINE PHOSPHATASE 64 U/L (40-136); BILIRUBIN,TOTAL 0.5 MG/DL (0.1-1.0); BUN/CREATININE RATIO 13; CALCIUM 9.5 MG/DL (8.5-10.1); CARBON DIOXIDE 24 MMOL/L (21-32); CHLORIDE 107 MMOL/L (98-107); CREATININE SERUM 1.28 MG/DL (0.60-1.30); GFR ESTIMATED > 60; GLUCOSE 175 MG/DL (70-105); MAGNESIUM 1.8 MG/DL (1.8-2.4); POTASSIUM 4.3 MMOL/L (3.6-5.0); SODIUM 139 MMOL/L (135-145); TOTAL PROTEIN 7.6 GM/DL (6.4-8.2)
--- NOTE | 2018-10-14 14:58 | Diagnostic Imaging Report ---
Indication: Chest pain. Time of exam 2:37 PM Comparison is made with prior chest from 06/18/2018. Monitoring devices overlie the chest. The lungs are clear. Vascularity is normal. No infiltrate, effusion or pneumothorax is seen. Impression: No acute cardiopulmonary process is detected. Dictated by: Dictated on workstation # [id number]
--- NOTE | 2018-10-14 15:05 | ED Chest Pain ---
General Chief Complaint: Chest Pain Stated Complaint: CHEST PAIN Nursing Triage Note: AMB TO ED C/O CHEST PAIN FOR 4 DAYS HAS LIFE VEST IN PLACE. Nursing Sepsis Screen: No Definite Risk Source: patient Exam Limitations: no limitations History of Present Illness Date Seen by Provider: Oct 14, 2018 Time Seen by Provider: 14:10 Initial Comments 38-year-old male who presents to the emergency room with complaints of left- sided substernal chest pain for the last 4 days. He reports he has history of congestive heart failure and has worn a LifeVest for the past 4 months. He is a patient of Dr. Dillon and pending sale to [facility]. He denies shortness of breath, lightheadedness, dizziness, nausea, vomiting. Timing/Duration: 3-4 days Severity/Quality: mild Location: substernal Radiation: no radiation ASA po LIME SLAKER: No NTG SL LIME SLAKER: No Associated Symptoms: denies symptoms Allergies and Home Medications Allergies Coded Allergies: Fish Containing Products (Unverified Allergy, Unknown, 06/22/18) FROM UNCODED ALLERGY "SEAFOOD" Home Medications Albuterol Sulfate 1 Puff Puff, 2 PUFF IH Q4H PRN for SHORTNESS OF BREATH, (Reported) Cefdinir 300 Mg Capsule, 300 MG PO BID Prescribed by: SIMEON CLEARY on 06/22/181613 Furosemide 20 Mg Tablet, 20 MG PO DAILY Prescribed by: SIMEON CLEARY on 06/22/181613 Hydrocodone/Acetaminophen 1 Each Tablet, 1 TAB PO Q6H Prescribed by: BLADIMIR OBRIEN on 09/25/18 1556 Insulin Detemir 100 Unit/1 Ml Insuln.pen, 50 UNIT SQ BID, (Reported) LAST FILLED 04-18-18 Liraglutide 0.6 Mg/0.1 Ml Pen.injctr, SQ UD, (Reported) 0.6MG DAILY X 1 WEEK THEN INCREASE TO 1.2MG DAILY FILLED 06-10-18 - NOT YET PICKED UP OR STARTED Metoprolol Succinate 25 Mg Tab.er.24h, 25 MG PO DAILY Prescribed by: SIMEON CLEARY on 06/22/181613 Potassium Chloride 10 Meq Tablet.er, 10 MEQ PO DAILY@0700 Prescribed by: SIMEON CLEARY on 06/22/181613 Sacubitril/Valsartan 1 Each Tablet, 1 TAB PO BID Prescribed by: SIMEON CLEARY on 06/22/18 0144 Patient Home Medication List Home Medication List Reviewed: Yes Review of Systems Review of Systems Constitutional: see HPI; No chills, No fever Cardiovascular: See HPI, Chest Pain All Other Systems Reviewed Negative Unless Noted: Yes Past Encsrxv-Rndgyy-Mybiye Hx Past Med/Social Hx: Reviewed Nursing Past Med/Soc Hx Patient Social History Alcohol Use: Denies Use Recreational Drug Use: Yes (LAST USED 10/14/2018) Drug of Choice: marijuana Smoking Status: Current Everyday Smoker Type Used: Cigarettes Recent Foreign Travel: No Contact w/Someone Who Travel: No Recent Infectious Disease Expo: No Recent Hopitalizations: No Seasonal Allergies Seasonal Allergies: Yes Past Medical History Surgeries: Yes (REPAIR OF TORN RETINA, RIGHT SHOULDER SURGERY) Eye Surgery Respiratory: No (USED CPAP IN PAST) Sleep Apnea Currently Using CPAP: No Cardiac: Yes (CARDIAC STENT) High Cholesterol, Hypertension Neurological: No Headaches /Migraines Genitourinary: No Gastrointestinal: Yes Pancreatitis Musculoskeletal: No Endocrine: Yes Diabetes, Insulin dep HEENT: Yes (DETACHED RETINA) Cancer: No Psychosocial: Yes Anxiety Integumentary: No Blood Disorders: Yes (SICKLE CELL TRAIT) Family Medical History Reviewed Nursing Family Hx No Pertinent Family Hx, Diabetes Physical Exam Vital Signs Vital Signs - First Documented 10/14/18 14:10 Temp 98.9 Pulse 89 Resp 18 B/P (MAP) 137/76 (96) Pulse Ox 97 O2 Delivery Nasal Cannula O2 Flow Rate 2.00 Capillary Refill : Less Than 3 Seconds Height, Weight, BMI Height: 5'9.00" Weight: 264lbs. 0.0oz. 119.850103gq; 36.4 BMI Method:Stated General Appearance: No Apparent Distress, WD/WN Respiratory: Chest Non Tender, Lungs Clear, Normal Breath Sounds, No Accessory Muscle Use, No Respiratory Distress Cardiovascular: Regular Rate, Rhythm, No Edema, No Gallop, No JVD, No Murmur, Normal Peripheral Pulses Neurologic/Psychiatric: Alert, Oriented x3, Normal Mood/Affect Skin: Normal Color, Warm/Dry Progress/Results/Core Measures Results/Orders Lab Results Laboratory Tests Test 10/14/18 14:23 10/14/18 16:24 Range/Units White Blood Count 9.9 4.3-11.0 10^3/uL Red Blood Count 5.32 4.35-5.85 10^6/uL Hemoglobin 16.0 13.3-17.7 G/DL Hematocrit 47 40-54 % Mean Corpuscular Volume 89 80-99 FL Mean Corpuscular Hemoglobin 30 25-34 PG Mean Corpuscular Hemoglobin Concent 34 32-36 G/DL Red Cell Distribution Width 14.5 10.0-14.5 % Platelet Count 244 130-400 10^3/uL Mean Platelet Volume 10.3 7.4-10.4 FL Neutrophils (%) (Auto) 52 42-75 % Lymphocytes (%) (Auto) 40 12-44 % Monocytes (%) (Auto) 7 0-12 % Eosinophils (%) (Auto) 1 0-10 % Basophils (%) (Auto) 0 0-10 % Neutrophils # (Auto) 5.2 1.8-7.8 X 10^3 Lymphocytes # (Auto) 3.9 1.0-4.0 X 10^3 Monocytes # (Auto) 0.7 0.0-1.0 X 10^3 Eosinophils # (Auto) 0.1 0.0-0.3 10^3/uL Basophils # (Auto) 0.0 0.0-0.1 10^3/uL Prothrombin Time 16.4 H 12.2-14.7 SEC INR Comment 1.3 0.8-1.4 Activated Partial Thromboplast Time 33 24-35 SEC D-Dimer 0.36 0.00-0.49 UG/ML Sodium Level 139 135-145 MMOL/L Potassium Level 4.3 3.6-5.0 MMOL/L Chloride Level 107 98-107 MMOL/L Carbon Dioxide Level 24 21-32 MMOL/L Anion Gap 8 5-14 MMOL/L Blood Urea Nitrogen 17 7-18 MG/DL Creatinine 1.28 0.60-1.30 MG/DL Estimat Glomerular Filtration Rate > 60 BUN/Creatinine Ratio 13 Glucose Level 175 H 70-105 MG/DL Calcium Level 9.5 8.5-10.1 MG/DL Corrected Calcium 9.3 8.5-10.1 MG/DL Magnesium Level 1.8 1.8-2.4 MG/DL Total Bilirubin 0.5 0.1-1.0 MG/DL Aspartate Amino Transf (AST/SGOT) 18 5-34 U/L Alanine Aminotransferase (ALT/SGPT) 15 0-55 U/L Alkaline Phosphatase 64 40-136 U/L Myoglobin 77.7 10.0-92.0 NG/ML Troponin I < 0.028 < 0.028 <0.028 NG/ML B-Type Natriuretic Peptide 54.3 <100.0 PG/ML Total Protein 7.6 6.4-8.2 GM/DL Albumin 4.3 3.2-4.5 GM/DL My Orders Orders - VERITO MOREJON Cbc With Automated Diff (10/14/18 14:13) Magnesium (10/14/18 14:13) Chest 1 View, Ap/Pa Only (10/14/18 14:13) Ekg Tracing (10/14/18 14:13) Cardiac Profile 1 (10/14/18 14:13) Comprehensive Metabolic Panel (10/14/18 14:13) Myoglobin Serum (10/14/18 14:13) Protime With Inr (10/14/18 14:13) Partial Thromboplastin Time (10/14/18 14:13) O2 (10/14/18 14:13) Monitor-Rhythm Ecg Trace Only (10/14/18 14:13) Ed Iv/Invasive Line Start (10/14/18 14:13) BNP (10/14/18 14:13) Aspirin Chewable Tablet (Baby Aspirin Ch (10/14/18 14:15) Fibrin Degradation Products (10/14/18 15:10) Troponin I (10/14/18 16:12) Medications Given in ED Current Medications Medications Dose Ordered Sig/Nitesh Route Start Time Stop Time Status Last Admin Dose Admin Aspirin 324 mg ONCE ONCE PO 10/14/18 14:15 10/14/18 14:16 DC 10/14/18 14:25 324 MG Vital Signs/I&O 10/14/18 10/14/18 10/14/18 14:10 14:10 17:00 Temp 98.9 Pulse 89 85 Resp 18 18 B/P (MAP) 137/76 (96) 110/72 (85) Pulse Ox 97 97 O2 Delivery Nasal Cannula Room Air Room Air O2 Flow Rate 2.00 Blood Pressure Mean: 96 Progress Progress Note : Time: 16:49 Progress Note I have seen and evaluated the patient. I've informed him of his laboratory and imaging studies. His repeat troponin was negative. I have discussed the case with Dr. Dillon at this time. He believes that the patient can be followed an outpatient in his office. The patient agrees with plan of care, plans for discharge, return precautions were given. Initial ECG Impression Date: Oct 14, 2018 Initial ECG Impression Time: 14:12 Initial ECG Rate: 90 Initial ECG Rhythm: Normal Sinus Initial ECG Intervals: Normal Initial ECG Impression: Normal Comment EKG was reviewed by Dr. Monroy and he agrees with above. Diagnostic Imaging Diagonstic Imaging: Xray Plain Films/CT/US/NM/MRI: chest Comments NAME: CHANA SANCHEZ [facility] REC#: [id number] PT STATUS: REG ER : 1980 PHYSICIAN: VERITO MOREJON ADMIT DATE: 10/14/18/ER Draft Date of Exam:10/14/18 CHEST 1 VIEW, AP/PA ONLY Indication: Chest pain. Time of exam 2:37 PM Comparison is made with prior chest from 06/18/2018. Monitoring devices overlie the chest. The lungs are clear. Vascularity is normal. No infiltrate, effusion or pneumothorax is seen. Impression: No acute cardiopulmonary process is detected. Dictated on workstation # [id number] Dict: 10/14/18 1453 Trans: 10/14/18 1458 [facility] [id number] Interpreted by: BENNY JENSEN MD Electronically signed by: Reviewed: Reviewed by Me Departure Impression Primary Impression: Chest pain Disposition: 01 HOME, SELF-CARE Condition: Stable/Unchanged Departure-Patient Inst. Decision time for Depature: 16:49 Referrals: [facility] (PCP) Primary Care Physician AMBREEN MUÑOZ APRN (Family) Primary Care Physician Patient Instructions: Chest Pain (DC) Add. Discharge Instructions: Continue to use your LifeVest as previously instructed. Resume your home medications as previously prescribed. Call Dr. Dillon's office first thing tomorrow morning to schedule an appointment to be seen within 1 week for recheck. Follow-up with your primary care provider within 1 week for recheck. Return back to the emergency room for worsening symptoms or concerns as needed. All discharge instructions reviewed with patient and/or family. Voiced understanding. VERITO MOREJON Oct 14, 2018 15:05
--- NOTE | 2018-10-14 16:25 | NUR ---
2ND TROPOIN DRAWN
[2018-10-14 17:00] VITALS: BP 110/72
== END 2018-10-14 17:00 | disposition home or self-care (01) ==
LOC: EDUNIT# 14:06 → ER 14:07
DX: R07.9 Chest pain, unspecified (principal); I11.0 Hypertensive heart disease with heart failure; I50.9 Heart failure, unspecified; E11.9 Type 2 diabetes mellitus without complications; G43.909 Migraine, unspecified, not intractable, without status migrainosus; F41.9 Anxiety disorder, unspecified; D57.3 Sickle-cell trait; E78.00 Pure hypercholesterolemia, unspecified; G47.30 Sleep apnea, unspecified; F17.210 Nicotine dependence, cigarettes, uncomplicated; Z79.4 Long term (current) use of insulin; Z87.19 Personal history of other diseases of the digestive system
CPT/HCPCS: 36415; 71045; 80053; 83735; 83874; 83880; 84484; 85025; 85379; 85610; 85730; 93005; 93041

== ENCOUNTER 2018-11-04 08:53 | Day surgery (SDC) | payer SELFPAY ==
[2018-11-04] VITALS (9 sets, daily range): BP systolic 132–160; BP diastolic 95–126
[~2018-11-04] VITALS: Ht 175.3 cm; Wt 119.7 kg
[~2018-11-04 08:53] MED LIST changes: +[UNRECOGNIZED DRUG - OTHER]
[2018-11-04] MEDS ORDERED: LIDOCAINE 1% INJ 20 ML 20 ML VIAL ONE (09:01)
[2018-11-04] MEDS ORDERED: HEParin (CATH LAB) 1,000 ML IV ONE (09:01)
[2018-11-04] MEDS ORDERED: NS IV 1000 ML 0 ML ONE (09:01)
[2018-11-04] MEDS ORDERED: BACITRACIN INJECTION 50,000 UNIT, SODIUM CHLORIDE 0.9% IRRIGATIO 500 ML IR ONE ×2 (09:45)
[2018-11-04] MEDS ORDERED: ceFAZolin INJECTION 1,000 MG VIAL IV ONE (09:45)
[2018-11-04] MEDS ORDERED: NS IV 1000 ML 1,000 ML IV ONE (09:45)
[2018-11-04] MEDS ORDERED: ceFAZolin INJECTION 1,000 MG in WATER (STERILE) FOR INJECTION 10 ML IV ONE (10:00)
[2018-11-04 10:20] LABS: MEAN PLATELET VOLUME 10.2 FL (7.4-10.4); RED CELL DISTRIBUTION WIDTH 14.4 % (10.0-14.5)
[2018-11-04 10:23] LABS: BILIRUBIN,URINE NEGATIVE (NEGATIVE); CLARITY,URINE CLEAR; COLOR,URINE YELLOW; GLUCOSE, URINE (UA) NEGATIVE (NEGATIVE); KETONES,URINE NEGATIVE (NEGATIVE); LEUKOCYTE ESTERASE ,URINE NEGATIVE (NEGATIVE); NITRITE,URINE NEGATIVE (NEGATIVE); PH,URINE 5 (5-9); PROTEIN,URINE 2+ (NEGATIVE); UROBILINOGEN,URINE NORMAL (NORMAL)
[2018-11-04] MEDS ORDERED: ceFAZolin INJECTION 1,000 MG ONE (10:28)
[2018-11-04] MEDS ORDERED: NS (IVPB) 50 ML ONE (10:29)
[2018-11-04 10:37] LABS: BACTERIA,URINE NEGATIVE /HPF; HYALINE CASTS, URINE 0-2 /LPF; WBC,URINE RARE /HPF
[2018-11-04 10:39] LABS: PROTHROMBIN TIME PATIENT 13.4 SEC (12.2-14.7)
[2018-11-04 10:41] LABS: ALANINE AMINOTRANSFERASE 20 U/L (0-55); ALBUMIN 4.5 GM/DL (3.2-4.5); ALKALINE PHOSPHATASE 49 U/L (40-136); BILIRUBIN,TOTAL 0.5 MG/DL (0.1-1.0); BUN/CREATININE RATIO 14; CALCIUM 9.6 MG/DL (8.5-10.1); CARBON DIOXIDE 23 MMOL/L (21-32); CHLORIDE 106 MMOL/L (98-107); CHOLESTEROL 254 MG/DL (< 200); CREATININE SERUM 1.15 MG/DL (0.60-1.30); GFR ESTIMATED > 60; GLUCOSE 159 MG/DL (70-105); HDL CHOLESTEROL 42 MG/DL (40-60); SODIUM 139 MMOL/L (135-145); TOTAL PROTEIN 7.7 GM/DL (6.4-8.2); TRIGLYCERIDES 188 MG/DL (<150); VLDL CHOLESTEROL 38 MG/DL (5-40)
[2018-11-04] MEDS ORDERED: trajenta (10:52)
[2018-11-04] MEDS ORDERED: SACU1TAB4 PO (10:52)
[2018-11-04] MEDS ORDERED: METO-387 PO (10:52)
[2018-11-04] MEDS ORDERED: LINA5TAB PO (10:52)
[2018-11-04] MEDS ORDERED: SILD100T PO (10:52)
[2018-11-04] MEDS ORDERED: WARF-48 PO (10:52)
[2018-11-04] MEDS ORDERED: POTA10TA10 PO (10:52)
[2018-11-04] MEDS ORDERED: FURO-125 PO (10:53)
--- NOTE | 2018-11-04 10:53 | Diagnostic Imaging Report ---
EXAMINATION: Chest radiograph, portable AP view. DATE: November 04, 2018 at 1019 hours. INDICATION: 38-year-old male, preoperative exam. COMPARISON: October 14, 2018. FINDINGS: Stable overall appearance of the cardiomediastinal silhouette. There is no identified pneumothorax. There is no large pleural effusion. There is no identified focal airspace consolidation. IMPRESSION: No identified acute cardiopulmonary abnormality. Dictated by: Dictated on workstation # [id number]
[2018-11-04] MEDS ORDERED: ASPI-992 PO (10:56)
--- NOTE | 2018-11-04 10:57 | NUR ---
SPOKE WITH PT, WELL CALLING [facility] (AND SPOKE WITH THE NURSE FROM [facility]) TO COMPLETE THE MED REC. PT GETS MOST OF HIS MEDICATIONS THRU THE REPOSITORY PROGRAM AND PALS. ENTRESTO 97/103MG: PT STATES HE TAKES 2 TABS ONCE DAILY AT THE SAME TIME (THAT IS WHAT I PUT ON THE MED REC) BUT THE DIRECTIONS ARE FOR 1 TAB BID METOPROLOL ER 25MG WAS LAST FILLED ON 06-22-2018 FOR A 90 DAY SUPPLY. VIAGRA 100MG: WAS PICKED UP FROM [facility] ON 10-19-2018. PT DID NOT LIST THIS MEDICATION TO ME, BUT HE FAMILY WAS IN THE ROOM. I WANTED TO MAKE SURE THIS WAS DOCUMENTED, BUT I LEFT OFF THE MED REC. OTC MEDS: EXCEDRIN: 2 TABS Q 8 H PRN
[2018-11-04] MEDS ORDERED: MIDAZOLAM 5 MG/5 ML (VERSED) VIAL ONE ×3 (12:52→14:28)
[2018-11-04] MEDS ORDERED: fentaNYL INJECTION 100 MCG/2 ML AMP ONE ×2 (12:52→13:41)
--- NOTE | 2018-11-04 13:09 | Cardiac Procedure Note-CS/ASA ---
Pre-Procedure Note Pre-Op Procedure Note H&P Reviewed The H&P was reviewed, patient examined and no changes noted. Date H&P Reviewed: Nov 04, 2018 Time H&P Reviewed: 13:09 Conscious Sedation Pre-Proced Time 13:09 ASA Score 3 For ASA 3 and 4: Consider anesthesia and medical clearance. Also, for patients with a history of failed moderate sedation consider anesthesia. Airway Lungs Heart ASA score ASA 1: a normal healthy patient ASA 2: a patient with a mild systemic disease (mid diabetes, controlled 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, obesity x ASA 3: a patient with a severe systemic disease that limits activity (angina, COPD, prior Myocardial infarction) ASA 4: a patient with an incapacitating disease that is a constant threat to life (CHF, renal failure) ASA 5: a moribund patient not expected to survive 24 hrs. (ruptured aneurysm) ASA 6: a declared brain- patient whose organs are being harvested. For emergent operations, add the letter E after the classification Mallampati Classification Grade 3 Sedation Plan Analgesia, Amnesia, Plan communicated to team members, Discussed options with patient/fam, Discussed risks with patient/fam The patient is an appropriate candidate to undergo the planned procedure, sedation, and anesthesia. The patient immediately re-assessed prior to indication. MACRINA BOYER MD Nov 04, 2018 13:09
[2018-11-04] MEDS ORDERED: methylPREDNISolone 125 MG (Solu-MEDROL) VIAL ONE (13:49)
[2018-11-04] MEDS ORDERED: diphenhydrAMINE 50 MG/ML INJ (BENADRYL) ONE (13:49)
[2018-11-04] MEDS ORDERED: proPOfol 200 MG/20 ML (DIPRIVAN) VIAL IV ONE (14:32)
[2018-11-04] MEDS ORDERED: NS IV 1000 ML 1,000 ML ONE (14:33)
[2018-11-04] MEDS ORDERED: NEO/POLY/BAC (NEOSPORIN) OINT 15 GM TUBE ONE (14:58)
[2018-11-04] MEDS ORDERED: NS IV 1000 ML 1,000 ML IV SCH (15:12)
[2018-11-04] MEDS ORDERED: PATIENT MAY USE OWN MEDS, ALL PO SCH (15:15)
--- NOTE | 2018-11-04 15:15 | Anesthesia-Procedure Note ---
Procedures/Interventions Procedure Start/Stop/Diagnosis Date of Procedure: Nov 04, 2018 Start Time: 14:58 Referring Physician: Wilma Brief History Called to civil laboratory technician for sedation for DFT testing. History obtained from RN's, reviewing allergies and medications previously received, including Versed 14mg. Patient awake yet drowsy. 60 mg Propofol IV given for procedure and patient tolerated well. etcO2 38 and VSS. Report to LETI Chicas Will be available for further consultation. Stop Time: 15:07 KAREN ANAYA CRNA Nov 04, 2018 15:15
--- NOTE | 2018-11-04 15:33 | ICD Implantation ---
Single Chamber ICD Implant DATE OF SERVICE: 38 male SINGLE CHAMBER ICD IMPLANTATION GRADING SUPERVISOR: Macrina Dillon INDICATION: 38 years old gentleman with severe nonischemic cardiomyopathy, has been on aggressive medical therapy, still have severe cardiomyopathy, scheduled for single-chamber ICD implant for primary prevention. PREOPERATIVE DIAGNOSES: Congestive heart failure, chronic compensated left ventricular systolic dysfunction, nonischemic cardiomyopathy POSTOPERATIVE DIAGNOSES: Congestive heart failure, chronic compensated left ventricular systolic dysfunction, nonischemic cardiomyopathy HISTORY: 38 years old gentleman with severe nonischemic cardiomyopathy, has been on aggressive medical therapy, still have severe cardiomyopathy, scheduled for single-chamber ICD implant for primary prevention.. ICD implantation is recommended. PROCEDURE PERFORMED: 1. Single-chamber ICD implantation. 2. Implantable loop recorder explantation. 3. Venogram. 4. DFT testing. COMPLICATIONS: None. ESTIMATED BLOOD LOSS: 20 mL. SPECIMENS: None. ANESTHESIA: Conscious sedation. ORAL ANTICOAGULATION: None. FLUOROSCOPY TIME: FLUOROSCOPY DOSE: CONTRAST DOSE: PROCEDURE DETAILS: After all the questions were answered, an informed consent was taken. All the risks and complication were explained in detail. The patient was brought to the EP lab. The patient's right and left chest was prepped and draped in the usual sterile fashion. A 2-inch horizontal incision was made 1 cm below the clavicle and dissection carried down to the pectoralis fascia. IV antibiotics were administered prior to first incision. Under fluoroscopic guidance, multiple attempts to access the left subclavian vein was made, then venogram was done, still unable to access the vein, I consulted with Dr. Lewis who assisted me in accessing the left subclavian vein, regular J-wire was placed. We then i ntroduced a sheath into the axillary vein. A ICD lead was inserted. This is a single-coiled ICD lead. The RV lead was inserted across the tricuspid valve to an apical septal portion of the RV. The lead position was checked in AYAZ and SMITH view. The screw was deployed and lead connected to the java programmer. Good sensing and pacing thresholds were obtained. Diaphragmatic pacing was ruled out. The lead was secured with 2-0 Vicryl nonabsorbable sutures. The lead was secured to the underlying muscle and fascia. We then took an ICD generator and the lead was connected to the device in a hermetic fashion. The device and it was placed in the pocket. Aggressive irrigation with normal saline solution was done. Interrogation of the device revealed good integrity of the leads and connection. The wound was closed using 2 layers. The first layer was an interrupted 2-0 Vicryl. The second layer was an uninterrupted 4-0 Vicryl suture. Half inch Steri-Strips and a small dressing was then applied to the wound. DFT testing was done with anesthesia support. The induction mechanism was a T- shock. The first T-shock was at 290 milliseconds at one joule. Nonsustained VF was noted. We could not give therapy since it was nonsustained. Then, we did two shocks at 300 milliseconds for one joule. Nonsustained VF was seen however, no therapy was given. The fourth T-shock was done at 310 milliseconds at one joule and again it was nonsustained VF. Therefore, we did not shock the patient. DEVICE INFORMATION: [employer]ik Intica 7VR-T DX Serial # [id number] LEAD Biotronik Serial [id number] INTRAOPERATIVE DEVICE TESTING: good sensing and capture activity RA 1 mV sensing RV sensing with R-wave 12.4 mV, impedance 604, threshold 0.5 V at 0.5 ms DEVICE INTERROGATION IMMEDIATELY POSTOP: RA sensing 6 mV RV sensing 17.2 mV, impedance 639, threshold 0.4 V at 0.4 ms DFT testing shock on T inducing V. fib, voltage 20, impedance 69, success in terminating ventricular fibrillation PLAN: The patient will be observed for 23 hours. We will continue with two more dosages of IV antibiotics. We will check a chest x-ray and interrogate the device in the morning. An EKG will be done as well. If everything checks out, the patient will be discharged tomorrow. CONCLUSION: Successful implantation of single-chamber ICD with right atrial sensing Successful DFT testing with excellent results FINAL DIAGNOSIS: Congestive heart failure, chronic compensated left ventricular systolic dysfunction, nonischemic cardiomyopathy Shortness of breath MACRINA DILLON MD Nov 04, 2018 15:33
[2018-11-04] MEDS ORDERED: oxyCODONE/APAP 5/325MG (PERCOCET 5) TABLET ONE (16:18)
[2018-11-04] MEDS: oxyCODONE/APAP 5/325MG (PERCOCET 5) TABLET PO PRN ×2 (16:29→20:06)
--- NOTE | 2018-11-04 17:39 | Diagnostic Imaging Report ---
EXAMINATION: Chest, one view. HISTORY: Pacemaker placement. FINDINGS: Comparison is 11/04/2018. Left subclavian pacemaker is in place. There is fairly extensive atelectasis in the left lung with volume loss and opacification of the left upper zone. No pneumothorax is seen. No pleural effusion. No edema. Heart size is normal. IMPRESSION: 1. Fairly extensive left lung atelectasis status post pacemaker placement without pneumothorax. Dictated by: Dictated on workstation # [id number]
[2018-11-04] MEDS ORDERED: warFARin 5 MG (COUMADIN) TAB PO SCH (18:00)
[2018-11-04] MEDS: ceFAZolin INJECTION 1,000 MG in WATER (STERILE) FOR INJECTION 10 ML IV SCH (18:08)
[2018-11-04] MEDS ORDERED: NON-FORMULARY MEDICATION 1 EA EA (Insulin Detemir (Levemir Flextouch) 50 UNIT) SQ SCH (21:00)
[2018-11-05 00:04] VITALS: BP 131/88
[2018-11-05] MEDS: oxyCODONE/APAP 5/325MG (PERCOCET 5) TABLET PO PRN ×2 (00:28→08:34)
[2018-11-05] MEDS: ceFAZolin INJECTION 1,000 MG in WATER (STERILE) FOR INJECTION 10 ML IV SCH (02:01)
[2018-11-05 03:31] LABS: HEMOGLOBIN 14.7 G/DL (13.3-17.7); MEAN PLATELET VOLUME 10.3 FL (7.4-10.4); RED CELL DISTRIBUTION WIDTH 14.4 % (10.0-14.5); WHITE BLOOD COUNT 13.1 10^3/uL (4.3-11.0)
[2018-11-05 03:52] LABS: ALANINE AMINOTRANSFERASE 15 U/L (0-55); ALKALINE PHOSPHATASE 51 U/L (40-136); BILIRUBIN,TOTAL 0.4 MG/DL (0.1-1.0); BUN/CREATININE RATIO 16; CALCIUM 9.1 MG/DL (8.5-10.1); CARBON DIOXIDE 18 MMOL/L (21-32); CHLORIDE 102 MMOL/L (98-107); CREATININE SERUM 1.34 MG/DL (0.60-1.30); GFR ESTIMATED > 60; GLUCOSE 238 MG/DL (70-105); POTASSIUM 4.4 MMOL/L (3.6-5.0); SODIUM 134 MMOL/L (135-145); TOTAL PROTEIN 6.9 GM/DL (6.4-8.2)
[2018-11-05 04:00] VITALS: BP 127/92
[2018-11-05] MEDS ORDERED: LINAGLIPTIN (TRADJENTA) 5 MG TABLET PO SCH (07:00)
[2018-11-05] MEDS ORDERED: KCL 10 MEQ TAB (MICRO K) PO SCH (08:00)
[2018-11-05] MEDS ORDERED: FUROSEMIDE 20 MG (LASIX) TAB PO SCH (09:00)
[2018-11-05] MEDS ORDERED: CEFU500T63 PO (09:08)
--- NOTE | 2018-11-05 09:12 | Cardiology Progress Note ---
Subjective Date Seen by Provider: Nov 05, 2018 Time Seen by Provider: 09:10 Subjective/Events-last exam patient is doing well, feeling better. No new complaint Review of Systems General: No Chills, No Night Sweats, No Fatigue, No Malaise, No Appetite, No Other Pulmonary: No Dyspnea, No Cough, No Pleuritic Chest Pain, No Other Cardiovascular: No: Chest Pain, Palpitations, Orthopnea, Paroxysmal Noc. Dyspnea, Edema, Lt Headedness, Other Objective-Cardiology Exam Last Set of Vital Signs Vital Signs 11/05/18 11/05/18 11/05/18 00:00 04:00 07:00 Temp 95.8 Pulse 99 Resp 14 B/P (MAP) 127/92 (104) Pulse Ox 97 O2 Delivery Room Air Capillary Refill : I&O Intake and Output 11/05/18 00:00 Intake Total 1510 ml Output Total 1150 ml Balance 360 ml Intake Oral 510 ml IV Total 1000 ml Output Urine Total 1150 ml General: Alert, Oriented X3, Cooperative HEENT: Atraumatic, PERRLA Neck: Supple, No JVD, No Thyromegaly Lungs: Clear to Auscultation, Normal Air Movement Heart: Regular Rate, Normal S1, Normal S2, No Murmurs Abdomen: Normal Bowel Sounds, Soft, No Tenderness, No Hepatosplenomegaly, No Masses Extremities: No Clubbing, No Cyanosis, No Edema, Normal Pulses, No Tenderness/Swelling Skin: No Rashes, No Breakdown, No Significant Lesion Neuro: Normal Gait, Normal Speech, Strength at 5/5 X4 Ext, Normal Tone, Sensation Intact Psych/Mental Status: Mental Status NL, Mood NL Results Lab Laboratory Tests 11/04/18 10:08 11/05/18 02:45 A/P-Cardiology Admission Diagnosis congestive heart failure, chronic compensated left ventricular systolic dysfunction, nonischemic cardiomyopathy Hypertension Generalized fatigue Shortness of breath Status post single-chamber ICD implant Assessment/Plan Congestive heart failure, chronic compensated left ventricular systolic dysfunction, nonischemic cardiomyopathy Status post single-chamber ICD implantation for primary prevention: Successful implantation of single-chamber ICD with right atrial sensing Successful DFT testing with excellent results Hypertension, controlled on current medication Generalized fatigue feeling better. MACRINA BOYER MD Nov 05, 2018 09:12
== END 2018-11-05 10:05 | disposition home or self-care (01) ==
LOC: CATH 08:53 → ICU 15:46 → CATH 11-05 10:05
PROVIDERS: ATTEND Internal Medicine Cardiovascular Disease
DX: I50.9 Heart failure, unspecified (principal); I51.7 Cardiomegaly; I42.9 Cardiomyopathy, unspecified; I34.0 Nonrheumatic mitral (valve) insufficiency; G47.33 Obstructive sleep apnea (adult) (pediatric); E66.9 Obesity, unspecified; Z68.39 Body mass index [BMI] 39.0-39.9, adult; Z88.8 Allergy status to other drugs, medicaments and biological substances; Z91.013 Allergy to seafood; Z79.01 Long term (current) use of anticoagulants; Z79.4 Long term (current) use of insulin; Z79.899 Other long term (current) drug therapy; Z87.891 Personal history of nicotine dependence; Z83.3 Family history of diabetes mellitus; Z82.49 Family history of ischemic heart disease and other diseases of the circulatory system; Z82.0 Family history of epilepsy and other diseases of the nervous system
CPT/HCPCS: 33249; 36415; 71045; 75820; 80053; 80061; 81000; 82962; 85027; 85610; 85730; 87081; 93005; 93641

== ENCOUNTER 2018-11-15 21:36 | Emergency (ER) | payer SELFPAY ==
[~2018-11-15] VITALS: Ht 175.3 cm; Wt 122.5 kg
[~2018-11-15 21:36] MED LIST changes: +ASPI-992 PO; +CEFU500T63 PO; +FURO-125 PO; +LINA5TAB PO; +POTA10TA10 PO; +SACU1TAB4 PO; +WARF-48 PO; +trajenta
[2018-11-15 22:23] LABS: BACTERIA,URINE NEGATIVE /HPF; BILIRUBIN,URINE NEGATIVE (NEGATIVE); CLARITY,URINE CLEAR; COLOR,URINE YELLOW; GLUCOSE, URINE (UA) NEGATIVE (NEGATIVE); KETONES,URINE NEGATIVE (NEGATIVE); LEUKOCYTE ESTERASE ,URINE NEGATIVE (NEGATIVE); NITRITE,URINE NEGATIVE (NEGATIVE); PH,URINE 6 (5-9); PROTEIN,URINE NEGATIVE (NEGATIVE); RBC,URINE RARE /HPF; SQUAMOUS EPITHELIAL CELL,UR 0-2 /HPF; UROBILINOGEN,URINE 1 MG/DL (NORMAL)
[2018-11-15 22:31] LABS: BASOPHILS % (AUTO) 0 % (0-10); EOSINOPHILS # (AUTO) 0.1 10^3/uL (0.0-0.3); EOSINOPHILS % (AUTO) 1 % (0-10); HEMATOCRIT 44 % (40-54); LYMPHOCYTES # (AUTO) 4.2 X 10^3 (1.0-4.0); LYMPHOCYTES % (AUTO) 30 % (12-44); MEAN CORPUSCULAR HEMOGLOBIN 30 PG (25-34); MEAN CORPUSCULAR HGB CONC 34 G/DL (32-36); MEAN CORPUSCULAR VOLUME 88 FL (80-99); MONOCYTES # (AUTO) 1.1 X 10^3 (0.0-1.0); MONOCYTES % (AUTO) 8 % (0-12); NEUTROPHILS # (AUTO) 8.9 X 10^3 (1.8-7.8); NEUTROPHILS % (AUTO) 62 % (42-75); PLATELET COUNT 219 10^3/uL (130-400); RED CELL DISTRIBUTION WIDTH 14.2 % (10.0-14.5); WHITE BLOOD COUNT 14.3 10^3/uL (4.3-11.0)
[2018-11-15] MEDS ORDERED: NS IV 1000 ML 1,000 ML IV SCH (22:34)
--- NOTE | 2018-11-15 22:39 | ED GI ---
General Chief Complaint: Abdominal/GI Problems Stated Complaint: ABD / BACK PAIN Nursing Triage Note: abdominal/back pain x3 days Sepsis Screen: No Definite Risk History of Present Illness Date Seen by Provider: Nov 15, 2018 Time Seen by Provider: 22:15 Initial Comments 38-year-old -[place] male presents for abdominal pain 3 days. He states he's had pancreatitis in the past last episode being in 2014. He's had occasional nausea and no vomiting. He denies nausea or vomiting at this time. Timing/Duration: 3-4 Days Severity/Quality: Moderate Location: LUQ Radiation: No Radiation Activities at Onset: None Modifying Factors: Improves With Resting Associated Symptoms: No Back Pain, No Chest Pain, No Diaphoresis, No Fever/Chills, No Fatigue, No Headache, No Heartburn; Nausea/Vomiting; No Shortness of Air, No Swelling/Mass in Abdomen, No Syncope, No Weakness Allergies and Home Medications Allergies Coded Allergies: Fish Containing Products (Unverified Allergy, Unknown, 06/22/18) FROM UNCODED ALLERGY "SEAFOOD" Home Medications Aspirin/Acetaminophen/Caffeine 1 Each Tablet, 2 EACH PO Q8H PRN for HEADACHE, (Reported) Furosemide 20 Mg Tablet, 20 MG PO DAILY, (Reported) Insulin Detemir 100 Unit/1 Ml Insuln.pen, 50 UNIT SQ BID, (Reported) Linagliptin 5 Mg Tablet, 5 MG PO DAILY, (Reported) Liraglutide 0.6 Mg/0.1 Ml Pen.injctr, 0.6 SQ DAILY, (Reported) Metoprolol Succinate 25 Mg Tab.er.24h, 25 MG PO DAILY, (Reported) LAST PICKED UP 06-22-2018 FOR A 90 DAY SUPPLY Potassium Chloride 10 Meq Tablet.er, 10 MEQ PO DAILY, (Reported) Sacubitril/Valsartan 1 Each Tablet, 2 TAB PO DAILY, (Reported) Warfarin Sodium 5 Mg Tablet, 10 MG PO HS, (Reported) Patient Home Medication List Home Medication List Reviewed: Yes Review of Systems Review of Systems Constitutional: no symptoms reported, see HPI Gastrointestinal: See HPI, Abdominal Pain, Nausea, Poor Appetite All Other Systems Reviewed Negative Unless Noted: Yes Past Haidcxy-Ttavko-Ldkovs Hx Past Med/Social Hx: Reviewed Nursing Past Med/Soc Hx Patient Social History Alcohol Use: Denies Use Recreational Drug Use: Yes Drug of Choice: marijuana Smoking Status: Current Everyday Smoker Type Used: Cigarettes Recent Foreign Travel: No Contact w/Someone Who Travel: No Recent Infectious Disease Expo: No Recent Hopitalizations: No Physical Abuse: No Sexual Abuse: No Mistreated: No Fear: No Immunizations Up To Date Tetanus Booster (TDap): Unknown Seasonal Allergies Seasonal Allergies: Yes Past Medical History Surgeries: Yes (REPAIR OF TORN RETINA, RIGHT SHOULDER SURGERY, ppm/aicd) Eye Surgery Respiratory: No Sleep Apnea Currently Using CPAP: No Cardiac: Yes (CARDIAC STENT, chf) High Cholesterol, Hypertension Neurological: Yes Headaches /Migraines Genitourinary: No Gastrointestinal: Yes Pancreatitis Musculoskeletal: No Endocrine: Yes Diabetes, Insulin dep HEENT: Yes (DETACHED RETINA) Cancer: No Psychosocial: Yes Anxiety Integumentary: No Blood Disorders: Yes (SICKLE CELL TRAIT) Family Medical History No Pertinent Family Hx, Diabetes Physical Exam Vital Signs Vital Signs - First Documented 11/15/18 22:01 Temp 98.0 Pulse 102 Resp 18 B/P (MAP) 130/95 (107) Pulse Ox 97 O2 Delivery Room Air Capillary Refill : Less Than 3 Seconds Height/Weight/BMI Height: 5'9.00" Weight: 270lbs. 0.0oz. 122.968244pr; 39.0 BMI Method:Stated General Appearance: WD/WN, mild distress (tearful from pain) Neck: non-tender, full range of motion, supple Respiratory: chest non-tender, lungs clear, normal breath sounds, no respiratory distress Cardiovascular: normal peripheral pulses, regular rate, rhythm Gastrointestinal: normal bowel sounds, non tender, soft, distended; No rebound; tenderness (throughout entire abdomen but increased abdominal pain in the left upper quadrant); No hernia, No mass, No hepatomegaly, No spleenomegaly Back: normal inspection, no CVA tenderness Neurologic/Psychiatric: no motor/sensory deficits, alert, normal mood/affect, oriented x 3 Skin: normal color, warm/dry Lymphatic: no adenopathy Progress/Results/Core Measures Results/Orders Lab Results Laboratory Tests Test 11/15/18 22:05 11/15/18 22:24 Range/Units Urine Color YELLOW Urine Clarity CLEAR Urine pH 6 5-9 Urine Specific [place] 1.020 1.016-1.022 Urine Protein NEGATIVE NEGATIVE Urine Glucose (UA) NEGATIVE NEGATIVE Urine Ketones NEGATIVE NEGATIVE Urine Nitrite NEGATIVE NEGATIVE Urine Bilirubin NEGATIVE NEGATIVE Urine Urobilinogen 1 NORMAL MG/DL Urine Leukocyte Esterase NEGATIVE NEGATIVE Urine RBC (Auto) 1+ H NEGATIVE Urine RBC RARE /HPF Urine WBC NONE /HPF Urine Squamous Epithelial Cells 0-2 /HPF Urine Crystals NONE /LPF Urine Bacteria NEGATIVE /HPF Urine Casts NONE /LPF Urine Mucus SMALL H /LPF Urine Culture Indicated NO White Blood Count 14.3 H 4.3-11.0 10^3/uL Red Blood Count 4.95 4.35-5.85 10^6/uL Hemoglobin 15.0 13.3-17.7 G/DL Hematocrit 44 40-54 % Mean Corpuscular Volume 88 80-99 FL Mean Corpuscular Hemoglobin 30 25-34 PG Mean Corpuscular Hemoglobin Concent 34 32-36 G/DL Red Cell Distribution Width 14.2 10.0-14.5 % Platelet Count 219 130-400 10^3/uL Mean Platelet Volume 10.0 7.4-10.4 FL Neutrophils (%) (Auto) 62 42-75 % Lymphocytes (%) (Auto) 30 12-44 % Monocytes (%) (Auto) 8 0-12 % Eosinophils (%) (Auto) 1 0-10 % Basophils (%) (Auto) 0 0-10 % Neutrophils # (Auto) 8.9 H 1.8-7.8 X 10^3 Lymphocytes # (Auto) 4.2 H 1.0-4.0 X 10^3 Monocytes # (Auto) 1.1 H 0.0-1.0 X 10^3 Eosinophils # (Auto) 0.1 0.0-0.3 10^3/uL Basophils # (Auto) 0.0 0.0-0.1 10^3/uL Sodium Level 140 135-145 MMOL/L Potassium Level 3.8 3.6-5.0 MMOL/L Chloride Level 107 98-107 MMOL/L Carbon Dioxide Level 21 21-32 MMOL/L Anion Gap 12 5-14 MMOL/L Blood Urea Nitrogen 21 H 7-18 MG/DL Creatinine 1.16 0.60-1.30 MG/DL Estimat Glomerular Filtration Rate > 60 BUN/Creatinine Ratio 18 Glucose Level 129 H 70-105 MG/DL Calcium Level 9.9 8.5-10.1 MG/DL Corrected Calcium 9.7 8.5-10.1 MG/DL Total Bilirubin 0.4 0.1-1.0 MG/DL Aspartate Amino Transf (AST/SGOT) 18 5-34 U/L Alanine Aminotransferase (ALT/SGPT) 13 0-55 U/L Alkaline Phosphatase 54 40-136 U/L Total Protein 7.5 6.4-8.2 GM/DL Albumin 4.3 3.2-4.5 GM/DL Amylase Level 94 25-125 U/L Lipase 160 H 8-78 U/L My Orders Orders - BAKARI MORELOS BEET FLUMER Ua Culture If Indicated (11/15/18 22:02) Amylase (11/15/18 22:10) Cbc With Automated Diff (11/15/18 22:10) Comprehensive Metabolic Panel (11/15/18 22:10) Lipase (11/15/18 22:10) Ed Iv/Invasive Line Start (11/15/18 22:34) Ns Iv 1000 Ml (Sodium Chloride 0.9%) (11/15/18 22:34) Fentanyl Injection (Sublimaze Injection (11/15/18 22:45) Ed Iv/Invasive Line Start (11/15/18 23:15) Lactated Ringers (Lr 1000 Ml Iv Solution (11/15/18 23:15) Rx-Hydrocodone/Apap 5-325 Mg (Rx-Vicodin (11/15/18 23:45) Medications Given in ED Current Medications Medications Dose Ordered Sig/Nitesh Route Start Time Stop Time Status Last Admin Dose Admin Fentanyl Citrate 50 mcg ONCE ONCE IVP 11/15/18 22:45 11/15/18 22:46 DC 11/15/18 22:48 50 MCG Lactated Ringer's 1,000 ml @ 0 mls/hr Q0M ONCE IV 11/15/18 23:15 11/15/18 23:17 DC 11/15/18 23:27 0 MLS/HR Vital Signs/I&O 11/15/18 22:01 Temp 98.0 Pulse 102 Resp 18 B/P (MAP) 130/95 (107) Pulse Ox 97 O2 Delivery Room Air Blood Pressure Mean: 107 Progress Progress Note : Time: 22:15 Progress Note Patient seen and evaluated, we'll give fentanyl 50 g per IV, normal saline 1 L. Labs pending. Pain is a 07/17. 2300 patient reports pain has improved significantly, /. Reviewed lab results with patient. So we can manage this on an outpatient basis. Lactated Ringer's 1 L. 2345 patient reports pain is worsening again to a 5/10, will get hydrocodone 7.5 mg. Discharge instructions and return precautions reviewed with the patient. Departure Impression Primary Impression: Pancreatitis Qualified Codes: K85.90 - Acute pancreatitis without necrosis or infection, unspecified Additional Impression: Abdominal pain Qualified Codes: R10.12 - Left upper quadrant pain Disposition: 01 HOME, SELF-CARE Condition: Improved Departure-Patient Inst. Decision time for Depature: 23:45 Referrals: [facility] [place] Primary Care Physician AMBREEN MUÑOZ APRN (Family) Primary Care Physician Patient Instructions: Acute Abdomen (Belly Pain), Adult (DC), Pancreatitis Add. Discharge Instructions: Clear liquid diet for the next 12 hours. Use pain medication as prescribed. Follow-up with your primary care provider if symptoms are not improving or worsen. Return to emergency department for new, urgent health care needs. All discharge instructions reviewed with patient and/or family. Voiced understanding. Scripts Hydrocodone Bit/Acetaminophen (Hydrocodone/Acetaminophen 5/325mg Tablet) 1 Tab Tab 1-2 EACH PO Q6H PRN for PAIN-MODERATE MDD 10, #20 TAB 0 Refills Prov: BAKARI MORELOS 11/15/18 BAKARI MORELOS Nov 15, 2018 22:39
[2018-11-15] MEDS ORDERED: fentaNYL INJECTION 100 MCG/2 ML AMP IVP ONE (22:45)
[2018-11-15 22:51] LABS: ALANINE AMINOTRANSFERASE 13 U/L (0-55); ALBUMIN 4.3 GM/DL (3.2-4.5); ALKALINE PHOSPHATASE 54 U/L (40-136); AMYLASE 94 U/L (25-125); BILIRUBIN,TOTAL 0.4 MG/DL (0.1-1.0); BUN/CREATININE RATIO 18; CALCIUM 9.9 MG/DL (8.5-10.1); CARBON DIOXIDE 21 MMOL/L (21-32); CHLORIDE 107 MMOL/L (98-107); CREATININE SERUM 1.16 MG/DL (0.60-1.30); GFR ESTIMATED > 60; GLUCOSE 129 MG/DL (70-105); LIPASE 160 U/L (8-78); POTASSIUM 3.8 MMOL/L (3.6-5.0); SODIUM 140 MMOL/L (135-145); TOTAL PROTEIN 7.5 GM/DL (6.4-8.2)
[2018-11-15] MEDS ORDERED: LACTATED RINGERS 1,000 ML IV ONE (23:15)
[2018-11-15] MEDS ORDERED: RX-HYDROCODONE/APAP 5/325 MG #4 TAB PK PO PRN (23:45)
[2018-11-15] MEDS ORDERED: HYDROcodone/APAP 7.5 MG/325 MG (LORTAB, LORCET PLUS) TABLET PO ONE (23:45)
[2018-11-15] MEDS ORDERED: ACHD5005 PO (23:49)
[2018-11-16 00:05] VITALS: BP 126/88
== END 2018-11-16 00:06 | disposition home or self-care (01) ==
LOC: EDUNIT# 21:36 → ER 21:37
DX: K85.90 Acute pancreatitis without necrosis or infection, unspecified (principal); G47.30 Sleep apnea, unspecified; I11.0 Hypertensive heart disease with heart failure; I50.9 Heart failure, unspecified; E78.00 Pure hypercholesterolemia, unspecified; G43.909 Migraine, unspecified, not intractable, without status migrainosus; E11.9 Type 2 diabetes mellitus without complications; F41.9 Anxiety disorder, unspecified; F17.210 Nicotine dependence, cigarettes, uncomplicated; Z91.018 Allergy to other foods; Z79.82 Long term (current) use of aspirin; Z79.4 Long term (current) use of insulin
CPT/HCPCS: 36415; 80053; 81000; 82150; 83690; 85025; 96361; 96374

== ENCOUNTER 2018-11-16 20:25 | Emergency (ER) | payer SELFPAY ==
[~2018-11-16] VITALS: Ht 175 cm; Wt 122.7 kg
[2018-11-16] MEDS ORDERED: fentaNYL INJECTION 100 MCG/2 ML AMP IVP PRN (20:45)
[2018-11-16] MEDS ORDERED: KETOROLAC 30 MG/ML VIAL IVP ONE (20:45)
[2018-11-16] MEDS ORDERED: NS IV 1000 ML 1,000 ML IV SCH (20:45)
[2018-11-16 20:56] LABS: BASOPHILS % (AUTO) 0 % (0-10); EOSINOPHILS # (AUTO) 0.1 10^3/uL (0.0-0.3); EOSINOPHILS % (AUTO) 1 % (0-10); HEMATOCRIT 46 % (40-54); HEMOGLOBIN 15.7 G/DL (13.3-17.7); LYMPHOCYTES # (AUTO) 5.3 X 10^3 (1.0-4.0); LYMPHOCYTES % (AUTO) 35 % (12-44); MEAN CORPUSCULAR HEMOGLOBIN 30 PG (25-34); MEAN CORPUSCULAR HGB CONC 34 G/DL (32-36); MEAN CORPUSCULAR VOLUME 87 FL (80-99); MEAN PLATELET VOLUME 9.7 FL (7.4-10.4); MONOCYTES % (AUTO) 7 % (0-12); NEUTROPHILS # (AUTO) 8.6 X 10^3 (1.8-7.8); NEUTROPHILS % (AUTO) 57 % (42-75); PLATELET COUNT 252 10^3/uL (130-400); RED CELL DISTRIBUTION WIDTH 14.4 % (10.0-14.5); WHITE BLOOD COUNT 15.1 10^3/uL (4.3-11.0)
[2018-11-16 21:17] LABS: ALANINE AMINOTRANSFERASE 16 U/L (0-55); ALBUMIN 4.3 GM/DL (3.2-4.5); ALKALINE PHOSPHATASE 65 U/L (40-136); AMYLASE 76 U/L (25-125); BILIRUBIN,TOTAL 0.5 MG/DL (0.1-1.0); BUN/CREATININE RATIO 10; CALCIUM 9.7 MG/DL (8.5-10.1); CARBON DIOXIDE 22 MMOL/L (21-32); CHLORIDE 105 MMOL/L (98-107); CREATININE SERUM 1.09 MG/DL (0.60-1.30); GFR ESTIMATED > 60; GLUCOSE 109 MG/DL (70-105); LIPASE 89 U/L (8-78); POTASSIUM 3.8 MMOL/L (3.6-5.0); SODIUM 138 MMOL/L (135-145); TOTAL PROTEIN 7.7 GM/DL (6.4-8.2)
[2018-11-16 21:34] LABS: BAND NEUTROPHILS 1 %; BASOPHILS % (MANUAL) 0 %; EOSINOPHILS % (MANUAL) 1 %; LYMPHOCYTES % (MANUAL) 36 %; MONOCYTES % (MANUAL) 4 %; NEUTROPHILS % (MANUAL) 58 %; RBC MORPH NORMAL
[2018-11-16 21:47] LABS: BILIRUBIN,URINE NEGATIVE (NEGATIVE); CLARITY,URINE CLEAR; COLOR,URINE YELLOW; GLUCOSE, URINE (UA) NEGATIVE (NEGATIVE); KETONES,URINE NEGATIVE (NEGATIVE); LEUKOCYTE ESTERASE ,URINE NEGATIVE (NEGATIVE); NITRITE,URINE NEGATIVE (NEGATIVE); PH,URINE 6 (5-9); PROTEIN,URINE NEGATIVE (NEGATIVE); UROBILINOGEN,URINE NORMAL (NORMAL)
[2018-11-16 21:57] LABS: BACTERIA,URINE NEGATIVE /HPF; RBC,URINE RARE /HPF; WBC,URINE 0-2 /HPF
--- NOTE | 2018-11-16 21:57 | Diagnostic Imaging Report ---
PROCEDURE: CT abdomen and pelvis without contrast. TECHNIQUE: Multiple contiguous axial images were obtained through the abdomen and pelvis without the use of intravenous contrast. Auto Exposure Controls were utilized during the CT exam to meet ALARA standards for radiation dose reduction. INDICATION: Upper abdominal pain and back pain with history of pancreatitis. COMPARISON with a previous study from 06/18/2018. FINDINGS: The lung bases demonstrate no focal infiltrate or evidence of an effusion. Implantable cardiac defibrillator device is noted. There is no pericardial collection. The noncontrast appearance of the liver is unremarkable. The gallbladder is nondistended. There is no radiodense gallstone or evidence of biliary dilatation. The spleen is normal in size. There is a small splenule. The pancreas demonstrates no evidence of a focal abnormality. There is some fatty atrophy of the pancreatic head and uncinate process. There is no adrenal mass. Kidneys again demonstrate bilateral perinephric fat stranding without evidence of calculus or hydronephrosis. The small and large bowel are normal in caliber without evidence of obstruction. Uncomplicated sigmoid diverticulosis is noted. The appendix appears normal. There is moderate stool within the colon. Urinary bladder unremarkable. There are no findings of pelvic free fluid. There is no free air, abscess, lymphadenopathy or focal inflammation within the omentum or mesentery. There is no acute or suspicious osseous abnormality within the visualized portion of the spine. IMPRESSION: 1. Persistent bilateral perinephric fat stranding. Urinary tract infection could not be excluded. There are no findings of urolithiasis or hydronephrosis. 2. No bowel obstruction. Uncomplicated diverticulosis is present. The appendix is normal. 3. No focal inflammation within the omentum or mesentery. There are no findings of free fluid. Dictated by: Dictated on workstation # [id number]
--- NOTE | 2018-11-16 22:12 | ED Abdominal Pain ---
General Chief Complaint: Abdominal/GI Problems Stated Complaint: ABD / BACK PAIN Nursing Triage Note: PT PRESENTS TO ED AMBULATORY FROM HOME TO ROOM 5, STATES EH WAS SEEN IN THIS ED YESTERDAY FOR THE SAME SYMPTOMS OF TODAY AND SEBT HOME WITH MEDS, PT STATES HE STILL HAS ONGOING RUQ ABD. PAIN THAT RADIATES TO THE R FLANK THAT IS NOT CONTROLLED BY MEDS. PT VERBALIZES SEVERAL LOOSE STOOLS TODAY, VERBALIZED HX OF PANCREATITIS. Sepsis Screen: No Definite Risk Source of Information: Patient Exam Limitations: No Limitations History of Present Illness Date Seen by Provider: Nov 16, 2018 Time Seen by Provider: 20:36 Allergies and Home Medications Allergies Coded Allergies: Fish Containing Products (Unverified Allergy, Unknown, 06/22/18) FROM UNCODED ALLERGY "SEAFOOD" Home Medications Aspirin/Acetaminophen/Caffeine 1 Each Tablet, 2 EACH PO Q8H PRN for HEADACHE, (Reported) Furosemide 20 Mg Tablet, 20 MG PO DAILY, (Reported) Hydrocodone Bit/Acetaminophen 1 Tab Tab, 1-2 EACH PO Q6H PRN for PAIN-MODERATE Prescribed by: BAKARI MORELOS on 11/15/18 2349 Insulin Detemir 100 Unit/1 Ml Insuln.pen, 50 UNIT SQ BID, (Reported) Linagliptin 5 Mg Tablet, 5 MG PO DAILY, (Reported) Liraglutide 0.6 Mg/0.1 Ml Pen.injctr, 0.6 SQ DAILY, (Reported) Metoprolol Succinate 25 Mg Tab.er.24h, 25 MG PO DAILY, (Reported) LAST PICKED UP 06-22-2018 FOR A 90 DAY SUPPLY Potassium Chloride 10 Meq Tablet.er, 10 MEQ PO DAILY, (Reported) Sacubitril/Valsartan 1 Each Tablet, 2 TAB PO DAILY, (Reported) Warfarin Sodium 5 Mg Tablet, 10 MG PO HS, (Reported) Past Axqjnyz-Sakiui-Qsknnn Hx Patient Social History Alcohol Use: Denies Use Recreational Drug Use: Yes Drug of Choice: marijuana Smoking Status: Current Everyday Smoker Type Used: Cigarettes Recent Foreign Travel: No Contact w/Someone Who Travel: No Recent Infectious Disease Expo: No Recent Hopitalizations: No Immunizations Up To Date Tetanus Booster (TDap): Unknown PED Vaccines UTD: Yes Seasonal Allergies Seasonal Allergies: Yes Past Medical History Surgeries: Yes (REPAIR OF TORN RETINA, RIGHT SHOULDER SURGERY, ppm/aicd) Eye Surgery Respiratory: No Sleep Apnea Currently Using CPAP: No Cardiac: Yes (CARDIAC STENT, chf) High Cholesterol, Hypertension Neurological: Yes Headaches /Migraines Genitourinary: No Gastrointestinal: Yes Pancreatitis Musculoskeletal: No Endocrine: Yes Diabetes, Insulin dep HEENT: Yes (DETACHED RETINA) Cancer: No Psychosocial: Yes Anxiety Integumentary: No Blood Disorders: Yes (SICKLE CELL TRAIT) Family Medical History No Pertinent Family Hx, Diabetes Physical Exam Vital Signs Vital Signs - First Documented 11/16/18 20:25 Temp 37.4 Pulse 102 Resp 20 B/P (MAP) 134/107 Pulse Ox 96 O2 Delivery Room Air Capillary Refill : Less Than 3 Seconds Height/Weight/BMI Height: 5'9.00" Weight: 270lbs. 0.0oz. 122.898959ed; 40.00 BMI Method:Stated Progress/Results/Core Measures Results/Orders Lab Results Laboratory Tests Test 11/16/18 20:36 11/16/18 21:40 Range/Units White Blood Count 15.1 H 4.3-11.0 10^3/uL Red Blood Count 5.23 4.35-5.85 10^6/uL Hemoglobin 15.7 13.3-17.7 G/DL Hematocrit 46 40-54 % Mean Corpuscular Volume 87 80-99 FL Mean Corpuscular Hemoglobin 30 25-34 PG Mean Corpuscular Hemoglobin Concent 34 32-36 G/DL Red Cell Distribution Width 14.4 10.0-14.5 % Platelet Count 252 130-400 10^3/uL Mean Platelet Volume 9.7 7.4-10.4 FL Neutrophils (%) (Auto) 57 42-75 % Lymphocytes (%) (Auto) 35 12-44 % Monocytes (%) (Auto) 7 0-12 % Eosinophils (%) (Auto) 1 0-10 % Basophils (%) (Auto) 0 0-10 % Neutrophils # (Auto) 8.6 H 1.8-7.8 X 10^3 Lymphocytes # (Auto) 5.3 H 1.0-4.0 X 10^3 Monocytes # (Auto) 1.0 0.0-1.0 X 10^3 Eosinophils # (Auto) 0.1 0.0-0.3 10^3/uL Basophils # (Auto) 0.0 0.0-0.1 10^3/uL Neutrophils % (Manual) 58 % Lymphocytes % (Manual) 36 % Monocytes % (Manual) 4 % Eosinophils % (Manual) 1 % Basophils % (Manual) 0 % Band Neutrophils 1 % Blood Morphology Comment NORMAL Sodium Level 138 135-145 MMOL/L Potassium Level 3.8 3.6-5.0 MMOL/L Chloride Level 105 98-107 MMOL/L Carbon Dioxide Level 22 21-32 MMOL/L Anion Gap 11 5-14 MMOL/L Blood Urea Nitrogen 11 7-18 MG/DL Creatinine 1.09 0.60-1.30 MG/DL Estimat Glomerular Filtration Rate > 60 BUN/Creatinine Ratio 10 Glucose Level 109 H 70-105 MG/DL Calcium Level 9.7 8.5-10.1 MG/DL Corrected Calcium 9.5 8.5-10.1 MG/DL Total Bilirubin 0.5 0.1-1.0 MG/DL Aspartate Amino Transf (AST/SGOT) 18 5-34 U/L Alanine Aminotransferase (ALT/SGPT) 16 0-55 U/L Alkaline Phosphatase 65 40-136 U/L Total Protein 7.7 6.4-8.2 GM/DL Albumin 4.3 3.2-4.5 GM/DL Amylase Level 76 25-125 U/L Lipase 89 H 8-78 U/L Urine Color YELLOW Urine Clarity CLEAR Urine pH 6 5-9 Urine Specific [place] 1.020 1.016-1.022 Urine Protein NEGATIVE NEGATIVE Urine Glucose (UA) NEGATIVE NEGATIVE Urine Ketones NEGATIVE NEGATIVE Urine Nitrite NEGATIVE NEGATIVE Urine Bilirubin NEGATIVE NEGATIVE Urine Urobilinogen NORMAL NORMAL MG/DL Urine Leukocyte Esterase NEGATIVE NEGATIVE Urine RBC (Auto) NEGATIVE NEGATIVE Urine RBC RARE /HPF Urine WBC 0-2 /HPF Urine Squamous Epithelial Cells 2-5 /HPF Urine Crystals NONE /LPF Urine Bacteria NEGATIVE /HPF Urine Casts NONE /LPF Urine Mucus SMALL H /LPF Urine Culture Indicated NO My Orders Orders - VERITO MOREJON Comprehensive Metabolic Panel (11/16/18 20:36) Lipase (11/16/18 20:36) Amylase (11/16/18 20:36) Ua Culture If Indicated (11/16/18 20:36) Ed Iv/Invasive Line Start (11/16/18 20:36) Cbc With Automated Diff (11/16/18 20:36) Ct Abdomen/Pelvis Wo (11/16/18 20:36) Ns Iv 1000 Ml (Sodium Chloride 0.9%) (11/16/18 20:45) Ketorolac Injection (Toradol Injection) (11/16/18 20:45) Manual Differential (11/16/18 20:36) Medications Given in ED Current Medications Medications Dose Ordered Sig/Nitesh Route Start Time Stop Time Status Last Admin Dose Admin Ketorolac Tromethamine 30 mg ONCE ONCE IVP 11/16/18 20:45 11/16/18 20:46 DC 11/16/18 20:40 30 MG Vital Signs/I&O 11/16/18 20:25 Temp 37.4 Pulse 102 Resp 20 B/P (MAP) 134/107 Pulse Ox 96 O2 Delivery Room Air Blood Pressure Mean: 116 Departure Impression Primary Impression: Abdominal pain Additional Impression: Pancreatitis Disposition: 01 HOME, SELF-CARE Condition: Stable/Unchanged Departure-Patient Inst. Decision time for Depature: 22:10 Referrals: [facility] (PCP) Primary Care Physician AMBREEN HERNANDEZ APRN (Family) Primary Care Physician Patient Instructions: Pancreatitis (DC) Add. Discharge Instructions: Continue medications as previously prescribed. Follow-up with Keyona Hernandez within 1 week for recheck. Return back to the emergency room for worsening symptoms or concerns as needed. All discharge instructions reviewed with patient and/or family. Voiced understanding. VERITO MOREJON Nov 16, 2018 22:12
[2018-11-16 22:37] VITALS: BP 125/89
== END 2018-11-16 22:43 | disposition home or self-care (01) ==
LOC: EDUNIT# 20:25 → ER 20:27
DX: K85.90 Acute pancreatitis without necrosis or infection, unspecified (principal); G47.30 Sleep apnea, unspecified; I11.0 Hypertensive heart disease with heart failure; I50.9 Heart failure, unspecified; E78.00 Pure hypercholesterolemia, unspecified; G43.909 Migraine, unspecified, not intractable, without status migrainosus; E11.9 Type 2 diabetes mellitus without complications; F41.9 Anxiety disorder, unspecified; F17.210 Nicotine dependence, cigarettes, uncomplicated; Z95.5 Presence of coronary angioplasty implant and graft; Z88.8 Allergy status to other drugs, medicaments and biological substances; Z79.82 Long term (current) use of aspirin; Z79.4 Long term (current) use of insulin; Z79.01 Long term (current) use of anticoagulants
CPT/HCPCS: 36415; 74176; 80053; 81000; 82150; 83690; 85007; 85027; 96361; 96374

== ENCOUNTER 2018-11-18 02:14 | Emergency (ER) | payer SELFPAY ==
[~2018-11-18] VITALS: Ht 175.2 cm; Wt 122.5 kg
--- NOTE | 2018-11-18 02:41 | ED Abdominal Pain ---
General Chief Complaint: Abdominal/GI Problems Stated Complaint: ABD PAIN Source of Information: Patient History of Present Illness Date Seen by Provider: Nov 18, 2018 Time Seen by Provider: 02:19 Initial Comments PT ARRIVES VIA POV FROM HOME C/O EPIGASTRIC AND RUQ PAIN, RADIATING TO RIGHT FLANK--PAIN BEGAN A FEW DAYS AGO STATES PAIN IS WORST IN RIGHT FLANK PAIN IS CONSTANT, BUT WAXES AND WANES IN INTENSITY NOTHING WORSENS OR IMPROVES PAIN NO NAUSEA/VOMITING HAD DIARRHEA X 1 TODAY NO FEVER NO URINARY SYMPTOMS NO PRIOR ABDOMINAL SURGERIES PT STATES HE TOOK 2 IBUPROFEN AROUND 1999 TONIGHT FOR THIS PROBLEM WITHOUT RELIEF. PT HAS HAD MULTIPLE VISITS HERE RECENTLY, AND 7 VISITS IN 2019 10/14/18--CHEST PAIN 11/04/18--HAD PACEMAKER/DEFIBRILLATOR PLACED--HAS CHF 11/15/18--FOR C/O ABDOMINAL PAIN --DX WITH PANCREATITIS--PT HAS HAD IN THE PAST, WELL 11/16/18--FOR C/O THIS SAME RUQ/RIGHT FLANK PAIN --CT ABDOMEN/PELVIS SHOWED BILATERAL PERINEPHRIC STRANDING, NO CALCIFICATIONS; UNCOMPLICATED DIVERTICULAR DISEASE; NO ACUTE PROCESS. PT STATES HE WAS HAVING A LITTLE PAIN OVER HIS PACEMAKER/LEFT UPPER CHEST EARLIE R THIS EVENING, AND WAS HAVING A LITTLE SHORTNESS OF BREATH EARLIER. NEITHER LASTED LONG, AND NEITHER ARE PRESENT NOW NO COUGH NO SWELLING IN LEGS/ FEET OR PAIN IN CALVES PT IS INSULIN-DEPENDENT DIABETIC--BLOOD GLUCOSE 199 YESTERDAY PT HAD AN APPOINTMENT ON Friday11/16/18 AT [facility] FOR THIS PROBLEM, AFTER BEING HERE ON FRIDAY--BUT DID NOT GO TO APPOINTMENT BECAUSE HE "DIDN'T FEEL GOOD". THEN CAME TO ER LATER INSTEAD. 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 Allergies and Home Medications Allergies Coded Allergies: Fish Containing Products (Unverified Allergy, Unknown, 11/18/18) FROM UNCODED ALLERGY "SEAFOOD" Home Medications Aspirin/Acetaminophen/Caffeine 1 Each Tablet, 2 EACH PO Q8H PRN for HEADACHE, (Reported) Dicyclomine HCl 20 Mg Tablet, 20 MG PO Q6H Prescribed by: JOCELYNN HALL on 11/18/18 0401 Furosemide 20 Mg Tablet, 20 MG PO DAILY, (Reported) Hydrocodone Bit/Acetaminophen 1 Tab Tab, 1-2 EACH PO Q6H PRN for PAIN-MODERATE Prescribed by: BAKARI MORELOS on 11/15/18 2349 Insulin Detemir 100 Unit/1 Ml Insuln.pen, 50 UNIT SQ BID, (Reported) Ketorolac Tromethamine 10 Mg Tablet, 10 MG PO Q6H Prescribed by: JOCELYNN HALL on 11/18/18400 Linagliptin 5 Mg Tablet, 5 MG PO DAILY, (Reported) Liraglutide 0.6 Mg/0.1 Ml Pen.injctr, 0.6 SQ DAILY, (Reported) Metoprolol Succinate 25 Mg Tab.er.24h, 25 MG PO DAILY, (Reported) LAST PICKED UP 06-22-2018 FOR A 90 DAY SUPPLY Pantoprazole Sodium 40 Mg Tablet.dr, 40 MG PO DAILY Prescribed by: JOCELYNN HALL on 11/18/18400 Potassium Chloride 10 Meq Tablet.er, 10 MEQ PO DAILY, (Reported) Sacubitril/Valsartan 1 Each Tablet, 2 TAB PO DAILY, (Reported) Tramadol HCl 50 Mg Tablet, 50 MG PO Q4H PRN for PAIN-MODERATE Prescribed by: JOCELYNN HALL on 11/18/18400 Warfarin Sodium 5 Mg Tablet, 10 MG PO HS, (Reported) Patient Home Medication List Home Medication List Reviewed: Yes Review of Systems Review of Systems Constitutional: no symptoms reported; No chills, No diaphoresis, No dizziness, No fever EENTM: No Symptoms Reported Respiratory: See HPI, Shortness of Air Cardiovascular: See HPI, Chest Pain; Denies Edema, Denies Lightheadedness, Denies Palpitations, Denies Syncope Gastrointestinal: See HPI, Abdominal Pain; Denies Constipated; Diarrhea; Denies Nausea, Denies Vomiting Genitourinary: No Symptoms Reported Musculoskeletal: see HPI, back pain Skin: no symptoms reported Psychiatric/Neurological: No Symptoms Reported Endocrine: No Symptoms Reported Hematologic/Lymphatic: No Symptoms Reported Past Yqxkbrz-Wpfyyg-Lcmwwy Hx Patient Social History Alcohol Use: Occasionally Uses Recreational Drug Use: Yes (THC) Drug of Choice: THC Smoking Status: Current Everyday Smoker ( 03/13 PPD) Type Used: Cigarettes (03/13 PPD) Recent Foreign Travel: No Contact w/Someone Who Travel: No Recent Hopitalizations: No Immunizations Up To Date Tetanus Booster (TDap): Unknown PED Vaccines UTD: Yes Seasonal Allergies Seasonal Allergies: Yes Past Medical History Surgeries: Yes (REPAIR OF TORN LEFT RETINA, RIGHT SHOULDER ROTATOR CUFF REPAIR; CARDIAC CATH 06/2018--NO INTERVENTION; PACEMAKER/DEFIBRILLATOR 11/04/18) Cardiac, Defibrillator, Eye Surgery, Orthopedic, Pacemaker Respiratory: Yes Sleep Apnea Currently Using CPAP: No Cardiac: Yes (CHF; NON - ISCHEMIC CARDIOMYOPATHY WITH EF 10-15%-- PACEMAKER/DEFIBRILLATOR 11/04/18; CARDIAC CATH 06/2018--NO INTERVENTION/NON- OCCLUSIVE DISEASE) Cardiomyopathy, High Cholesterol, Hypertension Neurological: Yes Headaches /Migraines Genitourinary: No Gastrointestinal: Yes Pancreatitis Musculoskeletal: No Endocrine: Yes Diabetes, Insulin dep HEENT: Yes (DETACHED LEFT RETINA REPAIR 2007) Cancer: No Psychosocial: Yes Anxiety Integumentary: No Blood Disorders: Yes (SICKLE CELL TRAIT) Family Medical History No Pertinent Family Hx, Diabetes Physical Exam Vital Signs Vital Signs - First Documented 11/18/18 02:19 Temp 36.3 Pulse 107 Resp 20 B/P (MAP) 169/120 (136) Pulse Ox 98 Capillary Refill : Height/Weight/BMI Height: 5'9.00" Weight: 270lbs. 0.0oz. 122.924680hm; 40.00 BMI Method:Stated General Appearance: no apparent distress, obese, other (ODOR OF CIGARETTES; FLAT AFFECT. ) HEENT: PERRL/EOMI (GLASSES) Neck: non-tender, full range of motion, supple, normal inspection Respiratory: normal breath sounds, no respiratory distress, no accessory muscle use, other (PACEMAKER/DEFIBRILLATOR SITE LEFT UPPER CHEST--HEALING WELL WITH NO SIGNS OF INFECTION) Cardiovascular: normal peripheral pulses, regular rate, rhythm, no edema, no JVD, no murmur Gastrointestinal: normal bowel sounds, soft, no organomegaly; No distended, No guarding, No rebound; tenderness (EPIGASTRIC AND RUQ WITH MILD TO MODERATE TENDERNESS; MODERATE TENDERNESS TO RIGHT FLANK); No hernia, No mass Extremities: normal range of motion, non-tender, normal inspection, no pedal edema, no calf tenderness, normal capillary refill Back: CVA tenderness (R) 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, no motor/sensory deficits, alert, normal mood/affect, oriented x 3 Skin: normal color (PT IS BLACK), warm/dry, tattoos/piercings (MUJLTIPLE TATTOOS) Progress/Results/Core Measures Results/Orders Lab Results Laboratory Tests Test 11/18/18 02:25 11/18/18 02:30 11/18/18 03:58 Range/Units White Blood Count 12.1 H 4.3-11.0 10^3/uL Red Blood Count 5.11 4.35-5.85 10^6/uL Hemoglobin 15.4 13.3-17.7 G/DL Hematocrit 45 40-54 % Mean Corpuscular Volume 89 80-99 FL Mean Corpuscular Hemoglobin 30 25-34 PG Mean Corpuscular Hemoglobin Concent 34 32-36 G/DL Red Cell Distribution Width 14.3 10.0-14.5 % Platelet Count 257 130-400 10^3/uL Mean Platelet Volume 10.0 7.4-10.4 FL Neutrophils (%) (Auto) 47 42-75 % Lymphocytes (%) (Auto) 44 12-44 % Monocytes (%) (Auto) 8 0-12 % Eosinophils (%) (Auto) 1 0-10 % Basophils (%) (Auto) 0 0-10 % Neutrophils # (Auto) 5.8 1.8-7.8 X 10^3 Lymphocytes # (Auto) 5.3 H 1.0-4.0 X 10^3 Monocytes # (Auto) 0.9 0.0-1.0 X 10^3 Eosinophils # (Auto) 0.1 0.0-0.3 10^3/uL Basophils # (Auto) 0.0 0.0-0.1 10^3/uL Prothrombin Time 17.7 H 12.2-14.7 SEC INR Comment 1.4 0.8-1.4 Activated Partial Thromboplast Time 33 24-35 SEC Sodium Level 140 135-145 MMOL/L Potassium Level 4.0 3.6-5.0 MMOL/L Chloride Level 107 98-107 MMOL/L Carbon Dioxide Level 19 L 21-32 MMOL/L Anion Gap 14 5-14 MMOL/L Blood Urea Nitrogen 16 7-18 MG/DL Creatinine 1.18 0.60-1.30 MG/DL Estimat Glomerular Filtration Rate > 60 BUN/Creatinine Ratio 14 Glucose Level 180 H 70-105 MG/DL Calcium Level 10.3 H 8.5-10.1 MG/DL Corrected Calcium 10.0 8.5-10.1 MG/DL Magnesium Level 1.7 1.6-2.4 MG/DL Total Bilirubin 0.4 0.1-1.0 MG/DL Aspartate Amino Transf (AST/SGOT) 19 5-34 U/L Alanine Aminotransferase (ALT/SGPT) 13 0-55 U/L Alkaline Phosphatase 64 40-136 U/L Total Creatine Kinase 493 H 30-200 U/L Creatine Kinase MB 1.8 <6.6 NG/ML Troponin I < 0.028 <0.028 NG/ML B-Type Natriuretic Peptide 68.6 <100.0 PG/ML Total Protein 7.9 6.4-8.2 GM/DL Albumin 4.4 3.2-4.5 GM/DL Amylase Level 91 25-125 U/L Lipase 130 H 8-78 U/L Serum Alcohol < 10 <10 MG/DL Glucometer 172 H 70-110 MG/DL Urine Color YELLOW Urine Clarity CLEAR Urine pH 6.5 5-9 Urine Specific [place] 1.020 1.016-1.022 Urine Protein NEGATIVE NEGATIVE Urine Glucose (UA) 2+ H NEGATIVE Urine Ketones NEGATIVE NEGATIVE Urine Nitrite NEGATIVE NEGATIVE Urine Bilirubin NEGATIVE NEGATIVE Urine Urobilinogen 1 NORMAL MG/DL Urine Leukocyte Esterase NEGATIVE NEGATIVE Urine RBC (Auto) NEGATIVE NEGATIVE Urine RBC NONE /HPF Urine WBC NONE /HPF Urine Squamous Epithelial Cells 2-5 /HPF Urine Crystals NONE /LPF Urine Bacteria NEGATIVE /HPF Urine Casts NONE /LPF Urine Mucus NEGATIVE /LPF Urine Culture Indicated NO Urine Opiates Screen NEGATIVE NEGATIVE Urine Oxycodone Screen NEGATIVE NEGATIVE Urine Methadone Screen NEGATIVE NEGATIVE Urine Propoxyphene Screen NEGATIVE NEGATIVE Urine Barbiturates Screen NEGATIVE NEGATIVE Ur Tricyclic Antidepressants Screen NEGATIVE NEGATIVE Urine Phencyclidine Screen NEGATIVE NEGATIVE Urine Amphetamines Screen NEGATIVE NEGATIVE Urine Methamphetamines Screen NEGATIVE NEGATIVE Urine Benzodiazepines Screen NEGATIVE NEGATIVE Urine Cocaine Screen NEGATIVE NEGATIVE Urine Cannabinoids Screen POSITIVE H NEGATIVE My Orders Orders - JOCELYNN HALL DO Accucheck Stat ONCE (11/18/18 02:29) Ed Iv/Invasive Line Start (11/18/18 02:29) Ekg Tracing (11/18/18 02:29) Monitor-Rhythm Ecg Trace Only (11/18/18 02:29) Alcohol (11/18/18 02:29) Amylase (11/18/18 02:29) BNP (11/18/18 02:29) Cbc With Automated Diff (11/18/18 02:29) Comprehensive Metabolic Panel (11/18/18 02:29) Creatine Kinase (11/18/18 02:29) Creatine Kinase Mb (11/18/18 02:29) Drug Screen Stat (Urine) (11/18/18 02:29) Lipase (11/18/18 02:29) Magnesium (11/18/18 02:29) Protime With Inr (11/18/18 02:29) Partial Thromboplastin Time (11/18/18 02:29) Ua Culture If Indicated (11/18/18 02:29) Troponin I (11/18/18 02:29) Ed Iv/Invasive Line Start (11/18/18 02:29) Ns Iv 1000 Ml (Sodium Chloride 0.9%) (11/18/18 02:29) Ketorolac Injection (Toradol Injection) (11/18/18 03:15) Fentanyl Injection (Sublimaze Injection (11/18/18 03:45) Medications Given in ED Current Medications Medications Dose Ordered Sig/Nitesh Route Start Time Stop Time Status Last Admin Dose Admin Fentanyl Citrate 50 mcg ONCE ONCE IVP 11/18/18 03:45 11/18/18 03:46 DC 11/18/18 03:47 50 MCG Ketorolac Tromethamine 30 mg ONCE ONCE IVP 11/18/18 03:15 11/18/18 03:16 DC 11/18/18 03:19 30 MG Sodium Chloride 1,000 ml @ 0 mls/hr Q0M ONCE IV 11/18/18 02:29 11/18/18 02:33 DC 11/18/18 02:43 1,000 MLS/HR Vital Signs/I&O 11/18/18 02:19 Temp 36.3 Pulse 107 Resp 20 B/P (MAP) 169/120 (136) Pulse Ox 98 FSBG Bedside Testing Finger Stick Blood Glucose: 172 Progress Progress Note : Progress Note MODERATE RELIEF WITH TORADOL--STATES IT HELPED THE PAIN IN HIS ABDOMEN, BUT HIS RIGHT FLANK IS STILL HURTING BP IS DOWN TO 140'S/90'S AFTER TORADOL GIVEN FENTANYL FOR PAIN WITH RESOLUTION OF PAIN FEMALE S.O. ARRIVES LATER, AND STATES THAT HE NEVER FILLED THE RX FOR HYDROCODONE, BECAUSE THE 4 PILLS HE WAS SENT HOME WITH THE OTHER DAY DID NOT HELP--SHE SAYS "YOU NEED TO GIVE HIM SOME THING STRONG THAT'S GOING TO WORK--LIKE SOME PERCOCETS" ADVISED OF NEED FOR FOLLOW UP WITH [facility] AND WILL ALSO REFER TO SURGEON FOR FURTHER EVALUATION. ADVISED OF POSSIBLE NEED FOR ADDITIONAL OUTPATIENT TESTS, INCLUDING ULTRASOUND AND/ OR HIDA SCAN, AND / OR EGD/COLONOSCOPY Departure Impression Primary Impression: RUQ AND RIGHT FLANK PAIN Additional Impressions: Uncontrolled 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 MILD PANCREATITIS Diabetes mellitus, insulin dependent (IDDM), uncontrolled POSSIBLE BILIARY COLIC Disposition: HOME, SELF-CARE Condition: Improved Departure-Patient Inst. Referrals: [facility] (PCP) Primary Care Physician AMBREEN MUÑOZ APRN (Family) Primary Care Physician DUNG MAN DO Patient Instructions: Acute Abdomen (Belly Pain), Adult (DC), Pancreatitis (DC), High Blood Pressure (DC), DASH Diet, Diabetes Diet , Diabetes Type 2 (DC) Add. Discharge Instructions: CONTINUE YOUR REGULAR MEDICATIONS PRESCRIBED LONG YOU ARE HAVING ABDOMINAL PAIN, ONLY DRINK CLEAR LIQUIDS AND EAT BRATS DIET: -CLEAR LIQUIDS--WATER, BROTH, JELLO, LOW SUGAR GATORADE -BRATS DIET--BANANAS, RICE, APPLESAUCE, TOAST, SALTINES FOLLOW UP WITH [facility] THIS WEEK FOR FURTHER CARE FOLLOW UP WITH DR. MAN, SURGEON, THIS WEEK FOR FURTHER CARE RETURN TO ER IF WORSE All discharge instructions reviewed with patient and/or family. Voiced understanding. Scripts Ketorolac Tromethamine (Ketorolac Tromethamine) 10 Mg Tablet 10 MG PO Q6H for Pain, #15 TAB Prov: JOCELYNN HALL DO 11/18/18 Dicyclomine HCl (Dicyclomine HCl) 20 Mg Tablet 20 MG PO Q6H for Abdominal Pain, #20 TAB Prov: JOCELYNN HALL K DO 11/18/18 Tramadol HCl (Ultram) 50 Mg Tablet 50 MG PO Q4H PRN for PAIN-MODERATE for 3 Days, TAB Prov: JOCELYNN HALL K DO 11/18/18 Pantoprazole Sodium (Protonix) 40 Mg Tablet. 40 MG PO DAILY, #15 TAB Prov: AWA HALLA Octavia DO 11/18/18 JOCELYNN HALL DO Nov 18, 2018 02:41
[2018-11-18] MEDS: NS IV 1000 ML 1,000 ML IV ONE (02:43)
[2018-11-18 02:47] LABS: BASOPHILS % (AUTO) 0 % (0-10); EOSINOPHILS # (AUTO) 0.1 10^3/uL (0.0-0.3); EOSINOPHILS % (AUTO) 1 % (0-10); HEMATOCRIT 45 % (40-54); HEMOGLOBIN 15.4 G/DL (13.3-17.7); LYMPHOCYTES # (AUTO) 5.3 X 10^3 (1.0-4.0); LYMPHOCYTES % (AUTO) 44 % (12-44); MEAN CORPUSCULAR HEMOGLOBIN 30 PG (25-34); MEAN CORPUSCULAR HGB CONC 34 G/DL (32-36); MEAN CORPUSCULAR VOLUME 89 FL (80-99); MONOCYTES # (AUTO) 0.9 X 10^3 (0.0-1.0); MONOCYTES % (AUTO) 8 % (0-12); NEUTROPHILS # (AUTO) 5.8 X 10^3 (1.8-7.8); NEUTROPHILS % (AUTO) 47 % (42-75); PLATELET COUNT 257 10^3/uL (130-400); RED CELL DISTRIBUTION WIDTH 14.3 % (10.0-14.5); WHITE BLOOD COUNT 12.1 10^3/uL (4.3-11.0)
[2018-11-18 02:56] LABS: INR 1.4 (0.8-1.4); PROTHROMBIN TIME PATIENT 17.7 SEC (12.2-14.7)
[2018-11-18 03:07] LABS: ALANINE AMINOTRANSFERASE 13 U/L (0-55); ALBUMIN 4.4 GM/DL (3.2-4.5); ALKALINE PHOSPHATASE 64 U/L (40-136); AMYLASE 91 U/L (25-125); BILIRUBIN,TOTAL 0.4 MG/DL (0.1-1.0); BUN/CREATININE RATIO 14; CALCIUM 10.3 MG/DL (8.5-10.1); CARBON DIOXIDE 19 MMOL/L (21-32); CHLORIDE 107 MMOL/L (98-107); CREATINE KINASE 493 U/L (30-200); CREATININE SERUM 1.18 MG/DL (0.60-1.30); GFR ESTIMATED > 60; GLUCOSE 180 MG/DL (70-105); LIPASE 130 U/L (8-78); MAGNESIUM 1.7 MG/DL (1.6-2.4); SODIUM 140 MMOL/L (135-145); TOTAL PROTEIN 7.9 GM/DL (6.4-8.2)
[2018-11-18 03:13] LABS: CREATINE KINASE MB 1.8 NG/ML (<6.6)
[2018-11-18] MEDS: KETOROLAC 30 MG/ML VIAL IVP ONE (03:19)
[2018-11-18] MEDS: fentaNYL INJECTION 100 MCG/2 ML AMP IVP ONE (03:47)
[2018-11-18] MEDS ORDERED: DICY20TA10 PO (04:01)
[2018-11-18] MEDS ORDERED: TRAM-42 PO (04:01)
[2018-11-18] MEDS ORDERED: PANT40TA2 PO (04:01)
[2018-11-18] MEDS ORDERED: KETO10TA PO (04:01)
[2018-11-18 04:04] LABS: BILIRUBIN,URINE NEGATIVE (NEGATIVE); CLARITY,URINE CLEAR; COLOR,URINE YELLOW; GLUCOSE, URINE (UA) 2+ (NEGATIVE); KETONES,URINE NEGATIVE (NEGATIVE); LEUKOCYTE ESTERASE ,URINE NEGATIVE (NEGATIVE); NITRITE,URINE NEGATIVE (NEGATIVE); PH,URINE 6.5 (5-9); PROTEIN,URINE NEGATIVE (NEGATIVE); UROBILINOGEN,URINE 1 MG/DL (NORMAL)
[2018-11-18 04:09] LABS: BACTERIA,URINE NEGATIVE /HPF
[2018-11-18 04:23] LABS: AMPHETAMINE SCREEN, URINE NEGATIVE (NEGATIVE); BARBITURATE SCREEN URINE NEGATIVE (NEGATIVE); BENZODIAZEPINES SCREEN URINE NEGATIVE (NEGATIVE); CANNABINOID SCREEN, URINE POSITIVE (NEGATIVE); COCAINE SCREEN URINE NEGATIVE (NEGATIVE); METHADONE STAT NEGATIVE (NEGATIVE); METHAMPHETAMINE SCREEN URINE S NEGATIVE (NEGATIVE); OPIATE SCREEN URINE NEGATIVE (NEGATIVE); OXYCODONE STAT NEGATIVE (NEGATIVE); PROPOXYPHENE STAT NEGATIVE (NEGATIVE); TRICYCLIC ANTIDEPRESSANTS SCRE NEGATIVE (NEGATIVE)
[2018-11-18 04:40] VITALS: BP 150/112
== END 2018-11-18 04:43 | disposition home or self-care (01) ==
LOC: EDUNIT# 02:14 → ER 02:16
DX: K85.90 Acute pancreatitis without necrosis or infection, unspecified (principal); I11.0 Hypertensive heart disease with heart failure; I50.9 Heart failure, unspecified; E11.9 Type 2 diabetes mellitus without complications; G47.30 Sleep apnea, unspecified; I42.9 Cardiomyopathy, unspecified; E78.00 Pure hypercholesterolemia, unspecified; G43.909 Migraine, unspecified, not intractable, without status migrainosus; F41.9 Anxiety disorder, unspecified; F17.210 Nicotine dependence, cigarettes, uncomplicated; Z95.0 Presence of cardiac pacemaker; Z91.018 Allergy to other foods; Z79.82 Long term (current) use of aspirin; Z79.4 Long term (current) use of insulin; Z79.01 Long term (current) use of anticoagulants
CPT/HCPCS: 36415; 80053; 80306; 80320; 81000; 82150; 82550; 82553; 82962; 83690; 83735; 83880; 84484; 85025; 85610; 85730; 93005; 93041; 96361; 96374; 96375

== ENCOUNTER → 2019-07-15 | Outpatient (CLI) | payer SELFPAY ==
[~2019-07-15] MED LIST changes: +DICY20TA10 PO; +KETO10TA PO; -METO-387 PO; -METO-395 PO; +MTP100TCR PO; +MTP25TSR PO; +PANT40TA2 PO; -SACU1TAB PO; +SACU1TAB2 PO; +TRAM-42 PO
== END ==
LOC: CARD 14:19
PROVIDERS: ATTEND Internal Medicine Cardiovascular Disease
DX: I34.0 Nonrheumatic mitral (valve) insufficiency (principal); I50.9 Heart failure, unspecified; I51.89 Other ill-defined heart diseases; I51.7 Cardiomegaly
CPT/HCPCS: 93306

== ENCOUNTER 2019-09-11 12:47 | Emergency (ER) | payer SELFPAY ==
[~2019-09-11] VITALS: Ht 175.2 cm; Wt 127.2 kg
--- OUTSIDE RECORDS SUMMARY | 2019-09-11 12:58 | XMS REPORT ---
Author Author Umberto MUÑOZ [facility] Address [address] [place] [address] Care Team Providers Care Fashion Director Party Plan Sales Name Role Phone AMBREEN MUÑOZ Unavailable PROBLEMS Type Condition ICD9-CM Code CGZ69-OF Code Onset Dates Condition S tatus SNOMED Code Problem Atrial thrombus I51.3 Active 1951 35462 Problem 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 I10 Active 17447068 Problem History of pancreatitis Z87.19 Active 72206847423771 Problem Mixed hyperlipidemia E78.2 Active 435255227 Problem manager terminal 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 Active 222496708 Problem CHEIKH (obstructive sleep apnea) G47.33 Active 72793845 Problem Noncompliance with medication regimen Z91.14 Active 699609524 Problem Tobacco abuse Z72.0 Active 255683 000 Problem Carpal tunnel syndrome on both sides G56.03 Active 58186422260709231 Problem Diabetes E11.9 Active 149793384 Problem senior care current use of anticoagulant Z79.01 Active 698461416 Problem Erectile dysfunction due to diseases classified elsewhere N52.1 Active 754737593 Problem Cardiomyopathy I42.9 Active 72799 001 Problem Type 2 diabetes mellitus with hyperglycemia E11.65 Active 39326123 Problem Gastro-esophageal reflux disease without esophagitis K21.9 Active 369506883 Problem Gastroesophageal reflux disease, esophagitis pre sence not specified K21.9 Active 153694809 Problem Acute systolic heart failure I50.21 A ctive 809042534 Problem Type 2 diabetes mellitus without complication E11. 9 Active 333528450 ALLERGIES Substance Reaction Event Type Date Status Metformin HCl diarrhea Drug Allergy May, Active ENCOUNTERS Encounter Location Date Diagnosis [facility] [address] [id number] [place] [address] Feb, CHEIKH (obstructive sleep apnea) G47.33 [facility] [address] [facility] [place] [address] Feb, [place] [address] [address] Feb, Atrial thrombus I51.3 [place] [address] [address] Feb, Type 2 diabetes mellitus with hyperglyce landy E11.65 [place] [address] [address] Jan, Type 2 diabetes mellitus with hyperglyce landy E11.65 ; 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 I10 ; CHEIKH (obstructive sleep apnea) G47.33 ; Cardiomyopathy I42.9 and Acute systolic heart failure I50.21 [place] [address] [address] Dec, Encounter for therapeutic drug level mon itoring Z51.81 [place] [address] [address] Nov, [place] [address] [address] Nov, [place] [address] [address] Nov, Encounter for therapeutic drug level mon itoring Z51.81 [place] [address] [address] Nov, Acute systolic heart failure I50.21 [place] [address] [address] Oct, Encounter for therapeutic drug level mon itoring Z51.81 [place] [address] [address] Sep, manager terminal current use of anticoagulant Z 79.01 [place] [address] [address] Sep, Type 2 diabetes mellitus with hyperglyce landy E11.65 and Acute systolic heart failure I50.21 [place] [address] [address] Sep, Encounter for therapeutic drug level mon itoring Z51.81 [facility] [address] [address] July, [facility] [address] [address] July, Type 2 diabetes mellitus with hyperglyce landy E11.65 [facility] [address] [facility] [id number] [place] [address] July, Sore throat J02.9 [facility] [address] [address] July, Type 2 diabetes mellitus with hyperglyce landy E11.65 [facility] [address] [address] Jun, [facility] [address] [address] Jun, [facility] [address] [address] Jun, 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 I10 ; Type 2 diab etes mellitus with hyperglycemia E11.65 and Acute systolic heart failure I50.21 [facility] [address] [address] Jun, [facility] [address] [address] Jun, [facility] [address] [address] Jun, Chronic cough R05 ; Type 2 diabetes dajuan itus with hyperglycemia E11.65 ; Gastroesophageal reflux disease, esophagitis presence not specified K21.9 ; Diabetes E11.9 and Murmur R01.1 [facility] [address] [address] Jun, [facility] [address] [address] May, [facility] [address] [address] May, Type 2 diabetes mellitus with hyperglyce landy E11.65 ; Chronic cough R05 ; Gastroesophageal reflux disease, esophagitis presence not specified K21.9 ; Murmur R01.1 and Diabetes E11.9 [facility] [address] [place] [id number] [place] [address] Apr, Acute URI J06.9 [place] [address] [address] Dec, Diabetes E11.9 [place] [address] [address] Dec, [place] [address] [address] Dec, Diabetes E11.9 and Encounter for immuniz ation Z23 [facility] [address] [place] [id number] [place] [address] Nov, Upper respiratory tract infe ction, unspecified type J06.9 and Nasal congestion with rhinorrhea J34.89 [place] [address] [address] Sep, [place] [address] [address] Sep, Type 2 diabetes mellitus with hyperglyce landy E11.65 ; senior care 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 ; Pain of left hand M79.642 ; Pain in right hand M79.641 ; Carpal tunnel syndrome on both sides G56.03 and Thumb tendonitis M77.8 [place] [address] [address] Sep, Type 2 diabetes mellitus with hyperglyce landy E11.65 [place] [address] [address] Sep, Type 2 diabetes mellitus with hyperglyce landy E11.65 [place] [address] [address] Sep, Type 2 diabetes mellitus with hyperglyce landy E11.65 [place] [address] [address] July, Type 2 diabetes mellitus with hyperglyce landy E11.65 ; URI, acute J06.9 and Neck pain, acute M54.2 [place] [address] [address] Jun, [place] [address] [address] Apr, [place] [address] [address] Mar, Type 2 diabetes mellitus with hyperglyce landy E11.65 ; manager terminal 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 ; 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 I10 ; Mixed hyperlipidemia E78.2 ; Noncompliance with medication regimen Z91.14 ; Tobacco abuse Z72.0 ; CHEIKH (obstructive sleep apnea) G47.33 ; BMI 40.0-44.9, adult Z68.41 and Erectile dysfunction due to diseases classified elsewhere N52.1 [place] [address] [address] Feb, Mixed hyperlipidemia E78.2 [place] [address] [address] Nov, [place] [address] [address] Nov, [place] [address] [address] Nov, [place] [address] [address] Nov, Type 2 diabetes mellitus without complic ation E11.9 [place] [address] [address] Oct, Type 2 diabetes mellitus without complic ation E11.9 ; 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 I10 ; senior care 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 ; Mixed hyperlipidemia E78.2 ; Noncompliance with medication regimen Z91.14 and CHEIKH (obstructive sleep apnea) G47.33 [place] [address] [address] Sep, [facility] [address] [address] Jun, Other chest pain R07.89 [facility] [address] [address] Jun, Other chest pain R07.89 [facility] [address] [address] Jun, Other chest pain R07.89 [place] [address] [address] May, [place] [address] [address] May, Type 2 diabetes mellitus without complic ation E11.9 [place] [address] [address] Apr, Type 2 diabetes mellitus without complic ation E11.9 ; 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 I10 ; manager terminal 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 ; Mixed hyperlipidemia E78.2 and Noncompliance with medication regimen Z91.14 [place] [address] [address] Apr, [facility] [place] [address] [place] [id number] [place] [address] Jan, Idiopathic acute pancreatiti s, unspecified complication status K85.00 [place] [address] [address] Jan, [facility] [address] [place] [id number] [place] [address] Dec, Impacted cerumen of left ear H61.22 [place] [address] [address] Dec, [place] [address] [address] Dec, [place] [address] [address] Dec, [facility] [address] [address] Oct, [facility] [address] [address] Oct, [facility] [address] [address] Oct, Type 2 diabetes mellitus without complic ation E11.9 ; 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 I10 ; senior care 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 ; Acid reflux K21.9 and History of sleep apnea Z87.09 [place] [address] [address] Sep, [place] [address] [address] Sep, [place] [address] [address] July, [place] [address] [address] July, [place] [address] [address] July, Type 2 diabetes mellitus without complic ation E11.9 and 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 I10 [place] [address] [address] Jun, Type 2 diabetes mellitus without complic ation E11.9 ; manager terminal 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 ; 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 I10 ; Acid reflux K21.9 and Pain in right shoulder M25.511 [place] [address] [address] Jun, [place] [address] [address] Jun, History of pancreatitis Z87.19 [place] [address] [address] 04 Apr, 2016 History of pancreatitis Z87.19 [facility] [address] [address] May, [facility] [address] [address] May, [place] [address] [address] May, Type 2 diabetes mellitus without complic ation E11.9 ; senior care 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 ; History of pancreatitis Z87.19 ; 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 I10 ; Acid reflux K21.9 and Left upper quadrant pain R10.12 [place] [address] [address] May, Type 2 diabetes mellitus without complic ation E11.9 ; manager terminal 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 ; History of pancreatitis Z87.19 ; 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 I10 ; Acid reflux K21.9 ; Dyspnea R06.00 and Sterilization consult Z30.09 [facility] [address] [id number] Apr, 2015 Encounter for dental examination and margarita aning without abnormal findings Z01.20 [place] [address] [address] 17 Apr, 2015 Type 2 diabetes mellitus without complic ation E11.9 ; manager terminal 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 ; History of pancreatitis Z87.19 ; 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 I10 ; Acid reflux K21.9 and Dyspnea R06.00 [facility] [address] [id number] 17 Apr, 2015 Dental examination Z01.20 [place] [address] [address] Mar, [place] [address] [address] Feb, [place] [address] [address] Feb, Type 2 diabetes mellitus without complic ation E11.9 ; manager terminal 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 ; History of pancreatitis Z87.19 ; 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 I10 ; Acid reflux K21.9 ; Dyspnea R06.00 and Sterilization consult Z30.09 [place] [address] [address] Dec, Type 2 diabetes mellitus without complic ations E11.9 and manager terminal 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 [place] [address] [address] Oct, [place] [address] [address] Sep, [place] [address] [address] Sep, [place] [address] [address] Sep, Hypertension 401.9 ; Diabetes 250.00 and Hyperlipidemia 272.4 IMMUNIZATIONS No Known Immunizations SOCIAL HISTORY Never Assessed REASON FOR VISIT Diabetes check up- RAYMUNDO Shine, pt also c/o cough that will not go away and stat es he has been having some breathing issues- RAYMUNDO Shine PLAN OF CARE Activity Details Follow Up 4 Weeks Reason:DM VITAL SIGNS Height 69 in 2018-05-27 Weight 256.3 lbs 2018-05-27 Temperature 97.9 degrees Fahrenheit 2018-05-27 Heart Rate 91 bpm 2018-05-27 Respiratory Rate 18 2018-05-27 Oximetry 99 % 2018-05-27 BMI 37.84 kg/m2 2018-05-27 Blood pressure systolic 122 mmHg 2018-05-27 Blood pressure diastolic 86 mmHg 2018-05-27 MEDICATIONS Medication Instructions Dosage Frequency Start Date End Date Duration S tatus Tresiba FlexTouch 200 UNIT/ML Subcutaneous Once a day 50 units 24h May, 30 days Active Pantoprazole Sodium 20 mg Orally Once a day 1 tablet 24h May 30 day(s) Active NovoLog Flexpen 100 UNIT/ML Subcutaneous 3 times a day 10 units tid 8h Active Glimepiride 2 MG Orally Once a day 1 tablet with breakf ast or the first main meal of the day 24h Mar, Active Test strips test strips test 3 times per day 13 Kostas, 201 6 Active Viagra 100 MG TAKE ONE (1) TABLET BY MOUTH ONCE DAILY NEEDED 10 Active Amlodipine Besylate 5 mg Orally Once a day 1 tablet 24h 30 Oct, 2016 Active Losartan Potassium-HCTZ 100-25 MG Orally Once a day 1 tablet 24h Active Insulin Pen Needle 32G X 4 MM as directed Active ProAir HFA 108 (90 Base) MCG/ACT Inhalation every 6 hrs 2 puffs as needed 6h 20 Apr, 2018 7 days Active Pravastatin Sodium 80 MG Orally Once a day 1 tablet 24h 30 days Active RESULTS No Results PROCEDURES Procedure Date Ordered Result Body Site GLYCATED HEMOGLOBIN TEST May 27, 2018 VENIPUNCT, ROUTINE* May 27, 2018 [facility] May 27, 2018 X-RAY EXAM CHEST 2 VIEWS May 27, 2018 INSTRUCTIONS MEDICATIONS ADMINISTERED No Known Medications MEDICAL (GENERAL) HISTORY Type Description Date Medical History 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 Blas in [facility] rdiologist Medical History Heart Cath 2011 Medical History Hypertension Medical History History of pancreatitis Medical History 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 Medical History Mixed hyperlipidemia Medical History Noncompliance with medication regimen Medical History CHEIKH (obstructive sleep apnea) Medical History Type 2 diabetes mellitus with hyperglyce landy Medical History CHF Surgical History retinal pucker repair Surgical History heart cath 2011 Surgical History Right shoulder surgery Hospitalization History Pancreatitis, DMII july 2014 Hospitalization History CHF 06/18/2018-06/22
--- OUTSIDE RECORDS SUMMARY | 2019-09-11 12:58 | XMS REPORT ---
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 Active 043708576 Problem CHEIKH (obstructive sleep apnea) G47.33 Active 81910522 Problem Noncompliance with medication regimen Z91.14 Active 501706496 Problem Tobacco abuse Z72.0 Active 062920 000 Problem Carpal tunnel syndrome on both sides G56.03 Active [id number] Problem Diabetes E11.9 Active 659089343 Problem penitentiary current use of anticoagulant Z79.01 Active 457030624 Problem Erectile dysfunction due to diseases classified elsewhere N52.1 Active 624936210 Problem Cardiomyopathy I42.9 Active 85117 001 Problem Type 2 diabetes mellitus with hyperglycemia E11.65 Active 30504188 Problem Gastro-esophageal reflux disease without esophagitis K21.9 Active 001956630 Problem Gastroesophageal reflux disease, esophagitis pre sence not specified K21.9 Active 771034159 Problem Acute systolic heart failure I50.21 A ctive 275428485 Problem Type 2 diabetes mellitus without complication E11. 9 Active 716901699 ALLERGIES No Information ENCOUNTERS Encounter Location Date Diagnosis [facility] [address] [facility] [id number] [address] [place] [id number] May, [facility] [address] [facility] [id number] [address] [place] [id number] Apr, Atrial thrombus I51.3 [facility] [address] [place] [id number] [address] [place] [id number] 03 Apr, 2019 Scratch mirian T14.8XXA and De rmatitis L30.9 [facility] [address] [place] [id number] [address] [place] [id number] Feb, CHEIKH (obstructive sleep apnea ) G47.33 [place] [address] [address] Feb, [place] [address] [address] Feb, Atrial thrombus I51.3 [place] [address] [address] Feb, Type 2 diabetes mellitus wit h hyperglycemia E11.65 [place] [address] [address] Jan, Type 2 diabetes mellitus wit h hyperglycemia E11.65 ; 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 I10 ; CHEIKH (obstructive sleep apnea) G47.33 ; Cardiomyopathy I42.9 and Acute systolic heart failure I50.21 [place] [address] [address] Dec, Encounter for therapeutic dr ug level monitoring Z51.81 [place] [address] [place] [id number] [address] [place] [id number] Nov, [place] [address] [place] [id number] [place] [phone] Nov, [place] [address] [place] [id number] [address] [place] [id number] Nov, Encounter for therapeutic dr ug level monitoring Z51.81 [place] [address] [facility] [id number] [address] [place] [id number] Nov, Acute systolic heart failure I50.21 [facility] [address] [facility] [id number] [address] [place] [phone] Oct, Encounter for therapeutic dr ug level monitoring Z51.81 [facility] [address] [id number] [address] [place] [id number] Sep, penitentiary current use of ant icoagulant Z79.01 [facility] [address] [id number] [address] [place] [id number] 30 Sep, 2018 Type 2 diabetes mellitus wit h hyperglycemia E11.65 and Acute systolic heart failure I50.21 [facility] [address] [id number] [address] [place] [id number] Sep, Encounter for therapeutic dr ug level monitoring Z51.81 [facility] [address] [id number] [address] [place] [id number] July, [facility] [address] [id number] [address] [place] [id number] July, Type 2 diabetes mellitus wit h hyperglycemia E11.65 [facility] [address] [id number] [address] [place] [phone] July, Sore throat J02.9 [facility] [address] [id number] [address] [place] [id number] July, Type 2 diabetes mellitus wit h hyperglycemia E11.65 [facility] [address] [id number] [address] [place] [id number] Jun, [facility] [address] [id number] [address] [place] [id number] Jun, [facility] [address] [id number] [address] [place] [address] Jun, 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 I10 ; Type 2 diabetes mellitus with hyperglycemia E11.65 and Acute systolic heart failure I50.21 [facility] [address] [id number] [address] [place] [id number] 16 Jun, 2018 [facility] [address] [facility] [id number] [address] [place] [phone] Jun, [facility] [address] [id number] [address] [place] [address] Jun, Chronic cough R05 ; Type 2 d iabetes mellitus with hyperglycemia E11.65 ; Gastroesophageal reflux disease, esophagitis presence not specified K21.9 ; Diabetes E11.9 and Murmur R01.1 [facility] [address] [facility] [id number] [address] [place] [id number] Jun, [facility] [address] [facility] [id number] [address] [place] [id number] May, [facility] [address] [facility] [id number] [address] [place] [id number] May, Type 2 diabetes mellitus wit h hyperglycemia E11.65 ; Chronic cough R05 ; Gastroesophageal reflux disease, esophagitis presence not specified K21.9 ; Murmur R01.1 and Diabetes E11.9 [facility] [address] [facility] [id number] [address] [place] [id number] Apr, Acute URI J06.9 [facility] [address] [facility] [id number] [address] [place] [id number] Dec, Diabetes E11.9 [facility] [address] [facility] [id number] [address] [place] [phone] Dec, [facility] [address] [facility] [id number] [address] [place] [phone] Dec, Diabetes E11.9 and Encounter for immunization Z23 [facility] [address] [facility] [id number] [address] [place] [id number] Nov, Upper respiratory tract infe ction, unspecified type J06.9 and Nasal congestion with rhinorrhea J34.89 [facility] [address] [facility] [id number] [address] [place] [phone] Sep, [facility] [address] [facility] [id number] [address] [place] [id number] Sep, Type 2 diabetes mellitus wit h hyperglycemia E11.65 ; penitentiary 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 ; Pain of left hand M79.642 ; Pain in right hand M79.641 ; Carpal tunnel syndrome on both sides G56.03 and Thumb tendonitis M77.8 [place] [address] [address] Sep, Type 2 diabetes mellitus wit h hyperglycemia E11.65 [place] [address] [address] Sep, Type 2 diabetes mellitus wit h hyperglycemia E11.65 [place] [address] [address] Sep, Type 2 diabetes mellitus wit h hyperglycemia E11.65 [place] [address] [address] July, Type 2 diabetes mellitus wit h hyperglycemia E11.65 ; URI, acute J06.9 and Neck pain, acute M54.2 [place] [address] [address] Jun, [place] [address] [address] Apr, [place] [address] [address] Mar, Type 2 diabetes mellitus wit h hyperglycemia E11.65 ; 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 stripper 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 ; 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 I10 ; Mixed hyperlipidemia E78.2 ; Noncompliance with medication regimen Z91.14 ; Tobacco abuse Z72.0 ; CHEIKH (obstructive sleep apnea) G47.33 ; BMI 40.0-44.9, adult Z68.41 and Erectile dysfunction due to diseases classified elsewhere N52.1 [place] [address] [address] Feb, Mixed hyperlipidemia E78.2 [place] [address] [address] Nov, [place] [address] [address] Nov, [facility] [address] [id number] [address] [place] [id number] Nov, [facility] [address] [facility] [id number] [address] [place] [id number] Nov, Type 2 diabetes mellitus wit hout complication E11.9 [facility] [address] [facility] [id number] [address] [place] [address] Oct, Type 2 diabetes mellitus wit hout complication E11.9 ; 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 I10 ; penitentiary 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 ; Mixed hyperlipidemia E78.2 ; Noncompliance with medication regimen Z91.14 and CHEIKH (obstructive sleep apnea) G47.33 [facility] [address] [facility] [id number] [address] [place] [id number] Sep, [facility] [address] [facility] [id number] [address] [place] [id number] Jun, Other chest pain R07.89 [facility] [address] [facility] [id number] [address] [place] [id number] Jun, Other chest pain R07.89 [facility] [address] [facility] [id number] [address] [place] [address] Jun, Other chest pain R07.89 [facility] [address] [facility] [id number] [address] [place] [id number] May, [facility] [address] [facility] [id number] [address] [place] [id number] May, Type 2 diabetes mellitus wit hout complication E11.9 [facility] [address] [id number] [address] [place] [id number] Apr, Type 2 diabetes mellitus wit hout complication E11.9 ; 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 I10 ; paper stripper 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 ; Mixed hyperlipidemia E78.2 and Noncompliance with medication regimen Z91.14 [facility] [address] [facility] [id number] [address] [place] [address] Apr, [facility] [address] [id number] [address] [place] [id number] Jan, Idiopathic acute pancreatiti s, unspecified complication status K85.00 [facility] [address] [id number] [address] [place] [id number] Jan, [facility] [address] [id number] [address] [place] [address] Dec, Impacted cerumen of left ear H61.22 [facility] [address] [id number] [address] [place] [id number] Dec, [facility] [address] [id number] [address] [place] [phone] Dec, [facility] [address] [facility] [id number] [address] [place] [id number] Dec, [facility] [address] [facility] [id number] [address] [place] [id number] Oct, [facility] [address] [facility] [id number] [address] [place] [id number] Oct, [facility] [address] [facility] [id number] [address] [place] [address] Oct, Type 2 diabetes mellitus wit hout complication E11.9 ; 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 I10 ; penitentiary 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 ; Acid reflux K21.9 and History of sleep apnea Z87.09 [facility] [address] [facility] [id number] [address] [place] [id number] Sep, [facility] [address] [id number] [address] [place] [id number] Sep, [facility] [address] [facility] [id number] [address] [place] [address] July, [facility] [address] [facility] [id number] [address] [place] [id number] July, [facility] [id number] [place] [id number] July, Type 2 diabetes mellitus wit hout complication E11.9 and 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 I10 [place] [address] [address] Jun, Type 2 diabetes mellitus wit hout complication E11.9 ; penitentiary 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 ; 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 I10 ; Acid reflux K21.9 and Pain in right shoulder M25.511 [place] [address] [place] [id number] [address] [place] [id number] Jun, [place] [address] [address] Jun, History of pancreatitis Z87. 19 [place] [address] [address] Jun, History of pancreatitis Z87. 19 [place] [address] [place] [id number] [address] [place] [address] May, [place] [address] [address] May, [place] [address] [address] May, Type 2 diabetes mellitus wit hout complication E11.9 ; penitentiary 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 ; History of pancreatitis Z87.19 ; 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 I10 ; Acid reflux K21.9 and Left upper quadrant pain R10.12 [place] [address] [place] [id number] [address] [place] [address] 03 May, 2015 Type 2 diabetes mellitus wit hout complication E11.9 ; penitentiary 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 ; History of pancreatitis Z87.19 ; 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 I10 ; Acid reflux K21.9 ; Dyspnea R06.00 and Sterilization consult Z30.09 [facility] [address] [facility] [id number] [address] [place] [id number] Apr, Encounter for dental examina tion and cleaning without abnormal findings Z01.20 [facility] [address] [facility] [id number] [address] [place] [id number] 17 Apr, 2015 Type 2 diabetes mellitus wit hout complication E11.9 ; penitentiary 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 ; History of pancreatitis Z87.19 ; 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 I10 ; Acid reflux K21.9 and Dyspnea R06.00 [facility] [address] [id number] [address] [place] [id number] 17 Apr, 2015 Dental examination Z01.20 [facility] [address] [place] [id number] [address] [place] [id number] 05 Mar, 2015 [place] [address] [address] Feb, [place] [address] [address] Feb, Type 2 diabetes mellitus wit hout complication E11.9 ; 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 stripper 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 ; History of pancreatitis Z87.19 ; 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 I10 ; Acid reflux K21.9 ; Dyspnea R06.00 and Sterilization consult Z30.09 [place] [address] [address] Dec, Type 2 diabetes mellitus wit hout complications E11.9 and penitentiary 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 [place] [address] [address] Oct, [place] [address] [place] [id number] [address] [place] [id number] Sep, [place] [address] [address] Sep, [place] [address] [address] Sep, Hypertension 401.9 ; Diabete s 250.00 and Hyperlipidemia 272.4 IMMUNIZATIONS No Known Immunizations SOCIAL HISTORY Never Assessed REASON FOR VISIT Prior Authorization Request PLAN OF CARE VITAL SIGNS MEDICATIONS Medication Instructions Dosage Frequency Start Date End Date Duration S shamir Victoza 18 MG/3ML 0.6 mg daily x 1 week then in crease to 1.2mg daily May, 30 days Active RESULTS No Results PROCEDURES No Known procedures INSTRUCTIONS MEDICATIONS ADMINISTERED No Known Medications MEDICAL (GENERAL) HISTORY Type Description Date Medical History 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 Blas in [facility] rdiologist Medical History Heart Cath 2011 Medical [...]
[2019-09-11] MEDS ORDERED: HYDROcodone/APAP 5 MG/325 MG (LORTAB) TAB PO ONE (13:00)
--- OUTSIDE RECORDS SUMMARY | 2019-09-11 13:00 | XMS REPORT | Continuity of Care Document ---
Demographics Preferred Language Unknown Marital Status Unknown Catholic Affiliation Unknown Race Unknown Ethnic Group Unknown Author Organization Unknown Address Unknown Phone Unavailable Allergies Active Description Code Type Severity Reaction Onset Reported/Identified Relationship to Patient Clinical Status Yes metformin [id number] Drug Allergy Mild diarrhea 07/29/2014 Yes No Known Drug Allergies [id number] Drug Allergy Unknown N/A 12/06/2015 Yes SEAFOOD SEAFOOD Unknown N/A 06/18/2018 Yes Fish Containing Products [id number] Drug Allergy Unknown N/A 11/18/2018 Medications There is no data. Problems Date Dx Coded Attending Type Code Diagnosis Diagnosed By 05/11/2011 Ot 831.01 ANT DISLOC HUMERUS-CLOSE 05/11/2011 Ot 959.2 SHLD R/UPPER ARM INJ NOS 05/11/2011 Ot E000.8 OTH ER EXTERNAL CAUSE STATUS 05/11/2011 Ot E006.0 ACT IVITIES INVOLVING ROLLER SKATING (INL 05/11/2011 Ot E849.4 ACC ID IN RECREATION AREA 05/11/2011 Ot E885.2 ACC IDENT DUE TO SKATEBOARD 07/14/2013 JOCELYNN HALL DO Ot 401.9 HYPERTENSION NOS 07/14/2013 JOCELYNN HALL DO Ot 784.7 EPISTAXIS 07/14/2013 JOCELYNN HALL DO Ot V15.81 HX OF PAST NONCOMPLIANCE 12/29/2013 BLADIMIR OBRIEN APRN Ot 719.41 JOINT PAIN-SHLDER 12/29/2013 BLADIMIR OBRIEN APRN Ot 959 .2 SHLDR/UPPER ARM INJ NOS 12/29/2013 BLADIMIR OBRIEN CONTINUOUS IMPROVEMENT MANAGER Ot E000.8 OTHER EXTERNAL CAUSE STATUS 12/29/2013 BLADIMIR OBRIEN APRN Ot E928.9 ACCIDENT NOS 07/28/2014 CHRISTIANO FULLER MD Ot 250.02 DIAB DIAN WO COMPL, TYPE II OR UNSPEC TY 07/28/2014 CHRISTIANO FULLER MD Ot 789.09 ABDOMINAL PAIN, OTHER SPECIFIED SITE 07/30/2014 VALENTINA MYERS LUCRETIA Ot 250.02 07/30/2014 LUCRETIA MONTGOMERY DO Ot 272.0 07/30/2014 MONTGOMERY DO, LUCRETIA Ot 300.00 07/30/2014 MONTGOMERY DO, LUCRETIA Ot 305.1 07/30/2014 MONTGOMREY DO, LUCRETIA Ot 305.20 07/30/2014 MONTGOMERY DO, [...] 07/31/2014 MONTGOMERY DO, LUCRETIA Ot 305.1 07/31/2014 MONTOGMERY DO, LUCRETIA Ot 305.20 07/31/2014 MONTGOMERY DO, [...] LUCRETIA Ot 305.1 TOBACCO USE DISORDER 08/01/2014 MONTGOMERYTHELMA LEE DOI Ot 305.20 CANNABIS ABUSE-UNSPEC 08/01/2014 MONTGOMERYROSA MYERS LUCRETIA Ot 401.9 HYPERTENSION NOS 08/01/2014 MONTGOMERYROSA MYERS LUCRETIA Ot 577.0 ACUTE PANCREATITIS 08/01/2014 MONTGOMERY LUCRETIA Ot 784.0 HEADACHE 08/01/2014 MONTOGMERYROSA MYERS LUCRETIA Ot V15.81 HX OF PAST NONCOMPLIANCE 09/28/2014 ISABEL JOCELYNN K Ot 599.0 URIN TRACT INFECTION NOS 09/28/2014 ISABELAlivia MYERS JOCELYNN K Ot 789.00 ABDOMINAL PAIN, UNSPECIFIED SITE 06/23/2015 MADJULIO Doe DISPLAY MECHANIC Ot R10.12 LEFT UPPER QUADRANT PAIN 06/23/2015 JULIO SHAFFER DISPLAY MECHANIC Ot Z87.19 PERSONAL HISTORY OF OTHER DISEASES OF TH 07/20/2015 SURAJ AUSTIN MD Ot M25.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, RIGHT SHOULDER 07/20/2015 SURAJ AUSTIN MD Ot Z01.818 ENCOUNTER FOR OTHER PREPROCEDURAL EXAMIN 07/20/2015 SURAJ ASUTIN MD Ot Z11.2 ENCOUNTER FOR SCREENING FOR [...] CIGARETTES, UNCOMPL 07/26/2015 SURAJ AUSTIN MD Ot I1 0 ESSENTIAL (PRIMARY) HYPERTENSION 07/26/2015 SURAJ AUSTIN MD Ot M25.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, RIGHT SHOULDER 07/26/2015 SURAJ AUSTIN MD Ot M67.88 OTHER SPECIFIED DISORDERS OF SYNOVIUM AN 07/26/2015 SURAJ AUSTIN MD Ot Z79.899 OTHER STRUCTURAL STEEL WORKER (CURRENT) DRUG THERAPY 07/27/2015 SURAJ AUSTIN MD Ot E11.9 TYPE 2 DIABETES MELLITUS WITHOUT COMPLIC 07/27/2015 SURAJ AUSTIN MD Ot F17.210 NICOTINE DEPENDENCE, CIGARETTES, UNCOMPL 07/27/2015 SURAJ AUSTIN MD, Ot I1 0 ESSENTIAL (PRIMARY) HYPERTENSION 07/27/2015 SURAJ AUSTIN MD Ot M25.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, RIGHT SHOULDER 07/27/2015 SURAJ AUSTIN MD Ot M67.88 OTHER SPECIFIED DISORDERS OF SYNOVIUM AN 07/27/2015 SURAJ AUSTIN MD Ot Z79.899 OTHER STRUCTURAL STEEL WORKER (CURRENT) DRUG THERAPY 08/01/2015 SURAJ AUSTIN MD Ot E11.9 TYPE 2 DIABETES MELLITUS WITHOUT COMPLIC 08/01/2015 SURAJ AUSTIN MD, Ot F17.210 NICOTINE DEPENDENCE, CIGARETTES, UNCOMPL 08/01/2015 SURAJ AUSTIN MD Ot I1 0 ESSENTIAL (PRIMARY) HYPERTENSION 08/01/2015 SURAJ AUSTIN MD, Ot M25.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, RIGHT SHOULDER 08/01/2015 SURAJ AUSTIN MD Ot M67.88 OTHER SPECIFIED DISORDERS OF SYNOVIUM AN 08/01/2015 SURAJ AUSTIN MD, Ot Z79.899 OTHER STRUCTURAL STEEL WORKER (CURRENT) DRUG THERAPY 12/07/2015 JULIO SHAFFER DISPLAY MECHANIC Ot R10.12 LEFT UPPER QUADRANT PAIN 12/07/2015 JULIO SHAFFER DISPLAY MECHANIC Ot Z87.19 PERSONAL HISTORY OF OTHER DISEASES [...] CIGARETTES, UNCOMPL 12/07/2015 SEVEN HERNANDEZ DO, Ot I1 0 ESSENTIAL (PRIMARY) HYPERTENSION 12/07/2015 SEVEN HERNANDEZ DO, Ot Z79.4 STRUCTURAL STEEL WORKER (CURRENT) USE OF INSULIN 12/07/2015 SEVEN HERNANDEZ DO, Ot Z79.899 OTHER JAIL (CURRENT) DRUG THERAPY 12/07/2015 SEVEN HERNANDEZ DO, Ot B34.9 VIRAL INFECTION, UNSPECIFIED 12/07/2015 SEVEN HERNANDEZ DO, Ot E11.649 TYPE 2 DIABETES MELLITUS WITH HYPOGLYCEM 12/07/2015 SEVEN HERNANDEZ DO, Ot E11.9 TYPE 2 DIABETES MELLITUS WITHOUT COMPLIC 12/07/2015 SEVEN HERNANDEZ DO, Ot E83.42 HYPOMAGNESEMIA 12/07/2015 SEVEN HERNANDEZ DO, Ot F17.210 NICOTINE DEPENDENCE, CIGARETTES, UNCOMPL 12/07/2015 SEVEN HERNANDEZ DO, Ot I1 0 ESSENTIAL (PRIMARY) HYPERTENSION 12/07/2015 SEVEN HERNANDEZ DO, Ot Z79.4 JAIL (CURRENT) USE OF INSULIN 12/07/2015 SEVEN HERNANDEZ DO, Ot Z79.899 OTHER JAIL (CURRENT) DRUG THERAPY 04/03/2016 CRISTIAN SHAH MD, [...] UNSPECIFIED 04/03/2016 CRISTIAN SHAH MD, Ot Z79.4 STRUCTURAL STEEL WORKER (CURRENT) USE OF INSULIN 04/03/2016 MADL, JULIO L DISPLAY MECHANIC Ot R10.12 LEFT UPPER QUADRANT PAIN 04/03/2016 MADL, JULIO L DISPLAY MECHANIC Ot Z87.19 PERSONAL HISTORY OF OTHER DISEASES OF TH 04/04/2016 CRISTIAN SHAH MD, Ot E11.65 TYPE 2 DIABETES MELLITUS WITH HYPERGLYCE 04/04/2016 CRISTIAN SHAH MD, Ot F17.210 NICOTINE DEPENDENCE, CIGARETTES, UNCOMPL 04/04/2016 CRISTIAN SHAH MD Ot I10 ESSENTIAL (PRIMARY) HYPERTENSION 04/04/2016 CRISTIAN SHAH MD, Ot N39.0 URINARY TRACT INFECTION, SITE NOT SPECIF 04/04/2016 CRISTIAN SHAH MD, Ot R10.32 LEFT LOWER QUADRANT PAIN 04/04/2016 CRISTIAN SHAH MD Ot R19.7 DIARRHEA, UNSPECIFIED 04/04/2016 CRISTIAN SHAH MD, Ot Z79.4 STRUCTURAL STEEL WORKER (CURRENT) USE OF INSULIN 12/25/2016 MADL, JULIO L DISPLAY MECHANIC Ot G47.33 OBSTRUCTIVE SLEEP APNEA (ADULT) (PEDIATR 12/25/2016 MADL, JULIO L DISPLAY MECHANIC Ot I10 ESSENTIAL (PRIMARY) HYPERTENSION 12/25/2016 MADL, JULIO L DISPLAY MECHANIC Ot G47.33 OBSTRUCTIVE SLEEP APNEA (ADULT) (PEDIATR 12/25/2016 MADL, JULIO L DISPLAY MECHANIC Ot I10 ESSENTIAL (PRIMARY) HYPERTENSION 07/07/2017 CRISTIAN [...] INI 07/07/2017 CRISTIAN SHAH MD, Ot Z79.4 JAIL (CURRENT) USE OF INSULIN 07/07/2017 CRISTIAN SHAH [...] CERVICALGIA 07/12/2017 CRISTIAN SHAH MD Ot Z79.4 STRUCTURAL STEEL WORKER (CURRENT) USE OF INSULIN 07/12/2017 CRISTIAN SHAH MD Ot Z87.19 PERSONAL HISTORY OF OTHER DISEASES OF 06/18/2018 MADLJULIO L DISPLAY MECHANIC Ot R10.12 LEFT UPPER QUADRANT PAIN 06/18/2018 MADL, JULIO L DISPLAY MECHANIC Ot Z87.19 PERSONAL HISTORY OF OTHER DISEASES OF 06/22/2018 JYOTI MYERS LIGIA K Ot A41.9 SEPSIS, UNSPECIFIED ORGANISM 06/22/2018 GERRY MONTES DOA K Ot D57.3 SICKLE-CELL TRAIT 06/22/2018 JYOTI MYERS LIGIA K Ot E11.9 TYPE 2 DIABETES MELLITUS WITHOUT COMPLIC 06/22/2018 JYOTI MYERS LIGIA K Ot E78.00 PURE HYPERCHOLESTEROLEMIA, UNSPECIFIED 06/22/2018 JYOTI MYERS LIGIA K Ot F41.9 ANXIETY DISORDER, UNSPECIFIED 06/22/2018 JYOTI MYERS LIGIA K Ot G43.90 9 MIGRAINE, UNSP, NOT INTRACTABLE, WITHOUT 06/22/2018 JYOTI MYERS LIGIA K Ot G47.30 SLEEP APNEA, UNSPECIFIED 06/22/2018 JYOTI MYERS LIGIA K Ot I10 ESSENTIAL (PRIMARY) HYPERTENSION 06/22/2018 JYOTI MYERS LIGIA K Ot J30.2 OTHER SEASONAL ALLERGIC RHINITIS 06/22/2018 JYOTI MYERS LIGIA K Ot J44.9 CHRONIC OBSTRUCTIVE PULMONARY DISEASE, U 06/22/2018 JYOTI MYERS LIGIA K Ot 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 TUBULO-INTERSTITIAL NEPHRITIS, NOT SPCF 06/22/2018 JYOTI MYERS LIGIA K Ot R19.8 OTH SYMPTOMS AND SIGNS INVOLVING THE DGS 06/22/2018 GERRY MONTES DOA K Ot Z79.4 STRUCTURAL STEEL WORKER (CURRENT) USE OF INSULIN 06/22/2018 JYOTI MYERS LIGIA K Ot Z87.19 PERSONAL HISTORY OF OTHER DISEASES OF 06/22/2018 MONTES DO, LIGIA K Ot A41.9 SEPSIS, UNSPECIFIED ORGANISM 06/22/2018 MONTES DO LIGIA K Ot D57.3 SICKLE-CELL TRAIT 06/22/2018 MONTES DO, LIGIA K Ot E11.9 TYPE 2 DIABETES MELLITUS WITHOUT COMPLIC 06/22/2018 MONTES DO, LIGIA K Ot E78.00 PURE HYPERCHOLESTEROLEMIA, UNSPECIFIED 06/22/2018 MONTES DO LIGIA K Ot F41.9 ANXIETY DISORDER, UNSPECIFIED 06/22/2018 MONTES DO LIGIA K Ot G43.90 9 MIGRAINE, UNSP, NOT INTRACTABLE, WITHOUT 06/22/2018 MONTES DO, LIGIA K Ot G47.30 SLEEP APNEA, UNSPECIFIED 06/22/2018 JYOTI MYERS LIGIA K Ot I10 ESSENTIAL (PRIMARY) HYPERTENSION 06/22/2018 JYOTI MYERS LIGIA K Ot J30.2 OTHER SEASONAL ALLERGIC RHINITIS 06/22/2018 JYOTI MYERS LIGIA K Ot J44.9 CHRONIC OBSTRUCTIVE PULMONARY DISEASE, U 06/22/2018 JYOTI MYERS LIGIA K Ot 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 TUBULO-INTERSTITIAL NEPHRITIS, NOT SPCF 06/22/2018 JYOTI MYERS LIGIA K Ot R19.8 OTH SYMPTOMS AND SIGNS INVOLVING THE DGS 06/22/2018 GERRY MONTES DOA K Ot Z79.4 JAIL (CURRENT) USE OF INSULIN 06/22/2018 JYOTI MYERS LIGIA K Ot Z87.19 PERSONAL HISTORY OF OTHER DISEASES OF 06/22/2018 JYOTI MYERS LIGIA K Ot A41.9 SEPSIS, UNSPECIFIED ORGANISM 06/22/2018 JYOTI MYERS LIGIA K Ot D57.3 SICKLE-CELL TRAIT 06/22/2018 MONTES DO LIGIA K Ot E11.65 TYPE 2 DIABETES MELLITUS WITH HYPERGLYCE 06/22/2018 MONTES DO LIGIA K Ot E11.9 TYPE 2 DIABETES MELLITUS WITHOUT COMPLIC 06/22/2018 MONTES DO LIGIA K Ot E66.9 OBESITY, UNSPECIFIED 06/22/2018 MONTES DO LIGIA K Ot E78.00 PURE HYPERCHOLESTEROLEMIA, UNSPECIFIED 06/22/2018 MONTES DO LIGIA K Ot E78.5 HYPERLIPIDEMIA, UNSPECIFIED 06/22/2018 MONTES DO LIGIA K Ot F17.21 0 NICOTINE DEPENDENCE, CIGARETTES, UNCOMPL 06/22/2018 MONTES DO LIGIA K Ot F41.9 ANXIETY DISORDER, UNSPECIFIED 06/22/2018 JYOTI MYERS, LIGIA K Ot G43.90 9 MIGRAINE, UNSP, NOT INTRACTABLE, WITHOUT 06/22/2018 JYOTI MYERS LIGIA K Ot G47.30 SLEEP APNEA, UNSPECIFIED 06/22/2018 JYOTI MYERS, LIGIA K Ot I10 ESSENTIAL (PRIMARY) HYPERTENSION 06/22/2018 JYOTI MYERS LIGIA K Ot I11.0 HYPERTENSIVE HEART DISEASE WITH HEART FA 06/22/2018 JYOTI MYERS LIGIA K Ot I25.10 ATHSCL HEART DISEASE OF [place] CORONARY 06/22/2018 JYOTI MYERS LIGIA K Ot I42.9 CARDIOMYOPATHY, UNSPECIFIED 06/22/2018 JYOTI MYERS LIGIA K Ot I50.21 ACUTE SYSTOLIC (CONGESTIVE) HEART FAILUR 06/22/2018 MONTES LIGIA K Ot J30.2 OTHER SEASONAL ALLERGIC RHINITIS 06/22/2018 JYOTI MYERS LIGIA K Ot J44.9 CHRONIC OBSTRUCTIVE PULMONARY DISEASE, U 06/22/2018 JYOTI MYERS LIGIA K Ot N10 ACUTE PYELONEPHRITIS 06/22/2018 JYOTI MYERS LIGIA K Ot N12 TUBULO-INTERSTITIAL NEPHRITIS, NOT SPCF 06/22/2018 JYOTI MYERS LIGIA K Ot 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 06/22/2018 MONTES DO LIGIA K Ot R00.2 PALPITATIONS 06/22/2018 JYOTI MYERS LIGIA K Ot R19.8 OTH SYMPTOMS AND SIGNS INVOLVING THE DGS 06/22/2018 JYOTI MYERS LIGIA K Ot T50.5X 1A POISONING BY APPETITE DEPRESSANTS, ACCID 06/22/2018 JYOTI MYERS LIGIA K Ot Z68.36 BODY MASS INDEX (BMI) 36.0-36.9, ADULT 06/22/2018 JYOTI MYERS LIGIA K Ot Z79.4 JAIL (CURRENT) USE OF INSULIN 06/22/2018 MONTES DO LIGIA K Ot Z87.19 PERSONAL HISTORY OF OTHER DISEASES OF TH 09/25/2018 BLADIMIR OBRIEN APRN Ot D57 .3 SICKLE-CELL TRAIT 09/25/2018 BLADIMIR OBRIEN APRN Ot E11 .9 TYPE 2 DIABETES MELLITUS WITHOUT COMPLIC 09/25/2018 BLADIMIR OBRIEN APRN Ot E78.00 PURE HYPERCHOLESTEROLEMIA, UNSPECIFIED 09/25/2018 BLADIMIR OBRIEN APRN Ot F12.10 CANNABIS ABUSE, UNCOMPLICATED 09/25/2018 BLADIMIR OBRIEN APRN Ot F17.210 NICOTINE DEPENDENCE, CIGARETTES, UNCOMPL 09/25/2018 BLADIMIR OBRIEN APRN Ot G43.909 MIGRAINE, UNSP, NOT INTRACTABLE, WITHOUT 09/25/2018 BLADIMIR OBRIEN APRN Ot G47.30 SLEEP APNEA, UNSPECIFIED 09/25/2018 BLADIMIR OBRIEN APRN Ot I10 ESSENTIAL (PRIMARY) HYPERTENSION 09/25/2018 BLADIMIR OBRIEN APRN Ot M25.512 PAIN IN LEFT SHOULDER 09/25/2018 BLADIMIR OBRIEN APRN Ot S46.002A UNSP INJ MUSC/TEND THE ROTATOR CUFF OF L 09/25/2018 BLADIMIR OBRIEN APRN Ot X50.0XXA OVEREXERTION FROM STRENUOUS MOVEMENT OR 09/25/2018 BLADIMIR OBRIEN APRN Ot Z79 .4 JAIL (CURRENT) USE OF INSULIN 09/25/2018 BLADIMIR OBRIEN APRN Ot Z95 .5 PRESENCE OF CORONARY ANGIOPLASTY IMPLANT 09/25/2018 BLADIMIR OBRIEN APRN Ot Z98.890 OTHER SPECIFIED POSTPROCEDURAL STATES 10/02/2018 BLADIMIR OBRIEN APRN Ot D57 .3 SICKLE-CELL TRAIT 10/02/2018 BLADIMIR OBRIEN APRN Ot E11 .9 TYPE 2 DIABETES MELLITUS WITHOUT COMPLIC 10/02/2018 [...] MOVEMENT OR 10/02/2018 BLADIMIR OBRIEN APRN Ot Z79 .4 JAIL (CURRENT) USE OF INSULIN 10/02/2018 BLADIMIR OBRIEN APRN Ot Z95 .5 PRESENCE OF CORONARY ANGIOPLASTY IMPLANT 10/02/2018 BLADIMIR OBRIEN APRN Ot Z98.890 OTHER SPECIFIED POSTPROCEDURAL STATES 10/14/2018 JULIO SHAFFER DISPLAY MECHANIC Ot R10.12 LEFT UPPER QUADRANT PAIN 10/14/2018 JULIO SHAFFER DISPLAY MECHANIC Ot Z87.19 PERSONAL HISTORY OF OTHER DISEASES OF TH 10/14/2018 TITI MARES Ot E11.9 TYPE 2 DIABETES MELLITUS WITHOUT COMPLIC 10/14/2018 TITI MARES Ot G47.33 OBSTRUCTIVE SLEEP APNEA (ADULT) (PEDIATR 10/14/2018 TITI MARES Ot I34.0 NONRHEUMATIC MITRAL (VALVE) INSUFFICIENC 10/14/2018 TITI MARES Ot I50.9 HEART FAILURE, UNSPECIFIED 10/14/2018 TITI MARES Ot I51.7 CARDIOMEGALY 11/05/2018 MACRINA BOYER MD Ot E66. 9 OBESITY, UNSPECIFIED 11/05/2018 MARCINA BOYER MD, Ot G47. 33 OBSTRUCTIVE SLEEP APNEA (ADULT) (PEDIATR 11/05/2018 MACRINA BOYER MD Ot I34. 0 NONRHEUMATIC MITRAL (VALVE) INSUFFICIENC 11/05/2018 MACRINA BOYER MD Ot I42. 9 CARDIOMYOPATHY, UNSPECIFIED 11/05/2018 MACRINA BOYER MD Ot I50. 9 HEART FAILURE, UNSPECIFIED 11/05/2018 MACRINA BOYER MD Ot I51. 7 CARDIOMEGALY 11/05/2018 MACRINA BOYER MD Ot Z68. 39 BODY MASS INDEX (BMI) 39.0-39.9, ADULT 11/05/2018 MACRINA BOYER MD Ot Z79. 01 STRUCTURAL STEEL WORKER (CURRENT) USE OF ANTICOAGULANT 11/05/2018 MACRINA BOYER MD Ot Z79. 4 JAIL (CURRENT) USE OF INSULIN 11/05/2018 MACRINA BOYER MD, Ot Z79.899 OTHER STRUCTURAL STEEL WORKER (CURRENT) DRUG THERAPY 11/05/2018 MACRINA BOYER MD Ot Z82. 0 FAMILY HISTORY OF EPILEPSY AND OTH DIS O 11/05/2018 MACRINA BOYER MD Ot Z82. 49 FAMILY HX OF ISCHEM HEART DIS AND OTH DI 11/05/2018 MACRINA BOYER MD Ot Z83. 3 FAMILY HISTORY OF DIABETES MELLITUS 11/05/2018 MACRINA BOYER MD Ot Z87.891 PERSONAL HISTORY OF NICOTINE DEPENDENCE 11/05/2018 MACRINA BOYER MD Ot Z88. 8 ALLERGY STATUS TO OT DRUG/MEDS/BIOL SUB 11/05/2018 MACRINA BOYER MD Ot Z91.013 ALLERGY TO SEAFOOD 11/06/2018 MACRINA BOYER MD Ot E66. 9 OBESITY, UNSPECIFIED 11/06/2018 MACRINA BOYER MD Ot G47. 33 OBSTRUCTIVE SLEEP APNEA (ADULT) (PEDIATR 11/06/2018 MACRINA BOYER MD Ot I34. 0 NONRHEUMATIC MITRAL (VALVE) INSUFFICIENC 11/06/2018 MACRINA BOYER MD Ot I42. 9 CARDIOMYOPATHY, UNSPECIFIED 11/06/2018 MACRINA BOYER MD Ot I50. 9 HEART FAILURE, UNSPECIFIED 11/06/2018 MACRINA BOYER MD Ot I51. 7 CARDIOMEGALY 11/06/2018 MACRINA BOYER MD Ot Z68. 39 BODY MASS INDEX (BMI) 39.0-39.9, ADULT 11/06/2018 MACRINA BOYER MD Ot Z79. 01 JAIL (CURRENT) USE OF ANTICOAGULANT 11/06/2018 MACRINA BYOER MD Ot Z79. 4 JAIL (CURRENT) USE OF INSULIN 11/06/2018 MACRINA BOYER MD Ot Z79.899 OTHER STRUCTURAL STEEL WORKER (CURRENT) DRUG THERAPY 11/06/2018 MACRINA BOYER MD Ot Z82. 0 FAMILY HISTORY OF EPILEPSY AND OTH DIS O 11/06/2018 MACRNIA BOYER MD Ot Z82. 49 FAMILY HX OF ISCHEM HEART DIS AND OTH DI 11/06/2018 MACRINA BOYER MD Ot Z83. 3 FAMILY HISTORY OF DIABETES MELLITUS 11/06/2018 MACRINA BOYER MD Ot Z87.891 PERSONAL HISTORY OF NICOTINE DEPENDENCE 11/06/2018 MACRINA BOYER MD J Ot Z88. 8 ALLERGY STATUS TO OTH DRUG/MEDS/BIOL SUB 11/06/2018 MACRINA BOYER MD Ot Z91.013 ALLERGY TO SEAFOOD 11/19/2018 TAMY, BAKARI DISPLAY MECHANIC Ot E11.9 TYPE 2 DIABETES MELLITUS WITHOUT COMPLIC 11/19/2018 TAMY, BAKARI DISPLAY MECHANIC Ot E78.00 PURE HYPERCHOLESTEROLEMIA, UNSPECIFIED 11/19/2018 TAMY, BAKARI DISPLAY MECHANIC Ot F17.210 NICOTINE DEPENDENCE, CIGARETTES, UNCOMPL 11/19/2018 TAMY, BAKARI DISPLAY MECHANIC Ot F41.9 ANXIETY DISORDER, UNSPECIFIED 11/19/2018 TAMY, ABKARI DISPLAY MECHANIC Ot G43.909 MIGRAINE, UNSP, NOT INTRACTABLE, WITHOUT 11/19/2018 TAMY, BAKARI DISPLAY MECHANIC Ot G47.30 SLEEP APNEA, UNSPECIFIED 11/19/2018 TAYM, BAKARI DISPLAY MECHANIC Ot I11.0 HYPERTENSIVE HEART DISEASE WITH HEART FA 11/19/2018 TAMY, BAKARI DISPLAY MECHANIC Ot I50.9 HEART FAILURE, UNSPECIFIED 11/19/2018 TAMY, BAKARI DISPLAY MECHANIC Ot K85.90 ACUTE PANCREATITIS WITHOUT NECROSIS OR I 11/19/2018 TAMY, BAKARI DISPLAY MECHANIC Ot R10.12 LEFT UPPER QUADRANT PAIN 11/19/2018 TAMY, BAKARI DISPLAY MECHANIC Ot Z79.4 STRUCTURAL STEEL WORKER (CURRENT) USE OF INSULIN 11/19/2018 TAMY, BAKARI DISPLAY MECHANIC Ot Z79.82 STRUCTURAL STEEL WORKER (CURRENT) USE OF ASPIRIN 11/19/2018 TAMY, BAKARI DISPLAY MECHANIC Ot Z91.018 ALLERGY TO OTHER FOODS 11/20/2018 BERNOT, VERITO Ot E11.9 TYPE 2 DIABETES MELLITUS WITHOUT COMPLIC 11/20/2018 BERNOT, VERITO Ot E78.00 PURE HYPERCHOLESTEROLEMIA, UNSPECIFIED 11/20/2018 BERNOT, VERITO Ot F17.210 NICOTINE DEPENDENCE, CIGARETTES, UNCOMPL 11/20/2018 BERNOT, VERITO Ot F41.9 ANXIETY DISORDER, UNSPECIFIED 11/20/2018 BERNOT, VERITO Ot G43.909 MIGRAINE, UNSP, NOT INTRACTABLE, WITHOUT 11/20/2018 BERNOT, VERITO Ot G47.30 SLEEP APNEA, UNSPECIFIED 11/20/2018 BERNOT, VERITO Ot I11.0 HYPERTENSIVE HEART DISEASE WITH HEART FA 11/20/2018 BERNOT, VERITO Ot I50.9 HEART FAILURE, UNSPECIFIED 11/20/2018 VERITO MOREJON Ot K85.90 ACUTE PANCREATITIS WITHOUT NECROSIS OR I 11/20/2018 VERITO MOREJON Ot R10.11 RIGHT UPPER QUADRANT PAIN 11/20/2018 VERITO MOREJON Ot Z79.01 JAIL (CURRENT) USE OF ANTICOAGULANT 11/20/2018 VERITO MOREJON Ot Z79.4 STRUCTURAL STEEL WORKER (CURRENT) USE OF INSULIN 11/20/2018 VERITO MOREJON Ot Z79.82 STRUCTURAL STEEL WORKER (CURRENT) USE OF ASPIRIN 11/20/2018 VERITO MOREJON Ot Z88.8 ALLERGY STATUS TO OTH DRUG/MEDS/BIOL SUB 11/20/2018 VERITO MOREJON Ot Z95.5 PRESENCE OF CORONARY ANGIOPLASTY IMPLANT 11/22/2018 ISABEL DO, JOCELYNN K Ot E11.9 TYPE 2 DIABETES MELLITUS WITHOUT COMPLIC 11/22/2018 ISABEL DO, JOCELYNN K Ot E78.00 PURE HYPERCHOLESTEROLEMIA, UNSPECIFIED 11/22/2018 ISABEL DO, JOCELYNN K Ot F17.210 NICOTINE DEPENDENCE, CIGARETTES, UNCOMPL 11/22/2018 ISABEL DO, JOCELYNN K Ot F41.9 ANXIETY DISORDER, UNSPECIFIED 11/22/2018 ISABEL DO, JOCELYNN K Ot G43.909 MIGRAINE, UNSP, NOT INTRACTABLE, WITHOUT 11/22/2018 ISABEL DO, JOCELYNN K Ot G47.30 SLEEP APNEA, UNSPECIFIED 11/22/2018 ISABEL DO, JOCELYNN K Ot I11.0 HYPERTENSIVE HEART DISEASE WITH HEART FA 11/22/2018 ISABEL DO, JOCELYNN K Ot I42.9 CARDIOMYOPATHY, UNSPECIFIED 11/22/2018 ISABEL DO, JOCELYNN K Ot I50.9 HEART FAILURE, UNSPECIFIED 11/22/2018 ISABEL DO, JOCELYNN K Ot K85.90 ACUTE PANCREATITIS WITHOUT NECROSIS OR I 11/22/2018 ISABEL DO, JOCELYNN K Ot R10.11 RIGHT UPPER QUADRANT PAIN 11/22/2018 ISABEL DO, JOCELYNN K Ot Z79.01 JAIL (CURRENT) USE OF ANTICOAGULANT 11/22/2018 ISABEL DO, JOCELYNN K Ot Z79.4 JAIL (CURRENT) USE OF INSULIN 11/22/2018 ISABEL DO, JOCELYNN K Ot Z79.82 STRUCTURAL STEEL WORKER (CURRENT) USE OF ASPIRIN 11/22/2018 ISABEL DO, JOCELYNN K Ot Z91.018 ALLERGY TO OTHER FOODS 11/22/2018 JOCELYNN HALL DO Ot Z95.0 PRESENCE OF CARDIAC PACEMAKER 07/20/2019 MACRINA BOYER MD, Ot I34. 0 NONRHEUMATIC MITRAL (VALVE) INSUFFICIENC 07/20/2019 MACRINA BOYER MD, Ot I50. 9 HEART FAILURE, UNSPECIFIED 07/20/2019 MACRINA BOYER MD, Ot I51. 7 CARDIOMEGALY 07/20/2019 MACRINA BOYER MD, Ot I51. 89 OTHER ILL-DEFINED HEART DISEASES Procedures Code Description Performed By [place] formed On [id number] DR VILLANUEVA OF SPINAL CANAL WITH DRAINAGE D 06/18/2018 [id number] ME ASURE OF CARDIAC SAMPL PRESSURE, L H 06/20/2018 [id number] FL UOROSCOPY OF MULT COR ART USING L OSM 06/20/2018 [id number] FL UOROSCOPY OF LEFT HEART USING LOW OSMO 06/20/2018 [id number] FL UOROSCOPY OF THORACIC AORTA USING LOW 06/20/2018 Results Test Result Range Capillary blood glucose measurement by g lucometer (mass/volume) - 12/06/15 22:33 Capillary blood glucose measurement by glucometer (mas s/volume) 101 mg/dL 70-110 Complete blood count (CBC) with automate d white blood cell (WBC) differential - 12/06/15 23:06 Blood leukocytes automated count (number/volume) 11.4 10*3/uL 4.3-11.0 Blood erythrocytes automated count (number/volume) 4.72 10*6/uL 4.35-5.85 Venous blood hemoglobin measurement (mass/volume) 14.8 g/dL 13.3-17.7 Blood hematocrit (volume fraction) 43 % 40-54 Automated erythrocyte mean corpuscular volume 91 [ foz_us] 80-99 Automated erythrocyte mean corpuscular h emoglobin (mass per erythrocyte) 31 pg 25-34 Automated erythrocyte mean corpuscular h emoglobin concentration measurement (mass/volume) 35 g/dL 32-36 Automated erythrocyte distribution width ratio 13. 9 % 10.0- 14.5 Automated blood platelet count [...] 10*3 1.0-4.0 Blood monocytes automated count (number/volume) 0. 7 10*3 0.0-1.0 Automated eosinophil count 0.1 10*3/uL 0 .0-0.3 Automated blood basophil count (count/volume) 0.0 10*3/uL 0.0-0.1 Serum or plasma choriogonadotropin (preg [place] test) detection - 12/06/15 23:06 Serum or plasma choriogonadotropin ( test) de tection NEGATIVE NRG Complete urinalysis with reflex to cultu re - 12/06/15 23:06 Urine color determination YELLOW NRG Urine clarity determination CLEAR NR G Urine pH measurement by test strip 6 5-9 Specific gravity of urine by test strip 1.015 1.016-1.022 Urine protein assay by test strip, semi-quantitative NEGATIVE NEGATIVE Urine glucose detection by automated test strip NE GATIVE NEGATIVE Erythrocytes detection in urine sediment by light micr oscopy 1+ NEGATIVE Urine ketones detection by automated test strip NE GATIVE NEGATIVE Urine nitrite detection by test strip NEGATIVE NEGATIVE Urine total bilirubin detection by test strip NEGA TIVE NEGATIVE Urine urobilinogen measurement by automated test strip (mass/volume) NORMAL NORMAL Urine leukocyte esterase detection by dipstick 1+ NEGATIVE Automated urine sediment erythrocyte cou nt by microscopy (number/high power field) [HPF] NRG Automated urine sediment leukocyte count by microscopy (number/high power field) [HPF] NRG Bacteria detection in urine sediment by light microsco py TRACE NRG Squamous epithelial cells detection in u rine sediment by light microscopy 0-2 NRG Crystals detection in urine sediment by light microsco py NONE NRG Casts detection in urine sediment [...] 5-14 Serum or plasma urea nitrogen measurement (mass/volume ) 13 mg/dL 7-18 Serum or plasma creatinine measurement (mass/volume) 1.16 mg/dL 0.60-1.30 Serum or plasma urea nitrogen/creatinine mass ratio 11 NRG Serum or plasma creatinine measurement w ith calculation of estimated glomerular filtration rate > NRG Serum or plasma glucose measurement (mass/volume) 107 mg/dL 70-105 Serum or plasma calcium measurement (mass/volume) 9.7 mg/dL 8.5-10.1 Serum or plasma total bilirubin measurement (mass/volu me) 0.3 mg/dL 0.1-1.0 Serum or plasma alkaline phosphatase lyle surement (enzymatic activity/volume) 48 U/L 40-136 Serum or plasma aspartate aminotransfera se measurement (enzymatic activity/volume) 26 U/L 5-34 Serum or plasma alanine aminotransferase measurement (enzymatic activity/volume) 20 U/L 0-55 Serum or plasma protein measurement (mass/volume) 6.9 g/dL 6.4-8.2 Serum or plasma albumin measurement (mass/volume) 4.3 g/dL 3.2-4.5 Magnesium - 12/06/15 23:06 Magnesium 1.6 mg/dL 1.8-2.4 Lipase - 12/06/15 23:06 Lipase 11 U/L 8-78 Capillary blood glucose measurement by g lucometer (mass/volume) - 04/03/16 00:50 Capillary blood glucose measurement by glucometer (mas s/volume) 208 mg/dL 70-110 Complete blood count (CBC) with automate d white blood cell (WBC) differential - 04/03/16 00:55 Blood leukocytes automated count (number/volume) 11.2 10*3/uL 4.3-11.0 Blood erythrocytes automated count (number/volume) 5.12 10*6/uL 4.35-5.85 Venous blood hemoglobin measurement (mass/volume) 16.2 g/dL 13.3-17.7 Blood hematocrit (volume fraction) 46 % 40-54 Automated erythrocyte mean corpuscular volume 90 [ foz_us] 80-99 Automated erythrocyte mean corpuscular h emoglobin (mass per erythrocyte) 32 pg 25-34 Automated erythrocyte mean corpuscular h emoglobin concentration measurement (mass/volume) 35 g/dL 32-36 Automated erythrocyte distribution width ratio 13. 7 % 10.0- 14.5 Automated blood platelet count [...] 10*3 1.0-4.0 Blood monocytes automated count (number/volume) 0. 8 10*3 0.0-1.0 Automated eosinophil count 0.1 10*3/uL 0 .0-0.3 Automated blood basophil count (count/volume) 0.0 10*3/uL [...] 5-14 Serum or plasma urea nitrogen measurement (mass/volume ) 20 mg/dL 7-18 Serum or plasma creatinine measurement (mass/volume) 1.27 mg/dL 0.60-1.30 Serum or plasma urea nitrogen/creatinine mass ratio 16 NRG Serum or plasma creatinine measurement w ith calculation of estimated glomerular filtration rate > NRG Serum or plasma glucose measurement (mass/volume) 226 mg/dL 70-105 Serum or plasma calcium measurement (mass/volume) 9.6 mg/dL 8.5-10.1 Serum or plasma total bilirubin measurement (mass/volu me) 0.2 mg/dL 0.1-1.0 Serum or plasma alkaline phosphatase lyle surement (enzymatic activity/volume) 58 U/L 40-136 Serum or plasma aspartate aminotransfera se measurement (enzymatic activity/volume) 25 U/L 5-34 Serum or plasma alanine aminotransferase measurement (enzymatic activity/volume) 24 U/L 0-55 Serum or plasma protein measurement (mass/volume) 7.3 g/dL 6.4-8.2 Serum or plasma albumin measurement (mass/volume) 4.2 g/dL 3.2-4.5 Magnesium - 04/03/16 00:55 Magnesium 1.9 mg/dL 1.8-2.4 Serum or plasma amylase measurement (enz ymatic activity/volume) - 04/03/16 00:55 Serum or plasma amylase measurement (enzymatic activit y/volume) 49 U/L 25-125 Complete urinalysis with reflex to cultu re - 04/03/16 01:24 Urine color determination YELLOW NRG Urine clarity determination SLIGHTLY CLOUDY NRG Urine pH measurement by test strip 5 5-9 Specific gravity of urine by test strip 1.020 1.016-1.022 Urine protein assay by test strip, semi-quantitative 1+ NEGATIVE Urine glucose detection by automated test strip 3+ NEGATIVE Erythrocytes detection in urine sediment by light micr oscopy 1+ NEGATIVE Urine ketones detection by automated test strip NE GATIVE NEGATIVE Urine nitrite detection by test strip NEGATIVE NEGATIVE Urine total bilirubin detection by test strip NEGA TIVE NEGATIVE Urine urobilinogen measurement by automated test strip (mass/volume) NORMAL NORMAL Urine leukocyte esterase detection by dipstick 3+ NEGATIVE Automated urine sediment erythrocyte cou nt by microscopy (number/high power field) [HPF] NRG Automated urine sediment leukocyte count by microscopy (number/high power field) [HPF] NRG Bacteria detection in urine sediment by light microsco py TRACE NRG Squamous epithelial cells detection in u rine sediment by light microscopy 0-2 NRG Crystals detection in urine sediment by light microsco py NONE NRG Casts detection in urine sediment by light microscopy NONE NRG Mucus detection in urine sediment by light microscopy NEGATIVE NRG Complete urinalysis with reflex to culture YES NRG Bacterial urine culture - 04/03/16 01:24 URINE CULTURE RESULTS <10,000/ML [facility] Comp. Metabolic Panel (14) - 04/30/16 16 :13 Glucose, Serum 220 mg/dL 65-99 BUN 10 mg/dL 6-20 Creatinine, Serum 1.09 mg/dL 0.76-1.27 eGFR If NonAfricn Am 86 mL/min/1.73 >59 eGFR If Africn Am 100 mL/min/1.73 >5 9 BUN/Creatinine Ratio 9 8-19 Sodium, Serum 140 mmol/L 134-144 Potassium, Serum 4.5 mmol/L 3.5-5.2 Chloride, Serum 102 mmol/L 96-106 Carbon Dioxide, Total 24 mmol/L 18-29 Calcium, Serum 10.0 mg/dL 8.7-10.2 Protein, Total, Serum 7.4 g/dL 6.0-8.5 Albumin, Serum 4.8 g/dL 3.5-5.5 Globulin, Total 2.6 g/dL 1.5-4.5 A/G Ratio 1.8 1.1-2.5 Bilirubin, Total 0.3 mg/dL 0.0-1.2 Alkaline Phosphatase, S 53 IU/L 39-117 AST (SGOT) 27 IU/L 0-40 ALT (SGPT) 27 IU/L 0-44 CBC With Differential/Platelet - 7 09:59 WBC 8.6 x10E3/uL 3.4-10.8 RBC 5.21 x10E6/uL 4.14-5.80 Hemoglobin 16.3 g/dL 12.6-17.7 Hematocrit 48.3 % 37.5-51.0 MCV 93 fL 79-97 MCH 31.3 pg 26.6-33.0 MCHC 33.7 g/dL 31.5-35.7 RDW 14.9 % 12.3-15.4 Platelets 292 x10E3/uL 150-379 Neutrophils 54 % Lymphs 37 % Monocytes 8 % Eos 1 % Basos 0 % Neutrophils (Absolute) 4.6 x10E3/uL 1.4- 7.0 Lymphs (Absolute) 3.2 x10E3/uL 0.7-3.1 Monocytes(Absolute) 0.7 x10E3/uL 0.1-0.9 Eos (Absolute) 0.1 x10E3/uL 0.0-0.4 Baso (Absolute) 0.0 x10E3/uL 0.0-0.2 Immature Granulocytes 0 % Immature Grans (Abs) 0.0 x10E3/uL 0.0-0. 1 Comp. Metabolic Panel (14) - 06/24/16 09 :59 Glucose, Serum 270 mg/dL 65-99 BUN 13 mg/dL 6-20 Creatinine, Serum 1.01 mg/dL 0.76-1.27 eGFR If NonAfricn Am 95 mL/min/1.73 >59 eGFR If Africn Am 109 mL/min/1.73 >5 9 BUN/Creatinine Ratio 13 9-20 Sodium, Serum 140 mmol/L 134-144 Potassium, Serum 4.3 mmol/L 3.5-5.2 Chloride, Serum 100 mmol/L 96-106 Carbon Dioxide, Total 21 mmol/L 18-29 Calcium, Serum 9.4 mg/dL 8.7-10.2 Protein, Total, Serum 6.9 g/dL 6.0-8.5 Albumin, Serum 4.2 g/dL 3.5-5.5 Globulin, Total 2.7 g/dL 1.5-4.5 A/G Ratio 1.6 1.2-2.2 Bilirubin, Total 0.4 mg/dL 0.0-1.2 Alkaline Phosphatase, S 47 IU/L 39-117 AST (SGOT) 24 IU/L 0-40 ALT (SGPT) 22 IU/L 0-44 Lipid Panel - 06/24/16 09:59 Cholesterol, Total 171 mg/dL 100-199 Triglycerides 198 mg/dL 0-149 HDL Cholesterol 26 mg/dL >39 VLDL Cholesterol [place] 40 mg/dL 5-40 LDL Cholesterol Calc 105 mg/dL 0-99 TSH - 06/24/16 09:59 TSH 0.572 uIU/mL 0.450-4.500 C-Reactive Protein, Cardiac - 06/24/16 0 9:59 C-Reactive Protein, Cardiac 2.06 mg/L 0. 00-3.00 TESTOSTERONE, FREE AND TOTAL - 04/01/17 14:28 TESTOSTERONE, TOTAL, LC/MS/MS 318 ng/dL 250-1100 TESTOSTERONE, FREE 47.5 pg/mL 46.0-224.0 TESTOSTERONE,BIOAVAILABLE 97.7 ng/dL 110 .0-575.0 SEX HORMONE BINDING GLOBULIN 27 nmol/L 1 0-50 ALBUMIN,SERUM 4.5 g/dL 3.6-5.1 Capillary blood glucose measurement by g lucometer (mass/volume) - 07/07/17 23:25 Capillary blood glucose measurement by glucometer (mas s/volume) 258 mg/dL 70-110 Complete blood count (CBC) with automate d white blood cell (WBC) differential - 07/12/17 13:28 Blood leukocytes automated count (number/volume) 9.5 10*3/uL 4.3-11.0 Blood erythrocytes automated count (number/volume) 5.59 10*6/uL 4.35-5.85 Venous blood hemoglobin measurement (mass/volume) 17.0 g/dL 13.3-17.7 Blood hematocrit (volume fraction) 50 % 40-54 Automated erythrocyte mean corpuscular volume 89 [ foz_us] 80-99 Automated erythrocyte mean corpuscular h emoglobin (mass per erythrocyte) 30 pg 25-34 Automated erythrocyte mean corpuscular h emoglobin concentration measurement (mass/volume) 34 g/dL 32-36 Automated erythrocyte distribution width ratio 14. 2 % 10.0- 14.5 Automated blood platelet count [...] 10*3 1.0-4.0 Blood monocytes automated count (number/volume) 0. 7 10*3 0.0-1.0 Automated eosinophil count 0.1 10*3/uL 0 .0-0.3 Automated blood basophil count (count/volume) 0.0 10*3/uL 0.0-0.1 Whole blood basic metabolic panel - 07/25 13:28 Serum or plasma sodium measurement (moles/volume) 137 mmol/L 135-145 Serum or plasma potassium measurement (moles/volume) 4.4 mmol/L 3.6-5.0 Serum or plasma chloride measurement (moles/volume) 102 mmol/L 98-107 Carbon dioxide 23 mmol/L 21-32 Serum or plasma anion gap determination (moles/volume) 12 mmol/L 5-14 Serum or plasma urea nitrogen measurement (mass/volume ) 14 mg/dL 7-18 Serum or plasma creatinine measurement (mass/volume) 1.49 mg/dL 0.60-1.30 Serum or plasma urea nitrogen/creatinine mass ratio 9 NRG Serum or plasma creatinine measurement w ith calculation of estimated glomerular filtration rate > NRG Serum or plasma glucose measurement (mass/volume) 370 mg/dL 70-105 Serum or plasma calcium measurement (mass/volume) 10.0 mg/dL 8.5-10.1 Serum or plasma C reactive protein measu rement (mass/volume) - 07/12/17 13:28 Serum or plasma C reactive protein measurement (mass/v olume) 0.20 mg/dL 0.00-0.50 LIPID PANEL - 12/11/17 09:52 CHOLESTEROL, TOTAL 197 mg/dL <200 HDL CHOLESTEROL 39 mg/dL >40 TRIGLYCERIDES 113 mg/dL <150 LDL-CHOLESTEROL 136 mg/dL (calc) NRG CHOL/HDLC RATIO 5.1 (calc) <5.0 NON HDL CHOLESTEROL 158 mg/dL (calc) <13 0 CMP - 12/11/17 09:52 GLUCOSE 248 mg/dL 65-99 UREA NITROGEN (BUN) 14 mg/dL 7-25 CREATININE 1.04 mg/dL 0.60-1.35 eGFR NON-AFR. M[place] 91 mL/min/1.73m2 > OR = 60 eGFR 105 mL/min/1.73m2 > OR = 60 BUN/CREATININE RATIO NOT APPLICABLE (calc) 6-22 SODIUM 138 mmol/L 135-146 POTASSIUM 4.2 mmol/L 3.5-5.3 CHLORIDE 102 mmol/L 98-110 CARBON DIOXIDE 27 mmol/L 20-32 CALCIUM 9.5 mg/dL 8.6-10.3 PROTEIN, TOTAL 6.7 g/dL 6.1-8.1 ALBUMIN 4.4 g/dL 3.6-5.1 GLOBULIN 2.3 g/dL (calc) 1.9-3.7 ALBUMIN/GLOBULIN RATIO 1.9 (calc) 1.0-2. 5 BILIRUBIN, TOTAL 0.6 mg/dL 0.2-1.2 ALKALINE PHOSPHATASE 57 U/L 40-115 AST 16 U/L 10-40 ALT 17 U/L 9-46 CMP - 05/27/18 10:13 GLUCOSE 277 mg/dL 65-99 UREA NITROGEN (BUN) 17 mg/dL 7-25 CREATININE 1.12 mg/dL 0.60-1.35 eGFR NON-AFR. [place] 82 mL/min/1.73m2 > OR = 60 eGFR 95 mL/min/1.73m2 > OR = 60 BUN/CREATININE RATIO NOT APPLICABLE (calc) 6-22 SODIUM 133 mmol/L 135-146 POTASSIUM 4.6 mmol/L 3.5-5.3 CHLORIDE 102 mmol/L 98-110 CARBON DIOXIDE 24 mmol/L 20-32 CALCIUM 10.0 mg/dL 8.6-10.3 PROTEIN, TOTAL 7.2 g/dL 6.1-8.1 ALBUMIN 4.5 g/dL 3.6-5.1 GLOBULIN 2.7 g/dL (calc) 1.9-3.7 ALBUMIN/GLOBULIN RATIO 1.7 (calc) 1.0-2. 5 BILIRUBIN, TOTAL 0.6 mg/dL 0.2-1.2 ALKALINE PHOSPHATASE 61 U/L 40-115 AST 20 U/L 10-40 ALT 18 U/L 9-46 Influenza virus A and B antigen detectio n - 06/18/18 17:06 FLU RESULT NEGATIVE FOR INFLUENZA A AND B ANTIGENS BY IA [facility] Influenza virus A and B antigen detection PER IJEOMA WALSH. NR Capillary blood glucose measurement by g lucometer (mass/volume) - 06/18/18 17:17 Capillary blood glucose measurement by glucometer (mas s/volume) 275 mg/dL 70-110 Complete blood count (CBC) with automate d white blood cell (WBC) differential - 06/18/18 17:18 Blood leukocytes automated count (number/volume) 9.1 10*3/uL 4.3-11.0 Blood erythrocytes automated count (number/volume) 5.58 10*6/uL 4.35-5.85 Venous blood hemoglobin measurement (mass/volume) 17.1 g/dL 13.3-17.7 Blood hematocrit (volume fraction) 48 % 40-54 Automated erythrocyte mean corpuscular volume 86 [ foz_us] 80-99 Automated erythrocyte mean corpuscular h emoglobin (mass per erythrocyte) 31 pg 25-34 Automated erythrocyte mean corpuscular h emoglobin concentration measurement (mass/volume) 36 g/dL 32-36 Automated erythrocyte distribution width ratio 14. 5 % 10.0- 14.5 Automated blood platelet count [...] 10*3 1.0-4.0 Blood monocytes automated count (number/volume) 0. 8 10*3 0.0-1.0 Automated eosinophil count 0.0 10*3/uL 0 .0-0.3 Automated blood basophil count (count/volume) 0.0 10*3/uL 0.0-0.1 Blood lactic acid measurement (moles/vol ume) - 06/18/18 17:18 Blood lactic acid measurement [...] 5-14 Serum or plasma urea nitrogen measurement (mass/volume ) 13 mg/dL 7-18 Serum or plasma creatinine measurement (mass/volume) 1.46 mg/dL 0.60-1.30 Serum or plasma urea nitrogen/creatinine mass ratio 9 NRG Serum or plasma creatinine measurement w ith calculation of estimated glomerular filtration rate > NRG Serum or plasma glucose measurement (mass/volume) 321 mg/dL 70-105 Serum or plasma calcium measurement (mass/volume) 9.4 mg/dL 8.5-10.1 Serum or plasma total bilirubin measurement (mass/volu me) 0.8 mg/dL 0.1-1.0 Serum or plasma alkaline phosphatase lyle surement (enzymatic activity/volume) 59 U/L 40-136 Serum or plasma aspartate aminotransfera se measurement (enzymatic activity/volume) 19 U/L 5-34 Serum or plasma alanine aminotransferase measurement (enzymatic activity/volume) 17 U/L 0-55 Serum or plasma protein measurement (mass/volume) 7.4 g/dL 6.4-8.2 Serum or plasma albumin measurement (mass/volume) 4.3 g/dL 3.2-4.5 CALCIUM CORRECTED 9.2 mg/dL 8.5-10.1 Blood manual differential performed dete ction - 06/18/18 17:18 Blood monocytes/100 leukocytes 4 % NRG Manual blood segmented neutrophils/100 leukocytes 88 % NRG Blood band neutrophils/100 leukocytes 4 % NRG Manual blood lymphocytes/100 leukocytes 4 % NRG Blood erythrocyte morphology finding identification NORMAL NRG Blood toxic granules detection by light microscopy 2+ NRG Blood dohle body detection by light microscopy MOD ERATE NRG PT panel in platelet poor plasma by coag ulation assay - 06/18/18 17:18 Prothrombin time (PT) in platelet poor plasma by coagu lation assay 14.1 s 12.2-14.7 INR in platelet poor plasma or blood by coagulation as say 1.1 0.8-1.4 Activated partial thromboplastin time (a PTT) in platelet poor plasma bycoagulation assay - 06/18/18 17:18 Activated partial thromboplastin time (a PTT) in platelet poor plasma bycoagulation assay 31 s 24-35 Serum or plasma C reactive protein measu rement (mass/volume) - 06/18/18 17:18 Serum or plasma C reactive protein measurement (mass/v olume) 3.97 mg/dL 0.00-0.50 Bacterial blood culture - 06/18/18 17:18 QUANTITY OF GROWTH . [facility] Bacterial blood culture SEE COMMEN NRG Hemoglobin A1c - 06/18/18 17:18 Blood hemoglobin A1C measurement (mass/volume) 10. 6 % 4.0- 5.6 MEAN BLOOD GLUCOSE 258 % <=126 Arterial blood gas measurement - 9 17:28 Blood pCO2 29 mm[Hg] 35-45 Blood pO2 73 mm[Hg] 79-93 Arterial blood bicarbonate measurement (moles/volume) 19 mmol/L 23-27 Arterial blood base excess by calculation -3.7 mmo l/L -2.5-2.5 Arterial blood oxygen saturation measurement 94 % 94-100 * Inhaled oxygen flow rate N/A NRG Arterial blood pH measurement with patient temperature correction 7.45 7.37-7.43 Arterial blood carbon dioxide, total measurement (mole s/volume) 19.9 mmol/L 21.0-31.0 Body site LEFT RADIAL NRG Assessment of wrist artery patency prior to arterial p uncture POSITIVE NRG Setting of ventilation mode NO NR G Measurement of body temperature 103.0 NRG Complete urinalysis with reflex to cultu re - 06/18/18 17:46 Urine color determination YELLOW NRG Urine clarity determination CLEAR NR G Urine pH measurement by test strip 5 5-9 Specific gravity of urine by test strip 1.020 1.016-1.022 Urine protein assay by test strip, semi-quantitative 3+ NEGATIVE Urine glucose detection by automated test strip 4+ NEGATIVE Erythrocytes detection in urine sediment by light micr oscopy 1+ NEGATIVE Urine ketones detection by automated test strip 1+ NEGATIVE Urine nitrite detection by test strip NEGATIVE NEGATIVE Urine total bilirubin detection by test strip NEGA TIVE NEGATIVE Urine urobilinogen measurement by automated test strip (mass/volume) NORMAL NORMAL Urine leukocyte esterase detection by dipstick NEG ATIVE NEGATIVE Automated urine sediment erythrocyte cou nt by microscopy (number/high power field) [HPF] NRG Automated urine sediment leukocyte count by microscopy (number/high power field) NONE NRG Bacteria detection in urine sediment by light microsco py NEGATIVE NRG Squamous epithelial cells detection in u rine sediment by light microscopy 2-5 NRG Crystals detection in urine sediment by light microsco py NONE NRG Casts detection in urine sediment by light microscopy NONE NRG Mucus detection in urine sediment by light microscopy NEGATIVE NRG Complete urinalysis with reflex to culture NO NRG Urine drug screening test - 06/18/18 17: 46 Urine phencyclidine detection by screening method NEGATIVE NEGATIVE Urine benzodiazepines detection by screening method NEGATIVE NEGATIVE Urine cocaine detection NEGATIVE NEGATI VE Urine amphetamines detection by screening method P OSITIVE NEGATIVE Urine methamphetamine detection by screening method NEGATIVE NEGATIVE Urine cannabinoids detection by screening method P OSITIVE NEGATIVE Urine opiates detection by screening method NEGATI VE NEGATIVE Urine barbiturates detection NEGATIVE N EGATIVE Screening urine tricyclic antidepressants detection NEGATIVE NEGATIVE Urine methadone detection by screening method NEGA TIVE NEGATIVE Urine oxycodone detection NEGATIVE NEGA TIVE Urine propoxyphene detection NEGATIVE N EGATIVE Bacterial blood culture - 06/18/18 18:12 Bacterial blood culture NG NRG Human immunodeficiency virus (HIV) type 1 and 2 antibody detection - 06/18/18 19:31 Serum HIV 1+2 antibody detection by immunoblot Non-Reactive Non-Reactive Chlamydia DNA amp probe, urine - 9 19:31 Chlamydia DNA amp probe, urine Not Detected Not Detected Urine Neisseria gonorrhoeae DNA assay - 06/18/18 19:31 Gonorrhea amp DNA-urine Not Detected No t Detected Serum reagin antibody assay (units/volum e) by RPR - 06/18/18 19:31 Serum reagin antibody assay (units/volume) by RPR Non-Reactive Non-Reactive Cerebrospinal fluid cell count - 9 20:47 Cerebrospinal fluid appearance description CLEAR NRG Cerebrospinal fluid color identification COLORLESS NRG Cerebrospinal fluid leukocytes count (number/volume) 1 % 0-5 Cerebrospinal fluid erythrocytes count (number/volume) 1 % 0-0 Manual cerebrospinal fluid lymphocytes/100 leukocytes TNP NRG Manual cerebrospinal fluid mononuclear cells/100 leuko cytes TNP NRG Manual cerebrospinal fluid polymorphonuclear cells/100 leukocytes TNP NRG Cerebrospinal fluid cell count on specimen from last t ube collected 4 NRG Cerebrospinal fluid glucose measurement [...] NG NRG Capillary blood glucose measurement by g lucometer (mass/volume) - 06/18/18 21:46 Capillary blood glucose measurement by glucometer (mas s/volume) 245 mg/dL 70-110 Capillary blood glucose measurement by g lucometer (mass/volume) - 06/19/18 05:10 Capillary blood glucose measurement by glucometer (mas s/volume) 152 mg/dL 70-110 Complete blood count (CBC) with automate d white blood cell (WBC) differential - 06/19/18 06:15 Blood leukocytes automated count (number/volume) 9.7 10*3/uL 4.3-11.0 Blood erythrocytes automated count (number/volume) 5.51 10*6/uL 4.35-5.85 Venous blood hemoglobin measurement (mass/volume) 16.6 g/dL 13.3-17.7 Blood hematocrit (volume fraction) 49 % 40-54 Automated erythrocyte mean corpuscular volume 88 [ foz_us] 80-99 Automated erythrocyte mean corpuscular h emoglobin (mass per erythrocyte) 30 pg 25-34 Automated erythrocyte mean corpuscular h emoglobin concentration measurement (mass/volume) 34 g/dL 32-36 Automated erythrocyte distribution width ratio 14. 8 % 10.0- 14.5 Automated blood platelet count [...] 10*3 1.0-4.0 Blood monocytes automated count (number/volume) 0. 9 10*3 0.0-1.0 Automated eosinophil count 0.0 10*3/uL 0 .0-0.3 Automated blood basophil count (count/volume) 0.0 10*3/uL 0.0-0.1 Whole blood basic metabolic panel - 06/08 04/28 06:15 Serum or plasma sodium measurement (moles/volume) 136 mmol/L 135-145 Serum or plasma potassium measurement (moles/volume) 3.8 mmol/L 3.6-5.0 Serum or plasma chloride measurement (moles/volume) 105 mmol/L 98-107 Carbon dioxide 16 mmol/L 21-32 Serum or plasma anion gap determination (moles/volume) 15 mmol/L 5-14 Serum or plasma urea nitrogen measurement (mass/volume ) 13 mg/dL 7-18 Serum or plasma creatinine measurement (mass/volume) 1.16 mg/dL 0.60-1.30 Serum or plasma urea nitrogen/creatinine mass ratio 11 NRG Serum or plasma creatinine measurement w ith calculation of estimated glomerular filtration rate > NRG Serum or plasma glucose measurement (mass/volume) 150 mg/dL 70-105 Serum or plasma calcium measurement (mass/volume) 8.7 mg/dL 8.5-10.1 Serum or plasma troponin i.cardiac measu rement (mass/volume) - 06/19/18 06:15 Serum or plasma troponin i.cardiac measurement (mass/v olume) 0.058 ng/mL <0.028 Serum or plasma lithium measurement (mol es/volume) - 06/19/18 06:15 BNP level 229.7 pg/mL <100.0 Capillary blood glucose measurement by g lucometer (mass/volume) - 06/19/18 11:08 Capillary blood glucose measurement by glucometer (mas s/volume) 232 mg/dL 70-110 Capillary blood glucose measurement by g lucometer (mass/volume) - 06/19/18 15:45 Capillary blood glucose measurement by glucometer (mas s/volume) 235 mg/dL 70-110 Capillary blood glucose measurement by g lucometer (mass/volume) - 06/19/18 20:17 Capillary blood glucose measurement by glucometer (mas s/volume) 136 mg/dL 70-110 Capillary blood glucose measurement by g lucometer (mass/volume) - 06/19/18 21:57 Capillary blood glucose measurement by glucometer (mas s/volume) 171 mg/dL 70-110 Automated blood complete blood count (he mogram) panel - 06/20/18 05:16 Blood leukocytes automated count (number/volume) 4.9 10*3/uL 4.3-11.0 Blood erythrocytes automated count (number/volume) 5.50 10*6/uL 4.35-5.85 Venous blood hemoglobin measurement (mass/volume) 16.6 g/dL 13.3-17.7 Blood hematocrit (volume fraction) 48 % 40-54 Automated erythrocyte mean corpuscular volume 88 [ foz_us] 80-99 Automated erythrocyte mean corpuscular h emoglobin (mass per erythrocyte) 30 pg 25-34 Automated erythrocyte mean corpuscular h emoglobin concentration measurement (mass/volume) 35 g/dL 32-36 Automated erythrocyte distribution width ratio 14. 9 % 10.0- 14.5 Automated blood platelet count (count/volume) 129 10*3/uL 130-400 Automated blood platelet mean volume measurement 11.0 [foz_us] 7.4-10.4 PT panel in platelet poor plasma by coag ulation assay - 06/20/18 05:16 Prothrombin time (PT) in platelet poor plasma by coagu lation assay 14.0 s 12.2-14.7 INR in platelet poor plasma or blood by coagulation as say 1.0 0.8-1.4 Activated partial thromboplastin time (a PTT) in platelet poor plasma bycoagulation assay - 06/20/18 05:16 Activated partial thromboplastin time (a PTT) in platelet poor plasma bycoagulation assay 35 s 24-35 Comprehensive metabolic panel - 06/20/18 05:16 Serum or plasma sodium measurement (moles/volume) 137 mmol/L 135-145 Serum or plasma potassium measurement (moles/volume) 3.4 mmol/L 3.6-5.0 Serum or plasma chloride measurement (moles/volume) 105 mmol/L 98-107 Carbon dioxide 20 mmol/L 21-32 Serum or plasma anion gap determination (moles/volume) 12 mmol/L 5-14 Serum or plasma urea nitrogen measurement (mass/volume ) 10 mg/dL 7-18 Serum or plasma creatinine measurement (mass/volume) 0.99 mg/dL 0.60-1.30 Serum or plasma urea nitrogen/creatinine mass ratio 10 NRG Serum or plasma creatinine measurement w ith calculation of estimated glomerular filtration rate > NRG Serum or plasma glucose measurement (mass/volume) 126 mg/dL 70-105 Serum or plasma calcium measurement (mass/volume) 9.0 mg/dL 8.5-10.1 Serum or plasma total bilirubin measurement (mass/volu me) 0.7 mg/dL 0.1-1.0 Serum or plasma alkaline phosphatase lyle surement (enzymatic activity/volume) 50 U/L 40-136 Serum or plasma aspartate aminotransfera se measurement (enzymatic activity/volume) 30 U/L 5-34 Serum or plasma alanine aminotransferase measurement (enzymatic activity/volume) 27 U/L 0-55 Serum or plasma protein measurement (mass/volume) 6.5 g/dL 6.4-8.2 Serum or plasma albumin measurement (mass/volume) 3.7 g/dL 3.2-4.5 CALCIUM CORRECTED 9.2 mg/dL 8.5-10.1 Magnesium - 06/20/18 05:16 Magnesium 1.7 mg/dL 1.8-2.4 Serum or plasma lithium measurement (mol es/volume) - 06/20/18 05:16 BNP level 211.9 pg/mL <100.0 Serum or plasma troponin i.cardiac measu rement (mass/volume) - 06/20/18 05:16 Serum or plasma troponin i.cardiac measurement (mass/v olume) 0.043 ng/mL <0.028 THYROID STIMULATING HORMONE - 06/20/18 0 5:16 THYROID STIMULATING HORMONE 1.45 u[iU]/mL 0.35-4.94 Methicillin resistant Staphylococcus aur eus (MRSA) screening culture - 06/20/18 08:52 Methicillin resistant Staphylococcus aureus (MRSA) scr eening culture NEG NRG Capillary blood glucose measurement by g lucometer (mass/volume) - 06/20/18 11:28 Capillary blood glucose measurement by glucometer (mas s/volume) 107 mg/dL 70-110 Capillary blood glucose measurement by g lucometer (mass/volume) - 06/20/18 15:30 Capillary blood glucose measurement by glucometer (mas s/volume) 243 mg/dL 70-110 Capillary blood glucose measurement by g lucometer (mass/volume) - 06/20/18 20:56 Capillary blood glucose measurement by glucometer (mas s/volume) 313 mg/dL 70-110 Automated blood complete blood count (he mogram) panel - 06/21/18 04:45 Blood leukocytes automated count (number/volume) 5.7 10*3/uL 4.3-11.0 Blood erythrocytes automated count (number/volume) 5.53 10*6/uL 4.35-5.85 Venous blood hemoglobin measurement (mass/volume) 16.6 g/dL 13.3-17.7 Blood hematocrit (volume fraction) 48 % 40-54 Automated erythrocyte mean corpuscular volume 87 [ foz_us] 80-99 Automated erythrocyte mean corpuscular h emoglobin (mass per erythrocyte) 30 pg 25-34 Automated erythrocyte mean corpuscular h emoglobin concentration measurement (mass/volume) 34 g/dL 32-36 Automated erythrocyte distribution width ratio 15. 0 % 10.0- 14.5 Automated blood platelet count (count/volume) 153 10*3/uL 130-400 Automated blood platelet mean volume measurement 11.4 [foz_us] 7.4-10.4 Whole blood basic metabolic panel - 06/08 06/26 04:45 Serum or plasma sodium measurement (moles/volume) 139 mmol/L 135-145 Serum or plasma potassium measurement (moles/volume) 4.2 mmol/L 3.6-5.0 Serum or plasma chloride measurement (moles/volume) 107 mmol/L 98-107 Carbon dioxide 18 mmol/L 21-32 Serum or plasma anion gap determination (moles/volume) 14 mmol/L 5-14 Serum or plasma urea nitrogen measurement (mass/volume ) 18 mg/dL 7-18 Serum or plasma creatinine measurement (mass/volume) 1.14 mg/dL 0.60-1.30 Serum or plasma urea nitrogen/creatinine mass ratio 16 NRG Serum or plasma creatinine measurement w ith calculation of estimated glomerular filtration rate > NRG Serum or plasma glucose measurement (mass/volume) 156 mg/dL 70-105 Serum or plasma calcium measurement (mass/volume) 10.2 mg/dL 8.5-10.1 Serum or plasma C reactive protein measu rement (mass/volume) - 06/21/18 10:48 Serum or plasma C reactive protein measurement (mass/v olume) 6.86 mg/dL 0.00-0.50 Erythrocyte sedimentation rate by felicia gren method - 06/21/18 10:48 Erythrocyte sedimentation rate by westergren method 4 mm 0- 15 Tick identification panel - 06/21/18 10: 48 Serum Ehrlichia chaffeensis IgG antibody detection 1:16 <1:16 Serum Ehrlichia chaffeensis IgM antibody detection <1:10 <1:10 Serum Rickettsia rickettsii IgG antibody assay (units/ volume) < <1:16 [place] spotted fever panel < <1:10 Francisella tularensis antibody assay <1:20 NRG LYME AB G M 0.03 % 0.00-0.89 Interpretation of Lyme disease antibody assay Nega tive Negative Capillary blood glucose measurement by g lucometer (mass/volume) - 06/21/18 11:40 Capillary blood glucose measurement by glucometer (mas s/volume) 214 mg/dL 70-110 Capillary blood glucose measurement by g lucometer (mass/volume) - 06/21/18 16:00 Capillary blood glucose measurement by glucometer (mas s/volume) 177 mg/dL 70-110 Capillary blood glucose measurement by g lucometer (mass/volume) - 06/21/18 20:10 Capillary blood glucose measurement by glucometer (mas s/volume) 193 mg/dL 70-110 Human immunodeficiency virus (HIV) type 1 and 2 antibody detection - 06/22/18 06:15 Serum HIV 1+2 antibody detection by immunoblot Non-Reactive Non-Reactive Capillary blood glucose measurement by g lucometer (mass/volume) - 06/22/18 06:20 Capillary blood glucose measurement by glucometer (mas s/volume) 165 mg/dL 70-110 Capillary blood glucose measurement by g lucometer (mass/volume) - 06/22/18 11:00 Capillary blood glucose measurement by glucometer (mas s/volume) 106 mg/dL 70-110 Capillary blood glucose measurement by g lucometer (mass/volume) - 06/22/18 16:07 Capillary blood glucose measurement by glucometer (mas s/volume) 126 mg/dL 70-110 BMP - 06/30/18 11:01 GLUCOSE 206 mg/dL 65-99 UREA NITROGEN (BUN) 16 mg/dL 7-25 CREATININE 1.08 mg/dL 0.60-1.35 eGFR NON-AFR. [place] 86 mL/min/1.73m2 > OR = 60 eGFR 100 mL/min/1.73m2 > OR = 60 BUN/CREATININE RATIO NOT APPLICABLE (calc) 6-22 SODIUM 138 mmol/L 135-146 POTASSIUM 4.5 mmol/L 3.5-5.3 CHLORIDE 106 mmol/L 98-110 CARBON DIOXIDE 24 mmol/L 20-32 CALCIUM 9.5 mg/dL 8.6-10.3 BNP - 06/30/18 11:03 B TYPE NATRIURETIC PEPTIDE (BNP) 39 pg/mL <100 PT/INR - 10/07/18 14:19 INR 1.2 NRG PT 12.7 sec 9.0-11.5 Complete blood count (CBC) with automate d white blood cell (WBC) differential - 10/14/18 14:23 Blood leukocytes automated count (number/volume) 9.9 10*3/uL 4.3-11.0 Blood erythrocytes automated count (number/volume) 5.32 10*6/uL 4.35-5.85 Venous blood hemoglobin measurement (mass/volume) 16.0 g/dL 13.3-17.7 Blood hematocrit (volume fraction) 47 % 40-54 Automated erythrocyte mean corpuscular volume 89 [ foz_us] 80-99 Automated erythrocyte mean corpuscular h emoglobin (mass per erythrocyte) 30 pg 25-34 Automated erythrocyte mean corpuscular h emoglobin concentration measurement (mass/volume) 34 g/dL 32-36 Automated erythrocyte distribution width ratio 14. 5 % 10.0- 14.5 Automated blood platelet count (count/volume) 244 10*3/uL 130-400 Automated blood platelet mean volume measurement 10.3 [foz_us] 7.4-10.4 Automated blood neutrophils/100 leukocytes 52 % 42-75 Automated blood lymphocytes/100 leukocytes 40 % 12-44 Blood monocytes/100 leukocytes 7 % 0-12 Automated blood eosinophils/100 leukocytes 1 % 0-10 Automated blood basophils/100 leukocytes 0 % 0-10 Blood neutrophils automated count (number/volume) 5.2 10*3 1.8-7.8 Blood lymphocytes automated count (number/volume) 3.9 10*3 1.0-4.0 Blood monocytes automated count (number/volume) 0. 7 10*3 0.0-1.0 Automated eosinophil count 0.1 10*3/uL 0 .0-0.3 Automated blood basophil count (count/volume) 0.0 10*3/uL 0.0-0.1 PT panel in platelet poor plasma by coag ulation assay - 10/14/18 14:23 Prothrombin time (PT) in platelet poor plasma by coagu lation assay 16.4 s 12.2-14.7 INR in platelet poor plasma or blood by coagulation as say 1.3 0.8-1.4 Activated partial thromboplastin time (a PTT) in platelet poor plasma bycoagulation assay - 10/14/18 14:23 Activated partial thromboplastin time (a PTT) in platelet poor plasma bycoagulation assay 33 s 24-35 Comprehensive metabolic panel - 10/14/18 14:23 Serum or plasma sodium measurement (moles/volume) 139 mmol/L 135-145 Serum or plasma potassium measurement (moles/volume) 4.3 mmol/L 3.6-5.0 Serum or plasma chloride measurement (moles/volume) 107 mmol/L 98-107 Carbon dioxide 24 mmol/L 21-32 Serum or plasma anion gap determination (moles/volume) 8 mmol/L 5-14 Serum or plasma urea nitrogen measurement (mass/volume ) 17 mg/dL 7-18 Serum or plasma creatinine measurement (mass/volume) 1.28 mg/dL 0.60-1.30 Serum or plasma urea nitrogen/creatinine mass ratio 13 NRG Serum or plasma creatinine measurement w ith calculation of estimated glomerular filtration rate > NRG Serum or plasma glucose measurement (mass/volume) 175 mg/dL 70-105 Serum or plasma calcium measurement (mass/volume) 9.5 mg/dL 8.5-10.1 Serum or plasma total bilirubin measurement (mass/volu me) 0.5 mg/dL 0.1-1.0 Serum or plasma alkaline phosphatase lyle surement (enzymatic activity/volume) 64 U/L 40-136 Serum or plasma aspartate aminotransfera se measurement (enzymatic activity/volume) 18 U/L 5-34 Serum or plasma alanine aminotransferase measurement (enzymatic activity/volume) 15 U/L 0-55 Serum or plasma protein measurement (mass/volume) 7.6 g/dL 6.4-8.2 Serum or plasma albumin measurement (mass/volume) 4.3 g/dL 3.2-4.5 CALCIUM CORRECTED 9.3 mg/dL 8.5-10.1 Magnesium - 10/14/18 14:23 Magnesium 1.8 mg/dL 1.8-2.4 Serum or plasma troponin i.cardiac measu rement (mass/volume) - 10/14/18 14:23 Serum or plasma troponin i.cardiac measurement (mass/v olume) < ng/mL <0.028 Myoglobin, serum - 10/14/18 14:23 Myoglobin, serum 77.7 ng/mL 10.0-92.0 Serum or plasma lithium measurement (mol es/volume) - 10/14/18 14:23 BNP PT 54.3 pg/mL <100.0 Fibrin D-dimer FEU measurement in platel et poor plasma (mass/volume) - 10/14/18 14:23 Fibrin D-dimer FEU measurement in platelet poor plasma (mass/volume) 0.36 ug/mL 0.00-0.49 Serum or plasma troponin i.cardiac measu rement (mass/volume) - 10/14/18 16:24 Serum or plasma troponin i.cardiac measurement (mass/v olume) < ng/mL <0.028 PT/INR - 10/22/18 09:51 INR 1.2 NRG PT 11.8 sec 9.0-11.5 Complete urinalysis with reflex to cultu re - 11/04/18 10:00 Urine color determination YELLOW NRG Urine clarity determination CLEAR NR G Urine pH measurement by test strip 5 5-9 Specific gravity of urine by test strip 1.025 1.016-1.022 Urine protein assay by test strip, semi-quantitative 2+ NEGATIVE Urine glucose detection by automated test strip NE GATIVE NEGATIVE Erythrocytes detection in urine sediment by light micr oscopy NEGATIVE NEGATIVE Urine ketones detection by automated test strip NE GATIVE NEGATIVE Urine nitrite detection by test strip NEGATIVE NEGATIVE Urine total bilirubin detection by test strip NEGA TIVE NEGATIVE Urine urobilinogen measurement by automated test strip (mass/volume) NORMAL NORMAL Urine leukocyte esterase detection by dipstick NEG ATIVE NEGATIVE Automated urine sediment erythrocyte cou nt by microscopy (number/high power field) NONE NRG Automated urine sediment leukocyte count by microscopy (number/high power field) RARE NRG Bacteria detection in urine sediment by light microsco py NEGATIVE NRG Squamous epithelial cells detection in u rine sediment by light microscopy 5-10 NRG Crystals detection in urine sediment by light microsco py NONE NRG Casts detection in urine sediment by light microscopy PRESENT NRG Mucus detection in urine sediment by light microscopy SMALL NRG Complete urinalysis with reflex to culture NO NRG Hyaline casts detection in urine sediment by light alanna roscopy 0-2 NRG Methicillin resistant Staphylococcus aur eus (MRSA) screening culture - 11/04/18 10:07 Methicillin resistant Staphylococcus aureus (MRSA) scr eening culture NEG NRG Automated blood complete blood count (he mogram) panel - 11/04/18 10:08 Blood leukocytes automated count (number/volume) 9.0 10*3/uL 4.3-11.0 Blood erythrocytes automated count (number/volume) 5.30 10*6/uL 4.35-5.85 Venous blood hemoglobin measurement (mass/volume) 16.0 g/dL 13.3-17.7 Blood hematocrit (volume fraction) 47 % 40-54 Automated erythrocyte mean corpuscular volume 89 [ foz_us] 80-99 Automated erythrocyte mean corpuscular h emoglobin (mass per erythrocyte) 30 pg 25-34 Automated erythrocyte mean corpuscular h emoglobin concentration measurement (mass/volume) 34 g/dL 32-36 Automated erythrocyte distribution width ratio 14. 4 % 10.0- 14.5 Automated blood platelet count (count/volume) 260 10*3/uL 130-400 Automated blood platelet mean volume measurement 10.2 [foz_us] 7.4-10.4 PT panel in platelet poor plasma by coag ulation assay - 11/04/18 10:08 Prothrombin time (PT) in platelet poor plasma by coagu lation assay 13.4 s 12.2-14.7 INR in platelet poor plasma or blood by coagulation as say 1.0 0.8-1.4 Activated partial thromboplastin time (a PTT) in platelet poor plasma bycoagulation assay - 11/04/18 10:08 Activated partial thromboplastin time (a PTT) in platelet poor plasma bycoagulation assay 30 s 24-35 Comprehensive metabolic panel - 11/04/18 10:08 Serum or plasma sodium measurement (moles/volume) 139 mmol/L 135-145 Serum or plasma potassium measurement (moles/volume) 4.0 mmol/L 3.6-5.0 Serum or plasma chloride measurement (moles/volume) 106 mmol/L 98-107 Carbon dioxide 23 mmol/L 21-32 Serum or plasma anion gap determination (moles/volume) 10 mmol/L 5-14 Serum or plasma urea nitrogen measurement (mass/volume ) 16 mg/dL 7-18 Serum or plasma creatinine measurement (mass/volume) 1.15 mg/dL 0.60-1.30 Serum or plasma urea nitrogen/creatinine mass ratio 14 NRG Serum or plasma creatinine measurement w ith calculation of estimated glomerular filtration rate > NRG Serum or plasma glucose measurement (mass/volume) 159 mg/dL 70-105 Serum or plasma calcium measurement (mass/volume) 9.6 mg/dL 8.5-10.1 Serum or plasma total bilirubin measurement (mass/volu me) 0.5 mg/dL 0.1-1.0 Serum or plasma alkaline phosphatase lyle surement (enzymatic activity/volume) 49 U/L 40-136 Serum or plasma aspartate aminotransfera se measurement (enzymatic activity/volume) 19 U/L 5-34 Serum or plasma alanine aminotransferase measurement (enzymatic activity/volume) 20 U/L 0-55 Serum or plasma protein measurement (mass/volume) 7.7 g/dL 6.4-8.2 Serum or plasma albumin measurement (mass/volume) 4.5 g/dL 3.2-4.5 CALCIUM CORRECTED 9.2 mg/dL 8.5-10.1 Lipid 1996 panel - 11/04/18 10:08 Serum or plasma triglyceride measurement (mass/volume) 188 mg/dL <150 Serum or plasma cholesterol measurement (mass/volume) 254 mg/dL < 200 Serum or plasma cholesterol in HDL measurement (mass/v olume) 42 mg/dL 40-60 Cholesterol in LDL [mass/volume] in serum or plasma by direct assay 173 mg/dL 1-129 Serum or plasma cholesterol in VLDL measurement (mass/ volume) 38 mg/dL 5-40 Capillary blood glucose measurement by g lucometer (mass/volume) - 11/04/18 20:07 Capillary blood glucose measurement by glucometer (mas s/volume) 271 mg/dL 70-110 Automated blood complete blood count (he mogram) panel - 11/05/18 02:45 Blood leukocytes automated count (number/volume) 13.1 10*3/uL 4.3-11.0 Blood erythrocytes automated count (number/volume) 4.96 10*6/uL 4.35-5.85 Venous blood hemoglobin measurement (mass/volume) 14.7 g/dL 13.3-17.7 Blood hematocrit (volume fraction) 44 % 40-54 Automated erythrocyte mean corpuscular volume 89 [ foz_us] 80-99 Automated erythrocyte mean corpuscular h emoglobin (mass per erythrocyte) 30 pg 25-34 Automated erythrocyte mean corpuscular h emoglobin concentration measurement (mass/volume) 33 g/dL 32-36 Automated erythrocyte distribution width ratio 14. 4 % 10.0- 14.5 Automated blood platelet count (count/volume) 249 10*3/uL 130-400 Automated blood platelet mean volume measurement 10.3 [foz_us] 7.4-10.4 Comprehensive metabolic panel - 11/05/18 02:45 Serum or plasma sodium measurement (moles/volume) 134 mmol/L 135-145 Serum or plasma potassium measurement (moles/volume) 4.4 mmol/L 3.6-5.0 Serum or plasma chloride measurement (moles/volume) 102 mmol/L 98-107 Carbon dioxide 18 mmol/L 21-32 Serum or plasma anion gap determination (moles/volume) 14 mmol/L 5-14 Serum or plasma urea nitrogen measurement (mass/volume ) 22 mg/dL 7-18 Serum or plasma creatinine measurement (mass/volume) 1.34 mg/dL 0.60-1.30 Serum or plasma urea nitrogen/creatinine mass ratio 16 NRG Serum or plasma creatinine measurement w ith calculation of estimated glomerular filtration rate > NRG Serum or plasma glucose measurement (mass/volume) 238 mg/dL 70-105 Serum or plasma calcium measurement (mass/volume) 9.1 mg/dL 8.5-10.1 Serum or plasma total bilirubin measurement (mass/volu me) 0.4 mg/dL 0.1-1.0 Serum or plasma alkaline phosphatase lyle surement (enzymatic activity/volume) 51 U/L 40-136 Serum or plasma aspartate aminotransfera se measurement (enzymatic activity/volume) 20 U/L 5-34 Serum or plasma alanine aminotransferase measurement (enzymatic activity/volume) 15 U/L 0-55 Serum or plasma protein measurement (mass/volume) 6.9 g/dL 6.4-8.2 Serum or plasma albumin measurement (mass/volume) 4.0 g/dL 3.2-4.5 CALCIUM CORRECTED 9.1 mg/dL 8.5-10.1 PT/INR - 11/13/18 11:37 INR 1.6 NRG PT 15.8 sec 9.0-11.5 Complete urinalysis with reflex to cultu re - 11/15/18 22:05 Urine color determination YELLOW NRG Urine clarity determination CLEAR NR G Urine pH measurement by test strip 6 5-9 Specific gravity of urine by test strip 1.020 1.016-1.022 Urine protein assay by test strip, semi-quantitative NEGATIVE NEGATIVE Urine glucose detection by automated test strip NE GATIVE NEGATIVE Erythrocytes detection in urine sediment by light micr oscopy 1+ NEGATIVE Urine ketones detection by automated test strip NE GATIVE NEGATIVE Urine nitrite detection by test strip NEGATIVE NEGATIVE Urine total bilirubin detection by test strip NEGA TIVE NEGATIVE Urine urobilinogen measurement by automated test strip (mass/volume) 1 mg/dL NORMAL Urine leukocyte esterase detection by dipstick NEG ATIVE NEGATIVE Automated urine sediment erythrocyte cou nt by microscopy (number/high power field) RARE NRG Automated urine sediment leukocyte count by microscopy (number/high power field) NONE NRG Bacteria detection in urine sediment by light microsco py NEGATIVE NRG Squamous epithelial cells detection in u rine sediment by light microscopy 0-2 NRG Crystals detection in urine sediment by light microsco py NONE NRG Casts detection in urine sediment by light microscopy NONE NRG Mucus detection in urine sediment by light microscopy SMALL NRG Complete urinalysis with reflex to culture NO NRG Complete blood count (CBC) with automate d white blood cell (WBC) differential - 11/15/18 22:24 Blood leukocytes automated count (number/volume) 14.3 10*3/uL 4.3-11.0 Blood erythrocytes automated count (number/volume) 4.95 10*6/uL 4.35-5.85 Venous blood hemoglobin measurement (mass/volume) 15.0 g/dL 13.3-17.7 Blood hematocrit (volume fraction) 44 % 40-54 Automated erythrocyte mean corpuscular volume 88 [ foz_us] 80-99 Automated erythrocyte mean corpuscular h emoglobin (mass per erythrocyte) 30 pg 25-34 Automated erythrocyte mean corpuscular h emoglobin concentration measurement (mass/volume) 34 g/dL 32-36 Automated erythrocyte distribution width ratio 14. 2 % 10.0- 14.5 Automated blood platelet count (count/volume) 219 10*3/uL 130-400 Automated blood platelet mean volume measurement 10.0 [foz_us] 7.4-10.4 Automated blood neutrophils/100 leukocytes 62 % 42-75 Automated blood lymphocytes/100 leukocytes 30 % 12-44 Blood monocytes/100 leukocytes 8 % 0-12 Automated blood eosinophils/100 leukocytes 1 % 0-10 Automated blood basophils/100 leukocytes 0 % 0-10 Blood neutrophils automated count (number/volume) 8.9 10*3 1.8-7.8 Blood lymphocytes automated count (number/volume) 4.2 10*3 1.0-4.0 Blood monocytes automated count (number/volume) 1. 1 10*3 0.0-1.0 Automated eosinophil count 0.1 10*3/uL 0 .0-0.3 Automated blood basophil count (count/volume) 0.0 10*3/uL 0.0-0.1 Comprehensive metabolic panel - 11/15/18 22:24 Serum or plasma sodium measurement (moles/volume) 140 mmol/L 135-145 Serum or plasma potassium measurement (moles/volume) 3.8 mmol/L 3.6-5.0 Serum or plasma chloride measurement (moles/volume) 107 mmol/L 98-107 Carbon dioxide 21 mmol/L 21-32 Serum or plasma anion gap determination (moles/volume) 12 mmol/L 5-14 Serum or plasma urea nitrogen measurement (mass/volume ) 21 mg/dL 7-18 Serum or plasma creatinine measurement (mass/volume) 1.16 mg/dL 0.60-1.30 Serum or plasma urea nitrogen/creatinine mass ratio 18 NRG Serum or plasma creatinine measurement w ith calculation of estimated glomerular filtration rate > NRG Serum or plasma glucose measurement (mass/volume) 129 mg/dL 70-105 Serum or plasma calcium measurement (mass/volume) 9.9 mg/dL 8.5-10.1 Serum or plasma total bilirubin measurement (mass/volu me) 0.4 mg/dL 0.1-1.0 Serum or plasma alkaline phosphatase lyle surement (enzymatic activity/volume) 54 U/L 40-136 Serum or plasma aspartate aminotransfera se measurement (enzymatic activity/volume) 18 U/L 5-34 Serum or plasma alanine aminotransferase measurement (enzymatic activity/volume) 13 U/L 0-55 Serum or plasma protein measurement (mass/volume) 7.5 g/dL 6.4-8.2 Serum or plasma albumin measurement (mass/volume) 4.3 g/dL 3.2-4.5 CALCIUM CORRECTED 9.7 mg/dL 8.5-10.1 Serum or plasma amylase measurement (enz ymatic activity/volume) - 11/15/18 22:24 Serum or plasma amylase measurement (enzymatic activit y/volume) 94 U/L 25-125 Lipase - 11/15/18 22:24 Lipase 160 U/L 8-78 Complete blood count (CBC) with automate d white blood cell (WBC) differential - 11/16/18 20:36 Blood leukocytes automated count (number/volume) 15.1 10*3/uL 4.3-11.0 Blood erythrocytes automated count (number/volume) 5.23 10*6/uL 4.35-5.85 Venous blood hemoglobin measurement (mass/volume) 15.7 g/dL 13.3-17.7 Blood hematocrit (volume fraction) 46 % 40-54 Automated erythrocyte mean corpuscular volume 87 [ foz_us] 80-99 Automated erythrocyte mean corpuscular h emoglobin (mass per erythrocyte) 30 pg 25-34 Automated erythrocyte mean corpuscular h emoglobin concentration measurement (mass/volume) 34 g/dL 32-36 Automated erythrocyte distribution width ratio 14. 4 % 10.0- 14.5 Automated blood platelet count (count/volume) 252 10*3/uL 130-400 Automated blood platelet mean volume measurement 9.7 [foz_us] 7.4-10.4 Automated blood neutrophils/100 leukocytes 57 % 42-75 Automated blood lymphocytes/100 leukocytes 35 % 12-44 Blood monocytes/100 leukocytes 7 % 0-12 Automated blood eosinophils/100 leukocytes 1 % 0-10 Automated blood basophils/100 leukocytes 0 % 0-10 Blood neutrophils automated count (number/volume) 8.6 10*3 1.8-7.8 Blood lymphocytes automated count (number/volume) 5.3 10*3 1.0-4.0 Blood monocytes automated count (number/volume) 1. 0 10*3 0.0-1.0 Automated eosinophil count 0.1 10*3/uL 0 .0-0.3 Automated blood basophil count (count/volume) 0.0 10*3/uL 0.0-0.1 Comprehensive metabolic panel - 11/16/18 20:36 Serum or plasma sodium measurement (moles/volume) 138 mmol/L 135-145 Serum or plasma potassium measurement (moles/volume) 3.8 mmol/L 3.6-5.0 Serum or plasma chloride measurement (moles/volume) 105 mmol/L 98-107 Carbon dioxide 22 mmol/L 21-32 Serum or plasma anion gap determination (moles/volume) 11 mmol/L 5-14 Serum or plasma urea nitrogen measurement (mass/volume ) 11 mg/dL 7-18 Serum or plasma creatinine measurement (mass/volume) 1.09 mg/dL 0.60-1.30 Serum or plasma urea nitrogen/creatinine mass ratio 10 NRG Serum or plasma creatinine measurement w ith calculation of estimated glomerular filtration rate > NRG Serum or plasma glucose measurement (mass/volume) 109 mg/dL 70-105 Serum or plasma calcium measurement (mass/volume) 9.7 mg/dL 8.5-10.1 Serum or plasma total bilirubin measurement (mass/volu me) 0.5 mg/dL 0.1-1.0 Serum or plasma alkaline phosphatase lyle surement (enzymatic activity/volume) 65 U/L 40-136 Serum or plasma aspartate aminotransfera se measurement (enzymatic activity/volume) 18 U/L 5-34 Serum or plasma alanine aminotransferase measurement (enzymatic activity/volume) 16 U/L 0-55 Serum or plasma protein measurement (mass/volume) 7.7 g/dL 6.4-8.2 Serum or plasma albumin measurement (mass/volume) 4.3 g/dL 3.2-4.5 CALCIUM CORRECTED 9.5 mg/dL 8.5-10.1 Serum or plasma amylase measurement (enz ymatic activity/volume) - 11/16/18 20:36 Serum or plasma amylase measurement (enzymatic activit y/volume) 76 U/L 25-125 Lipase - 11/16/18 20:36 Lipase 89 U/L 8-78 Manual absolute plasma cell count - 11/26 20:36 Blood monocytes/100 leukocytes 4 % NRG Manual blood segmented neutrophils/100 leukocytes 58 % NRG Blood band neutrophils/100 leukocytes 1 % NRG Manual blood lymphocytes/100 leukocytes 36 % NRG Manual eosinophils/100 leukocytes in nose 1 % NRG Manual blood basophils/100 leukocytes 0 % NRG Blood erythrocyte morphology finding identification NORMAL NRG Complete urinalysis with reflex to cultu re - 11/16/18 21:40 Urine color determination YELLOW NRG Urine clarity determination CLEAR NR G Urine pH measurement by test strip 6 5-9 Specific gravity of urine by test strip 1.020 1.016-1.022 Urine protein assay by test strip, semi-quantitative NEGATIVE NEGATIVE Urine glucose detection by automated test strip NE GATIVE NEGATIVE Erythrocytes detection in urine sediment by light micr oscopy NEGATIVE NEGATIVE Urine ketones detection by automated test strip NE GATIVE NEGATIVE Urine nitrite detection by test strip NEGATIVE NEGATIVE Urine total bilirubin detection by test strip NEGA TIVE NEGATIVE Urine urobilinogen measurement by automated test strip (mass/volume) NORMAL NORMAL Urine leukocyte esterase detection by dipstick NEG ATIVE NEGATIVE Automated urine sediment erythrocyte cou nt by microscopy (number/high power field) RARE NRG Automated urine sediment leukocyte count by microscopy (number/high power field) [HPF] NRG Bacteria detection in urine sediment by light microsco py NEGATIVE NRG Squamous epithelial cells detection in u rine sediment by light microscopy 2-5 NRG Crystals detection in urine sediment by light microsco py NONE NRG Casts detection in urine sediment by light microscopy NONE NRG Mucus detection in urine sediment by light microscopy SMALL NRG Complete urinalysis with reflex to culture NO NRG Complete blood count (CBC) with automate d white blood cell (WBC) differential - 11/18/18 02:25 Blood leukocytes automated count (number/volume) 12.1 10*3/uL 4.3-11.0 Blood erythrocytes automated count (number/volume) 5.11 10*6/uL 4.35-5.85 Venous blood hemoglobin measurement (mass/volume) 15.4 g/dL 13.3-17.7 Blood hematocrit (volume fraction) 45 % 40-54 Automated erythrocyte mean corpuscular volume 89 [ foz_us] 80-99 Automated erythrocyte mean corpuscular h emoglobin (mass per erythrocyte) 30 pg 25-34 Automated erythrocyte mean corpuscular h emoglobin concentration measurement (mass/volume) 34 g/dL 32-36 Automated erythrocyte distribution width ratio 14. 3 % 10.0- 14.5 Automated blood platelet count (count/volume) 257 10*3/uL 130-400 Automated blood platelet mean volume measurement 10.0 [foz_us] 7.4-10.4 Automated blood neutrophils/100 leukocytes 47 % 42-75 Automated blood lymphocytes/100 leukocytes 44 % 12-44 Blood monocytes/100 leukocytes 8 % 0-12 Automated blood eosinophils/100 leukocytes 1 % 0-10 Automated blood basophils/100 leukocytes 0 % 0-10 Blood neutrophils automated count (number/volume) 5.8 10*3 1.8-7.8 Blood lymphocytes automated count (number/volume) 5.3 10*3 1.0-4.0 Blood monocytes automated count (number/volume) 0. 9 10*3 0.0-1.0 Automated eosinophil count 0.1 10*3/uL 0 .0-0.3 Automated blood basophil count (count/volume) 0.0 10*3/uL 0.0-0.1 Comprehensive metabolic panel - 11/18/18 02:25 Serum or plasma sodium measurement (moles/volume) 140 mmol/L 135-145 Serum or plasma potassium measurement (moles/volume) 4.0 mmol/L 3.6-5.0 Serum or plasma chloride measurement (moles/volume) 107 mmol/L 98-107 Carbon dioxide 19 mmol/L 21-32 Serum or plasma anion gap determination (moles/volume) 14 mmol/L 5-14 Serum or plasma urea nitrogen measurement (mass/volume ) 16 mg/dL 7-18 Serum or plasma creatinine measurement (mass/volume) 1.18 mg/dL 0.60-1.30 Serum or plasma urea nitrogen/creatinine mass ratio 14 NRG Serum or plasma creatinine measurement w ith calculation of estimated glomerular filtration rate > NRG Serum or plasma glucose measurement (mass/volume) 180 mg/dL 70-105 Serum or plasma calcium measurement (mass/volume) 10.3 mg/dL 8.5-10.1 Serum or plasma total bilirubin measurement (mass/volu me) 0.4 mg/dL 0.1-1.0 Serum or plasma alkaline phosphatase lyle surement (enzymatic activity/volume) 64 U/L 40-136 Serum or plasma aspartate aminotransfera se measurement (enzymatic activity/volume) 19 U/L 5-34 Serum or plasma alanine aminotransferase measurement (enzymatic activity/volume) 13 U/L 0-55 Serum or plasma protein measurement (mass/volume) 7.9 g/dL 6.4-8.2 Serum or plasma albumin measurement (mass/volume) 4.4 g/dL 3.2-4.5 CALCIUM CORRECTED 10.0 mg/dL 8.5-10.1 Magnesium - 11/18/18 02:25 Magnesium 1.7 mg/dL 1.6-2.4 Serum or plasma creatine kinase measurem ent (enzymatic activity/volume) - 11/18/18 02:25 Serum or plasma creatine kinase measurem ent (enzymatic activity/volume) 493 U/L 30-200 Serum or plasma creatine kinase MB measu rement (enzymatic activity/volume) - 11/18/18 02:25 Serum or plasma creatine kinase MB measu rement (enzymatic activity/volume) 1.8 ng/mL <6.6 Serum or plasma troponin i.cardiac measu rement (mass/volume) - 11/18/18 02:25 Serum or plasma troponin i.cardiac measurement (mass/v olume) < ng/mL <0.028 Serum or plasma amylase measurement (enz ymatic activity/volume) - 11/18/18 02:25 Serum or plasma amylase measurement (enzymatic activit y/volume) 91 U/L 25-125 Lipase - 11/18/18 02:25 Lipase 130 U/L 8-78 Serum or plasma lithium measurement (mol es/volume) - 11/18/18 02:25 BNP PT 68.6 pg/mL <100.0 PT panel in platelet poor plasma by coag ulation assay - 11/18/18 02:25 Prothrombin time (PT) in platelet poor plasma by coagu lation assay 17.7 s 12.2-14.7 INR in platelet poor plasma or blood by coagulation as say 1.4 0.8-1.4 Activated partial thromboplastin time (a PTT) in platelet poor plasma bycoagulation assay - 11/18/18 02:25 Activated partial thromboplastin time (a PTT) in platelet poor plasma bycoagulation assay 33 s 24-35 Serum or plasma ethanol measurement (mas s/volume) - 11/18/18 02:25 Serum or plasma ethanol measurement (mass/volume) < mg/dL <10 Capillary blood glucose measurement by g lucometer (mass/volume) - 11/18/18 02:30 Capillary blood glucose measurement by glucometer (mas s/volume) 172 mg/dL 70-110 Complete urinalysis with reflex to cultu re - 11/18/18 03:58 Urine color determination YELLOW NRG Urine clarity determination CLEAR NR G Urine pH measurement by test strip 6.5 5-9 Specific gravity of urine by test strip 1.020 1.016-1.022 Urine protein assay by test strip, semi-quantitative NEGATIVE NEGATIVE Urine glucose detection by automated test strip 2+ NEGATIVE Erythrocytes detection in urine sediment by light micr oscopy NEGATIVE NEGATIVE Urine ketones detection by automated test strip NE GATIVE NEGATIVE Urine nitrite detection by test strip NEGATIVE NEGATIVE Urine total bilirubin detection by test strip NEGA TIVE NEGATIVE Urine urobilinogen measurement by automated test strip (mass/volume) 1 mg/dL NORMAL Urine leukocyte esterase detection by dipstick NEG ATIVE NEGATIVE Automated urine sediment erythrocyte cou nt by microscopy (number/high power field) NONE NRG Automated urine sediment leukocyte count by microscopy (number/high power field) NONE NRG Bacteria detection in urine sediment by light microsco py NEGATIVE NRG Squamous epithelial cells detection in u rine sediment by light microscopy 2-5 NRG Crystals detection in urine sediment by light microsco py NONE NRG Casts detection in urine sediment by light microscopy NONE NRG Mucus detection in urine sediment by light microscopy NEGATIVE NRG Complete urinalysis with reflex to culture NO NRG Urine drug screening test - 11/18/18 03: 58 Urine phencyclidine detection by screening method NEGATIVE NEGATIVE Urine benzodiazepines detection by screening method NEGATIVE NEGATIVE Urine cocaine detection NEGATIVE NEGATI VE Urine amphetamines detection by screening method N EGATIVE NEGATIVE Urine methamphetamine detection by screening method NEGATIVE NEGATIVE Urine cannabinoids detection by screening method P OSITIVE NEGATIVE Urine opiates detection by screening method NEGATI VE NEGATIVE Urine barbiturates detection NEGATIVE N EGATIVE Screening urine tricyclic antidepressants detection NEGATIVE NEGATIVE Urine methadone detection by screening method NEGA TIVE NEGATIVE Urine oxycodone detection NEGATIVE NEGA TIVE Urine propoxyphene detection NEGATIVE N EGATIVE PT/INR - 12/30/18 10:12 INR 2.7 NRG PT 27.1 sec 9.0-11.5 PT/INR - 02/08/19 14:58 INR 1.6 NRG PT 15.7 sec 9.0-11.5 TSH - 02/09/19 16:12 TSH 0.90 mIU/L 0.40-4.50 BNP - 02/09/19 16:12 B TYPE NATRIURETIC PEPTIDE (BNP) 38 pg/mL <100 PT/INR - 05/06/19 13:36 INR 2.1 NRG PT 20.7 sec 9.0-11.5 Encounters ACCT No. Visit Date/Time Discharge Status Pt. Type Provider Facility Loc./Unit Complaint [id number] 05/01/2016 07:05:00 Document Registration [id number] 07/15/2019 14:19:00 020 23:59:59 CLS Outpatient ROSALIND MONK, MACRINA Miller [facility] CARD CHF,DYSPNEA ON EXERTION ,MR [id number] 11/18/2018 02:16:00 09/11/2 019 04:43:00 DIS Outpatient ISABEL JOCEYLNN MYERS [facility] ER ABD PAIN [id number] 11/16/2018 20:27:00 22:43:00 DIS Outpatient VERITO MOREJON a [facility] ER ABD / BACK PAIN [id number] 11/15/2018 21:37:00 00:06:00 DIS Outpatient BAKARI MORELOS a [facility] ER ABD / BACK PAIN [id number] 11/04/2018 08:53:00 10:05:00 DIS Outpatient MACRINA BOYER MD [facility] CATH CHF,CAD,DM [id number] 10/14/2018 14:07:00 17:00:00 DIS Emergency VERITO MOREJON [facility] ER CHEST PAIN [id number] 09/25/2018 14:39:00 16:10:00 DIS Emergency BLADIMIR OBRIEN 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 [id number] 06/04/2018 16:47:00 23:59:59 CLS Preadmit AMBREEN MUÑOZ CONTINUOUS IMPROVEMENT MANAGER [facility] CARD MURMUR [id number] 07/12/2017 12:28:00 14:30:00 DIS Emergency CRISTIAN SHAH MD [facility] ER NECK PAIN [id number] 07/07/2017 22:45:00 23:37:00 DIS Emergency CRISTIAN SHAH MD [facility] ER NECK ISSUES [id number] 12/24/2016 20:00:00 017 06:25:00 DIS Outpatient JULIO SHAFFER [facility] SLEEP G47.33 [id number] 04/03/2016 00:16:00 017 04:08:00 DIS Emergency CRISTIAN SHAH MD [facility] ER ABD PAIN,DIABET ES,FELT LIKE PASSING OUT [id number] 12/06/2015 22:13:00 016 00:25:00 DIS Emergency SEVEN HERNANDEZ DO [facility] ER INCONSISTENT GLUCOSE LE VELS [id number] 07/26/2015 07:50:00 016 13:32:00 DIS Outpatient SURAJ AUSTIN MD [facility] SDC RIGHT SHOULDER INSTABI LITY [id number] 07/20/2015 12:57:00 016 13:25:00 DIS Outpatient SURAJ AUSTIN MD [facility] PREOP RIGHT SHOULDER INSTABI LITY [id number] 06/06/2015 11:34:00 016 23:59:59 CLS Outpatient JULIO SHAFFER [facility] RAD HISTORY OF PANCREATITIS [id number] 09/28/2014 17:05:00 015 19:10:00 DIS Emergency JOCELYNN HALL DO Vi [facility] ER ABD PAIN [id number] 07/28/2014 22:32:00 015 13:10:00 DIS Inpatient LUCRETIA MONTGOMERY DO, [facility] CSD UNCONTROLLED HTN,UNCONT ROLLED DM,ABD PAIN [id number] 07/28/2014 09:25:00 015 13:10:00 DIS Emergency CHRISTIANO FULLER MD [facility] ER ABD KIDNEY PAIN [id number] 12/29/2013 15:44:00 014 16:53:00 DIS Emergency BLADIMIR OBRIEN APRN [facility] ER RIGHT SHOULDER PAIN [id number] 07/14/2013 03:15:00 014 04:56:00 DIS Emergency JOCELYNN HALL DO [facility] ER NOSE BLEED [id number] 07/28/2014 09:25:00 Document Registration [id number] 08/10/2019 09:40:00 08/10/2019 23:59:5 9 [facility] Outpatient CLARI WYNNE [facility] [id number] 05/06/2019 11:20:00 Document Registration [id number] 02/09/2019 16:00:00 Document Registration [id number] 02/08/2019 15:40:00 Document Registration [id number] 12/30/2018 10:00:00 Document Registration [id number] 11/13/2018 10:40:00 Document Registration [id number] 10/22/2018 10:20:00 Document Registration [id number] 10/07/2018 14:00:00 Document Registration [id number] 06/30/2018 09:40:00 Document Registration [id number] 05/27/2018 09:20:00 Document Registration [id number] 12/11/2017 08:20:00 Document Registration [id number] 04/01/2017 13:40:00 Document Registration [id number] 06/25/2016 13:05:00 Document Registration
--- NOTE | 2019-09-11 13:01 | ED General ---
General Stated Complaint: FOOT PAIN Source of Information: Patient Exam Limitations: No Limitations History of Present Illness Date Seen by Provider: Sep 11, 2019 Time Seen by Provider: 12:59 Initial Comments To ER with left lateral dorsal foot pain after he tripped over a toy at home last night. Timing/Duration: 12-24 Hours Severity: Moderate Associated Systoms: Denies Symptoms Allergies and Home Medications Allergies Coded Allergies: Fish Containing Products (Unverified Allergy, Unknown, 11/18/18) FROM UNCODED ALLERGY "SEAFOOD" Home Medications Aspirin/Acetaminophen/Caffeine 1 Each Tablet, 2 EACH PO Q8H PRN for HEADACHE, (Reported) Dicyclomine HCl 20 Mg Tablet, 20 MG PO Q6H Prescribed by: JOCELYNN HALL on 11/18/18400 Furosemide 20 Mg Tablet, 20 MG PO DAILY, (Reported) Hydrocodone Bit/Acetaminophen 1 Tab Tab, 1-2 EACH PO Q6H PRN for PAIN-MODERATE Prescribed by: BAKARI MORELOS on 11/15/189 Insulin Detemir 100 Unit/1 Ml Insuln.pen, 50 UNIT SQ BID, (Reported) Ketorolac Tromethamine 10 Mg Tablet, 10 MG PO Q6H Prescribed by: JOCELYNN HALL on 11/18/18400 Linagliptin 5 Mg Tablet, 5 MG PO DAILY, (Reported) Liraglutide 0.6 Mg/0.1 Ml Pen.injctr, 0.6 SQ DAILY, (Reported) Metoprolol Succinate 25 Mg Tab.er.24h, 25 MG PO DAILY, (Reported) LAST PICKED UP 06-22-2018 FOR A 90 DAY SUPPLY Pantoprazole Sodium 40 Mg Tablet.dr, 40 MG PO DAILY Prescribed by: JOCELYNN HALL on 11/18/18400 Potassium Chloride 10 Meq Tablet.er, 10 MEQ PO DAILY, (Reported) Sacubitril/Valsartan 1 Each Tablet, 2 TAB PO DAILY, (Reported) Tramadol HCl 50 Mg Tablet, 50 MG PO Q4H PRN for PAIN-MODERATE Prescribed by: JOCELYNN HALL on 11/18/18400 Warfarin Sodium 5 Mg Tablet, 10 MG PO HS, (Reported) Patient Home Medication List Home Medication List Reviewed: Yes Review of Systems Review of Systems Constitutional: see HPI EENTM: see HPI Respiratory: no symptoms reported Cardiovascular: no symptoms reported Genitourinary: no symptoms reported Musculoskeletal: see HPI Skin: no symptoms reported Psychiatric/Neurological: No Symptoms Reported Past Qmcwmqu-Ypjwhz-Lusaut Hx Patient Social History Drug of Choice: THC Type Used: Cigarettes Recent Foreign Travel: No Contact w/Someone Who Travel: No Recent Hopitalizations: No Immunizations Up To Date Tetanus Booster (TDap): Unknown PED Vaccines UTD: Yes Seasonal Allergies Seasonal Allergies: Yes Past Medical History Surgeries: Yes Cardiac, Defibrillator, Eye Surgery, Orthopedic, Pacemaker Respiratory: Yes Sleep Apnea Currently Using CPAP: No Cardiac: Yes Cardiomyopathy, High Cholesterol, Hypertension Neurological: Yes Headaches /Migraines Genitourinary: No Gastrointestinal: Yes Pancreatitis Musculoskeletal: No Endocrine: Yes Diabetes, Insulin dep HEENT: Yes (DETACHED LEFT RETINA REPAIR 2007) Cancer: No Psychosocial: Yes Anxiety Integumentary: No Blood Disorders: Yes (SICKLE CELL TRAIT) Family Medical History No Pertinent Family Hx, Diabetes Physical Exam Vital Signs Vital Signs - First Documented 09/11/19 12:50 Temp 37.1 Pulse 115 Resp 18 B/P (MAP) 149/112 (124) Pulse Ox 98 O2 Delivery Room Air Capillary Refill : Height, Weight, BMI Height: 5'9.00" Weight: 270lbs. 0.0oz. 122.367366ca; 39.00 BMI Method:Stated General Appearance: No Apparent Distress, WD/WN Eyes: Bilateral Eye Normal Inspection, Bilateral Eye PERRL, Bilateral Eye EOMI Respiratory: No Accessory Muscle Use, No Respiratory Distress Cardiovascular: Regular Rate, Rhythm, Normal Peripheral Pulses Gastrointestinal: Normal Bowel Sounds, Non Tender, Soft Extremity: Normal Capillary Refill, Other (swelling and ecchymosis to the dorsal lateral aspect of the left foot. There is no tenderness to palpation over the distal fibula.) Neurologic/Psychiatric: Alert, Oriented x3 Skin: Normal Color, Warm/Dry Progress/Results/Core Measures Suspected Sepsis SIRS Temperature: Pulse: Respiratory Rate: Blood Pressure / Mean: Results/Orders My Orders Orders - BLADIMIR OBRIEN APRN Foot, Left, 3 Views (09/11/19 12:56) Hydrocodone/Apap 5/325 Tablet (Lortab 5 (09/11/19 13:00) Medications Given in ED Current Medications Medications Dose Ordered Sig/Nitesh Route Start Time Stop Time Status Last Admin Dose Admin Acetaminophen/ Hydrocodone Bitart 1 tab ONCE ONCE PO 09/11/19 13:00 09/11/19 13:01 DC 09/11/19 13:03 1 TAB Vital Signs/I&O 09/11/19 12:50 Temp 37.1 Pulse 115 Resp 18 B/P (MAP) 149/112 (124) Pulse Ox 98 O2 Delivery Room Air Capillary Refill : Diagnostic Imaging Diagonstic Imaging: Xray Comments NAME: CHANA SANCHEZ [facility] REC#: [id number] PT STATUS: REG ER : 1980 PHYSICIAN: BLADIMIR OBRIEN APRN ADMIT DATE: 09/11/19/ER Draft Date of Exam:09/11/19 FOOT, LEFT, 3 VIEWS INDICATION: Trauma, left foot pain 3 views of the left foot show no fracture, dislocation or other abnormality. IMPRESSION: Normal left foot. Dictated on workstation # [id number] Dict: 09/11/19 1312 Trans: 09/11/19 1318 [facility] [id number] Interpreted by: JERONIMO SILVA MD Electronically signed by: Departure Impression Primary Impression: Sprain of foot, left Qualified Codes: S93.602A - Unspecified sprain of left foot, initial encounter Disposition: HOME, SELF-CARE Condition: Stable Departure-Patient Inst. Decision time for Depature: 13:38 Referrals: [facility] Primary Care Physician AMBREEN MUÑOZ APRN (Family) Primary Care Physician Patient Instructions: Foot Sprain (DC) Add. Discharge Instructions: 1. Pain medication as directed 2. Keep the foot elevated as much as possible, keep the Vasile wrap on the foot as much as possible for the next 2-3 days. Follow-up with your doctor next week for recheck. Images Extremities-Lower 1 - Swelling, Tenderness BLADIMIR OBRIEN APRN Sep 11, 2019 13:01
--- NOTE | 2019-09-11 13:18 | Diagnostic Imaging Report ---
INDICATION: Trauma, left foot pain 3 views of the left foot show no fracture, dislocation or other abnormality. IMPRESSION: Normal left foot. Dictated by: Dictated on workstation # [id number]
[2019-09-11] MEDS ORDERED: HYDR-3870 PO (13:39)
[2019-09-11 13:44] VITALS: BP 149/112
--- NOTE | 2019-09-11 13:44 | NUR ---
SAUNDRA WRAP BY Lynn OBRIEN APRN.
== END 2019-09-11 13:44 | disposition home or self-care (01) ==
LOC: EDUNIT# 12:47 → ER 12:49
DX: S93.602A Unspecified sprain of left foot, initial encounter (principal); I42.9 Cardiomyopathy, unspecified; E78.00 Pure hypercholesterolemia, unspecified; I10 Essential (primary) 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; G43.909 Migraine, unspecified, not intractable, without status migrainosus; E11.9 Type 2 diabetes mellitus without complications; Z79.4 Long term (current) use of insulin; F41.9 Anxiety disorder, unspecified; Z79.82 Long term (current) use of aspirin; Z79.899 Other long term (current) drug therapy; Z79.01 Long term (current) use of anticoagulants; Z91.013 Allergy to seafood; W18.31XA Fall on same level due to stepping on an object, initial encounter; Y92.019 Unspecified place in single-family (private) house as the place of occurrence of the external cause
CPT/HCPCS: 73630

== ENCOUNTER 2019-09-20 14:10 | Emergency (ER) | payer SELFPAY ==
[~2019-09-20] VITALS: Ht 175 cm; Wt 127.0 kg
[~2019-09-20 14:10] MED LIST changes: +HYDR-3870 PO
--- NOTE | 2019-09-20 14:23 | ED Lower Extremity ---
General Stated Complaint: L FOOT INJ Source: patient Exam Limitations: no limitations History of Present Illness Date Seen by Provider: Sep 20, 2019 Time Seen by Provider: 14:07 Initial Comments Patient presents to ER by private conveyance from home with chief complaint of swelling and pain in left ankle. He fell approximately 10 days ago and had some swelling pain and bruising of his foot came up to the ER had an x-ray done we'll fracture. He has a new primary care provider, Maru at [facility] but has not followed up with him. He says is not taking anything for pain and doesn't help. He does have a history of pacemaker and reduced ejection fraction around 15% but no history of CT or kidney dysfunction. He denies any nausea fever, cough, shortness of breath, chills Allergies and Home Medications Allergies Coded Allergies: Fish Containing Products (Unverified Allergy, Unknown, 11/18/18) FROM UNCODED ALLERGY "SEAFOOD" Home Medications Aspirin/Acetaminophen/Caffeine 1 Each Tablet, 2 EACH PO Q8H PRN for HEADACHE, (Reported) Dicyclomine HCl 20 Mg Tablet, 20 MG PO Q6H Prescribed by: JOCELYNN HALL on 11/18/18400 Furosemide 20 Mg Tablet, 20 MG PO DAILY, (Reported) Hydrocodone Bit/Acetaminophen 1 Tab Tab, 1-2 EACH PO Q6H PRN for PAIN-MODERATE Prescribed by: BAKARI MORELOS on 11/15/18 2349 Hydrocodone/Acetaminophen 1 Each Tablet, 1 EACH PO Q4-6HR PRN for PAIN-MODERATE Prescribed by: BLADIMIR OBRIEN on 09/11/19 1340 Insulin Detemir 100 Unit/1 Ml Insuln.pen, 50 UNIT SQ BID, (Reported) Ketorolac Tromethamine 10 Mg Tablet, 10 MG PO Q6H Prescribed by: JOCELYNN HALL on 11/18/18400 Linagliptin 5 Mg Tablet, 5 MG PO DAILY, (Reported) Liraglutide 0.6 Mg/0.1 Ml Pen.injctr, 0.6 SQ DAILY, (Reported) Metoprolol Succinate 25 Mg Tab.er.24h, 25 MG PO DAILY, (Reported) LAST PICKED UP 06-22-2018 FOR A 90 DAY SUPPLY Pantoprazole Sodium 40 Mg Tablet.dr, 40 MG PO DAILY Prescribed by: JOCELYNN HALL on 9/11/19 0401 Potassium Chloride 10 Meq Tablet.er, 10 MEQ PO DAILY, (Reported) Sacubitril/Valsartan 1 Each Tablet, 2 TAB PO DAILY, (Reported) Tramadol HCl 50 Mg Tablet, 50 MG PO Q4H PRN for PAIN-MODERATE Prescribed by: JOCELYNN HALL on 11/18/18 0401 Warfarin Sodium 5 Mg Tablet, 10 MG PO HS, (Reported) Patient Home Medication List Home Medication List Reviewed: Yes Review of Systems Constitutional: No chills, No diaphoresis EENTM: No ear discharge, No hearing loss, No ear pain Respiratory: No cough, No short of breath Cardiovascular: No chest pain, No edema Gastrointestinal: No abdominal pain, No nausea, No vomiting Genitourinary: No discharge, No dysuria Musculoskeletal: see HPI; No back pain; joint pain All Other Systems Reviewed Negative Unless Noted: Yes Past Srsdfdh-Zyoyjj-Ztcgsa Hx Patient Social History Alcohol Use: Denies Use Recreational Drug Use: Yes Drug of Choice: THC Smoking Status: Current Everyday Smoker Type Used: Cigarettes (0.25 ppd) Recent Foreign Travel: No Contact w/Someone Who Travel: No Recent Hopitalizations: No Immunizations Up To Date Tetanus Booster (TDap): Unknown PED Vaccines UTD: Yes Seasonal Allergies Seasonal Allergies: Yes Past Medical History Surgeries: Yes Cardiac, Defibrillator, Eye Surgery, Orthopedic, Pacemaker Respiratory: Yes Sleep Apnea Currently Using CPAP: No Cardiac: Yes Cardiomyopathy, High Cholesterol, Hypertension Neurological: Yes Headaches /Migraines Genitourinary: No Gastrointestinal: Yes Pancreatitis Musculoskeletal: No Endocrine: Yes Diabetes, Insulin dep HEENT: Yes (DETACHED LEFT RETINA REPAIR 2007) Cancer: No Psychosocial: Yes Anxiety Integumentary: No Blood Disorders: Yes (SICKLE CELL TRAIT) Family Medical History No Pertinent Family Hx, Diabetes Physical Exam Vital Signs Vital Signs - First Documented 09/20/19 14:22 Temp 36.8 Pulse 117 Resp 18 B/P (MAP) 135/97 (110) Pulse Ox 98 Capillary Refill : Height, Weight, BMI Height: 5'9.00" Weight: 270lbs. 0.0oz. [id number]; 41.00 BMI Method:Stated General Appearance: WD/WN, mild distress HEENT: PERRL/EOMI, pharynx normal Neck: full range of motion, normal inspection Cardiovascular: normal peripheral pulses, regular rate, rhythm, no edema Respiratory: no respiratory distress, no accessory muscle use Ankles: right ankle non-tender; bilateral ankle normal inspection, bilateral ankle normal range of motion; right ankle no evidence of injury; left ankle bone tenderness (bilateral malleoli are tender to palpation), left ankle pain Feet: right foot non-tender, right foot normal inspection; bilateral foot normal range of motion; right foot no evidence of injury; left foot bone tenderness (tenderness over all 5 metatarsals.), left foot ecchymosis (second and third toes are ecchymotic and swollen), left foot soft tissue tenderness, left foot swelling (mild) Neurologic/Tendon: normal sensation, normal motor functions, normal tendon functions, responds to pain, no evidence tendon injury Neurologic/Psychiatric: alert, normal mood/affect, oriented x 3 Skin: normal color, warm/dry Progress/Results/Core Measures Results/Orders My Orders Orders - MONSERRAT MARIN Foot, Left, 3 Views (09/20/19 14:17) Ankle, Left, 3 Views (09/20/19 14:17) Acetaminophen Tablet/Caplet (Tylenol T (09/20/19 14:30) Medications Given in ED Current Medications Medications Dose Ordered Sig/Nitesh Route Start Time Stop Time Status Last Admin Dose Admin Acetaminophen 650 mg ONCE ONCE PO 09/20/19 14:30 09/20/19 14:31 DC 09/20/19 14:39 650 MG Vital Signs/I&O 09/20/19 14:22 Temp 36.8 Pulse 117 Resp 18 B/P (MAP) 135/97 (110) Pulse Ox 98 Progress Progress Note : Time: 14:26 Progress Note Plan to repeat x-rays for possible occult fracture of the foot, toes or ankle. Generalized tenderness and some mild swelling on his left foot compared to right foot. Range of motion is intact and is able walk on it although he has a antalgic gait. Tylenol for pain. Diagnostic Imaging Diagonstic Imaging: Xray Plain Films/CT/US/NM/MRI: ankle (Left) Comments [facility] [place], [place] NAME: CHANA SANCHEZ MED REC#: [id number] PT STATUS: REG ER : 1980 PHYSICIAN: MONSERRAT MARIN MD ADMIT DATE: 09/20/19/ER Signed Date of Exam:09/20/19 ANKLE, LEFT, 3 VIEWS INDICATION: Left ankle pain 3 views of the left ankle show no fracture, dislocation or other acute abnormalities. IMPRESSION: Negative left ankle. Dictated by: Dictated on workstation # [id number] Dict: 09/20/19 1437 Trans: 09/20/191446 [facility] [id number] Interpreted by: CRISTIAN MARTINEZ MD Electronically signed by: CRISTIAN MARTINEZ MD 09/20/191446 Reviewed: Reviewed by Me Diagonstic Imaging: Xray Plain Films/CT/US/NM/MRI: other (left foot) Comments NAME: CHANA SANCHEZ MED REC#: [id number] PT STATUS: REG ER : 1980 PHYSICIAN: MONSERRAT MARIN MD ADMIT DATE: 09/20/19/ER Draft Date of Exam:09/20/19 FOOT, LEFT, 3 VIEWS INDICATION: Pain. Difficulty walking. Injury. COMPARISON: None. FINDINGS: 3 views of the left foot demonstrate no acute fracture or dislocation. There are no focal osseous lesions. There is mild generalized soft tissue swelling and edema. Joint spaces are well maintained. No radiopaque foreign bodies are seen. IMPRESSION: Mild generalized swelling and edema of the left foot, but no evidence for underlying acute fracture or dislocation. Dictated on workstation # [id number] Dict: 09/20/19 1440 Trans: 09/20/191442 [facility] [id number] Interpreted by: BRITTNEY GUADALUPE MD Electronically signed by: Reviewed: Reviewed by Me Departure Impression Primary Impression: Left foot pain Additional Impression: Fall Qualified Codes: W19.XXXA - Unspecified fall, initial encounter Disposition: 01 HOME, SELF-CARE Condition: Stable Departure-Patient Inst. Decision time for Depature: 14:59 Referrals: [facility] (PCP) Primary Care Physician AMBREEN MUÑOZ APRN (Family) Primary Care Physician Patient Instructions: Foot Sprain (DC) Add. Discharge Instructions: While I cannot see a fracture in your foot or ankle today there is to possibility she could have significant ligament is injury which cannot be seen on x-ray or you could still have a very fine fracture that cannot be seen on x- ray. Either way the goal is to put you in a boot for the next week and heavy follow- up with Mr. Mahoney at [facility] for further recommendations such as potential imaging or referral to a specialist. If you're still having significant pain you can use one tablet of tramadol every 6 hours as necessary for breakthrough pain. Tylenol 650 mg every 6 hours as necessary for pain. Scripts Tramadol HCl (Tramadol HCl) 50 Mg Tablet 50 MG PO Q6H PRN for PAIN for 3 Days, #15 TAB 0 Refills Prov: MONSERRAT MARIN 09/20/19 Work/School Note: Work Release Form Date Seen in the Emergency Department: Sep 20, 2019 Return to Work: Sep 21, 2019 Restrictions: No Sports-Until Released Other Restrictions Listed Below: Minimize walking when possible until 09/27/19. MONSERRAT MARIN Sep 20, 2019 14:23
[2019-09-20] MEDS ORDERED: ACETAMINOPHEN 325 MG TABLET PO ONE (14:30)
--- NOTE | 2019-09-20 14:39 | Diagnostic Imaging Report ---
INDICATION: Left ankle pain 3 views of the left ankle show no fracture, dislocation or other acute abnormalities. IMPRESSION: Negative left ankle. Dictated by: Dictated on workstation # [id number]
--- NOTE | 2019-09-20 14:43 | Diagnostic Imaging Report ---
INDICATION: Pain. Difficulty walking. Injury. COMPARISON: None. FINDINGS: 3 views of the left foot demonstrate no acute fracture or dislocation. There are no focal osseous lesions. There is mild generalized soft tissue swelling and edema. Joint spaces are well maintained. No radiopaque foreign bodies are seen. IMPRESSION: Mild generalized swelling and edema of the left foot, but no evidence for underlying acute fracture or dislocation. Dictated by: Dictated on workstation # [id number]
[2019-09-20] MEDS ORDERED: TRM50T PO (15:04)
[2019-09-20 15:16] VITALS: BP 125/82
--- OUTSIDE RECORDS SUMMARY | 2019-09-20 16:17 | XMS REPORT | Continuity of Care Document ---
Demographics Preferred Language Unknown Marital Status Unknown Zoroastrianism Affiliation Unknown Race Unknown Ethnic Group Unknown Author Organization Unknown Address Unknown Phone Unavailable Allergies Active Description Code Type Severity Reaction Onset Reported/Identified Relationship to Patient Clinical Status Yes metformin [id number] Drug Allergy Mild diarrhea 07/29/2014 Yes No Known Drug Allergies [id number] Drug Allergy Unknown N/A 12/06/2015 Yes SEAFOOD SEAFOOD Unknown N/A 06/18/2018 Yes Fish Containing Products [id number] Drug Allergy Unknown N/A 11/18/2018 Medications There [...] SHLDR/UPPER ARM INJ NOS 12/29/2013 BLADIMIR OBRIEN MULTI MEDIA SPECIALIST Ot E000.8 OTHER EXTERNAL CAUSE STATUS 12/29/2013 [...] 08/01/2014 MONTGOMERY LUCRETIA Ot 784.0 HEADACHE 08/01/2014 MONTGOMERYROSA MYERS LUCRETIA Ot V15.81 HX OF PAST NONCOMPLIANCE 09/28/2014 ISABEL JOCELYNN K Ot 599.0 URIN TRACT INFECTION NOS 09/28/2014 ISABELAlivia MYERS JOCELYNN K Ot 789.00 ABDOMINAL PAIN, UNSPECIFIED SITE 06/23/2015 MADJULIO Doe BEAD BUILDER Ot R10.12 LEFT UPPER QUADRANT PAIN 06/23/2015 JULIO SHAFFER BEAD BUILDER Ot Z87.19 PERSONAL HISTORY OF OTHER DISEASES [...] 07/26/2015 SURAJ AUSTIN MD Ot Z79.899 OTHER PSYCHIATRIC NURSING AIDE (CURRENT) DRUG THERAPY 07/27/2015 SURAJ AUSTIN MD [...] 07/27/2015 SURAJ AUSTIN MD Ot Z79.899 OTHER PSYCHIATRIC NURSING AIDE (CURRENT) DRUG THERAPY 08/01/2015 SURAJ AUSTIN MD Ot E11.9 TYPE 2 DIABETES MELLITUS WITHOUT COMPLIC 08/01/2015 SURAJ AUSTIN MD, Ot F17.210 NICOTINE DEPENDENCE, CIGARETTES, UNCOMPL 08/01/2015 SRUAJ AUSTIN MD Ot I1 0 ESSENTIAL (PRIMARY) HYPERTENSION 08/01/2015 SURAJ AUSTIN MD, Ot M25.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, RIGHT SHOULDER 08/01/2015 SURAJ AUSTIN MD Ot M67.88 OTHER SPECIFIED DISORDERS OF SYNOVIUM AN 08/01/2015 SURAJ AUSTIN MD, Ot Z79.899 OTHER PSYCHIATRIC NURSING AIDE (CURRENT) DRUG THERAPY 12/07/2015 JULIO SHAFFER BEAD BUILDER Ot R10.12 LEFT UPPER QUADRANT PAIN 12/07/2015 JULIO SHAFFER BEAD BUILDER Ot Z87.19 PERSONAL HISTORY OF OTHER DISEASES OF TH 12/07/2015 SVEEN HERNANDEZ DO, Ot B34.9 VIRAL INFECTION, UNSPECIFIED [...] HYPERTENSION 12/07/2015 SEVEN HERNANDEZ DO, Ot Z79.4 PSYCHIATRIC NURSING AIDE (CURRENT) USE OF INSULIN 12/07/2015 SEVEN HERNANDEZ DO, Ot Z79.899 OTHER DETENTION (CURRENT) DRUG THERAPY 12/07/2015 SEVEN HERNANDEZ DO, [...] HYPERTENSION 12/07/2015 SEVEN HERNANDEZ DO, Ot Z79.4 DETENTION (CURRENT) USE OF INSULIN 12/07/2015 SEVEN HERNANDEZ DO, Ot Z79.899 OTHER PSYCHIATRIC NURSING AIDE (CURRENT) DRUG THERAPY 04/03/2016 CRISTIAN SHAH MD, [...] UNSPECIFIED 04/03/2016 CRISTIAN SHAH MD, Ot Z79.4 PSYCHIATRIC NURSING AIDE (CURRENT) USE OF INSULIN 04/03/2016 MADL, JULIO L BEAD BUILDER Ot R10.12 LEFT UPPER QUADRANT PAIN 04/03/2016 MADL, JULIO L BEAD BUILDER Ot Z87.19 PERSONAL HISTORY OF OTHER DISEASES [...] UNSPECIFIED 04/04/2016 CRISTIAN SHAH MD, Ot Z79.4 PSYCHIATRIC NURSING AIDE (CURRENT) USE OF INSULIN 12/25/2016 MADL, JULIO L BEAD BUILDER Ot G47.33 OBSTRUCTIVE SLEEP APNEA (ADULT) (PEDIATR 12/25/2016 MADL, JULIO L BEAD BUILDER Ot I10 ESSENTIAL (PRIMARY) HYPERTENSION 12/25/2016 MADL, JULIO L BEAD BUILDER Ot G47.33 OBSTRUCTIVE SLEEP APNEA (ADULT) (PEDIATR 12/25/2016 MADL, JULIO L BEAD BUILDER Ot I10 ESSENTIAL (PRIMARY) HYPERTENSION 07/07/2017 CRISTIAN [...] INI 07/07/2017 CRISTIAN SHAH MD, Ot Z79.4 DETENTION (CURRENT) USE OF INSULIN 07/07/2017 CRISTIAN SHAH [...] CERVICALGIA 07/12/2017 CRISTIAN SHAH MD Ot Z79.4 PSYCHIATRIC NURSING AIDE (CURRENT) USE OF INSULIN 07/12/2017 CRISTIAN SHAH MD Ot Z87.19 PERSONAL HISTORY OF OTHER DISEASES OF 06/18/2018 MADLJULIO L BEAD BUILDER Ot R10.12 LEFT UPPER QUADRANT PAIN 06/18/2018 MADL, JULIO L BEAD BUILDER Ot Z87.19 PERSONAL HISTORY OF OTHER DISEASES [...] 06/22/2018 GERRY MONTES DOA K Ot Z79.4 PSYCHIATRIC NURSING AIDE (CURRENT) USE OF INSULIN 06/22/2018 JYOTI MYERS [...] 06/22/2018 GERRY MONTES DOA K Ot Z79.4 DETENTION (CURRENT) USE OF INSULIN 06/22/2018 JYOTI MYERS [...] K Ot I25.10 ATHSCL HEART DISEASE OF [place] CORONARY 06/22/2018 JYOTI MYERS LIGIA K Ot [...] 06/22/2018 JYOTI MYERS LIGIA K Ot Z79.4 DETENTION (CURRENT) USE OF INSULIN 06/22/2018 MONTES DO [...] 09/25/2018 BLADIMIR OBRIEN APRN Ot Z79 .4 DETENTION (CURRENT) USE OF INSULIN 09/25/2018 BLADIMIR OBRIEN [...] 10/02/2018 BLADIMIR OBRIEN APRN Ot Z79 .4 DETENTION (CURRENT) USE OF INSULIN 10/02/2018 BLADIMIR OBRIEN APRN Ot Z95 .5 PRESENCE OF CORONARY ANGIOPLASTY IMPLANT 10/02/2018 BLADIMIR OBRIEN APRN Ot Z98.890 OTHER SPECIFIED POSTPROCEDURAL STATES 10/14/2018 JULIO SHAFFER BEAD BUILDER Ot R10.12 LEFT UPPER QUADRANT PAIN 10/14/2018 JULIO SHAFFER BEAD BUILDER Ot Z87.19 PERSONAL HISTORY OF OTHER DISEASES OF TH 10/14/2018 TITI MARES Ot E11.9 TYPE 2 DIABETES MELLITUS WITHOUT COMPLIC 10/14/2018 TITI MARES Ot G47.33 OBSTRUCTIVE SLEEP APNEA (ADULT) (PEDIATR 10/14/2018 TITI MARES Ot I34.0 NONRHEUMATIC MITRAL (VALVE) INSUFFICIENC 10/14/2018 TITI MARES Ot I50.9 HEART FAILURE, UNSPECIFIED 10/14/2018 TITI MARES Ot I51.7 CARDIOMEGALY 11/05/2018 MACRINA BOYER MD Ot E66. 9 OBESITY, UNSPECIFIED 11/05/2018 MACRINA BOYER MD, Ot G47. 33 OBSTRUCTIVE SLEEP [...] 11/05/2018 MACRINA BOYER MD Ot Z79. 01 PSYCHIATRIC NURSING AIDE (CURRENT) USE OF ANTICOAGULANT 11/05/2018 MACRINA BOYER MD Ot Z79. 4 DETENTION (CURRENT) USE OF INSULIN 11/05/2018 MACRINA BOYER MD, Ot Z79.899 OTHER PSYCHIATRIC NURSING AIDE (CURRENT) DRUG THERAPY 11/05/2018 MACRINA BOYER MD [...] 11/06/2018 MACRINA BOYER MD Ot Z79. 01 DETENTION (CURRENT) USE OF ANTICOAGULANT 11/06/2018 MACRINA BOYER MD Ot Z79. 4 DETENTION (CURRENT) USE OF INSULIN 11/06/2018 MACRINA BOYER MD Ot Z79.899 OTHER PSYCHIATRIC NURSING AIDE (CURRENT) DRUG THERAPY 11/06/2018 MACRINA BOYER MD Ot Z82. 0 FAMILY HISTORY OF EPILEPSY AND OTH DIS O 11/06/2018 MACRINA BOYER MD Ot Z82. 49 FAMILY [...] Z91.013 ALLERGY TO SEAFOOD 11/19/2018 TAMY, BAKARI BEAD BUILDER Ot E11.9 TYPE 2 DIABETES MELLITUS WITHOUT COMPLIC 11/19/2018 TAMY, BAKARI BEAD BUILDER Ot E78.00 PURE HYPERCHOLESTEROLEMIA, UNSPECIFIED 11/19/2018 TAMY, BAKARI BEAD BUILDER Ot F17.210 NICOTINE DEPENDENCE, CIGARETTES, UNCOMPL 11/19/2018 TAMY, BAKARI BEAD BUILDER Ot F41.9 ANXIETY DISORDER, UNSPECIFIED 11/19/2018 TAMY, BAKARI BEAD BUILDER Ot G43.909 MIGRAINE, UNSP, NOT INTRACTABLE, WITHOUT 11/19/2018 TAMY, BAKARI BEAD BUILDER Ot G47.30 SLEEP APNEA, UNSPECIFIED 11/19/2018 TAMY, BAKARI BEAD BUILDER Ot I11.0 HYPERTENSIVE HEART DISEASE WITH HEART FA 11/19/2018 TAMY, BAKARI BEAD BUILDER Ot I50.9 HEART FAILURE, UNSPECIFIED 11/19/2018 TAMY, BAKARI BEAD BUILDER Ot K85.90 ACUTE PANCREATITIS WITHOUT NECROSIS OR I 11/19/2018 TAMY, BAKARI BEAD BUILDER Ot R10.12 LEFT UPPER QUADRANT PAIN 11/19/2018 TAMY, BAKARI BEAD BUILDER Ot Z79.4 PSYCHIATRIC NURSING AIDE (CURRENT) USE OF INSULIN 11/19/2018 TAMY, BAKARI BEAD BUILDER Ot Z79.82 PSYCHIATRIC NURSING AIDE (CURRENT) USE OF ASPIRIN 11/19/2018 TAMY, BAKARI BEAD BUILDER Ot Z91.018 ALLERGY TO OTHER FOODS 11/20/2018 [...] Ot I50.9 HEART FAILURE, UNSPECIFIED 11/20/2018 VERITO MOERJON Ot K85.90 ACUTE PANCREATITIS WITHOUT NECROSIS OR I 11/20/2018 VERITO MOREJON Ot R10.11 RIGHT UPPER QUADRANT PAIN 11/20/2018 VERITO MOREJON Ot Z79.01 DETENTION (CURRENT) USE OF ANTICOAGULANT 11/20/2018 VERITO MOREJON Ot Z79.4 PSYCHIATRIC NURSING AIDE (CURRENT) USE OF INSULIN 11/20/2018 VERITO MOREJON Ot Z79.82 PSYCHIATRIC NURSING AIDE (CURRENT) USE OF ASPIRIN 11/20/2018 VERITO MOREJON [...] 11/22/2018 ISABEL DO, JOCELYNN K Ot Z79.01 DETENTION (CURRENT) USE OF ANTICOAGULANT 11/22/2018 ISABEL DO, JOCELYNN K Ot Z79.4 DETENTION (CURRENT) USE OF INSULIN 11/22/2018 ISABEL DO, JOCELYNN K Ot Z79.82 PSYCHIATRIC NURSING AIDE (CURRENT) USE OF ASPIRIN 11/22/2018 ISABEL DO, JOCELYNN K Ot Z91.018 ALLERGY TO OTHER FOODS 11/22/2018 JOCELYNN HALL DO Ot Z95.0 PRESENCE OF CARDIAC PACEMAKER 07/20/2019 MACRINA BOYER MD Ot I34. 0 NONRHEUMATIC MITRAL (VALVE) INSUFFICIENC 07/20/2019 MACRINA BOYER MD Ot I50. 9 HEART FAILURE, UNSPECIFIED 07/20/2019 MACRINA BOYER MD Ot I51. 7 CARDIOMEGALY 07/20/2019 MACRINA BYOER MD Ot I51. 89 OTHER ILL-DEFINED HEART DISEASES 09/16/2019 CAMILLE, BLADIMIR Miller APRN Ot E11 .9 TYPE 2 DIABETES MELLITUS WITHOUT COMPLIC 09/16/2019 OBRIEN, BLADIMIR Miller APRN Ot E78.00 PURE HYPERCHOLESTEROLEMIA, UNSPECIFIED 09/16/2019 BLADIMIR OBRIEN APRN Ot F41 .9 ANXIETY DISORDER, UNSPECIFIED 09/16/2019 BLADIMIR OBRIEN APRN Ot G43.909 MIGRAINE, UNSP, NOT INTRACTABLE, WITHOUT 09/16/2019 BLADIMIR OBRIEN APRN Ot I10 ESSENTIAL (PRIMARY) HYPERTENSION 09/16/2019 BLADIMIR OBRIEN APRN Ot I42 .9 CARDIOMYOPATHY, UNSPECIFIED 09/16/2019 BLADIMIR OBRIEN APRN Ot M79.672 PAIN IN LEFT FOOT 09/16/2019 BLADIMIR OBRIEN APRN Ot S93.602A UNSPECIFIED SPRAIN OF LEFT FOOT, INITIAL 09/16/2019 BLADIMIR OBRIEN APRN Ot W18.31XA FALL ON SAME LEVEL DUE TO STEPPING ON AN 09/16/2019 BLADIMIR OBRIEN APRN Ot Y92.[address] IN SINGLE-FAMILY (PRIVATE) HO 09/16/2019 BLADIMIR OBRIEN APRN Ot Z79.01 PSYCHIATRIC NURSING AIDE (CURRENT) USE OF ANTICOAGULANT 09/16/2019 BLADIMIR OBRIEN APRN Ot Z79 .4 DETENTION (CURRENT) USE OF INSULIN 09/16/2019 BLADIMIR OBRIEN APRN Ot Z79.82 DETENTION (CURRENT) USE OF ASPIRIN 09/16/2019 BLADIMIR OBRIEN APRN Ot Z79.899 OTHER DETENTION (CURRENT) DRUG THERAPY 09/16/2019 BLADIMIR OBRIEN APRN Ot Z91.013 ALLERGY TO SEAFOOD Procedures Code Description Performed By [place] [id number] DR VILLANUEVA OF SPINAL CANAL WITH DRAINAGE D 06/18/2018 [id number] NM ASURE OF CARDIAC SAMPL PRESSURE, L H 06/20/2018 [id number] FL UOROSCOPY OF MULT COR ART USING L OSM 06/20/2018 [id number] FL UOROSCOPY OF LEFT HEART USING LOW OSMO 06/20/2018 [id number] FL UOROSCOPY OF THORACIC AORTA USING LOW [...] - 04/03/16 01:24 URINE CULTURE RESULTS <10,000/ML NR Comp. Metabolic Panel (14) - 04/30/16 16 [...] 0.0-0.1 Whole blood basic metabolic panel - 05/0 07/25 13:28 Serum or plasma sodium measurement [...] 7-25 CREATININE 1.04 mg/dL 0.60-1.35 eGFR NON-AFR. B[place] 91 mL/min/1.73m2 > OR = 60 eGFR [...] 7-25 CREATININE 1.12 mg/dL 0.60-1.35 eGFR NON-AFR. [place]IAN 82 mL/min/1.73m2 > OR = 60 eGFR [...] INFLUENZA A AND B ANTIGENS BY IA NR Influenza virus A and B antigen detection [...] IgG antibody assay (units/ volume) < <1:16 [place] spotted fever panel < <1:10 Francisella tularensis [...] 7-25 CREATININE 1.08 mg/dL 0.60-1.35 eGFR NON-AFR. [place] 86 mL/min/1.73m2 > OR = 60 eGFR [...] Status Pt. Type Provider Facility Loc./Unit Complaint [id number] 05/01/2016 07:05:00 Document Registration [id number] 09/20/2019 14:11:00 15:16:00 DIS Emergency TOMAS MONK, MONSERRAT Miller [facility] ER L FOOT INJ [id number] 09/11/2019 12:49:00 13:44:00 DIS Outpatient BLADIMIR OBRIEN APRN [facility] ER FOOT PAIN [id number] 07/15/2019 14:19:00 23:59:59 CLS Outpatient ROSALIND MONK, MACRINA Miller [facility] CARD CHF,DYSPNEA ON EXERTION ,MR [id number] 11/18/2018 02:16:00 04:43:00 DIS Outpatient JOCELYNN HALL DO, [facility] ER ABD PAIN [id number] 11/16/2018 20:27:00 22:43:00 DIS Outpatient JEAN-PIERRE VERITO Rhianna a [facility] ER ABD / BACK PAIN [id number] 11/15/2018 21:37:00 00:06:00 DIS Outpatient BAKARI MORELOS a [facility] ER ABD / BACK PAIN [id number] 11/04/2018 08:53:00 10:05:00 DIS Outpatient MACRINA BOYER MD [facility] CATH CHF,CAD,DM [id number] 10/14/2018 14:07:00 17:00:00 DIS Emergency VERITO MOREJON [facility] ER CHEST PAIN [id number] 09/25/2018 14:39:00 16:10:00 DIS Emergency BLADIMIR OBRIEN APRN [facility] ER SHOULDER PAIN [id number] 09/21/2018 10:00:00 23:59:59 CLS Outpatient PIETER MARES [facility] CARD ANTERIOR CH EST WALL PAIN,CHF [id number] 06/18/2018 21:30:00 17:50:00 DIS Inpatient LIGIA MONTES DO, [facility] 4TH SEPSIS,UNKNOWN SOURCE;PYELONEPHRITIS? [id number] 06/04/2018 16:47:00 23:59:59 CLS Preadmit AMBREEN MUÑOZ APRN [facility] CARD MURMUR [id number] 07/12/2017 12:28:00 14:30:00 DIS Emergency CRISTIAN SHAH MD [facility] ER NECK PAIN [id number] 07/07/2017 22:45:00 23:37:00 DIS Emergency CRISTIAN SHAH MD [facility] ER NECK ISSUES [id number] 12/24/2016 20:00:00 06:25:00 DIS Outpatient JULIO SHAFFER [facility] SLEEP G47.33 [id number] 04/03/2016 00:16:00 017 04:08:00 DIS Emergency CRISTIAN SHAH MD [facility] ER ABD PAIN,DIABET ES,FELT LIKE PASSING OUT [id number] 12/06/2015 22:13:00 016 00:25:00 DIS Emergency SEVEN HERNANDEZ DO [facility] ER INCONSISTENT GLUCOSE LE VELS [id number] 07/26/2015 07:50:00 016 13:32:00 DIS Outpatient SURAJ AUSTIN MD [facility] RIGHT SHOULDER INSTABI LITY [id number] 07/20/2015 12:57:00 016 13:25:00 DIS Outpatient SURAJ AUSTIN MD [facility] PREOP RIGHT SHOULDER INSTABI LITY [id number] 06/06/2015 11:34:00 016 23:59:59 CLS Outpatient JULIO SHAFFER BEAD BUILDER [facility] RAD HISTORY OF PANCREATITIS [id number] 09/28/2014 17:05:00 015 19:10:00 DIS Emergency JOCELYNN HALL DO [facility] ER ABD PAIN [id number] 07/28/2014 22:32:00 015 13:10:00 DIS Inpatient LUCRETIA MONTGOMERY DO, [facility] CSD UNCONTROLLED HTN,UNCONT ROLLED DM,ABD PAIN [id number] 07/28/2014 09:25:00 015 13:10:00 DIS Emergency CHRISTIANO FULLER MD [facility] ER ABD KIDNEY PAIN [id number] 12/29/2013 15:44:00 014 16:53:00 DIS Emergency BLADIMIR OBRIEN APRN [facility] ER RIGHT SHOULDER PAIN [id number] 07/14/2013 03:15:00 014 04:56:00 DIS Emergency ISABELJOCELYNN Bunch DO [facility] ER NOSE BLEED [id number] 07/28/2014 09:25:00 Document Registration [id number] 08/10/2019 09:40:00 08/10/2019 23:59:5 9 [facility] Outpatient CLARI WYNNE [facility] [id number] 05/06/2019 11:20:00 Document Registration [id number] 02/09/2019 16:00:00 Document Registration [id number] 02/08/2019 15:40:00 Document Registration [id number] 12/30/2018 10:00:00 Document Registration [id number] 11/13/2018 10:40:00 Document Registration [id number] 10/22/2018 10:20:00 Document Registration [id number] 10/07/2018 14:00:00 Document Registration [id number] 06/30/2018 09:40:00 Document Registration [id number] 05/27/2018 09:20:00 Document Registration [id number] 12/11/2017 08:20:00 Document Registration [id number] 04/01/2017 13:40:00 Document Registration [id number] 06/25/2016 13:05:00 Document Registration
== END 2019-09-20 15:16 | disposition home or self-care (01) ==
LOC: EDUNIT# 14:10 → ER 14:11
DX: M79.672 Pain in left foot (principal); I11.9 Hypertensive heart disease without heart failure; I42.9 Cardiomyopathy, unspecified; G43.909 Migraine, unspecified, not intractable, without status migrainosus; E11.9 Type 2 diabetes mellitus without complications; F41.9 Anxiety disorder, unspecified; Z95.0 Presence of cardiac pacemaker; F17.210 Nicotine dependence, cigarettes, uncomplicated; Z91.013 Allergy to seafood; Z79.82 Long term (current) use of aspirin; Z79.4 Long term (current) use of insulin; Z79.01 Long term (current) use of anticoagulants
CPT/HCPCS: 73610; 73630; L2114

== ENCOUNTER 2019-12-23 15:26 | Emergency (ER) | payer MEDICAID, OTHER ==
[~2019-12-23] VITALS: Ht 172 cm; Wt 127.0 kg
[~2019-12-23 15:26] MED LIST changes: +TRM50T PO
[2019-12-23 16:12] LABS: BASOPHILS % (AUTO) 0 % (0-10); EOSINOPHILS # (AUTO) 0.1 10^3/uL (0.0-0.3); EOSINOPHILS % (AUTO) 1 % (0-10); HEMATOCRIT 45 % (40-54); HEMOGLOBIN 15.3 g/dL (13.3-17.7); LYMPHOCYTES # (AUTO) 3.2 10^3/uL (1.0-4.0); LYMPHOCYTES % (AUTO) 42 % (12-44); MEAN CORPUSCULAR HEMOGLOBIN 30 pg (25-34); MEAN CORPUSCULAR HGB CONC 34 g/dL (32-36); MEAN CORPUSCULAR VOLUME 89 fL (80-99); MEAN PLATELET VOLUME 10.6 fL (9.0-12.2); MONOCYTES # (AUTO) 0.5 10^3/uL (0.0-1.0); MONOCYTES % (AUTO) 7 % (0-12); NEUTROPHILS # (AUTO) 3.9 10^3/uL (1.8-7.8); NEUTROPHILS % (AUTO) 50 % (42-75); PLATELET COUNT 242 10^3/uL (130-400); WHITE BLOOD COUNT 7.7 10^3/uL (4.3-11.0)
[2019-12-23 16:22] LABS: CHLORIDE 106 MMOL/L (98-107); POTASSIUM 3.9 MMOL/L (3.6-5.0); SODIUM 137 MMOL/L (135-145)
[2019-12-23 16:23] LABS: CALCIUM 8.7 MG/DL (8.5-10.1)
[2019-12-23 16:24] LABS: GLUCOSE 238 MG/DL (70-105); TOTAL PROTEIN 6.8 GM/DL (6.4-8.2)
[2019-12-23 16:25] LABS: CARBON DIOXIDE 21 MMOL/L (21-32)
[2019-12-23 16:26] LABS: BILIRUBIN,TOTAL 0.4 MG/DL (0.1-1.0)
[2019-12-23 16:27] LABS: ALKALINE PHOSPHATASE 44 U/L (40-136)
[2019-12-23 16:28] LABS: CREATININE SERUM 1.08 MG/DL (0.60-1.30); GFR ESTIMATED > 60
[2019-12-23 16:29] LABS: BUN/CREATININE RATIO 11
[2019-12-23 16:31] LABS: ALANINE AMINOTRANSFERASE 18 U/L (0-55); FIBRIN DEGRADATION PRODUCTS <= 0.27 UG/ML (0.00-0.49); INR 3.9 (0.8-1.4); MAGNESIUM 1.4 MG/DL (1.6-2.4); PARTIAL THROMBOPLASTIN TIME 54 SEC (24-35); PROTHROMBIN TIME PATIENT 38.3 SEC (12.2-14.7)
--- NOTE | 2019-12-23 16:38 | ED Chest Pain ---
General Chief Complaint: Chest Pain Stated Complaint: CHEST PAIN Nursing Triage Note: PT PRESENTS WITH CHEST PAIN THAT STARTED YESTERDAY. Nursing Sepsis Screen: No Definite Risk Source: patient, old records Exam Limitations: no limitations History of Present Illness Date Seen by Provider: Dec 23, 2019 Time Seen by Provider: 15:40 Initial Comments This 39-year-old gentleman presents to the emergency room with complaints of dull central chest pain intermittently since last night. Pain resolved on the way to the emergency room. He denies any shortness of breath, cough, fever, or COVID-19 exposures. He has been experiencing some headache. Pain is not exacerbated or alleviated by anything in particular. He has a history of nonischemic cardiomyopathy. His last cardiac catheterization was last year and showed no obstructive disease. Allergies and Home Medications Allergies Coded Allergies: Fish Containing Products (Unverified Allergy, Unknown, 11/18/18) FROM UNCODED ALLERGY "SEAFOOD" Home Medications Aspirin/Acetaminophen/Caffeine 1 Each Tablet, 2 EACH PO Q8H PRN for HEADACHE, (Reported) Dicyclomine HCl 20 Mg Tablet, 20 MG PO Q6H Prescribed by: JOCELYNN HALL on 11/18/18400 Furosemide 20 Mg Tablet, 20 MG PO DAILY, (Reported) Hydrocodone Bit/Acetaminophen 1 Tab Tab, 1-2 EACH PO Q6H PRN for PAIN-MODERATE Prescribed by: BAKARI MORELOS on 11/15/18 2349 Hydrocodone/Acetaminophen 1 Each Tablet, 1 EACH PO Q4-6HR PRN for PAIN-MODERATE Prescribed by: BLADIMIR OBRIEN on 09/11/19 1340 Insulin Detemir 100 Unit/1 Ml Insuln.pen, 50 UNIT SQ BID, (Reported) Ketorolac Tromethamine 10 Mg Tablet, 10 MG PO Q6H Prescribed by: JOCELYNN HALL on 11/18/18400 Linagliptin 5 Mg Tablet, 5 MG PO DAILY, (Reported) Liraglutide 0.6 Mg/0.1 Ml Pen.injctr, 0.6 SQ DAILY, (Reported) Metoprolol Succinate 25 Mg Tab.er.24h, 25 MG PO DAILY, (Reported) LAST PICKED UP 06-22-2018 FOR A 90 DAY SUPPLY Pantoprazole Sodium 40 Mg Tablet.dr, 40 MG PO DAILY Prescribed by: JOCELYNN HALL on 11/18/18400 Potassium Chloride 10 Meq Tablet.er, 10 MEQ PO DAILY, (Reported) Sacubitril/Valsartan 1 Each Tablet, 2 TAB PO DAILY, (Reported) Tramadol HCl 50 Mg Tablet, 50 MG PO Q4H PRN for PAIN-MODERATE Prescribed by: JOCELYNN HALL on 11/18/18 0401 Tramadol HCl 50 Mg Tablet, 50 MG PO Q6H PRN for PAIN Prescribed by: MONSERRAT MARIN on 09/20/19 1504 Warfarin Sodium 5 Mg Tablet, 10 MG PO HS, (Reported) Patient Home Medication List Home Medication List Reviewed: Yes Review of Systems Review of Systems Constitutional: no symptoms reported EENTM: No Symptoms Reported Respiratory: No Symptoms Reported Cardiovascular: See HPI Gastrointestinal: No Symptoms Reported Genitourinary: No Symptoms Reported Musculoskeletal: no symptoms reported Skin: no symptoms reported Psychiatric/Neurological: No Symptoms Reported Endocrine: No Symptoms Reported Hematologic/Lymphatic: No Symptoms Reported Past Agunyjb-Bvdniu-Jjevqt Hx Past Med/Social Hx: Reviewed Nursing Past Med/Soc Hx Patient Social History Alcohol Use: Denies Use Recreational Drug Use: Yes Drug of Choice: MARIJUANA Smoking Status: Current Someday Smoker Type Used: Cigarettes Recent Foreign Travel: No Contact w/Someone Who Travel: No Recent Infectious Disease Expo: No Recent Hopitalizations: No Immunizations Up To Date Tetanus Booster (TDap): Unknown PED Vaccines UTD: Yes Seasonal Allergies Seasonal Allergies: Yes Past Medical History Surgeries: Yes Cardiac, Defibrillator, Eye Surgery, Orthopedic, Pacemaker Respiratory: Yes Sleep Apnea Currently Using CPAP: No Cardiac: Yes Cardiomyopathy (nonischemic), High Cholesterol, Hypertension, Irregular He artbeat Neurological: Yes Headaches /Migraines Genitourinary: No Gastrointestinal: Yes Pancreatitis Musculoskeletal: No Endocrine: Yes Diabetes, Insulin dep HEENT: Yes (DETACHED LEFT RETINA REPAIR 2007) Cancer: No Psychosocial: Yes Anxiety Integumentary: No Blood Disorders: Yes (SICKLE CELL TRAIT) Family Medical History No Pertinent Family Hx, Diabetes Physical Exam Vital Signs Vital Signs - First Documented 12/23/19 15:30 Temp 36.9 Pulse 97 Resp 20 B/P (MAP) 157/118 (131) Pulse Ox 98 O2 Delivery Room Air Capillary Refill : Less Than 3 Seconds Height, Weight, BMI Height: 5'9.00" Weight: 270lbs. 0.0oz. [id number]; 42.00 BMI Method:Stated General Appearance: No Apparent Distress, WD/WN, Obese HEENT: PERRL/EOMI, Normal ENT Inspection Neck: Normal Inspection; No JVD Respiratory: Chest Non Tender, Lungs Clear, Normal Breath Sounds, No Accessory Muscle Use, No Respiratory Distress Cardiovascular: Regular Rate, Rhythm, No Edema, No Murmur, Normal Peripheral Pulses Gastrointestinal: Normal Bowel Sounds, Non Tender, Soft Extremity: Normal Inspection, No Pedal Edema Neurologic/Psychiatric: Alert, Oriented x3, No Motor/Sensory Deficits, Normal Mood/Affect, soil engineer II-XII Norm as Tested Skin: Normal Color, Warm/Dry Progress/Results/Core Measures Results/Orders Lab Results Laboratory Tests Test 12/23/19 16:00 12/23/19 16:02 12/23/19 18:16 Range/Units White Blood Count 7.7 4.3-11.0 10^3/uL Red Blood Count 5.05 4.30-5.52 10^6/uL Hemoglobin 15.3 13.3-17.7 g/dL Hematocrit 45 40-54 % Mean Corpuscular Volume 89 80-99 fL Mean Corpuscular Hemoglobin 30 25-34 pg Mean Corpuscular Hemoglobin Concent 34 32-36 g/dL Red Cell Distribution Width 13.8 10.0-14.5 % Platelet Count 242 130-400 10^3/uL Mean Platelet Volume 10.6 9.0-12.2 fL Immature Granulocyte % (Auto) 1 % Neutrophils (%) (Auto) 50 42-75 % Lymphocytes (%) (Auto) 42 12-44 % Monocytes (%) (Auto) 7 0-12 % Eosinophils (%) (Auto) 1 0-10 % Basophils (%) (Auto) 0 0-10 % Neutrophils # (Auto) 3.9 1.8-7.8 10^3/uL Lymphocytes # (Auto) 3.2 1.0-4.0 10^3/uL Monocytes # (Auto) 0.5 0.0-1.0 10^3/uL Eosinophils # (Auto) 0.1 0.0-0.3 10^3/uL Basophils # (Auto) 0.0 0.0-0.1 10^3/uL Immature Granulocyte # (Auto) 0.0 0.0-0.1 10^3/uL Prothrombin Time 38.3 H 12.2-14.7 SEC INR Comment 3.9 H 0.8-1.4 Activated Partial Thromboplast Time 54 H 24-35 SEC D-Dimer <= 0.27 0.00-0.49 UG/ML Sodium Level 137 135-145 MMOL/L Potassium Level 3.9 3.6-5.0 MMOL/L Chloride Level 106 98-107 MMOL/L Carbon Dioxide Level 21 21-32 MMOL/L Anion Gap 10 5-14 MMOL/L Blood Urea Nitrogen 12 7-18 MG/DL Creatinine 1.08 0.60-1.30 MG/DL Estimat Glomerular Filtration Rate > 60 BUN/Creatinine Ratio 11 Glucose Level 238 H 70-105 MG/DL Calcium Level 8.7 8.5-10.1 MG/DL Corrected Calcium 8.7 8.5-10.1 MG/DL Magnesium Level 1.4 L 1.6-2.4 MG/DL Total Bilirubin 0.4 0.1-1.0 MG/DL Aspartate Amino Transf (AST/SGOT) 18 5-34 U/L Alanine Aminotransferase (ALT/SGPT) 18 0-55 U/L Alkaline Phosphatase 44 40-136 U/L Myoglobin 83.7 10.0-92.0 NG/ML Troponin I < 0.028 < 0.028 <0.028 NG/ML B-Type Natriuretic Peptide 11.7 <100.0 PG/ML Total Protein 6.8 6.4-8.2 GM/DL Albumin 4.0 3.2-4.5 GM/DL Coronavirus 2019 ([facility]) Negative Negative My Orders Orders - LETTY GUZMAN MD Cbc With Automated Diff (12/23/19 15:54) Magnesium (12/23/19 15:54) Chest 1 View, Ap/Pa Only (12/23/19 15:54) Ekg Tracing (12/23/19 15:54) Comprehensive Metabolic Panel (12/23/19 15:54) Myoglobin Serum (12/23/19 15:54) Protime With Inr (12/23/19 15:54) Partial Thromboplastin Time (12/23/19 15:54) O2 (12/23/19 15:54) Monitor-Rhythm Ecg Trace Only (12/23/19 15:54) Ed Iv/Invasive Line Start (12/23/19 15:54) Troponin I (12/23/19 15:54) Covid 19 Inhouse Test (12/23/19 16:02) BNP (12/23/19 16:04) Fibrin Degradation Products (12/23/19 16:00) Coronavirus Sars-Cov-2 So 2019 (12/23/19 16:28) Magnesium 1 Gm/100 Ml Ivpb (Magnesium Nuno (12/23/19 16:45) Troponin I (12/23/19 18:00) Medications Given in ED Vital Signs/I&O 12/23/19 12/23/19 15:30 18:55 Temp 36.9 Pulse 97 85 Resp 20 17 B/P (MAP) 157/118 (131) 156/113 Pulse Ox 98 98 O2 Delivery Room Air Room Air 12/24/19 00:00 Intake Total 100 ml Balance 100 ml Blood Pressure Mean: 131 Progress Progress Note #1: Time: 18:11 Progress Note Patient's pain resolved prior to arrival and did not return. Initial cardiac workup was unremarkable. Magnesium was low and 1 g of magnesium was administered by IV route. Patient's INR was elevated at 3.9. He was instructed to skip today's dose and repeat an INR next week. Repeat troponin is pending at this time. Progress Note #2: Progress Note Repeat troponin was negative. Initial ECG Impression Date: Dec 23, 2019 Initial ECG Impression Time: 15:38 Initial ECG Rate: 96 Initial ECG Rhythm: Normal Sinus Initial ECG Impression: Normal Comment Normal sinus rhythm with no ST elevation or depression. No abnormal intervals. Borderline left axis deviation. Diagnostic Imaging Diagonstic Imaging: Xray Plain Films/CT/US/NM/MRI: chest Comments Chest x-ray viewed by me and report reviewed. See report below: NAME: CHANA SANCHEZ [facility] REC#: [id number] PT STATUS: REG ER : 1980 PHYSICIAN: LETTY GUZMAN MD ADMIT DATE: 12/23/19/ER Draft Date of Exam:12/23/19 CHEST 1 VIEW, AP/PA ONLY INDICATION: Chest pain. Frontal chest obtained at 04:44 p.m. and compared to 11/04/2018. Heart is normal in size. Pacemaker is unchanged. There is no focal infiltrate or pneumothorax or pleural fluid. There is improved aeration of the left upper lobe compared to the previous study. IMPRESSION: No acute process in the chest, improved aeration of left upper lobe compared to the prior study. Dictated on workstation # [id number] Dict: 12/23/191699 Trans: 12/23/191701 [facility] [id number] Interpreted by: ARIELLE BARRIENTOS MD Departure Impression Primary Impression: Chest pain Qualified Codes: R07.9 - Chest pain, unspecified Additional Impressions: Hypomagnesemia Supratherapeutic INR Disposition: HOME, SELF-CARE Condition: Improved Departure-Patient Inst. Decision time for Depature: 18:10 [address]errals: [facility] [place] (PCP) Primary Care Physician AMBREEN MUÑOZ APRN (Family) Primary Care Physician Patient Instructions: Chest Pain That Is Not Caused by the Heart (DC) Add. Discharge Instructions: Given your cardiac catheterization results and it your normal cardiac workup in the emergency room, it is unlikely your pain is related to your heart. Your INR is elevated today at 3.9. Skip today's dose of warfarin. Have your doctor repeat an INR late next week. Follow-up with your primary care provider and Dr. Dillon as soon as possible. In the meantime, return to the emergency room if you have worsening symptoms. For pain you may take Tylenol (acetaminophen) up to 1000 mg every 6 hours as needed. Alternatively, you may try an antacid medication such as Tums or Pepcid. All discharge instructions reviewed with patient and/or family. Voiced understanding. Copy Copies To 1: MACRINA DILLON MD Copies To 2: LIGIA MONTES JOSHUA T MD Dec 23, 2019 16:38
[2019-12-23] MEDS ORDERED: MAGNESIUM 1 GM/100 ML IVPB 100 ML IV ONE (16:45)
--- NOTE | 2019-12-23 17:03 | Diagnostic Imaging Report ---
INDICATION: Chest pain. Frontal chest obtained at 04:44 p.m. and compared to 11/04/2018. Heart is normal in size. Pacemaker is unchanged. There is no focal infiltrate or pneumothorax or pleural fluid. There is improved aeration of the left upper lobe compared to the previous study. IMPRESSION: No acute process in the chest, improved aeration of left upper lobe compared to the prior study. Dictated by: Dictated on workstation # [id number]
[2019-12-23 18:55] VITALS: BP 156/113
== END 2019-12-23 18:54 | disposition home or self-care (01) ==
LOC: EDUNIT# 15:26 → ER 15:28
DX: R07.9 Chest pain, unspecified (principal); E83.42 Hypomagnesemia; I10 Essential (primary) 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; E66.9 Obesity, unspecified; E11.8 Type 2 diabetes mellitus with unspecified complications; F17.210 Nicotine dependence, cigarettes, uncomplicated; Z20.828 Contact with and (suspected) exposure to other viral communicable diseases; Z68.41 Body mass index [BMI] 40.0-44.9, adult; Z95.810 Presence of automatic (implantable) cardiac defibrillator; Z79.82 Long term (current) use of aspirin; Z79.01 Long term (current) use of anticoagulants; Z79.4 Long term (current) use of insulin
CPT/HCPCS: 71045; 80053; 83735; 83874; 83880; 84484; 85025; 85379; 85610; 85730; 93005; 93041; 99284; U0002; 36415; 87635

== ENCOUNTER → 2020-01-17 | Outpatient (CLI) | payer MEDICAID | LOC: CARD 08:45 | PROVIDERS: ATTEND Physician Assistant | DX: I50.22 Chronic systolic (congestive) heart failure (principal); I51.7 Cardiomegaly; E66.01 Morbid (severe) obesity due to excess calories; G47.33 Obstructive sleep apnea (adult) (pediatric) | CPT/HCPCS: 93306 ==

== ENCOUNTER → 2020-04-06 | Outpatient (CLI) | payer MEDICAID | LOC: CARD 12:00 | PROVIDERS: ATTEND Internal Medicine Cardiovascular Disease | DX: I10 Essential (primary) 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 (principal) | CPT/HCPCS: 93306 ==

== ENCOUNTER 2021-04-09 22:37 | Emergency (ER) | payer MEDICAID ==
[~2021-04-09 22:37] MED LIST changes: -CIPR500T4 PO; +CIPR500T5 PO; +CYCL10TA25 PO; -CYCL10TA9 PO; +DICY20TA PO; -DICY20TA10 PO; -PHEN37.53 PO; +PHEN37.58 PO; +POTA-160 PO; -POTA10TA6 PO
--- NOTE | 2021-04-09 23:14 | ED Cough/URI ---
General Chief Complaint: COVID19 Suspect/Confirmed Stated Complaint: CHILLS,H/A, COUGH,BODY ACHES, EYES BURNING, FEVER Source: patient Exam Limitations: no limitations History of Present Illness Date Seen by Provider: Apr 09, 2021 Time Seen by Provider: 22:45 Initial Comments Patient presents ER by private conveyance with his significant other and chief complaint that today he has had some body aches chills and subjective fever starting about 2 hours ago while he was eating dinner at [employer]. He is a poor appetite cough that is nonproductive. No shortness of air or orthopnea. He has a history of heart failure, atrial fibrillation on warfarin and followed by Dr. Dillon and Dr. Foster for primary care. He has been taking his medications routinely. He had Excedrin 2 tablets at 2:00 in the afternoon, 9 hours ago. Symptoms are started today. He has not had a Covid or an influenza vaccine. No known sick contacts. He smokes 1 or 2 cigarettes a day. He does not have a known history of lung disorders. He does not feel short of air presently. No chest pain or exertional dyspnea. No swelling in his hands or feet but he has had heart failure exacerbations in the past. 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 Echocardiogram from 1 year ago showed an EF of 40 to 45% with grade 1 diastolic dysfunction. Cardiac catheterization [address] Dillon demonstrated dilated cardiomyopathy nonischemic with an EF of 25%. Normal aortic root and ascending aorta as well as valve. For the past 2 months he has been running 4 mi a day on a treadmill. Allergies and Home Medications Allergies Coded Allergies: Fish Containing Products (Unverified Allergy, Unknown, 11/18/18) FROM UNCODED ALLERGY "SEAFOOD" metformin (Verified Allergy, Unknown, 04/09/21) Patient Home Medication List Home Medication List Reviewed: Yes Aspirin/Acetaminophen/Caffeine (Excedrin Extra Strength Caplet) 1 Each Tablet, 2 EACH PO Q8H PRN for HEADACHE, (Reported) Entered as Reported by: MONICA CHAVEZ on 11/04/18 1056 Benzonatate (Tessalon Perles) 100 Mg Capsule, 100 MG PO Q6H PRN for COUGH Prescribed by: MONSERRAT MARIN on 04/10/21 0021 Dicyclomine HCl (Dicyclomine HCl) 20 Mg Tablet, 20 MG PO Q6H Prescribed by: JOCELYNN HALL on 11/18/18 0401 Furosemide (Lasix) 20 Mg Tablet, 20 MG PO DAILY, (Reported) Entered as Reported by: MONICA CHAVEZ on 11/04/18 1053 Hydrocodone Bit/Acetaminophen (Lortab 5 Mg Tablet) 1 Tab Tab, 1-2 EACH PO Q6H PRN for PAIN-MODERATE Prescribed by: BAKARI MORELOS on 11/15/18 2349 Hydrocodone/Acetaminophen (Lorcet 5-325 mg Tablet) 1 Each Tablet, 1 EACH PO Q4- 6HR PRN for PAIN-MODERATE Prescribed by: BLADIMIR OBRIEN on 09/11/19 1340 Insulin Detemir (Levemir Flextouch) 100 Unit/1 Ml Insuln.pen, 50 UNIT SQ BID, (Reported) Entered as Reported by: MERARI OSBORNE on 07/20/15 1315 Ketorolac Tromethamine (Ketorolac Tromethamine) 10 Mg Tablet, 10 MG PO Q6H Prescribed by: JOCELYNN HALL on 11/18/18400 Linagliptin (Tradjenta) 5 Mg Tablet, 5 MG PO DAILY, (Reported) Entered as Reported by: OMNICA CHAVEZ on 11/04/18 105 Liraglutide (Victoza 2-Richard) 0.6 Mg/0.1 Ml Pen.injctr, 0.6 SQ DAILY, (Reported) Entered as Reported by: JUAN M DOAN on 06/19/18 1002 Metoprolol Succinate (Metoprolol Succinate) 25 Mg Tab.er.24h, 25 MG PO DAILY, (Reported) Entered as Reported by: MONICA CHAVEZ on 11/04/18 1052 Ondansetron (Ondansetron Odt) 4 Mg Tab.rapdis, 4 MG PO Q6H PRN for NAUSEA/VOMITING Prescribed by: MONSERRAT MARIN on 04/10/21 0021 Pantoprazole Sodium (Protonix) 40 Mg Tablet.dr, 40 MG PO DAILY Prescribed by: JOCELYNN HALL on 11/18/18 040 Potassium Chloride (Potassium Chloride) 10 Meq Tablet.er, 10 MEQ PO DAILY, (Reported) Entered as Reported by: MONICA CHAVEZ on 11/04/18 1052 Sacubitril/Valsartan (Entresto 97 mg-103 mg Tablet) 1 Each Tablet, 2 TAB PO DAILY, (Reported) Entered as Reported by: MONICA CHAVEZ on 11/04/18 1052 Tramadol HCl (Ultram) 50 Mg Tablet, 50 MG PO Q4H PRN for PAIN-MODERATE Prescribed by: JOCELYNN HALL on 11/18/18 0401 Tramadol HCl (Tramadol HCl) 50 Mg Tablet, 50 MG PO Q6H PRN for PAIN Prescribed by: MONSERRAT MARIN on 09/20/19 1504 Warfarin Sodium (Warfarin Sodium) 5 Mg Tablet, 10 MG PO HS, (Reported) Entered as Reported by: MONICA CHAVEZ on 11/04/18 1052 Review of Systems Review of Systems Constitutional: chills, fever, malaise EENTM: No ear discharge, No hearing loss, No ear pain Respiratory: cough; No phlegm, No short of breath, No wheezing, No other Cardiovascular: see HPI; No chest pain, No edema, No Hx of Intervention, No palpitations, No vascular heart diseas Gastrointestinal: No abdominal pain, No constipation, No diarrhea, No nausea Genitourinary: No discharge, No dysuria Musculoskeletal: No back pain, No joint pain; muscle pain (Body aches) Skin: No pruritus, No rash Psychiatric/Neurological: Denies Headache, Denies Numbness All Other Systems Reviewed Negative Unless Noted: Yes Past Clzdcrg-Ujvqvo-Ibmavj Hx Patient Social History Tobacco Use?: Yes Tobacco type used: Cigarettes Smoking Status: Light Tobacco Smoker Use of E-Cig and/or Vaping dev: No Substance use?: Yes Substance type: Marijuana Alcohol Use?: No Immunizations Up To Date Tetanus Booster (TDap): Unknown PED Vaccines UTD: Yes Seasonal Allergies Seasonal Allergies: Yes Past Medical History Surgeries: Yes Cardiac, Defibrillator, Eye Surgery, Orthopedic, Pacemaker Respiratory: Yes Sleep Apnea Currently Using CPAP: No Cardiac: Yes Cardiomyopathy, High Cholesterol, Hypertension, Irregular Heartbeat Neurological: Yes Headaches /Migraines Genitourinary: No Gastrointestinal: Yes Pancreatitis Musculoskeletal: No Endocrine: Yes Diabetes, Insulin dep HEENT: Yes (DETACHED LEFT RETINA REPAIR 2007) Cancer: No Psychosocial: Yes Anxiety Integumentary: No Blood Disorders: Yes (SICKLE CELL TRAIT) Family Medical History No Pertinent Family Hx, Diabetes Physical Exam Vital Signs - First Documented Capillary Refill : Height: 5'9.00" Weight: 270lbs. 0.0oz. 122.371053me; 42.00 BMI Method:Stated General Appearance: WD/WN, mild distress Eyes: Bilateral Eye Normal Inspection, Bilateral Eye PERRL, Bilateral Eye EOMI HEENT: PERRL/EOMI, normal ENT inspection, pharynx normal Neck: full range of motion, supple, normal inspection Respiratory: lungs clear, normal breath sounds, no respiratory distress (98% on room air with nonlabored breathing), no accessory muscle use Cardiovascular: normal peripheral pulses, regular rate, rhythm, no edema, no murmur Gastrointestinal: normal bowel sounds, non tender, soft Neurologic/Psychiatric: alert, normal mood/affect, oriented x 3 Skin: normal color, warm/dry Progress/Results/Core Measures Suspected Sepsis SIRS Temperature: Pulse: Respiratory Rate: Laboratory Tests 04/09/21 23:10: White Blood Count 9.1 Blood Pressure / Mean: Laboratory Tests 04/09/21 23:10: Creatinine 1.51H, INR Comment 1.8H, Platelet Count 233, Total Bilirubin 0.3 Results/Orders Lab Results Laboratory Tests Test 04/09/21 23:10 Range/Units White Blood Count 9.1 4.3-11.0 10^3/uL Red Blood Count 5.70 H 4.30-5.52 10^6/uL Hemoglobin 17.4 13.3-17.7 g/dL Hematocrit 52 40-54 % Mean Corpuscular Volume 92 80-99 fL Mean Corpuscular Hemoglobin 31 25-34 pg Mean Corpuscular Hemoglobin Concent 33 32-36 g/dL Red Cell Distribution Width 15.2 H 10.0-14.5 % Platelet Count 233 130-400 10^3/uL Mean Platelet Volume 10.2 9.0-12.2 fL Immature Granulocyte % (Auto) 1 % Neutrophils (%) (Auto) 79 H 42-75 % Lymphocytes (%) (Auto) 9 L 12-44 % Monocytes (%) (Auto) 10 0-12 % Eosinophils (%) (Auto) 0 0-10 % Basophils (%) (Auto) 0 0-10 % Neutrophils # (Auto) 7.2 1.8-7.8 10^3/uL Lymphocytes # (Auto) 0.8 L 1.0-4.0 10^3/uL Monocytes # (Auto) 0.9 0.0-1.0 10^3/uL Eosinophils # (Auto) 0.0 0.0-0.3 10^3/uL Basophils # (Auto) 0.0 0.0-0.1 10^3/uL Immature Granulocyte # (Auto) 0.1 0.0-0.1 10^3/uL Prothrombin Time 21.5 H 12.2-14.7 SEC INR Comment 1.8 H 0.8-1.4 Sodium Level 136 135-145 MMOL/L Potassium Level 4.2 3.6-5.0 MMOL/L Chloride Level 104 98-107 MMOL/L Carbon Dioxide Level 17 L 21-32 MMOL/L Anion Gap 15 H 5-14 MMOL/L Blood Urea Nitrogen 16 7-18 MG/DL Creatinine 1.51 H 0.60-1.30 MG/DL Estimat Glomerular Filtration Rate 59 BUN/Creatinine Ratio 11 Glucose Level 224 H 70-105 MG/DL Calcium Level 9.8 8.5-10.1 MG/DL Corrected Calcium 9.6 8.5-10.1 MG/DL Total Bilirubin 0.3 0.1-1.0 MG/DL Aspartate Amino Transf (AST/SGOT) 28 5-34 U/L Alanine Aminotransferase (ALT/SGPT) 26 0-55 U/L Alkaline Phosphatase 47 40-136 U/L Total Creatine Kinase 826 H 30-200 U/L Troponin I < 0.028 <0.028 NG/ML C-Reactive Protein High Sensitivity 0.71 H 0.00-0.50 MG/DL B-Type Natriuretic Peptide < 10.0 <100.0 PG/ML Total Protein 7.7 6.4-8.2 GM/DL Albumin 4.3 3.2-4.5 GM/DL Procalcitonin 0.06 <0.10 NG/ML Coronavirus (COVID-19)(PCR) Positive H Negative Influenza Type A Antigen NEGATIVE NEGATIVE Influenza Type B Antigen NEGATIVE NEGATIVE My Orders Orders - MONSERRAT MARIN Ekg Tracing (04/09/21 23:06) Continuous Ekg Monitoring (04/09/21 23:06) Coronavirus Sars-Cov-2 So 2019 (04/09/21 23:06) Influenza A & B Antigens (04/09/21 23:06) Cbc With Automated Diff (04/09/21 23:06) Comprehensive Metabolic Panel (04/09/21 23:06) Hs C Reactive Protein (04/09/21 23:06) Procalcitonin (Pct) (04/09/21 23:06) Bnp Caroline (04/09/21 23:06) Troponin I Caroline (04/09/21 23:06) Chest 1 View, Ap/Pa Only (04/09/21 23:06) Protime With Inr (04/09/21 23:06) Acetaminophen Tablet (Tylenol Tablet) (04/09/21 23:15) Creatine Kinase (04/09/21 23:17) Ed Iv/Invasive Line Start (04/10/21 00:07) Ns Iv 1000 Ml (Sodium Chloride 0.9%) (04/10/21 00:15) Medications Given in ED Vital Signs/I&O 04/09/21 04/09/21 04/09/21 04/10/21 22:59 22:59 23:18 01:27 Temp 39.1 39.1 38.2 Pulse 129 112 Resp 18 16 B/P (MAP) 139/81 (100) 124/80 Pulse Ox 98 96 O2 Delivery Room Air Room Air Room Air Capillary Refill : Progress Note #1: Time: 23:13 Progress Note The patient would like us to examine him for heart failure in addition to infection. We will get a chest x-ray, BNP troponin EKG. He is tachycardic and probably in atrial fibrillation with rapid ventricular response/atrial fibrillation tachycardia related to infection. We will not complete a septic work-up initially until we know what his BNP and chest x-ray look like as well as if he has a viral infection. He does not appear to be particularly dehydrated. He does not have JVD or evidence of peripheral edema. Covid and influenza swabs. Labs and inflammatory markers. Progress Note #2: Time: 00:08 Progress Note Patient has some modest rhabdomyolysis of uncertain origin, perhaps from viral infection? Flu was negative Covid will be pending for a few days. Plan to give him a cautious liter of fluids and reevaluate. Tylenol for body aches and fever. INR is a little subtherapeutic. We will see if he took his warfarin today. ECG Initial ECG Impression Date: Apr 09, 2021 Initial ECG Impression Time: 23:09 Initial ECG Rate: 123 Initial ECG Rhythm: S.Tach Initial ECG Intervals: Normal Initial ECG Impression: Normal Initial ECG Comparisson: Changed Comment Sinus tachycardia without clinically relevant ST changes. Diagnostic Imaging Diagonstic Imaging: Xray Plain Films/CT/US/NM/MRI: chest Comments No acute cardiopulmonary processes on 1 view chest x-ray. [facility] [place] [place], [place] NAME: CHANA SANCHEZ [facility] REC#: [id number] PT STATUS: DEP ER : 1980 PHYSICIAN: MONSERRAT MARIN MD ADMIT DATE: 04/09/21/ER Signed Date of Exam:04/09/21 CHEST 1 VIEW, AP/PA ONLY EXAMINATION: Chest 1 view HISTORY: Cough. Fever. Body aches. COMPARISON: 12/23/2019. FINDINGS: The lung volumes are normal. No focal consolidation is seen. No large pleural effusion or pneumothorax is seen. The cardiomediastinal silhouette is normal in size and contour. Left pectoral ICD is in place. No acute osseous abnormality is seen. IMPRESSION: 1. No acute pleuroparenchymal process. Dictated by: Dictated on workstation # [id number] Dict: 04/10/21630 Trans: 04/10/2136 [id number] Interpreted by: DORCAS CHOI DO Electronically signed by: DORCAS CHOI DO 04/10/2136 Reviewed: Reviewed by Me Departure Impression Primary Impression: Rhabdomyolysis Qualified Codes: M62.82 - Rhabdomyolysis Additional Impression: Person under investigation for COVID-19 Disposition: 01 HOME, SELF-CARE Condition: Stable Departure-Patient Inst. Decision time for Depature: 00:21 Referrals: [facility] [place] (PCP) Primary Care Physician AMBREEN MUÑOZ APRN (Family) Primary Care Physician Patient Instructions: COVID-19 (DC), Rhabdomyolysis (DC) Add. Discharge Instructions: Drink lots of fluids. Continue take your medications as prescribed. Follow-up with your primary care doctor next week to have repeat labs for your PT/INR and kidney function. Return to the ER for significant worsening symptoms or shortness of air result ing in oxygen saturations below 90% while at rest. We should call you with the test result for your Covid in 3 to 4 days. If your Covid is negative you go back to work at any point but for now stay home as long as you have a fever. Tylenol 1000 mg every 8 hours as necessary for fever or pain. Body aches should improve over the next couple days. All discharge instructions reviewed with patient and/or family. Voiced understanding. Scripts Benzonatate (TESSALON PERLES) 100 Mg Capsule 100 MG PO Q6H PRN for COUGH, #20 CAP 0 Refills Prov: MONSERRAT MARIN 04/10/21 Ondansetron (Ondansetron Odt) 4 Mg Tab.rapdis 4 MG PO Q6H PRN for NAUSEA/VOMITING, #8 TAB 0 Refills Prov: MONSERRAT MARIN 04/10/21 Work/School Note: Work Release Form Date Seen in the Emergency Department: Apr 10, 2021 Return to Work: Apr 16, 2021 Restrictions: Return-No Fever (24hrs) Other Restrictions Listed Below: May return sooner if Covid is negative and fever free for 24 h. Copy Copies To 1: LIGIA MONTES TITUS J Apr 09, 2021 23:14
[2021-04-09] MEDS ORDERED: ACETAMINOPHEN 500 MG TAB (TYLENOL) PO ONE (23:15)
[2021-04-09 23:21] LABS: BASOPHILS % (AUTO) 0 % (0-10); EOSINOPHILS % (AUTO) 0 % (0-10); HEMATOCRIT 52 % (40-54); HEMOGLOBIN 17.4 g/dL (13.3-17.7); LYMPHOCYTES # (AUTO) 0.8 10^3/uL (1.0-4.0); LYMPHOCYTES % (AUTO) 9 % (12-44); MEAN CORPUSCULAR HEMOGLOBIN 31 pg (25-34); MEAN CORPUSCULAR HGB CONC 33 g/dL (32-36); MEAN CORPUSCULAR VOLUME 92 fL (80-99); MEAN PLATELET VOLUME 10.2 fL (9.0-12.2); MONOCYTES # (AUTO) 0.9 10^3/uL (0.0-1.0); MONOCYTES % (AUTO) 10 % (0-12); NEUTROPHILS # (AUTO) 7.2 10^3/uL (1.8-7.8); NEUTROPHILS % (AUTO) 79 % (42-75); PLATELET COUNT 233 10^3/uL (130-400); WHITE BLOOD COUNT 9.1 10^3/uL (4.3-11.0)
[2021-04-09 23:31] LABS: ALBUMIN 4.3 GM/DL (3.2-4.5); CHLORIDE 104 MMOL/L (98-107); INR 1.8 (0.8-1.4); POTASSIUM 4.2 MMOL/L (3.6-5.0); PROTHROMBIN TIME PATIENT 21.5 SEC (12.2-14.7); SODIUM 136 MMOL/L (135-145)
[2021-04-09 23:32] LABS: CALCIUM 9.8 MG/DL (8.5-10.1)
[2021-04-09 23:33] LABS: GLUCOSE 224 MG/DL (70-105); TOTAL PROTEIN 7.7 GM/DL (6.4-8.2)
[2021-04-09 23:34] LABS: CARBON DIOXIDE 17 MMOL/L (21-32)
[2021-04-09 23:35] LABS: BILIRUBIN,TOTAL 0.3 MG/DL (0.1-1.0)
[2021-04-09 23:36] LABS: ALKALINE PHOSPHATASE 47 U/L (40-136)
[2021-04-09 23:37] LABS: CREATININE SERUM 1.51 MG/DL (0.60-1.30); GFR ESTIMATED 59
[2021-04-09 23:38] LABS: BUN/CREATININE RATIO 11
[2021-04-09 23:40] LABS: ALANINE AMINOTRANSFERASE 26 U/L (0-55)
[2021-04-10] MEDS ORDERED: NS IV 1000 ML 1,000 ML IV SCH (00:15)
[2021-04-10] MEDS ORDERED: ONDA4TAB11 PO (00:21)
[2021-04-10] MEDS ORDERED: BENZ100C18 PO (00:21)
[2021-04-10 01:27] VITALS: BP 124/80
--- NOTE | 2021-04-10 06:33 | Diagnostic Imaging Report ---
EXAMINATION: Chest 1 view HISTORY: Cough. Fever. Body aches. COMPARISON: 12/23/2019. FINDINGS: The lung volumes are normal. No focal consolidation is seen. No large pleural effusion or pneumothorax is seen. The cardiomediastinal silhouette is normal in size and contour. Left pectoral ICD is in place. No acute osseous abnormality is seen. IMPRESSION: 1. No acute pleuroparenchymal process. Dictated by: Dictated on workstation # [id number]
== END 2021-04-10 01:27 | disposition home or self-care (01) ==
LOC: EDUNIT# 22:37 → ER 22:44
DX: U07.1 COVID-19 (principal); M62.82 Rhabdomyolysis; G47.30 Sleep apnea, unspecified; I10 Essential (primary) 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; E11.9 Type 2 diabetes mellitus without complications; F17.210 Nicotine dependence, cigarettes, uncomplicated; Z79.01 Long term (current) use of anticoagulants; Z79.4 Long term (current) use of insulin; Z79.82 Long term (current) use of aspirin; Z79.899 Other long term (current) drug therapy
CPT/HCPCS: 36415; 71045; 80053; 82550; 83880; 84145; 84484; 85025; 85610; 86141; 87635; 87804; 93005

== ENCOUNTER → 2021-07-19 | Outpatient (CLI) | payer MEDICAID ==
[~2021-07-19] MED LIST changes: +BENZ100C18 PO; +ONDA4TAB11 PO
== END ==
LOC: CARD 11:30
PROVIDERS: ATTEND Internal Medicine Cardiovascular Disease
DX: I11.9 Hypertensive heart disease without heart failure (principal); I25.10 Atherosclerotic heart disease of native coronary artery without angina pectoris
CPT/HCPCS: 93306

== ENCOUNTER → 2021-12-05 | Outpatient (CLI) | payer MEDICARE, MEDICAID ==
[~2021-12-05] VITALS: Ht 177 cm; Wt 119.0 kg
[~2021-12-05] MED LIST changes: +CATHETER FLUSH 10 ML SYR IVP PRN; +REGADENOSON 0.4 MG/5 ML SYR (LEXISCAN) IV ONE
[2021-12-05 09:17] VITALS: BP 133/82
[2021-12-05 09:24] VITALS: BP 125/91
--- NOTE | 2021-12-05 13:18 | Cardiology Stress Test Report ---
Stress Test Report Date of Procedure/Referring: Date of Procedure: Dec 05, 2021 [facility] Admitting Physician Admitting Physician: Attending Physician: Macrina Dillon MD Indications: CP Baseline Heart Rate: 83 Baseline Blood Pressure: Blood Pressure Systolic: 125 Blood Pressure Diastolic: 91 Baseline Vitals Vital Signs Date Time Temp Pulse Resp B/P (MAP) Pulse Ox O2 Delivery O2 Flow Rate FiO2 12/05/21 09:17 84 17 133/82 (99) 99 Room Air Baseline EKG: Baseline EKG: NSR Summary After explaining the procedure to the patient, he signed a consent and then brought to the stress nuclear laboratory. Patient received 0.4 mg Lexiscan for stress test, ECG, heart rate and blood pressure were monitored continuously. Resting and stress dose of radio tracer were injected, imaging was acquired and reviewed in short axis, horizontal long axis and vertical long axis views. TID: 1.18 SSS: 5 SDS: 5 EF: 43 1. Patient tolerated Lexiscan well 2. Diaphragmatic attenuation with reversible ischemia involving the mid to apical inferior wall 3. Normal left ventricular size with hypokinesia at the inferior wall and the anterior septum, ejection fraction 43% Copy Copies To 1: [facility]/MACRINA ROBERTS MD Dec 05, 2021 13:18
== END ==
LOC: CARD 07:44
PROVIDERS: ATTEND Internal Medicine Cardiovascular Disease
DX: I25.10 Atherosclerotic heart disease of native coronary artery without angina pectoris (principal); I10 Essential (primary) 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
CPT/HCPCS: 78452; 93017; A9502

== ENCOUNTER 2021-12-12 10:08 | Day surgery (SDC) | payer MEDICARE, MEDICAID ==
[2021-12-12] VITALS (10 sets, daily range): BP systolic 116–138; BP diastolic 85–102
[~2021-12-12] VITALS: Ht 178 cm; Wt 119.0 kg
[~2021-12-12 10:08] MED LIST changes: -CATHETER FLUSH 10 ML SYR IVP PRN; -REGADENOSON 0.4 MG/5 ML SYR (LEXISCAN) IV ONE
[2021-12-12] MEDS ORDERED: LIDOCAINE 1% INJ 30 ML (XYLOCAINE) VIAL ONE (10:21)
[2021-12-12] MEDS ORDERED: NS IV 1000 ML 1,000 ML ONE (10:21)
[2021-12-12] MEDS ORDERED: HEParin (CATH LAB) 2,000 ML IV ONE (10:21)
[2021-12-12] MEDS ORDERED: NS IV 1000 ML 1,000 ML IV ONE (11:00)
--- NOTE | 2021-12-12 11:19 | Diagnostic Imaging Report ---
EXAMINATION: Chest 1 view HISTORY: Abnormal stress. COMPARISON: 04/09/2021 FINDINGS: The lungs are clear without edema or pneumonia. No pleural effusion or pneumothorax. Heart size is normal. Pacemaker is present. IMPRESSION: 1. Clear lungs. Dictated by: Dictated on workstation # [id number]
[2021-12-12 11:24] LABS: HEMATOCRIT 55 % (40-54); HEMOGLOBIN 18.2 g/dL (13.3-17.7); MEAN CORPUSCULAR HEMOGLOBIN 30 pg (25-34); MEAN CORPUSCULAR HGB CONC 33 g/dL (32-36); MEAN CORPUSCULAR VOLUME 92 fL (80-99); MEAN PLATELET VOLUME 10.3 fL (9.0-12.2); PLATELET COUNT 229 10^3/uL (130-400); WHITE BLOOD COUNT 7.7 10^3/uL (4.3-11.0)
[2021-12-12 11:25] LABS: BILIRUBIN,URINE NEGATIVE (NEGATIVE); CLARITY,URINE CLEAR; COLOR,URINE YELLOW; GLUCOSE, URINE (UA) 3+ (NEGATIVE); KETONES,URINE NEGATIVE (NEGATIVE); LEUKOCYTE ESTERASE ,URINE NEGATIVE (NEGATIVE); NITRITE,URINE NEGATIVE (NEGATIVE); PH,URINE 5.5 (5-9); PROTEIN,URINE NEGATIVE (NEGATIVE)
[2021-12-12] MEDS ORDERED: METO200T48 PO (11:30)
[2021-12-12] MEDS ORDERED: WARF-48 PO (11:30)
[2021-12-12] MEDS ORDERED: DAPA10TA PO (11:30)
[2021-12-12] MEDS ORDERED: SACU1TAB4 PO (11:30)
[2021-12-12 11:43] LABS: INR 0.9 (0.8-1.4)
[2021-12-12 11:51] LABS: ALBUMIN 4.1 GM/DL (3.2-4.5); BILIRUBIN,TOTAL 0.6 MG/DL (0.1-1.0); CALCIUM 9.6 MG/DL (8.5-10.1); CREATININE SERUM 1.25 MG/DL (0.60-1.30); POTASSIUM 4.2 MMOL/L (3.6-5.0); TOTAL PROTEIN 7.4 GM/DL (6.4-8.2)
[2021-12-12 11:52] LABS: WBC,URINE 0-2 /HPF
[2021-12-12 11:53] LABS: BACTERIA,URINE NEGATIVE /HPF
[2021-12-12] MEDS ORDERED: MIDAZOLAM 5 MG/5 ML (VERSED) VIAL ONE (12:27)
[2021-12-12] MEDS ORDERED: NITRO DRIP 25000 MCG/D5W 250 ML IV ONE (12:28)
[2021-12-12] MEDS ORDERED: VERAPAMIL 5 MG/2 ML (CALAN) VIAL IV ONE (12:28)
[2021-12-12] MEDS ORDERED: HEParin 1000 UNIT/ML (10ML VIAL) FOR BOLUS ONE (12:28)
[2021-12-12] MEDS ORDERED: fentaNYL INJ 100 MCG/2 ML AMP ONE (12:30)
--- NOTE | 2021-12-12 12:49 | Cardiac Procedure Note-CS/ASA ---
Pre-Procedure Note Pre-Op Procedure Note Date of Available H&P: Dec 06, 2021 Date H&P Reviewed: Dec 12, 2021 Time H&P Reviewed: History & Physical: H&P Reviewed, Patient Examed, No changes noted Pre-Operative Diagnosis: congestive heart failure Conscious Sedation Pre-Proced Time 11:30 ASA Score 3 For ASA 3 and 4: Consider anesthesia and medical clearance. Also, for patients with a history of failed moderate sedation consider anesthesia. Airway Lungs Heart ASA score ASA 1: a normal healthy patient ASA 2: a patient with a mild systemic disease (mid diabetes, controlled 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, obesity ASA 3: a patient with a severe systemic disease that limits activity (angina, COPD, prior Myocardial infarction) ASA 4: a patient with an incapacitating disease that is a constant threat to life (CHF, renal failure) ASA 5: a moribund patient not expected to survive 24 hrs. (ruptured aneurysm) ASA 6: a declared brain- patient whose organs are being harvested. For emergent operations, add the letter E after the classification Mallampati Classification Grade 3 Sedation Plan Analgesia, Amnesia, Plan communicated to team members, Discussed options with patient/fam, Discussed risks with patient/fam The patient is an appropriate candidate to undergo the planned procedure, sedation, and anesthesia. The patient immediately re-assessed prior to indication. MACRINA BOYER MD Dec 12, 2021 12:49
[2021-12-12] MEDS ORDERED: MIDAZOLAM 2 MG/2 ML (VERSED) VIAL ONE (12:50)
--- NOTE | 2021-12-12 12:50 | Discharge Inst-Post CATH ---
Discharge Inst-CATH/EP Problems Reviewed?: Yes Post Cardiac Cath/EP D/C Inst Follow Up/Plan Appointment with Dr. Dillon's office in 2 to 4 weeks <b>CARDIAC CATH/EP PROCEDURE DISCHARGE INSTRUCTIONS</b> ACTIVITY * Go Home directly and rest. * Limit activity of the leg (or wrist if it was used) for 7 days including aer obics, swimming, jogging, bicycling, etc. * Restrict stair-climbing for 7 days if possible, if not, climb up with your non-cath leg, then bring together on the same step. * Avoid lifting, pushing, pulling or excessive movement of the affected extremi ty for 7 days. * Customary sexual activity may be resumed after 2 days-use caution not to use a position that strains or causes pain to the affected extremity. * No driving for 24 hours. * NO SMOKING. * Avoid straining for bowel movements for 7 days. * Gentle walking on level ground is allowed. * Returning to work will depend on the type of procedure and the results. Your doctor will discuss this with you. CALL YOUR DOCTOR FOR ANY OF THE FOLLOWING: *If bleeding from the puncture site occurs- Apply gentle pressure to site with clean cloth and call your doctor or EMS. * If a knot or lump forms under the skin, increases in size, or causes pain. * If bruising appears to be worsening or moving further down your leg instead of disappearing. * Temperature above 101 F. CARE OF YOUR GROIN INCISION; * Bruising or purple discoloration of the skin near the puncture site is common. * You may shower only, no bathtub bathing for 5 days. Be careful to avoid slipping as your leg may feel stiff. * If a closure device was used on your femoral artery, please see the attached guide regarding care of the device and your leg. * Leave dressing on FOR 24 hours. CARE OF YOUR WRIST INCISION; * Bruising or purple discoloration of the skin near the puncture site is common. * You may shower. * DO NOT submerge wrist. * Leave dressing on FOR 24 hours. MACRINA DILLON MD Dec 12, 2021 12:50
[2021-12-12] MEDS ORDERED: NS IV 1000 ML 1,000 ML IV SCH (13:00)
--- NOTE | 2021-12-12 13:03 | Cardiac Cath Report ---
Cardiac Cath Report Physician (s)/Assisted Living Executive Director (s) Physician MACRINA BOYER MD Pre-Procedure Diagnosis Pre-Procedure Diagnosis: congestive heart failure Post-Procedure Note Procedure Start Date: Dec 12, 2021 Name of Procedure: Left heart catheterization Findings/Procedure Note PROCEDURE NOTE: 41-year-old gentleman with severe cardiomyopathy nonischemic in nature, had an abnormal stress test, scheduled for cardiac catheterization possible PTCA. After explaining the procedure to the patient, all pros and cons were explained, all questions were answered. The patient signed the consent and then he was placed on the cardiac catheterization laboratory. Groin was prepped SL fashion local anesthesia was used. Sheath placed in the right radial artery, [place] catheter was advanced to the left ventricular cavity, pressure was measured, pul lback LV to aorta was done, engage the right and left coronary system, angiogram was done. At the end of the procedure the sheath was removed. Vascular band was used FINDINGS: Hemodynamics LV 109/13, end-diastolic pressure of 13 Aorta 105/82 mean of 77 ANATOMY: Left Main is free of obstructive disease Left Anterior Descending has mild disease nonobstructive disease Left Circumflex has mild disease nonobstructive disease Right Coronary Artery has mild disease nonobstructive disease LV Gram was not done, pressure was measured CONCLUSION: 1. Mild coronary artery disease nonobstructive disease 2. Normal left ventricular end-diastolic pressure DISCUSSION AND RECOMMENDATION: Abnormal stress test is probably due to cardiomyopathy. There is no significant obstructive disease was noted. Anesthesia Type: Conscious Sedation Estimated blood loss (mL): 10 ml Contrast Amount: 35 ml Total Radiation Dose: 347 mGy Post-Procedure Diagnosis Post-operative diagnosis: Coronary artery disease Congestive heart failure, chronic compensated left ventricular systolic dysfunction, nonischemic cardiomyopathy Dilated cardiomyopathy Hypertension Hyperlipidemia MACRINA BOYER MD Dec 12, 2021 13:03
== END 2021-12-12 15:28 | disposition home or self-care (01) ==
LOC: CATH 10:08 → ICU 13:22 → CATH 15:28
PROVIDERS: ATTEND Internal Medicine Cardiovascular Disease
DX: I25.10 Atherosclerotic heart disease of native coronary artery without angina pectoris (principal); I11.0 Hypertensive heart disease with heart failure; I50.22 Chronic systolic (congestive) heart failure; I42.0 Dilated cardiomyopathy; E78.5 Hyperlipidemia, unspecified; E66.9 Obesity, unspecified; Z68.37 Body mass index [BMI] 37.0-37.9, adult; F17.210 Nicotine dependence, cigarettes, uncomplicated; I34.0 Nonrheumatic mitral (valve) insufficiency; E11.9 Type 2 diabetes mellitus without complications; I47.20 Ventricular tachycardia, unspecified; Z79.899 Other long term (current) drug therapy; Z79.01 Long term (current) use of anticoagulants; Z79.4 Long term (current) use of insulin
CPT/HCPCS: 71045; 80053; 80061; 81000; 85027; 85610; 85730; 87081; 93005; 93458; C1894; 36415

== ENCOUNTER 2022-08-31 10:47 | Emergency (ER) | payer MEDICARE, MEDICAID ==
[~2022-08-31] VITALS: Ht 177.8 cm; Wt 119.0 kg
[~2022-08-31 10:47] MED LIST changes: +ALBU8.5H6 IH; +DAPA10TA PO; -INSU100I29 SQ; +INSU100I30 SQ; +METO200T48 PO; -RT-ALBUINH IH
--- NOTE | 2022-08-31 11:22 | ED Cardiac General ---
History of Present Illness General Stated Complaint: PACE MAKER PROBLEM Source: patient Exam Limitations: no limitations History of Present Illness Date Seen by Provider: Aug 31, 2022 Time Seen by Provider: 11:00 Initial Comments To ER by POV accompanied by daughter. Patient provides his own history. Complains of some bruising that he noticed around the left upper chest pacemaker site last night. No known injury. Pacemaker was placed by Dr. Dillon about 2 years ago here. He does complain of some sharp shooting pains at the site but denies any chest pressure shortness of breath nausea or activity intolerance. No ankle pain or swelling. No palpitations. He is on warfarin, states that his last INR check was 2 weeks ago and at that point he was supratherapeutic with an INR that he thinks was around 4. Timing/Duration: intermittent Severity: moderate Activities at Onset: none Modifying Factors: worse with movement NTG SL EYEGLASS LENS GRINDER: No ASA po EYEGLASS LENS GRINDER: No Associated Systoms: Denies Symptoms Allergies and Home Medications Allergies Coded Allergies: Fish Containing Products (Unverified Allergy, Unknown, 11/18/18) FROM UNCODED ALLERGY "SEAFOOD" metformin (Verified Allergy, Unknown, 04/09/21) Patient Home Medication List Home Medication List Reviewed: Yes Dapagliflozin Propanediol (Farxiga) 10 Mg Tablet, 10 MG PO DAILY, (Reported) Entered as Reported by: DUNG GONZALEZ on 12/12/21 1130 Furosemide (Lasix) 20 Mg Tablet, 20 MG PO DAILY, (Reported) Entered as Reported by: MONICA CHAVEZ on 11/04/18 1053 Insulin Detemir (Levemir Flextouch) 100 Unit/1 Ml Insuln.pen, 50 UNIT SQ BID, (Reported) Entered as Reported by: MERARI OSBORNE on 07/20/15 1315 Metoprolol Succinate (Metoprolol Succinate) 200 Mg Tab.er.24h, 200 MG PO DAILY, (Reported) Entered as Reported by: DUNG GONZALEZ on 12/12/21 1130 Potassium Chloride (Potassium Chloride) 10 Meq Tablet.er, 10 MEQ PO DAILY, (Reported) Entered as Reported by: MONICA CHAVEZ on 11/04/18 1052 Sacubitril/Valsartan (Entresto 97 mg-103 mg Tablet) 97 Mg-103 Mg Tablet, 1 TAB PO BID, (Reported) Entered as Reported by: DUNG GONZALEZ on 12/12/21 113 Warfarin Sodium (Warfarin Sodium) 5 Mg Tablet, 5 MG PO, (Reported) Entered as Reported by: DUNG GONZALEZ on 12/12/210 Review of Systems Review of Systems Constitutional: see HPI; No chills, No dizziness, No fever, No malaise, No weakness EENTM: No Symptoms Reported Respiratory: No Symptoms Reported; Denies Cough, Denies Shortness of Air Cardiovascular: See HPI, Chest Pain (Sharp shooting pains at the pacemaker site) Gastrointestinal: No Symptoms Reported Genitourinary: No Symptoms Reported Musculoskeletal: no symptoms reported Skin: no symptoms reported Psychiatric/Neurological: No Symptoms Reported Endocrine: No Symptoms Reported Hematologic/Lymphatic: No Symptoms Reported Past Ilmpsza-Peongt-Srpeon Hx Immunizations Up To Date Tetanus Booster (TDap): Unknown PED Vaccines UTD: Yes Seasonal Allergies Seasonal Allergies: Yes Past Medical History Surgery/Hospitalization HX: PACER DM AFIB Surgeries: Yes Cardiac, Defibrillator, Eye Surgery, Orthopedic, Pacemaker Respiratory: Yes Sleep Apnea Currently Using CPAP: No Cardiac: Yes Cardiomyopathy, High Cholesterol, Hypertension, Irregular Heartbeat Neurological: Yes Headaches /Migraines Genitourinary: No Gastrointestinal: Yes Pancreatitis Musculoskeletal: No Endocrine: Yes Diabetes, Insulin dep HEENT: Yes (DETACHED LEFT RETINA REPAIR 2007) Cancer: No Psychosocial: Yes Anxiety Integumentary: No Blood Disorders: Yes (SICKLE CELL TRAIT) Family Medical History No Pertinent Family Hx, Diabetes Physical Exam Vital Signs Vital Signs - First Documented 08/31/22 11:00 Temp 37.0 Pulse 98 Resp 20 B/P (MAP) 148/115 (126) Pulse Ox 97 O2 Delivery Room Air Capillary Refill : Height, Weight, BMI Height: 5'9.00" Weight: 270lbs. 0.0oz. 122.555028uo; 37.55 BMI Method:Stated General Appearance: No Apparent Distress, WD/WN, Other (Well-appearing no distress alert and oriented. Heart rate 105 sinus. Blood pressure 147/105.) HEENT: PERRL/EOMI, TMs Normal Neck: Full Range of Motion, Normal Inspection Respiratory: No Accessory Muscle Use, No Respiratory Distress (Her) Cardiovascular: Normal Peripheral Pulses, Tachycardia Gastrointestinal: Non Tender, Soft Extremity: Normal Capillary Refill, Normal Inspection Neurologic/Psychiatric: Alert, Oriented x3 Skin: Normal Color, Warm/Dry Progress/Results/Core Measures Results/Orders Lab Results Laboratory Tests Test 08/31/22 11:24 Range/Units White Blood Count 10.6 4.3-11.0 10^3/uL Red Blood Count 6.18 H 4.30-5.52 10^6/uL Hemoglobin 18.6 H 13.3-17.7 g/dL Hematocrit 55 H 40-54 % Mean Corpuscular Volume 89 80-99 fL Mean Corpuscular Hemoglobin 30 25-34 pg Mean Corpuscular Hemoglobin Concent 34 32-36 g/dL Red Cell Distribution Width 15.2 H 10.0-14.5 % Platelet Count 233 130-400 10^3/uL Mean Platelet Volume 10.2 9.0-12.2 fL Immature Granulocyte % (Auto) 0 % Neutrophils (%) (Auto) 55 42-75 % Lymphocytes (%) (Auto) 35 12-44 % Monocytes (%) (Auto) 9 0-12 % Eosinophils (%) (Auto) 1 0-10 % Basophils (%) (Auto) 0 0-10 % Neutrophils # (Auto) 5.8 1.8-7.8 10^3/uL Lymphocytes # (Auto) 3.7 1.0-4.0 10^3/uL Monocytes # (Auto) 1.0 0.0-1.0 10^3/uL Eosinophils # (Auto) 0.1 0.0-0.3 10^3/uL Basophils # (Auto) 0.0 0.0-0.1 10^3/uL Immature Granulocyte # (Auto) 0.0 0.0-0.1 10^3/uL Prothrombin Time 24.4 H 12.2-14.7 SEC INR Comment 2.2 H 0.8-1.4 Sodium Level 138 135-145 MMOL/L Potassium Level 3.6 3.6-5.0 MMOL/L Chloride Level 107 98-107 MMOL/L Carbon Dioxide Level 19 L 21-32 MMOL/L Anion Gap 12 5-14 MMOL/L Blood Urea Nitrogen 12 7-18 MG/DL Creatinine 1.07 0.60-1.30 MG/DL Estimat Glomerular Filtration Rate 88 BUN/Creatinine Ratio 11 Glucose Level 130 H 70-105 MG/DL Calcium Level 9.8 8.5-10.1 MG/DL Corrected Calcium 9.6 8.5-10.1 MG/DL Magnesium Level 1.5 L 1.6-2.4 MG/DL Total Bilirubin 0.9 0.1-1.0 MG/DL Aspartate Amino Transf (AST/SGOT) 26 5-34 U/L Alanine Aminotransferase (ALT/SGPT) 29 0-55 U/L Alkaline Phosphatase 63 40-136 U/L Total Protein 7.3 6.4-8.2 GM/DL Albumin 4.3 3.2-4.5 GM/DL My Orders Orders - BLADIMIR OBRIEN APRN Protime With Inr (08/31/22 11:15) Cbc With Automated Diff (08/31/22 11:15) Comprehensive Metabolic Panel (08/31/22 11:15) Chest 1 View, Ap/Pa Only (08/31/22 11:15) Magnesium (08/31/22 11:22) Vital Signs/I&O 08/31/22 11:00 Temp 37.0 Pulse 98 Resp 20 B/P (MAP) 148/115 (126) Pulse Ox 97 O2 Delivery Room Air Departure Communication (Admissions) Reviewed and shows a normal white count, elevated hemoglobin at 18, normal platelets. INR is appropriate at 2.2. Chemistry reviewed and normal shows a mild hypomagnesemia. We will have him take an oral [id number] magnesium supplement. Chest x-ray is clear. Have him follow-up with Dr. Dillon next week for recheck. NAME: CHANA SANCHEZ [facility] REC#: [id number] PT STATUS: REG ER : 1980 PHYSICIAN: BLADIMIR OBRIEN APRN ADMIT DATE: 08/31/22/ER Draft Date of Exam:08/31/22 CHEST 1 VIEW, AP/PA ONLY EXAMINATION: Chest, 1 view. HISTORY: Pacemaker placement. COMPARISON: 12/12/2021. FINDINGS: The lungs are clear without edema or pneumonia. No pleural effusion or pneumothorax. Heart size is normal. A pacemaker is present. IMPRESSION: Clear lungs. Dictated on workstation # [id number] Dict: 08/31/22 1144 Trans: 08/31/22 1149 [id number] Interpreted by: JEM VALERIO MD Electronically signed by: Impression Primary Impression: Superficial bruising of chest wall Disposition: 01 HOME, SELF-CARE Condition: Stable Departure-Patient Inst. Decision time for Depature: 11:54 Referrals: [facility] [place] (PCP/Family) Primary Care Physician Patient Instructions: Taking care of bruises Add. Discharge Instructions: 1. Ice pack to the chest wall at 30-minute intervals. Your INR is appropriate at 2.2. Return to ER for any concerns. Call Dr. Dillon for follow-up next week. I do not find a concerning cause for the bruise at this point. BLADIMIR OBRIEN BRICK SETTER Aug 31, 2022 11:21
[2022-08-31 11:39] LABS: BASOPHILS % (AUTO) 0 % (0-10); EOSINOPHILS # (AUTO) 0.1 10^3/uL (0.0-0.3); EOSINOPHILS % (AUTO) 1 % (0-10); HEMATOCRIT 55 % (40-54); HEMOGLOBIN 18.6 g/dL (13.3-17.7); LYMPHOCYTES # (AUTO) 3.7 10^3/uL (1.0-4.0); LYMPHOCYTES % (AUTO) 35 % (12-44); MEAN CORPUSCULAR HEMOGLOBIN 30 pg (25-34); MEAN CORPUSCULAR HGB CONC 34 g/dL (32-36); MEAN CORPUSCULAR VOLUME 89 fL (80-99); MEAN PLATELET VOLUME 10.2 fL (9.0-12.2); MONOCYTES % (AUTO) 9 % (0-12); NEUTROPHILS # (AUTO) 5.8 10^3/uL (1.8-7.8); NEUTROPHILS % (AUTO) 55 % (42-75); PLATELET COUNT 233 10^3/uL (130-400); WHITE BLOOD COUNT 10.6 10^3/uL (4.3-11.0)
[2022-08-31 11:42] LABS: ALBUMIN 4.3 GM/DL (3.2-4.5); POTASSIUM 3.6 MMOL/L (3.6-5.0)
[2022-08-31 11:43] LABS: CALCIUM 9.8 MG/DL (8.5-10.1); INR 2.2 (0.8-1.4); PROTHROMBIN TIME PATIENT 24.4 SEC (12.2-14.7)
[2022-08-31 11:45] LABS: TOTAL PROTEIN 7.3 GM/DL (6.4-8.2)
[2022-08-31 11:46] LABS: BILIRUBIN,TOTAL 0.9 MG/DL (0.1-1.0)
[2022-08-31 11:48] LABS: CREATININE SERUM 1.07 MG/DL (0.60-1.30)
--- NOTE | 2022-08-31 11:49 | Diagnostic Imaging Report ---
EXAMINATION: Chest, 1 view. HISTORY: Pacemaker placement. COMPARISON: 12/12/2021. FINDINGS: The lungs are clear without edema or pneumonia. No pleural effusion or pneumothorax. Heart size is normal. A pacemaker is present. IMPRESSION: Clear lungs. Dictated by: Dictated on workstation # [id number]
[2022-08-31 11:51] LABS: MAGNESIUM 1.5 MG/DL (1.6-2.4)
[2022-08-31 12:10] VITALS: BP 137/100
== END 2022-08-31 12:10 | disposition home or self-care (01) ==
LOC: EDUNIT# 10:47 → ER 10:50
DX: S20.212A Contusion of left front wall of thorax, initial encounter (principal); E83.42 Hypomagnesemia; E11.9 Type 2 diabetes mellitus without complications; Z79.4 Long term (current) use of insulin; Z79.01 Long term (current) use of anticoagulants; Z95.0 Presence of cardiac pacemaker; X58.XXXA Exposure to other specified factors, initial encounter
CPT/HCPCS: 36415; 71045; 80053; 83735; 85025; 85610